=== PATIENT | male | born 1955 | race Caucasian/White ===

== ENCOUNTER 2023-11-17 15:39 | Outpatient (OUT) | payer MEDICARE, SELFPAY ==
[2023-11-17 16:21] LABS: Basophils Percent Auto 0.2 % (0.2-2.0); Eosinophils Absolute Auto 0.1 10^3/uL (0.0-0.7); Hematocrit 42.1 % (42.0-54.0); Hemoglobin 14.8 g/dL (14.0-18.0); Immature Granulocytes Abs Auto 0.01 10^3/uL (0.00-0.03); Immature Granulocytes Pct Auto 0.2 % (0.0-0.5); Lymphocytes Absolute Auto 0.9 10^3/uL (1.2-3.8); Lymphocytes Percent Auto 17.4 % (20.5-60.0); Mean Corpuscular HGB Conc 35.2 g/dL (29.9-35.2); Mean Corpuscular Hemoglobin 31.3 pg (25.9-34.0); Mean Platelet Volume 10.3 fL (9.5-13.5); Monocytes Absolute Auto 0.4 10^3/uL (0.3-0.8); Monocytes Percent Auto 8.7 % (1.7-12.0); Neutrophils Absolute Auto 3.7 10^3/uL (1.4-6.5); Neutrophils Percent Auto 72.5 % (43.0-75.0); Platelet Count 181 10^3/uL (150-450); Red Blood Count 4.73 10^6/uL (4.70-6.10); White Blood Count 5.1 10^3/uL (4.0-11.0)
[2023-11-17 17:06] LABS: Estimated Average Glucose 117 mg/dL; Glycohemoglobin A1C 5.7 % (4.5-6.2)
[2023-11-17 17:11] LABS: Bilirubin Urine NEGATIVE (NEGATIVE); Blood Urine NEGATIVE (NEGATIVE); Clarity Urine CLEAR (CLEAR); Color Urine YELLOW (YELLOW); Glucose Urine UA NEGATIVE (NEGATIVE); Ketones Urine 40 mg/dL (NEGATIVE); Leukocyte Esterase Urine NEGATIVE (NEGATIVE); Nitrite Urine NEGATIVE (NEGATIVE); Protein Urine NEGATIVE (NEG/TRACE); Specific Gravity Urine >=1.030 (1.005-1.025); Urobilinogen Urine 0.2 EU/dL (0.2-1.0); pH Urine 5.5 (5.0-9.0)
[2023-11-17 17:31] LABS: Alanine Aminotransferase 30 U/L (16-63); Albumin Globulin Ratio 1.3; Albumin Level 4.1 g/dL (3.4-5.0); Alkaline Phosphatase 87 U/L (46-116); Anion Gap 15.3; Aspartate Amino Transferase 30 U/L (15-37); BUN Creatinine Ratio 20.7; Bilirubin Total 1.9 mg/dL (0.2-1.0); Calcium 9.1 mg/dL (8.5-10.1); Carbon Dioxide 26.2 mmol/L (21.0-32.0); Chloride 101 mmol/L (98-107); Estimated GFR (African America >60 (>=60); Estimated GFR (Non-African Ame >60 (>=60); Globulin 3.1 g/dL; Glucose 98 mg/dL (74-106); Potassium 3.5 mmol/L (3.5-5.1); Sodium 139 mmol/L (136-145); Thyroid Stimulating Hormone 1.905 uIU/mL (0.358-3.740); Total Protein 7.2 g/dL (6.4-8.2)
[2023-11-17 17:33] LABS: Bacteria Urine NONE SEEN #/HPF (NONE SEEN); Mucus Urine MODERATE (NONE SEEN); RBC Urine 0-2 #/HPF (0-2); WBC Urine 0-2 #/HPF (NONE SEEN)
[2023-11-17 17:34] LABS: Calcium Oxalate Crystals Urine MODERATE; Cast Seen? NONE SEEN #/LPF (NONE SEEN); Crystals Seen? Seen #/HPF (None Seen); Squamous Epithelial Cell Urine RARE #/LPF (NONE/RARE)
== END 2023-11-17 15:40 | disposition home or self-care (01) ==
LOC: LAB 15:39
PROVIDERS: PCP Family Medicine; Visit Provider Family Medicine
DX: R35.1 Nocturia (principal); R73.9 Hyperglycemia, unspecified; Z79.899 Other long term (current) drug therapy; Z12.5 Encounter for screening for malignant neoplasm of prostate; R63.4 Abnormal weight loss
CPT/HCPCS: 36415; 80053; 81001; 83036; 84153; 84443; 85025; 87086

== ENCOUNTER 2025-03-10 02:10 | Emergency (ER) | payer MEDICARE, SELFPAY ==
[2025-03-10 02:15] VITALS: BP 169/92; PULSE 92; TEMP 37; O2SAT 99; BMI 25.1
--- OUTSIDE RECORDS SUMMARY | 2025-03-10 02:24 | XMS_ITS | Encounter Summary ---
Author Organization [facility] Address [address] [place] [address] Phone Care Team Providers Care Rate Setter Name Role Phone Sai Patel DO Primary Care Provider [phone] Encounter Details Date Type Department Care Team (Late st Contact Info) Description 11/14/2022 Orders Only [facility] [address] [place] [address] Conversion, Onbase Social History Tobacco Use Types Packs/Day Years Used Date Smoking Tobacco: Never Assessed Sex and Gender Information Value Date Recorded Sex Assigned at Not on file Legal Sex Male 12:54 PM EST Gender Identity Not on file Sexual Orientation Not on file documented as of this encounter Plan of Treatment Scheduled Orders Name Type Priority Associated Diagnoses Orde r Schedule OUTSIDE LAB SCAN Lab Ordered: 11/14/2022 documented as of this encounter Visit Diagnoses Not on filedocumented in this encounter Care Teams Rate Setter Relationship Specialty Start Date End Date Sai Patel DO PCP - General 06/26/18 documented as of this encounter
--- OUTSIDE RECORDS SUMMARY | 2025-03-10 02:24 | XMS_ITS | Clinical Summary ---
Author Organization [facility] Address [address] [place] [address] Phone Care Team Providers Care Replanting Machine Crewman Name Role Phone Sai Patel DO Primary Care Provider [phone] Social History Tobacco Use Types Packs/Day Years Used Date Smoking Tobacco: Never Assessed Sex and Gender Information Value Date Recorded Sex Assigned at Not on file Legal Sex Male 12:54 PM EST Gender Identity Not on file Sexual Orientation Not on file Last Filed Vital Signs Vital Sign Reading Time Taken Comments Blood Pressure 136/80 02/16/2022 10:30 AM EDT Pulse 72 02/16/2022 9:53 AM EDT Temperature - - Respiratory Rate - - Oxygen Saturation - - Inhaled Oxygen Concentration - - Weight 81.2 kg (179 lb) 02/16/2022 9:53 AM EDT Height 180.3 cm (5' 11 ) 02/16/2022 9:53 AM EDT Body Mass Index 24.97 02/16/2022 9:53 AM EDT Plan of Treatment Not on file Care Teams Replanting Machine Crewman Relationship Specialty Start Date End Date Sai Patel DO PCP - General 06/26/18
--- OUTSIDE RECORDS SUMMARY | 2025-03-10 02:25 | XMS_ITS | Encounter Summary ---
Author Organization [facility] Address [address] [place] [address] Phone Care Team Providers Care Online Marketing Specialist Name Role Phone Sai Patel DO Primary Care Provider [phone] Encounter Details Date Type Department Care Team (Late st Contact Info) Description 11/21/2024 Transcribe Orders [facility] [address] [place] [address] Sai Patel DO [address] [place] [id number] Hyperlipidemia, unspecified (Primary Dx) Social History Tobacco Use Types Packs/Day Years Used Date Smoking Tobacco: Never Assessed Sex and Gender Information Value Date Recorded Sex Assigned at Not on file Legal Sex Male 12:54 PM EST Gender Identity Not on file Sexual Orientation Not on file documented as of this encounter Plan of Treatment Not on file documented as of this encounter Visit Diagnoses Diagnosis Hyperlipidemia, unspecified- Primary documented in this encounter Care Teams Online Marketing Specialist Relationship Specialty Start Date End Date Sai Patel DO PCP - General 06/26/18 documented as of this encounter
--- OUTSIDE RECORDS SUMMARY | 2025-03-10 02:25 | XMS_ITS | Encounter Summary ---
Author Organization [facility] Address [address] [place] [address] Phone Care Team Providers Care Blow Mold Technician Name Role Phone Sai Patel DO Primary Care Provider [phone] Encounter Details Date Type Department Care Team (Late st Contact Info) Description 11/09/2021 Orders Only [facility] [address] [place] [address] Conversion, Onbase Social History Tobacco Use Types [...] r Schedule OUTSIDE LAB SCAN Lab Ordered: 11/09/2021 documented as of this encounter Visit Diagnoses Not on filedocumented in this encounter Care Teams Blow Mold Technician Relationship Specialty Start Date End Date Sai Patel DO PCP - General 06/26/18 documented as of this encounter
--- OUTSIDE RECORDS SUMMARY | 2025-03-10 02:25 | XMS_ITS | Encounter Summary ---
Author Organization [facility] Address [address] [place] [address] Phone Care Team Providers Care Business Teacher Name Role Phone Sai Patel DO Primary Care Provider [phone] Encounter Details Date Type Department Care Team (Late st Contact Info) Description 11/12/2021 Orders Only [facility] [address] [place] [address] Conversion, Onbase Social History Tobacco Use Types [...] r Schedule OUTSIDE LAB SCAN Lab Ordered: 11/12/2021 documented as of this encounter Visit Diagnoses Not on filedocumented in this encounter Care Teams Business Teacher Relationship Specialty Start Date End Date Sai Patel DO PCP - General 06/26/18 documented as of this encounter
--- OUTSIDE RECORDS SUMMARY | 2025-03-10 02:25 | XMS_ITS | CCD ---
Author Organization [facility] CliniSyme Care Team Providers Care Sailing Instructor Name Role Phone Saeed Patel Unavailable Saeed Patel Unavailable Unavailable Unavailable ISABEL, DR CORNELIA Cai Consulting Unavailable PATRICIA, DR TIPTON Primary Care Unavailable ISABEL, DR CORNELIA Cai Admitting Unavailable ISABEL, DR CORNELIA Cai Attending Unavailable Saeed Arce Consulting Unavailable REQUEST, DR MALDONADO LISTED Admitting Unavaila ble REQUEST, DR MALDONADO LISTED Attending Unavaila ble REQUEST, DR MALDONADO LISTED Consulting Unavaila ble PATRICIA, DR TIPTON Primary Care Unavailable REQUEST, NONE LISTED Attending Unavaila ble REQUEST, NONE LISTED Consulting Unavaila ble REQUEST, DR MALDONADO LISTED Admitting Unavaila ble PATRICIA, DR TIPTON Primary Care Unavailable Latrell Urbano Attending Unavailable Patricia, Dr. Saeed Painter Referring Unavaila ble Patricia, Dr. Saeed Painter Primary Care Unavaila ble Patricia, Dr. Saeed Painter Primary Care Unavaila Latrell Jennings Referring Unavailable Latrell Urbano Attending Unavailable Saeed Patel DO Primary Care Provider Saeed Patel DO Attending Provider [phone] Saeed Patel Attending Unavailable Saeed Patel Primary Care Unavailable Saeed Paetl Admitting Unavailable Jennifer Fletcher APRN Attending Provider Medications Current Medications Medication Drug Class(es) Dates Sig (Normalized) Sig (Original) calcium ascorbate 500 mg oral tablet (3 sources) Start: 11-21-2023 take 1 tablet by mouth once daily Ascorbate Calcium (Vitamin C) 500 mg tablet Active 500 MG PO Daily November 21, 2023 12:00am Complies with drug therapy citrulline 600 mg oral capsule (2 sources) Start: 11-14-2024 Citrulline 600 mg capsule Active 0 PO .COMPLEX November 14, 2024 12:00am 1500 MG orally QD; Complies with drug therapy Grape Seed Extract (15 sources) Start: 11-21-2023 Grapeseed extract Active PO November 21, 2023 12:00am Complies with drug therapy Start: 11-21-2023 Grapeseed extr act Active PO November 21, 2023 12:00am Grape Seed Extra ct CAPS TAKE 1 CAPSULE Daily Quantity: 0 Refills: 0 Ordered: 12-Jan-2022 DO Active Grapeseed Extrac t Active Magnesium (6 sources) take 1 tablet by mouth once daily Magnesium 250 MG 1 tablet with a meal Orally Once a day Active magnesium oxide 250 mg oral tablet (6 sources) Start: 11-21-2023 End: 11-21-2023 take 1 tablet by mouth once daily Magnesium Oxide 250 mg magnesium tablet Active 250 MG PO Daily November 21, 2023 8:09am Complies with drug therapy Itasca 3 (6 sources) Itasca 3 Active Itasca-3 Fatty Acids (3 sources) Start: 11-21-2023 take 1 capsule by mouth once daily Itasca-3 Fatty Acids 1,250 mg capsule Active 1250 MG PO Daily November 21, 2023 12:00am Complies with drug therapy Start: 11-21-2023 take 1 capsule by mouth once d aily Itasca-3 Fatty Acids 1,250 mg capsule Active 1250 MG PO Daily November 21, 2023 12:00am Start: 11-21-2023 take 1250 mg by mouth once rolando ly Itasca-3 Fatty Acids Active 1250 MG PO Daily November 21, 2023 12:00am rosuvastatin calcium 5 mg oral tablet (2 sources) HMG-CoA Reductase Inhibitor Start: 02-16-2022 take 1 tablet by mouth every twenty-four hours Rosuvastatin Calcium 5 MG 1 tablet Orally Once a day Jan, Active vitamin B12 (6 sources) Vitamin B12 Vitamin B12 Acti ve Vitamin C 500 MG (6 sources) Vitamin C 500 MG as directed Orally Active Vitamin D (6 sources) Vitamin D Active Zinc (6 sources) take 1 tablet by mouth once daily Zinc 30 MG 1 tablet Orally Once a day Active zinc gluconate 30 mg oral tablet (6 sources) Start: 11-21-2023 End: 11-21-2023 take 1 tablet by mouth once daily Zinc Gluconate 30 mg tablet Active 30 MG PO Daily November 21, 2023 8:10am Complies with drug therapy Completed/Discontinued Medications Medication Drug Class(es) Dates Sig (Normalized) Sig (Original) aspirin 81 mg chewable tablet (15 sources) Platelet Aggregation Inhibitor, Nonsteroidal Anti-inflammatory Drug Start: 11-21-2023 End: 11-21-2023 take 1 tablet by mouth once daily Aspirin 81 mg tablet,chewable Discontinued 1 TAB PO Daily November 21, 2023 8:09am November 21, 2023 8:10am Start: 11-15-2021 take 1 tablet by romy once daily at mealtime Aspirin 81 81 MG 1 tablet Orally qd with food October, Active Xiao-C TABS (6 sources) Xiao-C TABS SANDRA E 1 TABLET DAILY. Quantity: 0 Refills: 0 Ordered: 12-Jan-2022 DO Active folic acid 0.4 mg oral table t (6 sources) take 1 tablet by romy once daily Folate 400 MCG Oral Tablet Take 1 tablet daily Quantity: 0 Refills: 0 Ordered: 12-Jan-2022 DO Active magnesium citrate (6 sources) Magnesium Citrat e CAPS TAKE 1 CAPSULE Daily Quantity: 0 Refills: 0 Ordered: 12-Jan-2022 DO Active Itasca 3 1200 MG Oral Capsule (6 sources) take 1 capsule by [facility] once daily Itasca 3 1200 MG Oral Capsule TAKE 1 CAPSULE Daily Quantity: 0 Refills: 0 Ordered: 12-Jan-2022 DO Active ubidecarenone 100 mg oral capsule (6 sources) take 1 capsule by [facility] once daily Co Q10 100 MG Oral Capsule TAKE 1 CAPSULE Daily Quantity: 0 Refills: 0 Ordered: 12-Jan-2022 DO Active Vitamin B12 TABS (6 sources) Vitamin B12 TABS Take 1 tablet daily Quantity: 0 Refills: 0 Ordered: 12-Jan-2022 DO Active Vitamin B6 TABS (6 sources) Vitamin B6 TABS Take 1 tablet daily Quantity: 0 Refills: 0 Ordered: 12-Jan-2022 DO Active Vitamin K2-Vitamin D3 CAPS (6 sources) Vitamin K2-Vitam in D3 CAPS Quantity: 0 Refills: 0 Ordered: 12-Jan-2022 DO Active 50MCG/125MCG one tablet Daily Problems Active Problems Problem Classification Problem Date Documented Da te Episodic/Chronic Cardiac dysrhythmias (4 sources) Other specified cardiac arrhythmias; Translations: [OTHER SPECIFIED CARDIAC ARRHYTHMIAS] Onset: 11-09-2021 Chronic Cardiac dysrhythmias (13 sources) Palpitations; Translations: [Palpitations] Onset: 11-15-2021 Resolved: 11-15-2021 Episodic Diabetes mellitus without complication (8 sources) Hyperglycemia, unspecified; Translations: [Hyperglycemia] Onset: 11-15-2021 Resolved: 02-17-2022 Episodic Diseases of white blood cells (4 sources) Leukopenia; Translations: [Decreased white blood cell count, unspecified] 11-14-2024 Chronic Disorders of lipid metabolism (19 sources) Hyperlipidemia; Translations: [Hyperlipidemia, unspecified] Onset: 11-15-2021 Resolved: 11-15-2021 Chronic Genitourinary symptoms and ill-defined conditions (12 sources) Nocturia; Translations: [Nocturia] Onset: 11-15-2021 Resolved: 02-17-2022 Episodic Other aftercare (2 sources) 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; Translations: [Long-term (current) use of other medications] Onset: 02-17-2022 Resolved: 02-17-2022 Episodic Other aftercare (3 sources) Long-term current use of drug therapy; Translations: [Other residential (current) drug therapy] 11-21-2023 Episodic Other lower respiratory disease (6 sources) Dyspnea; Translations: [Other respiratory abnormalities] Episodic Other nutritional; endocrine; and metabolic disorders (3 sources) Abnormal weight gain; Translations: [Abnormal weight gain] Onset: 11-15-2021 Resolved: 02-17-2022 Episodic Other nutritional; endocrine; and metabolic disorders (5 sources) Overweight in adulthood with body mass index of 25 or more but less than 30; Translations: [Overweight] Episodic Other nutritional; endocrine; and metabolic disorders (2 sources) Intentional weight loss 11-21-2023 Episodic Other nutritional; endocrine; and metabolic disorders (3 sources) Weight increased; Translations: [Abnormal weight gain] 11-14-2024 Episodic Other nutritional; endocrine; and metabolic disorders (1 source) Abnormal weight loss; Translations: [Abnormal weight loss] Onset: 11-12-2024 Episodic Other screening for suspected conditions (not mental disorders or infectious disease) (14 sources) Encounter for screening for malignant neoplasm of prostate; Translations: [Patient encounter status] Onset: 11-15-2021 Resolved: 02-17-2022 Episodic Residual codes; unclassified (1 source) Body mass index 20-24 - normal; Translations: [Body Mass Index between 19-24, adult] Episodic Unclassified (2 sources) Intentional weight loss; Translations: [Intentional weight loss] 11-21-2023 Past or Other Problems Problem Classification Problem Date Documented Da te Episodic/Chronic Conditions associated with dizziness or vertigo (1 source) Dizziness and giddiness Onset: 11-15-2021 Resolved: 11-15-2021 Episodic Other circulatory disease (1 source) Elevated blood-pressure reading, without diagnosis of hypertension Onset: 11-15-2021 Resolved: 11-15-2021 Episodic Unclassified (6 sources) Never smoked tobacco; Translations: [Never a smoker] Results Test Name Value Interpretation Reference Range Facility A1C with Estimated Average G luon 11-12-2024 Glucose [Mass/Vol] 114 mg/dL Normal [facility] Comment on above: Result Comment: PERF ORMED BY: [place] [address] PATHOLOGIST MATERIAL STOCKKEEPER YARD KEN ETIENNE M.D. Performed By: #### C UU, CMP, PSATOTAL, CBC, ADDONUAPLUS, TSH3, A1C WTH eA #### [facility] [address] [place] [address] #### APOB #### [facility] , A1C with Estimated Average G luOrdered By: Saeed Patel on 11-12-2024 HbA1c (Bld) [Mass fraction] 5.6 % 4.3-5.6 [facility] Comment on above: Result Comment: Incr eased risk for diabetes: 5.7 - 6.4 diabetes: >6.4 glycemic control for adults with diabetes: <7.0 Performed By: #### C UU, CMP, PSATOTAL, CBC, ADDONUAPLUS, TSH3, A1C WTH eA #### [facility] [address] [place] [address] [place] #### APOB #### [facility] , Increased risk for d iabetes: 5.7 - 6.4diabetes: >6.4glycemic control for adults with diabetes: <7.0 Alanine aminotransferase [En zymatic activity/volume] in Serum or PlasmaOrdered By: Saeed Patel on 11-12-2024 ALT [Catalytic activity/Vol] Alanine aminotransferase [Enzymatic activity/volume] in Serum or Plasma 752 [facility] Albumin [Mass/volume] in Ser um or Plasma by Bromocresol green (BCG) dye binding methoOrdered By: Saeed Patel on 11-12-2024 Albumin BCG dye [Mass/Vol] Albumin [Mass/volume] in Serum or Plasma by Bromocresol green (BCG) dye binding metho 3.5-5.7 [facility] Albumin BCG dye [Mass/Vol] 4.4 g/dL 3.5-5.7 [facility] Alkaline phosphatase [Enzyma tic activity/volume] in Serum or PlasmaOrdered By: Saeed Patel on 11-12-2024 ALP [Catalytic activity/Vol] Alkaline phosphatase [Enzymatic activity/volume] in Serum or Plasma 34-104 [facility] Apolipoprotein BOrdered By: Saeed Patel on 11-12-2024 Apolipoprotein B [Mass/Vol] 131 mg/dL High <90 [facility] Comment on above: Result Comment: Jessie huerta < 90 Borderline High 90 - 99 High 100 - 130 Very High >130 ASCVD RISK THERAPEUTIC TARGET CATEGORY APO B (mg/dL) Very High Risk <80 (if extreme risk <70) High Risk <90 Moderate Risk <90 Performed at: - [address] [id number] Lab Manager: Simona Lord MD, Phone: [phone] PERFORMED BY: [place] [address] PATHOLOGIST MATERIAL STOCKKEEPER YARD KEN ETIENNE M.D. Performed By: #### C UU, CMP, PSATOTAL, CBC, ADDONUAPLUS, TSH3, A1C WTH eA #### [address] #### APOB #### [facility] , Desirable < 90 Nikolas helm High 90 - 99 High 100 - 130 Very High >130 ASCVD RISK THERAPEUTIC TARGET CATEGORY APO B (mg/dL) Very High Risk <80 (if extreme risk <70) High Risk <90 Moderate Risk <90Performed at: - [facility] [id number] [place], [place] [id number] Director: Simona Lord MD, Phone: [phone] Appearance of UrineOrdered B y: Saeed Patel on 11-12-2024 Appearance (U) Urine appearance Clear [facility] Aspartate aminotransferase [ Enzymatic activity/volume] in Serum or PlasmaOrdered By: Saeed Patel on 11-12-2024 AST [Catalytic activity/Vol] Aspartate aminotransferase [Enzymatic activity/volume] in Serum or Plasma 13-39 [facility] Bacteria [Presence] in Urine by AutomatedOrdered By: Saeed Patel on 11-12-2024 Bacteria Auto Ql (U) Bacteria [Presence] in Urine by Automated None Seen [facility] Bacteria Auto Ql (U) None seen [HPF] None Seen [facility] Basophils Auto (Bld) [#/Vol] Ordered By: Saeed Patel on 11-12-2024 Basophils (Bld) [#/Vol] Automated basoph il count 0.0-0.2 [facility] Basophils/100 WBC Auto (Bld) Ordered By: Saeed Patel on 11-12-2024 Basophils/100 WBC (Bld) Automated basophil % . [facility] Bilirubin Test strip Ql (U)O rdered By: Saeed Patel on 11-12-2024 Bilirubin Ql (U) Bilirubin.total [Presence] in Urine by Test strip Negative [facility] Bilirubin Ql (U) Negative Negative [facility] Bilirubin.total [Mass/volume ] in Serum or PlasmaOrdered By: Saeed Patel on 11-12-2024 Bilirubin [Mass/Vol] Bilirubin.total [Mass/volume] in Serum or Plasma High 0.3-1.0 [facility] Comment on above: Samples from patient s who have taken Naproxen have shown spurious elevation in Total Bilirubin levels. A metabolite of Naproxen, O-desmethylnaproxen, has been shown to interfere with the [place]-Angeles method for measuring Total Bilirubin. Blood estimated average gluc ose determination by estimation from glycated hemoglobinOrdered By: Saeed Patel on 11-12-2024 Average glucose Estimated from glycated hemoglobin (Bld) [Mass/Vol] Glucose mean value [Mass/volume] in Blood Estimated from glycated hemoglobin [facility] Average glucose Estimated from glycated hemoglobin (Bld) [Mass/Vol] 114 mg/dL [facility] Calcium [Mass/volume] in Ser um or PlasmaOrdered By: Saeed Patel on 11-12-2024 Calcium [Mass/Vol] Calcium [Mass/volume] in Serum or Plasma 8.6-10.3 [facility] Calcium oxalate crystals [Pr esence] in Urine by Computer assisted methodOrdered By: Saeed Patel on 11-12-2024 Calcium oxalate crystals Computer assisted Ql (U) Calcium oxalate crystals [Presence] in Urine by Computer assisted method [facility] Calcium oxalate crystals Computer assisted Ql (U) 1+ [HPF] [facility] Carbon dioxide, total [Moles /volume] in Serum or PlasmaOrdered By: Saeed Patel on 11-12-2024 CO2 [Moles/Vol] Carbon dioxide, total [Moles/volume] in Serum or Plasma 21.0-31.0 [facility] Chloride [Moles/volume] in S davis or PlasmaOrdered By: Saeed Patel on 11-12-2024 Chloride [Moles/Vol] Chloride [Moles/volume] in Serum or Plasma 98-107 [facility] Color Auto (U)Ordered By: En Patel on 11-12-2024 Color (U) Color of Urine by Auto Yellow [facility] Complete Blood Count Auto Di ffOrdered By: Saeed Patel on 11-12-2024 Basophils (Bld) [#/Vol] 0.0 10*3/uL 0.0-0.2 [facility] Comment on above: Result Comment: PERF ORMED BY: [facility] [address] [place] [address] PATHOLOGIST MATERIAL STOCKKEEPER YARD KEN ETIENNE M.D. Performed By: #### C UU, CMP, PSATOTAL, CBC, ADDONUAPLUS, TSH3, A1C WTH eA #### [address] #### APOB #### [facility] , Basophils/100 WBC (Bld) 0.6 % . [facility] Comment on above: Performed By: #### C UU, CMP, PSATOTAL, CBC, ADDONUAPLUS, TSH3, A1C WTH eA #### [facility] [address] [place] [address] [place] #### APOB #### [facility] , Eosinophils (Bld) [#/Vol] 0.1 10*3/uL 0.0-0.45 [facility] Comment on above: Performed By: #### C UU, CMP, PSATOTAL, CBC, ADDONUAPLUS, TSH3, A1C WTH eA #### [address] #### APOB #### [facility] , Eosinophils/100 WBC (Bld) 3.6 % . [facility] Comment on above: Performed By: #### C UU, CMP, PSATOTAL, CBC, ADDONUAPLUS, TSH3, A1C WTH eA #### [facility] [address] [place] [address] [place] #### APOB #### [facility] , Erythrocyte distribution width (RBC) [Ratio] 13.3 % 12.0-14.8 [facility] Comment on above: Performed By: #### C UU, CMP, PSATOTAL, CBC, ADDONUAPLUS, TSH3, A1C WTH eA #### [facility] [address] [place] [address] [place] #### APOB #### [facility] , Hematocrit (Bld) [Volume fraction] 46.4 % 38.8-50.0 [facility] Comment on above: Performed By: #### C UU, CMP, PSATOTAL, CBC, ADDONUAPLUS, TSH3, A1C WTH eA #### [facility] [address] [place] [address] #### APOB #### [facility] , Hemoglobin (Bld) [Mass/Vol] 16.2 g/dL 13.0-17.0 [facility] Comment on above: Performed By: #### C UU, CMP, PSATOTAL, CBC, ADDONUAPLUS, TSH3, A1C WTH eA #### [facility] [address] [place] [address] #### APOB #### [facility] , Lymphocytes (Bld) [#/Vol] 1.1 10*3/uL 1.00-4.8 [facility] Comment on above: Performed By: #### C UU, CMP, PSATOTAL, CBC, ADDONUAPLUS, TSH3, A1C WTH eA #### [address] #### APOB #### [facility] , Lymphocytes/100 WBC (Bld) 28.1 % . [facility] Comment on above: Performed By: #### C UU, CMP, PSATOTAL, CBC, ADDONUAPLUS, TSH3, A1C WTH eA #### [facility] [address] [place] [address] [place] #### APOB #### [facility] , MCH (RBC) [Entitic mass] 31.6 pg 27.5-35.2 [facility] Comment on above: Performed By: #### C UU, CMP, PSATOTAL, CBC, ADDONUAPLUS, TSH3, A1C WTH eA #### [facility] [address] [place] [address] [place] #### APOB #### [facility] , MCV (RBC) [Entitic vol] 90.4 fL 83.5-101 [facility] Comment on above: Performed By: #### C UU, CMP, PSATOTAL, CBC, ADDONUAPLUS, TSH3, A1C WTH eA #### [facility] [address] [place] [address] [place] #### APOB #### [facility] , Monocytes (Bld) [#/Vol] 0.5 10*3/uL 0.0-0.8 [facility] Comment on above: Performed By: #### C UU, CMP, PSATOTAL, CBC, ADDONUAPLUS, TSH3, A1C WTH eA #### [facility] [address] [place] [address] #### APOB #### [facility] , Monocytes/100 WBC (Bld) 13.5 % . [facility] Comment on above: Performed By: #### C UU, CMP, PSATOTAL, CBC, ADDONUAPLUS, TSH3, A1C WTH eA #### [facility] [address] [place] [address] #### APOB #### [facility] , Neutrophils (Bld) [#/Vol] 2.1 10*3/uL 1.8-7.7 [facility] Comment on above: Performed By: #### C UU, CMP, PSATOTAL, CBC, ADDONUAPLUS, TSH3, A1C WTH eA #### [facility] [address] [place] [address] [place] #### APOB #### [facility] , Neutrophils/100 WBC (Bld) 54.2 % . [facility] Comment on above: Performed By: #### C UU, CMP, PSATOTAL, CBC, ADDONUAPLUS, TSH3, A1C WTH eA #### [facility] [address] [place] [address] [place] #### APOB #### [facility] , Platelet mean volume (Bld) [Entitic vol] 8.5 fL 6.6-10.1 [facility] Comment on above: Performed By: #### C UU, CMP, PSATOTAL, CBC, ADDONUAPLUS, TSH3, A1C WTH eA #### [facility] [address] [place] [address] [place] #### APOB #### [facility] , Platelets (Bld) [#/Vol] 170 10*3/uL 150-450 [facility] Comment on above: Performed By: #### C UU, CMP, PSATOTAL, CBC, ADDONUAPLUS, TSH3, A1C WTH eA #### [facility] [address] [place] [address] [place] #### APOB #### [facility] , RBC (Bld) [#/Vol] 5.14 10*6/uL 3.90-5.60 [facility] Comment on above: Performed By: #### C UU, CMP, PSATOTAL, CBC, ADDONUAPLUS, TSH3, A1C WTH eA #### [facility] [address] [place] [address] #### APOB #### [facility] , WBC (Bld) [#/Vol] 3.9 10*3/uL Low 4.1-10.5 [facility] Comment on above: Performed By: #### C UU, CMP, PSATOTAL, CBC, ADDONUAPLUS, TSH3, A1C WTH eA #### [facility] [address] [place] [address] [place] #### APOB #### [facility] , Complete Blood Count Auto Di ffon 11-12-2024 Mean Corpuscular HGB Conc 34.9 g/dL Normal 32.5-35.6 [facility] Comment on above: Performed By: #### C UU, CMP, PSATOTAL, CBC, ADDONUAPLUS, TSH3, A1C WTH eA #### [facility] [address] [place] [address] [place] #### APOB #### [facility] , NRBC% 0.1 /100{WBC} Normal 0-0.5 [facility] Comment on above: Performed By: #### C UU, CMP, PSATOTAL, CBC, ADDONUAPLUS, TSH3, A1C WTH eA #### [place] [address] [place] #### APOB #### [facility] , Comprehensive Metabolic Pane tori 11-12-2024 Albumin [Mass/Vol] 4.4 g/dL Normal 3.5-5.7 [facility] Comment on above: Performed By: #### C UU, CMP, PSATOTAL, CBC, ADDONUAPLUS, TSH3, A1C WTH eA #### [place] [address] [place] #### APOB #### [facility] , GFR/1.73 sq M.predicted MDRD (S/P/Bld) [Vol rate/Area] mL/min/{1.73_m2} Normal [facility] Comment on above: Performed By: #### C UU, CMP, PSATOTAL, CBC, ADDONUAPLUS, TSH3, A1C WTH eA #### [address] #### APOB #### [facility] , Comprehensive Metabolic Pane lOrdered By: Saeed Patel on 11-12-2024 Albumin/Globulin [Mass ratio] 2.0 {ratio} [facility] Comment on above: Performed By: #### C UU, CMP, PSATOTAL, CBC, ADDONUAPLUS, TSH3, A1C WTH eA #### [place] [address] [place] #### APOB #### [facility] , ALP [Catalytic activity/Vol] 69 U/L 34-104 [facility] Comment on above: Performed By: #### C UU, CMP, PSATOTAL, CBC, ADDONUAPLUS, TSH3, A1C WTH eA #### [facility] [address] [place] [address] [place] #### APOB #### [facility] , ALT [Catalytic activity/Vol] 25 U/L 7-52 [facility] Comment on above: Performed By: #### C UU, CMP, PSATOTAL, CBC, ADDONUAPLUS, TSH3, A1C WTH eA #### [facility] [address] [place] [address] [place] #### APOB #### [facility] , Anion gap [Moles/Vol] 10.6 mmol/L 6.0-15.0 [facility] Comment on above: Performed By: #### C UU, CMP, PSATOTAL, CBC, ADDONUAPLUS, TSH3, A1C WTH eA #### [place] [address] [place] #### APOB #### [facility] , AST [Catalytic activity/Vol] 31 U/L 13-39 [facility] Comment on above: Performed By: #### C UU, CMP, PSATOTAL, CBC, ADDONUAPLUS, TSH3, A1C WTH eA #### [place] [address] [place] #### APOB #### [facility] , Bilirubin [Mass/Vol] 1.3 mg/dL High 0.3-1.0 [facility] Comment on above: Result Comment: Samp les from patients who have taken Naproxen have shown spurious elevation in Total Bilirubin levels. A metabolite of Naproxen, O-desmethylnaproxen, has been shown to interfere with the Balbina-Angeles method for measuring Total Bilirubin. Performed By: #### C UU, CMP, PSATOTAL, CBC, ADDONUAPLUS, TSH3, A1C WTH eA #### [place] [address] [place] #### APOB #### [facility] , Samples from patient s who have taken Naproxen have shown spurious elevation in Total Bilirubin levels. A metabolite of Naproxen, O-desmethylnaproxen, has been shown to interfere with the Jentimik-Candidaf method for measuring Total Bilirubin. Calcium [Mass/Vol] 9.0 mg/dL 8.6-10.3 [facility] Comment on above: Performed By: #### C UU, CMP, PSATOTAL, CBC, ADDONUAPLUS, TSH3, A1C WT eA #### [address] #### APOB #### [facility] , Chloride [Moles/Vol] 105 mmol/L 98-107 [facility] Comment on above: Performed By: #### C UU, CMP, PSATOTAL, CBC, ADDONUAPLUS, TSH3, A1C WT eA #### [place] [address] [place] #### APOB #### [facility] , CO2 [Moles/Vol] 28.6 mmol/L 21.0-31.0 [facility] Comment on above: Performed By: #### C UU, CMP, PSATOTAL, CBC, ADDONUAPLUS, TSH3, A1C WTH eA #### [place] [address] [place] #### APOB #### [facility] , Creatinine [Mass/Vol] 1.15 mg/dL 0.70-1.30 [facility] Comment on above: Performed By: #### C UU, CMP, PSATOTAL, CBC, ADDONUAPLUS, TSH3, A1C WT eA #### [facility] [address] [place] [address] [place] #### APOB #### [facility] , Globulin (S) [Mass/Vol] 2.2 g/dL [facility] Comment on above: Performed By: #### C UU, CMP, PSATOTAL, CBC, ADDONUAPLUS, TSH3, A1C WTH eA #### [facility] [address] [place] [address] [place] #### APOB #### [facility] , Glucose [Mass/Vol] 113 mg/dL High 70-100 [facility] Comment on above: Result Comment: [place] om Glucose Reference Range is dependent on time and content of last meal. Glucose of more than 200 mg/dL in a nonstressed, ambulatory subject supports the diagnosis of Diabetes Mellitus. ADA recommended reference range Performed By: #### C UU, CMP, PSATOTAL, CBC, ADDONUAPLUS, TSH3, A1C WTH eA #### [facility] [address] [place] [address] [place] #### APOB #### [facility] , ADA recommended refe rence rangeRandom Glucose Reference Range is dependent on time and content of last meal. Glucose of more than 200 mg/dL in a nonstressed, ambulatory subject supports the diagnosis of Diabetes Mellitus. Potassium [Moles/Vol] 4.2 mmol/L 3.5-5.1 [facility] Comment on above: Performed By: #### C UU, CMP, PSATOTAL, CBC, ADDONUAPLUS, TSH3, A1C WTH eA #### [place] [address] [place] #### APOB #### [facility] , Protein [Mass/Vol] 6.6 g/dL 6.4-8.9 [facility] Comment on above: Performed By: #### C UU, CMP, PSATOTAL, CBC, ADDONUAPLUS, TSH3, A1C WTH eA #### [place] [address] [place] #### APOB #### [facility] , Sodium [Moles/Vol] 140 mmol/L 136-145 [facility] Comment on above: Performed By: #### C UU, CMP, PSATOTAL, CBC, ADDONUAPLUS, TSH3, A1C WTH eA #### [facility] [address] [place] [address] [place] #### APOB #### [facility] , Urea nitrogen [Mass/Vol] 16 mg/dL 01-17 [facility] Comment on above: Performed By: #### C UU, CMP, PSATOTAL, CBC, ADDONUAPLUS, TSH3, A1C WTH eA #### [facility] [address] [place] [address] [place] #### APOB #### [facility] , Creatinine [Mass/volume] in Serum or PlasmaOrdered By: Saeed Patel on 11-12-2024 Creatinine [Mass/Vol] Creatinine [Mass/volume] in Serum or Plasma 0.70-1.30 [facility] Dipstick and MicroscopicOrde red By: Saeed Patel on 11-12-2024 Appearance (U) Clear Clear [facility] Comment on above: Order Comment: Name Collection Type:: Clean-Voided Midstream Performed By: #### C UU, CMP, PSATOTAL, CBC, ADDONUAPLUS, TSH3, A1C WTH eA #### [facility] [address] [place] [address] [place] #### APOB #### [facility] , Color (U) Yellow Yellow [facility] Comment on above: Order Comment: Name Collection Type:: Clean-Voided Midstream Performed By: #### C UU, CMP, PSATOTAL, CBC, ADDONUAPLUS, TSH3, A1C WTH eA #### [facility] [address] [place] [address] [place] #### APOB #### [facility] , Ketones Ql (U) Negative Negative [facility] Comment on above: Order Comment: Name Collection Type:: Clean-Voided Midstream Performed By: #### C UU, CMP, PSATOTAL, CBC, ADDONUAPLUS, TSH3, A1C WTH eA #### [facility] [address] [place] [address] [place] #### APOB #### [facility] , Leukocyte esterase Test strip Ql (U) Negative Negative [facility] Comment on above: Order Comment: Name Collection Type:: Clean-Voided Midstream Performed By: #### C UU, CMP, PSATOTAL, CBC, ADDONUAPLUS, TSH3, A1C WTH eA #### [address] #### APOB #### [facility] , pH (U) 6.0 [pH] 5.0-9.0 [facility] Comment on above: Order Comment: Name Collection Type:: Clean-Voided Midstream Performed By: #### C UU, CMP, PSATOTAL, CBC, ADDONUAPLUS, TSH3, A1C WTH eA #### [address] #### APOB #### [facility] , Dipstick and Microscopicon 0 11-12-2024 Bacteria,Urine None Seen Normal None Seen [facility] Comment on above: Order Comment: Name Collection Type:: Clean-Voided Midstream Performed By: #### C UU, CMP, PSATOTAL, CBC, ADDONUAPLUS, TSH3, A1C WTH eA #### [address] #### APOB #### [facility] , Bilirubin,Urine Negative Normal Negative The [facility] Comment on above: Order Comment: Name Collection Type:: Clean-Voided Midstream Performed By: #### C UU, CMP, PSATOTAL, CBC, ADDONUAPLUS, TSH3, A1C WTH eA #### [address] #### APOB #### [facility] , Calcium Oxalate Crystals,Urine 1+ Normal The [facility] Comment on above: Order Comment: Name Collection Type:: Clean-Voided Midstream Performed By: #### C UU, CMP, PSATOTAL, CBC, ADDONUAPLUS, TSH3, A1C WTH eA #### [address] #### APOB #### [facility] , Glucose Ql (U) Normal Normal Normal [facility] Comment on above: Order Comment: Name Collection Type:: Clean-Voided Midstream Performed By: #### C UU, CMP, PSATOTAL, CBC, ADDONUAPLUS, TSH3, A1C WTH eA #### [address] #### APOB #### [facility] , Hyaline Casts,Urine None Normal 0-8 [facility] Comment on above: Order Comment: Name Collection Type:: Clean-Voided Midstream Performed By: #### C UU, CMP, PSATOTAL, CBC, ADDONUAPLUS, TSH3, A1C WTH eA #### [address] #### APOB #### [facility] , Mucus,Urine Rare Normal The [facility] Comment on above: Order Comment: Name Collection Type:: Clean-Voided Midstream Result Comment: PERF ORMED BY: [place] [address] PATHOLOGIST MATERIAL STOCKKEEPER YARD KEN ETIENNE M.D. Performed By: #### C UU, CMP, PSATOTAL, CBC, ADDONUAPLUS, TSH3, A1C WTH eA #### [address] #### APOB #### [facility] , Nitrite,Urine Negative Normal Negative The [facility] Comment on above: Order Comment: Name Collection Type:: Clean-Voided Midstream Performed By: #### C UU, CMP, PSATOTAL, CBC, ADDONUAPLUS, TSH3, A1C WTH eA #### [address] #### APOB #### [facility] , Occult Blood,Urine Negative Normal Negative The [facility] Comment on above: Order Comment: Name Collection Type:: Clean-Voided Midstream Performed By: #### C UU, CMP, PSATOTAL, CBC, ADDONUAPLUS, TSH3, A1C WTH eA #### [address] #### APOB #### [facility] , Protein,Urine Negative Normal Negative The [facility] Comment on above: Order Comment: Name Collection Type:: Clean-Voided Midstream Performed By: #### C UU, CMP, PSATOTAL, CBC, ADDONUAPLUS, TSH3, A1C WTH eA #### [address] #### APOB #### [facility] , RBC,Urine 1-2 Normal 0-4 The [facility] Comment on above: Order Comment: Name Collection Type:: Clean-Voided Midstream Performed By: #### C UU, CMP, PSATOTAL, CBC, ADDONUAPLUS, TSH3, A1C WTH eA #### [address] #### APOB #### [facility] , Specificy [place],Urine 1.025 Normal 1.001-1.030 [facility] Comment on above: Order Comment: Name Collection Type:: Clean-Voided Midstream Performed By: #### C UU, CMP, PSATOTAL, CBC, ADDONUAPLUS, TSH3, A1C WTH eA #### [place] [address] [place] #### APOB #### [facility] , Squamous Epithelial Cell,Urine 1-2 Normal 0-2 The [facility] Comment on above: Order Comment: Name Collection Type:: Clean-Voided Midstream Performed By: #### C UU, CMP, PSATOTAL, CBC, ADDONUAPLUS, TSH3, A1C WTH eA #### [place] [address] [place] #### APOB #### [facility] , Urobilinogen,Urine Normal Normal Normal The [facility] Comment on above: Order Comment: Name Collection Type:: Clean-Voided Midstream Performed By: #### C UU, CMP, PSATOTAL, CBC, ADDONUAPLUS, TSH3, A1C WTH eA #### [facility] [address] [place] [address] [place] #### APOB #### [facility] , WBC,Urine 1-2 Normal 0-4 [facility] Comment on above: Order Comment: Name Collection Type:: Clean-Voided Midstream Performed By: #### C UU, CMP, PSATOTAL, CBC, ADDONUAPLUS, TSH3, A1C WTH eA #### [facility] [address] [place] [address] [place] #### APOB #### [facility] , Eosinophils Auto (Bld) [#/Vo l]Ordered By: Saeed Patel on 11-12-2024 Eosinophils (Bld) [#/Vol] Automated eosinophil count 0.0-0.45 [facility] Eosinophils/100 WBC Auto (Bl d)Ordered By: Saeed Patel on 11-12-2024 Eosinophils/100 WBC (Bld) Automated eosinophil % . [facility] Epithelial cells.squamous [# /area] in Urine sediment by Automated countOrdered By: Saeed Patel on 11-12-2024 Epithelial cells.squamous Auto (Urine sed) [#/Area] Epithelial cells.squamous [#/area] in Urine sediment by Automated count 0-2 [facility] Epithelial cells.squamous Auto (Urine sed) [#/Area] 1-2 [HPF] 0-2 [facility] Erythrocyte distribution wid th Auto (RBC) [Ratio]Ordered By: Saeed Patel on 11-12-2024 Erythrocyte distribution width (RBC) [Ratio] Erythrocyte distribution width [Ratio] by Automated count 12.0-14.8 [facility] Erythrocytes [#/area] in Uri ne sediment by Automated countOrdered By: Saeed Patel on 11-12-2024 RBC Auto (Urine sed) [#/Area] Erythrocytes [#/area] in Urine sediment by Automated count 0-4 [facility] RBC Auto (Urine sed) [#/Area] 1-2 [HPF] 0-4 [facility] Globulin Calc (S) [Mass/Vol] Ordered By: Saeed Patel on 11-12-2024 Globulin (S) [Mass/Vol] Serum globulin measurement by calculation (mass/volume) [facility] Glucose [Mass/volume] in Ser um or PlasmaOrdered By: Saeed Patel on 11-12-2024 Glucose [Mass/Vol] Glucose [Mass/volume] in Serum or Plasma High 70-100 [facility] Comment on above: ADA recommended refe rence rangeRandom Glucose Reference Range is dependent on time and content of last meal. Glucose of more than 200 mg/dL in a nonstressed, ambulatory subject supports the diagnosis of Diabetes Mellitus. Glucose [Mass/volume] in Uri ne by Test stripOrdered By: Saeed Patel on 11-12-2024 Glucose Test strip (U) [Mass/Vol] Glucose [Mass/volume] in Urine by Test strip Normal [facility] Glucose Test strip (U) [Mass/Vol] Normal mg/dL Normal [facility] Hematocrit Auto (Bld) [Volum e fraction]Ordered By: Saeed Patel on 11-12-2024 Hematocrit (Bld) [Volume fraction] Hematocrit [Volume Fraction] of Blood by Automated count 38.8-50.0 [facility] Hemoglobin A1c/Hemoglobin.to latesha in BloodOrdered By: Saeed Patel on 11-12-2024 HbA1c (Bld) [Mass fraction] Hemoglobin A1c percentage 4.3-5.6 [facility] Comment on above: Increased risk for d iabetes: 5.7 - 6.4diabetes: >6.4glycemic control for adults with diabetes: <7.0 Hemoglobin Test strip Ql (U) Ordered By: Saeed Patel on 11-12-2024 Hemoglobin Ql (U) Hemoglobin [Presence] in Urine by Test strip Negative [facility] Hemoglobin Ql (U) Negative Negative [facility] Hemoglobin [Mass/volume] in BloodOrdered By: Saeed Patel on 11-12-2024 Hemoglobin (Bld) [Mass/Vol] Hemoglobin [Mass/volume] in Blood 13.0-17.0 [facility] Hyaline casts [#/area] in Ur ine sediment by Automated countOrdered By: Saeed Patel on 11-12-2024 Hyaline casts Auto (Urine sed) [#/Area] Hyaline casts [#/area] in Urine sediment by Automated count 0-8 [facility] Hyaline casts Auto (Urine sed) [#/Area] None [LPF] 0-8 [facility] Ketones Test strip Ql (U)Ord ered By: Saeed Patel on 11-12-2024 Ketones Ql (U) Ketones [Presence] in Urine by Test strip Negative [facility] Leukocyte esterase [Presence ] in Urine by Test stripOrdered By: Saeed Patel on 11-12-2024 Leukocyte esterase Test strip Ql (U) Leukocyte esterase [Presence] in Urine by Test strip Negative [facility] Leukocytes [#/area] in Urine sediment by Automated countOrdered By: Saeed Patel on 11-12-2024 WBC Auto (Urine sed) [#/Area] Leukocytes [#/area] in Urine sediment by Automated count 0-4 [facility] WBC Auto (Urine sed) [#/Area] 1-2 [HPF] 0-4 [facility] Leukocytes [#/volume] correc carolyn for nucleated erythrocytes in Blood by Automated counOrdered By: Saeed Patel on 11-12-2024 WBC corrected for nucl RBC Auto (Bld) [#/Vol] Leukocytes [#/volume] corrected for nucleated erythrocytes in Blood by Automated coun Low 4.1-10.5 [facility] WBC corrected for nucl RBC Auto (Bld) [#/Vol] 3.9 10*3/uL Low 4.1-10.5 [facility] Lymphocytes Auto (Bld) [#/Vo l]Ordered By: Saeed Patel on 11-12-2024 Lymphocytes (Bld) [#/Vol] Lymphocytes [#/volume] in Blood by Automated count 1.00-4.8 [facility] Lymphocytes/100 WBC Auto (Bl d)Ordered By: Saeed Patel on 11-12-2024 Lymphocytes/100 WBC (Bld) Lymphocytes/100 leukocytes in Blood by Automated count . [facility] MCH Auto (RBC) [Entitic mass ]Ordered By: Saeed Patel on 11-12-2024 MCH (RBC) [Entitic mass] MCH [Entitic ma ss] by Automated count 27.5-35.2 [facility] MCHC Auto (RBC) [Mass/Vol]Or dered By: Saeed Patel on 11-12-2024 MCHC (RBC) [Mass/Vol] MCHC [Mass/volume] by Automated count 32.5-35.6 [facility] MCHC (RBC) [Mass/Vol] 34.9 g/dL 32.5-35.6 [facility] MCV Auto (RBC) [Entitic vol] Ordered By: Saeed Patel on 11-12-2024 MCV (RBC) [Entitic vol] MCV [Entitic vol ume] by Automated count 83.5-101 [facility] Monocytes Auto (Bld) [#/Vol] Ordered By: Saeed Patel on 11-12-2024 Monocytes (Bld) [#/Vol] Automated blood monocyte count 0.0-0.8 [facility] Monocytes/100 WBC Auto (Bld) Ordered By: Saeed Patel on 11-12-2024 Monocytes/100 WBC (Bld) Automated monocyte % . [facility] Mucus [Presence] in Urine by AutomatedOrdered By: Saeed Patel on 11-12-2024 Mucus Auto Ql (U) Mucus [Presence] in Urine by Automated [facility] Mucus Auto Ql (U) Rare [LPF] [facility] Neutrophils Auto (Bld) [#/Vo l]Ordered By: Saeed Patel on 11-12-2024 Neutrophils (Bld) [#/Vol] Neutrophils [#/volume] in Blood by Automated count 1.8-7.7 [facility] Neutrophils/100 WBC Auto (Bl d)Ordered By: Saeed Patel on 11-12-2024 Neutrophils/100 WBC (Bld) Automated neutrophil % . [facility] Nitrite Test strip Ql (U)Ord ered By: Saeed Patel on 11-12-2024 Nitrite Ql (U) Nitrite [Presence] in Urine by Test strip Negative [facility] Nitrite Ql (U) Negative Negative [facility] No Panel InformationOrdered By: Saeed Patel on 11-12-2024 Estimated GFR (CKD-EPI) > 60.0 mL/Min [facility] Creatinine Clearance (Chem N/A [facility] Nucleated erythrocytes [Pres ence] in Blood by Automated countOrdered By: Saeed Patel on 11-12-2024 Nucleated RBC Auto Ql (Bld) Nucleated erythrocytes [Presence] in Blood by Automated count 0-0.5 [facility] Nucleated RBC Auto Ql (Bld) 0.1 /100{WBC} 0-0.5 [facility] PSA Total (Not a Screen)on 0 11-12-2024 PSA Total (Not a Screen) 1.370 ng/mL Normal 0.000-4.00 0 [facility] Comment on above: Result Comment: Mellissa ku tumor marker results determined by assays using different manufacturers or methods may not be comparable. [facility] Laboratory school laboratory technician and method: [employer] DXI, CHEMILUMINESCENT IMMUNOASSAY. PERFORMED BY: [place] [address] PATHOLOGIST MATERIAL STOCKKEEPER YARD KEN ETIENNE M.D. Performed By: #### C UU, CMP, PSATOTAL, CBC, ADDONUAPLUS, TSH3, A[facility]C [facility]The [facility] #### [address] #### APOB #### [facility] , Platelet mean volume Auto (B ld) [Entitic vol]Ordered By: Saeed Patel on 11-12-2024 Platelet mean volume (Bld) [Entitic vol] Platelet mean volume [Entitic volume] in Blood by Automated count 6.6-10.1 [facility] Platelets Auto (Bld) [#/Vol] Ordered By: Saeed Patel on 11-12-2024 Platelets (Bld) [#/Vol] Platelets [#/vol ume] in Blood by Automated count 150-450 [facility] Potassium [Moles/volume] in Serum or PlasmaOrdered By: Saeed Patel on 11-12-2024 Potassium [Moles/Vol] Potassium [Moles/volume] in Serum or Plasma 3.5-5.1 [facility] Prostate specific Ag [Mass/v olume] in Serum or PlasmaOrdered By: Saeed Patel on 11-12-2024 Prostate specific Ag [Mass/Vol] Prostate specific Ag [Mass/volume] in Serum or Plasma 0.000-4.000 [facility] Comment on above: Serial tumor marker results determined by assays using different manufacturers or methods may not be comparable.[facility] Laboratory school laboratory technician and method:[employer] DXI, CHEMILUMINESCENT IMMUNOASSAY. Prostate specific Ag [Mass/Vol] 1.370 ng/mL 0.000-4.000 [facility] Comment on above: Serial tumor marker results determined by assays using different manufacturers or methods may not be comparable.[facility] Laboratory school laboratory technician and method:[employer] DXI, CHEMILUMINESCENT IMMUNOASSAY. Protein Test strip (U) [Mass /Vol]Ordered By: Saeed Patel on 11-12-2024 Protein (U) [Mass/Vol] Protein [Mass/volume] in Urine by Test strip Negative [facility] Protein (U) [Mass/Vol] Negative Negative [facility] Protein [Mass/volume] in Ser um or PlasmaOrdered By: Saeed Patel on 11-12-2024 Protein [Mass/Vol] Protein [Mass/volume] in Serum or Plasma 6.4-8.9 [facility] RBC Auto (Bld) [#/Vol]Ordere d By: Saeed Patel on 11-12-2024 RBC (Bld) [#/Vol] Erythrocytes [#/volume] in Blood by Automated count 3.90-5.60 [facility] Serum or plasma albumin/glob ulin mass ratioOrdered By: Saeed Patel on 11-12-2024 Albumin/Globulin [Mass ratio] Serum or plasma albumin/globulin mass ratio [facility] Serum or plasma anion gap de terminationOrdered By: Saeed Patel on 11-12-2024 Anion gap [Moles/Vol] Serum or plasma anion gap determination 6.0-15.0 [facility] Sodium [Moles/volume] in Ser um or PlasmaOrdered By: Saeed Patel on 11-12-2024 Sodium [Moles/Vol] Sodium [Moles/volume] in Serum or Plasma 136-145 [facility] Specific gravity Test strip (U) [Rel density]Ordered By: Saeed Patel on 11-12-2024 Specific gravity (U) [Rel density] Specific gravity of Urine by Test strip 1.001-1.030 [facility] Specific gravity (U) [Rel density] 1.025 1.001-1.030 [facility] Thyroid Stimulating HormoneO rdered By: Saeed Patel on 11-12-2024 TSH Qn 3.05 m[IU]/L 0.45-5.33 [facility] Comment on above: Result Comment: PERF ORMED BY: [place] [address] PATHOLOGIST MATERIAL STOCKKEEPER YARD KEN ETIENNE M.D. Performed By: #### C UU, CMP, PSATOTAL, CBC, ADDONUAPLUS, TSH3, A1C [facility] eA #### [address] #### APOB #### [facility] , Thyrotropin [Units/volume] i n Serum or PlasmaOrdered By: Saeed Patel on 11-12-2024 TSH Qn Thyrotropin [Units/volume] in Serum or Plasma 0.45-5.33 [facility] Urea nitrogen [Mass/volume] in Serum or PlasmaOrdered By: Saeed Patel on 11-12-2024 Urea nitrogen [Mass/Vol] Urea nitrogen [Mass/volume] in Serum or Plasma 7-25 [facility] Urine Cultureon 11-12-2024 Bacteria identified Cx Nom (U) No Growth 2 Days PERFORMED BY: [place] [address] PATHOLOGIST MATERIAL STOCKKEEPER YARD KEN ETIENNE M.D. Normal [facility] Comment on above: Performed By: #### C UU, CMP, PSATOTAL, CBC, ADDONUAPLUS, TSH3, A1C [facility] eA #### [facility] [address] [place] [address] [place] #### APOB #### [facility] , Urine cultureOrdered By: Devyn Patel on 11-12-2024 Bacteria identified Cx Nom (U) Urine culture [facility] Bacteria identified Cx Nom (U) No Growth 2 Days [facility] Urobilinogen Test strip (U) [Mass/Vol]Ordered By: Saeed Patel on 11-12-2024 Urobilinogen (U) [Mass/Vol] Urobilinogen [Mass/volume] in Urine by Test strip Normal [facility] Urobilinogen (U) [Mass/Vol] Normal mg/dL Normal [facility] WBC Auto (Bld) [#/Vol]Ordere d By: Saeed Patel on 11-12-2024 WBC (Bld) [#/Vol] Leukocytes [#/volume] in Blood by Automated count Low 4.1-10.5 [facility] pH Test strip (U)Ordered By: Saeed Patel on 11-12-2024 pH (U) pH of Urine by Test strip 5.0-9.0 [facility] Basophils Auto (Bld) [#/Vol] on 11-17-2023 Basophils (Bld) [#/Vol] 0.0 10 3/uL 0.0-0.1 [facility] Basophils/100 WBC Auto (Bld) on 11-17-2023 Basophils/100 WBC (Bld) 0.2 % 0.2-2.0 [facility] Eosinophils/100 WBC Auto (Bl d)on 11-17-2023 Eosinophils/100 WBC (Bld) 1.0 % 0.9-7.0 [facility] Erythrocyte distribution wid th Auto (RBC) [Ratio]on 11-17-2023 Erythrocyte distribution width (RBC) [Ratio] 12.0 % 11.0-15.0 [facility] Estimated glomerular filtrat ion rate (GFR) non- Americanon 11-17-2023 GFR/1.73 sq M.predicted among non-blacks MDRD (S/P/Bld) [Vol rate/Area] mL/min/{1.73_m2} >=60 [facility] Globulin Calc (S) [Mass/Vol] on 11-17-2023 Globulin (S) [Mass/Vol] 3.1 g/dL [facility] Glucose mean value [Mass/vol ume] in Blood Estimated from glycated hemoglobinon 11-17-2023 Average glucose Estimated from glycated hemoglobin (Bld) [Mass/Vol] 117 mg/dL [facility] Hematocrit Auto (Bld) [Volum e fraction]on 11-17-2023 Hematocrit (Bld) [Volume fraction] 42.1 % 42.0-54.0 [facility] Hemoglobin [Mass/volume] in Bloodon 11-17-2023 Hemoglobin (Bld) [Mass/Vol] 14.8 g/dL 14.0-18.0 [facility] Laboratory - Chemistry and C hemistry - challengeon 11-17-2023 Albumin [Mass/Vol] 4.1 g/dL 3.4-5.0 [facility] ALP [Catalytic activity/Vol] 87 U/L 46-116 [facility] ALT [Catalytic activity/Vol] 30 U/L 16-63 [facility] AST [Catalytic activity/Vol] 30 U/L 15-37 [facility] Bilirubin [Mass/Vol] 1.9 mg/dL 0.2-1.0 [facility] Calcium [Mass/Vol] 9.1 mg/dL 8.5-10.1 [facility] Chloride [Moles/Vol] 101 mmol/L 98-107 [facility] CO2 [Moles/Vol] 26.2 mmol/L 21.0-32.0 [facility] Creatinine [Mass/Vol] 0.82 mg/dL 0.70-1.30 [facility] GFR/1.73 sq M.predicted MDRD (S/P/Bld) [Vol rate/Area] mL/min/{1.73_m2} >=60 [facility] Glucose [Mass/Vol] 98 mg/dL 74-106 [facility] Potassium [Moles/Vol] 3.5 mmol/L 3.5-5.1 [facility] Protein [Mass/Vol] 7.2 g/dL 6.4-8.2 [facility] Sodium [Moles/Vol] 139 mmol/L 136-145 [facility] TSH Qn 1.905 m[IU]/L 0.358-3.740 [facility] Urea nitrogen [Mass/Vol] 17.0 mg/dL 7.0-18.0 [facility] Urea nitrogen/Creatinine [Mass ratio] 20.7 mg/mg [facility] Bilirubin Ql (U) Negative NEGATIVE [facility] Glucose (U) [Mass/Vol] Negative NEGATIVE [facility] Ketones Ql (U) 40 mg/dL NEGATIVE [facility] pH (U) 5.5 [pH] 5.0-9.0 [facility] Specific gravity (U) [Rel density] >=1.030 1.005-1.025 [facility] Urobilinogen Qn (U) 0.2 {Nirmala'U}/dL 0.2-1.0 [facility] Laboratory - Hematology and Cell countson 11-17-2023 HbA1c (Bld) [Mass fraction] 5.7 % 4.5-6.2 [facility] Comment on above: ADA RECOMMENDED LIMI T 4.0 - 6.0ADA THERAPEUTIC TARGET < 7.0ACTION SUGGESTED> 7.0 Immature granulocytes/100 WBC (Bld) 0.2 % 0.0-0.5 [facility] Laboratory - Specimen inform ationon 11-17-2023 Appearance (U) CLEAR CLEAR [facility] Color (U) YELLOW YELLOW [facility] Laboratory - Urinalysison Leukocyte esterase Test strip Ql (U) Negative NEGATIVE [facility] Mucus Ql (Urine sed) MODERATE NONE SEEN [facility] Nitrite Ql (U) Negative NEGATIVE [facility] Protein Ql (U) Negative NEG/TRACE [facility] Leukocytes [#/volume] correc carolyn for nucleated erythrocytes in Blood by Automated counon 11-17-2023 WBC corrected for nucl RBC Auto (Bld) [#/Vol] 5.1 10 3/uL 4.0-11.0 [facility] Lymphocytes Auto (Bld) [#/Vo l]on 11-17-2023 Lymphocytes (Bld) [#/Vol] 0.9 10 3/uL 1.2-3.8 [facility] Lymphocytes/100 WBC Auto (Bl d)on 11-17-2023 Lymphocytes/100 WBC (Bld) 17.4 % 20.5-60.0 [facility] MCH Auto (RBC) [Entitic mass ]on 11-17-2023 MCH (RBC) [Entitic mass] 31.3 pg 25.9-34.0 [facility] MCHC Auto (RBC) [Mass/Vol]on 11-17-2023 MCHC (RBC) [Mass/Vol] 35.2 g/dL 29.9-35.2 [facility] MCV Auto (RBC) [Entitic vol] on 11-17-2023 MCV (RBC) [Entitic vol] 89.0 fL 80.0-94.0 [facility] Monocytes Auto (Bld) [#/Vol] on 11-17-2023 Monocytes (Bld) [#/Vol] 0.4 10 3/uL 0.3-0.8 [facility] Monocytes/100 WBC Auto (Bld) on 11-17-2023 Monocytes/100 WBC (Bld) 8.7 % 1.7-12.0 [facility] Neutrophils Auto (Bld) [#/Vo l]on 11-17-2023 Neutrophils (Bld) [#/Vol] 3.7 10 3/uL 1.4-6.5 [facility] Neutrophils/100 WBC Auto (Bl d)on 11-17-2023 Neutrophils/100 WBC (Bld) 72.5 % 43.0-75.0 [facility] No Panel Informationon 11-16 Eosinophils # (Auto) 0.1 10 3/uL 0.0-0.7 [facility] Immature Granulocyte # (Auto) 0.01 10 3/uL 0.00-0.03 [facility] Prostate Specific Antigen Total 0.70 ng/mL <=4.00 [facility] Urine Bacteria NONE SEEN #/HPF NONE SEEN [facility] Urine Calcium Oxalate Crystals MODERATE [facility] Urine Occult Blood Negative NEGATIVE [facility] Urine Other Casts NONE SEEN #/LPF NONE SEEN [facility] Urine Other Crystals Seen #/HPF None Seen [facility] Urine RBC 0-2 #/HPF 0-2 [facility] Urine Squamous Epithelial Cells RARE #/LPF NONE/RARE [facility] Urine WBC 0-2 #/HPF NONE SEEN [facility] Platelet mean volume Auto (B ld) [Entitic vol]on 11-17-2023 Platelet mean volume (Bld) [Entitic vol] 10.3 fL 9.5-13.5 [facility] Platelets Auto (Bld) [#/Vol] on 11-17-2023 Platelets (Bld) [#/Vol] 181 10 3/uL 150-450 [facility] RBC Auto (Bld) [#/Vol]on RBC (Bld) [#/Vol] 4.73 10 6/uL 4.70-6.10 [facility] Serum or plasma albumin/glob ulin mass ratioon 11-17-2023 Albumin/Globulin [Mass ratio] 1.3 {ratio} [facility] Serum or plasma anion gap de terminationon 11-17-2023 Anion gap [Moles/Vol] 15.3 mmol/L [facility] PUJA - LIPID PROFILEon 2022 CHOL-HDL RATIO NORM SEE BELOW Normal [facility] Comment on above: Result Comment: 3.3 - 4.4 LOW RISK 4.4 - 7.1 AVERAGE RISK 7.1 - 11.0 MODERATE RISK >11.0 HIGH RISK Performed By: #### D ATLIPI #### [facility] [address] [address] [address] Shane Hinton Cholesterol [Mass/Vol] 262 mg/dL Critically high <=200 [facility] Comment on above: Performed By: #### D ATLIPI #### [facility] [address] [address] [address] Shane Hinton Cholesterol in HDL [Mass/Vol] 51 mg/dL Normal 40-60 [facility] Comment on above: Performed By: #### D ATLIPI #### [facility] [address] [address] [address] Shane Hinton Cholesterol in LDL [Mass/Vol] 187.0 mg/dL Normal [facility] Comment on above: Performed By: #### D ATLIPI #### [facility] [address] [address] [address] Shane Hinton Cholesterol.total/Choles terol in HDL [Mass ratio] 5.1 {ratio} Normal [facility] Comment on above: Performed By: #### D ATLIPI #### [facility] [address] [address] [address] Shane Hinton HDL NORMAL > or = 60 mg/dl - LOW CARDIOVASCULAR RISK <40 mg/dl - HIGH CARDIOVASCULAR RISK Normal [facility] Comment on above: Performed By: #### D ATLIPI #### [facility] [address] [address] [address] Shane Hinton LDL CALC NORMAL SEE BELOW Normal [facility] Comment on above: Result Comment: <100 mg/dl OPTIMAL 100 - 129 mg/dl NEAR OR ABOVE OPTIMAL 130 - 159 mg/dl BORDERLINE HIGH 160 - 189 mg/dl HIGH >190 mg/dl VERY HIGH Performed By: #### D ATLIPI #### [facility] [address] [place] [address] Dr. Shane Hinton Triglyceride [Mass/Vol] 120 mg/dL Normal <=150 [facility] Comment on above: Performed By: #### D ATLIPI #### [facility] [address] [place] [address] Dr. Shane Hinton VLDL CALC 24.0 mg/dL Normal [facility] Comment on above: Performed By: #### D ATLIPI #### [facility] [address] [place] [address] Dr. Shane Hinton PUJA - LIPID PROFILEon 2021 CHOL-HDL RATIO NORM SEE BELOW Normal [facility] Comment on above: Result Comment: 3.3 - 4.4 LOW RISK 4.4 - 7.1 AVERAGE RISK 7.1 - 11.0 MODERATE RISK >11.0 HIGH RISK Performed By: #### D ATLIPI #### [facility] [address] [place] [address] Dr. Shane Hinton Cholesterol [Mass/Vol] 196 mg/dL Normal <=200 [facility] Comment on above: Performed By: #### D ATLIPI #### [facility] [address] [place] [address] Dr. Shane Hinton Cholesterol in HDL [Mass/Vol] 39 mg/dL Critically low 40-60 [facility] Comment on above: Performed By: #### D ATLIPI #### [facility] [address] [address] [address] Shane Hinton Cholesterol in LDL [Mass/Vol] 129.6 mg/dL Normal [facility] Comment on above: Performed By: #### D ATLIPI #### [facility] [address] [address] [address] Shane Hinton Cholesterol.total/Choles terol in HDL [Mass ratio] 5.0 {ratio} Normal [facility] Comment on above: Performed By: #### D ATLIPI #### [facility] [address] [place] [address] Dr. Shane Hinton HDL NORMAL > or = 60 mg/dl - LOW CARDIOVASCULAR RISK <40 mg/dl - HIGH CARDIOVASCULAR RISK Normal [facility] Comment on above: Performed By: #### D ATLIPI #### [facility] [address] [address] [address] Shane Hinton LDL CALC NORMAL SEE BELOW Normal [facility] Comment on above: Result Comment: <100 mg/dl OPTIMAL 100 - 129 mg/dl NEAR OR ABOVE OPTIMAL 130 - 159 mg/dl BORDERLINE HIGH 160 - 189 mg/dl HIGH >190 mg/dl VERY HIGH Performed By: #### D ATLIPI #### [facility] [address] [place] [address] Dr. Shane Hinton Triglyceride [Mass/Vol] 137 mg/dL Normal <=150 [facility] Comment on above: Performed By: #### D ATLIPI #### [facility] [address] [address] [address] Shane Hinton VLDL CALC 27.4 mg/dL Normal [facility] Comment on above: Performed By: #### D ATLIPI #### [facility] [address] [place], [place] [id number] Dr. Shane Hinton Office Visit (Cardiology)on 02-16-2022 Follow-up visit Diagnoses/Problems Assessed Hyperlipemia (272.4) (E78.5) Body mass index (BMI) of 24.0 to 24.9 in adult (V85.1) (Z68.24) Orders Hyperlipemia Start: Rosuvastatin Calcium 5 MG Oral Tablet; take 1 tablet by mouth at bedtime AST; Status:Active - Retrospective Authorization; Requested for:19May2022; Creatine Kinase, Level; Status:Active - Retrospective Authorization; Requested for:19May2022; Lipid Panel; Status:Active - Retrospective Authorization; Requested for:19May2022; Sedimentation Rate, Erythrocyte; Status:Active - Retrospective Authorization; Requested for:19May2022; Patient Instructions Please bring all medicines, vitamins, and herbal supplements with you when you come to the office. Prescriptions will not be filled unless you are compliant with your follow up appointments or have a follow up appointment scheduled as per instruction of your physician. Refills should be requested at the time of your visit. Calcium score results discussed Echo results discussed Follow up in 9 months Chief Complaint DENIS CHACON is being seen for Testing f/u. History of Present Illness Returns in follow-up of problems as noted. In the interim he underwent echocardiography and it was normal. Because of this I advised him and his that although we do not know what his arrhythmia was it is not a life-threatening circumstance and because of this we propose no further testing or evaluation. They did purchase a Kardia device and they will attempt to capture episodes of arrhythmia and I encouraged him to do so and share the recordings with me if and when they capture something He also underwent calcium scoring. His score is 819. This is very high and I strongly emphasized the importance of statin therapy. As before he is very resistant but ultimately agrees to initiate rosuvastatin. We chose a low-dose in order to ease him into it . My hope is that he will find the medication tolerable. I pointed out to him and his that despite his best efforts at diet and exercise sometimes you cannot overcome a high cholesterol and/or prevent cholesterol plaque in deposit and because of this and the findings I feel strongly that he should be on statin therapy. He questions other pharmacologic interventions including niacin and I discussed and explained this in tremendous detail. Ultimately he agrees to initiate rosuvastatin. It sounds as if he sees his primary care physician as needed and because of this we will check lipids in about 3 months and have him follow-up with me in about 9 months. He was encouraged to call if problems arise in the interim. Surgical History Problems History of Complete colonoscopy 06/2006 Current Meds Medication NameInstruction Co Q10 100 MG Oral CapsuleTAKE 1 CAPSULE Daily Xiao-C TABSTAKE 1 TABLET DAILY. Folate 400 MCG Oral TabletTake 1 tablet daily Grape Seed Extract CAPSTAKE 1 CAPSULE Daily Magnesium Citrate CAPSTAKE 1 CAPSULE Daily Itasca 3 1200 MG Oral CapsuleTAKE 1 CAPSULE Daily Vitamin B12 TABSTake 1 tablet daily Vitamin B6 TABSTake 1 tablet daily Vitamin K2-Vitamin D3 CAPS Allergies Medication No Known Drug Allergies Recorded By: Aleisha Celis; 01/12/2022 10:19:55 AM Social History Problems Never a smoker No caffeine use No illicit drug use Social alcohol use (V49.89) (Z78.9) Review of Systems Constitutional: not feeling tired. Eyes: no eyesight problems. ENT: no hearing loss and no nosebleeds. Cardiovascular: no intermittent leg claudication and as noted in HPI. Respiratory: no chronic cough and no shortness of breath. Gastrointestinal: no change in bowel habits and no blood in stools. Genitourinary: no urinary frequency and no hematuria. Skin: no skin rashes. Neurological: no seizures and no frequent falls. Psychiatric: no depression and not suicidal. All other systems have been reviewed and are negative for complaint. Vitals Vital Signs Recorded: [id number] 10:30AMRecorded: 86Vgd1883 09:53AM Fypsqays047, LUE, Rhftwdu931, LUE, Sitting Aushgafdp43, LUE, Rpgexcu36, LUE, Sitting Heart Rate72, R Radial Height5 ft 11 in Egtrks900 lb BMI Dsvccoxrla99.97 kg/m2 BSA Calculated2.01 Tobacco Useb) No Falls Screening (Age 18+)c) Not medically indicated Physical Exam Constitutional: alert and in no acute distress. Eyes: no erythema, swelling or discharge from the eye . Neck: neck is supple, symmetric, trachea midline, no masses and no thyromegaly . Pulmonary: no increased work of breathing or signs of respiratory distress and lungs clear to auscultation. Cardiovascular: carotid pulses 2+ bilaterally with no bruit , JVP was normal, no thrills , regular rhythm, normal S1 and S2, no murmurs , pedal pulses 2+ bilaterally and no edema . Abdomen: abdomen non-tender, no masses and no hepatomegaly . Skin: skin warm and dry, normal skin turgor . Psychiatric judgment and insight is normal and oriented to person, place and time . Signatures Electron (more content not included)... Normal [employer] Tobacco Screening.on 022 Fall risk assessment c) Not medically indicated [facility] Work Phone: Tobacco use status [facility] b) No M [facility] [address] DO Work Phone: Echocardiogramon 02-10-2022 Echocardiography [facility] [address] [place] [address], [address] [address] TRANSTHORACIC ECHOCARDIOGRAM REPORT Patient Name: DENIS CHACON Reading Physician: [id number] Urbano MD Study Date: 02/10/2022 Referring Physician: Miguelito URBANO MRN/PID: [id number] PCP: Saeed Patel Accession/Order#: [id number] Department Location: [facility] Date of : 1955 Fellow: Gender: M Nurse: Admit Date: Toe Stripper: Amira Abdul RDCS, RVT Height: 180.34 cm CC Report to: Weight: 81.65 kg Study Type: Echocardiogram BSA: 2.02 m2 Blood Pressure: 164 /86 mmHg Diagnosis/ICD: R06.00-Dyspnea, unspecified; R00.2-Palpitations Indication: Hyperlipidemia, Family History of CAD Procedure/CPT: Echo Complete w Full [id number] Study Detail: The following Echo studies were performed: 2D, M-Mode, Doppler and color flow. PHYSICIAN INTERPRETATION: Left Ventricle: Left ventricular systolic function is normal, with an estimated ejection fraction of 60-65%. There are no regional wall motion abnormalities. The left ventricular cavity size is normal. Spectral Doppler shows a normal pattern of left ventricular diastolic filling. Left Atrium: The left atrium is normal in size. Right Ventricle: The right ventricle is normal in size. There is normal right ventricular global systolic function. Right Atrium: The right atrium is normal in size. Aortic Valve: The aortic valve appears structurally normal. There is no evidence of aortic valve regurgitation. The peak instantaneous gradient of the aortic valve is 5.7 mmHg. The mean gradient of the aortic valve is 3.0 mmHg. Mitral Valve: The mitral valve is normal in structure. There is trace mitral valve regurgitation. Tricuspid Valve: The tricuspid valve is structurally normal. No evidence of tricuspid regurgitation. Pulmonic Valve: The pulmonic valve is not well visualized. There is no indication of pulmonic valve regurgitation. Pericardium: There is no pericardial effusion noted. Aorta: The aortic root is normal. CONCLUSIONS: 1. Left ventricular systolic function is normal with a 60-65% estimated ejection fraction. QUANTITATIVE DATA SUMMARY: 2D MEASUREMENTS: Normal Ranges: Ao Root d: 3.00 cm (2.0-3.7cm) LAs: 3.50 cm (2.7-4.0cm) RVIDd: 2.90 cm (0.9-3.6cm) IVSd: 1.00 cm (0.6-1.1cm) LVPWd: 0.90 cm (0.6-1.1cm) LVIDd: 4.80 cm (3.9-5.9cm) LVIDs: 3.20 cm LV Mass Index: 78.8 g/m2 LV % FS 33.3 % LV SYSTOLIC FUNCTION BY 2D PLANIMETRY (MOD): Normal Ranges: EF-A4C View: 61.7 % (>55%) LV DIASTOLIC FUNCTION: Normal Ranges: MV Peak E: 0.87 m/s (0.7-1.2 m/s) MV Peak A: 0.67 m/s (0.42-0.7 m/s) E/A Ratio: 1.30 (1.0-2.2) MV lateral e' 0.15 m/s MV medial e' 0.07 m/s E/e' Ratio: 5.70 (<8.0) MITRAL VALVE: Normal Ranges: MV Vmax: 0.83 m/s (<1.3m/s) MV peak P.8 mmHg (<5mmHg) MV mean P.0 mmHg (<48mmHg) MITRAL INSUFFICIENCY: Normal Ranges: MR Vmax: 254.00 cm/s AORTIC VALVE: Normal Ranges: AoV Vmax: 1.19 m/s (<1.7m/s) AoV Peak P.7 mmHg (<20mmHg) AoV Mean P.0 mmHg (1.7-11.5mmHg) LVOT Max Regan: 0.84 m/s (<1.1m/s) AoV VTI: 27.50 cm (18-25cm) LVOT VTI: 19.50 cm LVOT Diameter: 2.10 cm (1.8-2.4cm) AoV Area, VTI: 2.46 cm2 (2.5-5.5cm2) AoV Area,Vmax: 2.43 cm2 (2.5-4.5cm2) AoV Dimensionless Index: 0.71 PULMONIC VALVE: Normal Ranges: PV Max Regan: 0.7 m/s (0.6-0.9m/s) PV Max P.9 mmHg [id number] Latrell Urbano MD Electronically signed on 02/14/2022 at 4:05:38 PM Final Normal [facility] Echocardiography Please click on the link to view the study images Normal [facility] [employer] [address] [place] Work Phone: Falls Screening (Age 18+)on 02-10-2022 Fall risk assessment a) No falls within the last year [facility] [employer] [address] [place] Work Phone: CT Cardiac Scoringon 022 CT Cardiac Scoring Normal [facility] [employer] 250 DO Work Phone: Office Visit (Cardiology)on 01-12-2022 Follow-up visit Diagnoses/Problems Assessed Palpitation (785.1) (R00.2) Dyspnea (786.09) (R06.00) Overweight with body mass index (BMI) of 25 to 25.9 in adult (278.02,V85.21) (E66.3,Z68.25) Never a smoker Hyperlipemia (272.4) (E78.5) Orders Dyspnea, Palpitation Echocardiogram; Status:Hold For - Scheduling; Requested for:[id number]; Overweight with body mass index (BMI) of 25 to 25.9 in adult Healthy Weight Tips; Status:Complete; Done: 79Ztj7649 Palpitation IO EKG Electrocardiogram- 12 Lead; Status:Complete; Done: 20Yzz1691 SocHx: Never a smoker Tobacco Use Screening; Status:Complete; Done: 33Tuj2099 Patient Instructions By signing my name below, I, Robyn Serna YOLANDA ,Beatrizibpromise, attest that this documentation has been prepared under the direction and in the presence of Dr. Latrell Urbano MD. All medical record entries made by the Beatrizibe were at my direction and personally dictated by me. I have reviewed the chart and agree that the record accurately reflects my personal performance of the history, physical exam, discussion and plan. Please bring all medicines, vitamins, and herbal supplements with you when you come to the office. Prescriptions will not be filled unless you are compliant with your follow up appointments or have a follow up appointment scheduled as per instruction of your physician. Refills should be requested at the time of your visit. Follow-up after testing completed Chief Complaint DENIS CHACON is being seen for a consultation for Palpitations/Lighthe aded/ High LDL. History of Present Illness Patient is referred by his primary care physician because of palpitations and shortness of breath. He notes palpitations under variety of circumstances but usually at rest and/or when lying down. He believes it might of been related to alcohol and he stopped drinking 3 weeks ago and he believes the palpitations are pretty much let up. He denies overt syncope or near syncope but he and his were concerned regarding the possibility of a malignant and/or life-threatening arrhythmia. I suggested to him that Holter monitor or event monitor could be considered but because of his symptoms of calm way down it appears unlikely that we will be able to capture an episode. Because of this I recommended that we exclude cardiomyopathy by performing an echocardiogram. The purpose of this would be to determine if in fact his complaints of shortness of breath are on the basis of cardiomyopathy. Also if he has a cardiomyopathy it might shed some light on the nature and/or gravity of the situation revolving around his arrhythmia symptomatology. We also note his lipids are high. PCP ordered lab and the LDL is 170. He has 2 family members with coronary disease and the paramount importance of treating his lipids was discussed. He is reluctant and prefers diet and exercise. Advised him this will fail. Ultimately I suggested and he agreed to a coronary artery calcium score in order to add some clarity in regards to his atherosclerotic plaque burden and his propensity for future cardiac events. We will reconvene after these tests are performed. He and his are encouraged to call in the interim if problems arise or occur. Surgical History Problems History of Complete colonoscopy 06/2006 Current Meds Medication NameInstruction Co Q10 100 MG Oral CapsuleTAKE 1 CAPSULE Daily Xiao-C TABSTAKE 1 TABLET DAILY. Folate 400 MCG Oral TabletTake 1 tablet daily Grape Seed Extract CAPSTAKE 1 CAPSULE Daily Magnesium Citrate CAPSTAKE 1 CAPSULE Daily Itasca 3 1200 MG Oral CapsuleTAKE 1 CAPSULE Daily Vitamin B12 TABSTake 1 tablet daily Vitamin B6 TABSTake 1 tablet daily Vitamin K2-Vitamin D3 CAPS Allergies Medication No Known Drug Allergies Recorded By: Aleisha Celis; 01/12/2022 10:19:55 AM Social History Problems Never a smoker No caffeine use No illicit drug use Social alcohol use (V49.89) (Z78.9) Review of Systems Constitutional: not feeling tired. Eyes: no eyesight problems. ENT: no hearing loss and no nosebleeds. Cardiovascular: no intermittent leg claudication and as noted in HPI. Respiratory: no chronic cough and no shortness of breath. Gastrointestinal: no change in bowel habits and no blood in stools. Genitourinary: no urinary frequency and no hematuria. Skin: no skin rashes. Neurological: no seizures and no frequent falls. Psychiatric: no depression and not suicidal. All other systems have been reviewed and are negative for complaint. Vitals Vital Signs Recorded: 29Jml0256 10:27AMRecorded: 38Ecj5202 10:25AM Yxgzqjik418, LUE, Mnyedlx204, RUE, Sitting Cugnzlwco65, LUE, Qcjkadk01, RUE, Sitting Heart Rate82, Apical Height5 ft 11 in Fixmrd860 lb BMI Ofxnzwpbuj83.11 kg/m2 BSA Calculated2.02 Tobacco Useb) No PHQ-2 #1. Over the last 2 weeks have you felt down, depressed or hopeless? (If yes, answer PHQ-9 below)No PHQ-2 #2. Over the last 2 weeks have you felt little interest or pleasur (more content not included)... Normal [facility] Tobacco Screening.on 022 Adult depression screening assessment No [facility] [place] [address] DO Work Phone: Fall risk assessment a) No falls within the last year [facility] 600 DO Work Phone: Tobacco use status CP b) No M [facility] 600 DO Work Phone: CBC AUTO DIFFon 11-09-2021 BASO # 0.0 103/ul Normal 0.0-0.1 [facility] Comment on above: Performed By: #### C BC #### [facility] [address] [place] [address] Dr. Shane Hinton Basophils/100 WBC (Bld) 0.4 % Normal 0.2-2.0 [facility] Comment on above: Performed By: #### C BC #### [facility] [address] [place] [address] Dr. Shane Hinton EO # 0.1 103/ul Normal 0.0-0.7 [facility] Comment on above: Performed By: #### C BC #### [facility] [address] [place] [address] Dr. Shane Hinton Eosinophils/100 WBC (Bld) 2.1 % Normal 0.9-7.0 [facility] Comment on above: Performed By: #### C BC #### [facility] [address] [place] [address] Dr. Shane Hinton Erythrocyte distribution width (RBC) [Ratio] 12.4 % Normal 11.0-15.0 [facility] Comment on above: Performed By: #### C BC #### [facility] [address] [place] [address] Dr. Shane Hinton Hematocrit (Bld) [Volume fraction] 44.8 % Normal 42.0-54.0 [facility] Comment on above: Performed By: #### C BC #### [facility] [address] [place] [address] Dr. Shane Hinton Hemoglobin (Bld) [Mass/Vol] 15.9 g/dL Normal 14.0-18.0 [facility] Comment on above: Performed By: #### C BC #### [facility] [address] [place] [address] Dr. Shane Hinton IG # 0.02 10e3/ul Normal 0.00-0.03 [facility] Comment on above: Performed By: #### C BC #### [facility] [address] [place] [address] Dr. Shane Hinton IG % 0.4 % Normal 0.0-0.5 [facility] Comment on above: Performed By: #### C BC #### [facility] [address] [place] [address] Dr. Shane Hinton LYMPH # 1.3 103/ul Normal 1.2-3.8 [facility] Comment on above: Performed By: #### C BC #### [facility] [address] [place] [address] Dr. Shane Hinton Lymphocytes/100 WBC (Bld) 26.5 % Normal 20.5-60.0 [facility] Comment on above: Performed By: #### C BC #### [facility] [address] [place] [address] Dr. Shane Hinton MANUAL DIFF REQ NO Normal [facility] Comment on above: Performed By: #### C BC #### [facility] [address] [place] [address] Dr. Shane Hinton MCH (RBC) [Entitic mass] 31.1 pg Normal 25.9-34.0 [facility] Comment on above: Performed By: #### C BC #### [facility] [address] [place] [address] Dr. Shane Hinton MCHC (RBC) [Mass/Vol] 35.5 g/dL Critically high 29.9-35.2 [facility] Comment on above: Performed By: #### C BC #### [facility] [address] [place] [address] Dr. Shane Hinton MCV (RBC) [Entitic vol] 87.7 fL Normal 80.0-94.0 [facility] Comment on above: Performed By: #### C BC #### [facility] [address] [place] [address] Dr. Shane Hinton MONO # 0.6 103/ul Normal 0.3-0.8 [facility] Comment on above: Performed By: #### C BC #### [facility] [address] [address] [address] Shane Hinton Monocytes/100 WBC (Bld) 13.0 % Critically high 1.7-12. 0 [facility] Comment on above: Performed By: #### C BC #### [facility] [address] [address] [address] Shane Hinton NEUT # 2.8 103/ul Normal 1.4-6.5 [facility] Comment on above: Performed By: #### C BC #### [facility] [address] [place] [address] Dr. Shane Hinton Neutrophils/100 WBC (Bld) 57.6 % Normal 43.0-75.0 [facility] Comment on above: Performed By: #### C BC #### [facility] [address] [place] [address] Dr. Shane Hinton Platelet mean volume (Bld) [Entitic vol] 9.4 fL Critically low 9.5-13.5 [facility] Comment on above: Performed By: #### C BC #### [facility] [facility] [address] [place] [address] Dr. Shane Hinton PLT 184 103/ul Normal 150-450 [facility] Comment on above: Performed By: #### C BC #### [facility] [address] [place] [address] Dr. Shane Hinton RBC 5.11 106/ul Normal 4.70-6.10 [facility] Comment on above: Performed By: #### C BC #### [facility] [address] [place] [address] Dr. Shane Hinton WBC 4.9 103/ul Normal 4.0-11.0 [facility] Comment on above: Performed By: #### C BC #### [facility] [address] [place] [address] Dr. Shane Hinton PROF 14(COMP METB)on 022 Albumin [Mass/Vol] 4.0 g/dL Normal 3.4-5.0 [facility] Comment on above: Performed By: #### C MP, HSTROPN #### [facility] [address] [address] [address] Shane Hinton Albumin/Globulin [Mass ratio] 1.2 {ratio} Normal [facility] Comment on above: Performed By: #### C MP, HSTROPN #### [facility] [address] [address] [address] Shane Hinton ALP [Catalytic activity/Vol] 74 U/L Normal 46-116 [facility] Comment on above: Performed By: #### C MP, HSTROPN #### [facility] [address] [place] [address] Dr. Shane Hinton ALT [Catalytic activity/Vol] 45 U/L Normal 16-63 [facility] Comment on above: Performed By: #### C MP, HSTROPN #### [facility] [address] [place] [address] Dr. Shane Hinton Anion gap [Moles/Vol] 13.5 mmol/L Normal [facility] Comment on above: Performed By: #### C MP, HSTROPN #### [facility] [address] [place] [address] Dr. Shane Hinton AST [Catalytic activity/Vol] 34 U/L Normal 15-37 [facility] Comment on above: Performed By: #### C MP, HSTROPN #### [facility] [address] [place] [address] Dr. Shane Hinton Bilirubin [Mass/Vol] 0.9 mg/dL Normal 0.2-1.0 [facility] Comment on above: Performed By: #### C MP, HSTROPN #### [facility] [address] [place] [address] Dr. Shane Hinton Calcium [Mass/Vol] 8.8 mg/dL Normal 8.5-10.1 [facility] Comment on above: Performed By: #### C MP, HSTROPN #### [facility] [address] [place] [address] Dr. Shane Hinton Chloride [Moles/Vol] 106 mmol/L Normal 98-107 [facility] Comment on above: Performed By: #### C MP, HSTROPN #### [facility] [address] [address] [address] Shane Hinton CO2 [Moles/Vol] 26.2 mmol/L Normal 21.0-32.0 [facility] Comment on above: Performed By: #### C MP, HSTROPN #### [facility] [address] [address] [address] Shane Hinton Creatinine [Mass/Vol] 1.00 mg/dL Normal 0.70-1.30 [facility] Comment on above: Performed By: #### C MP, HSTROPN #### [facility] [address] [address] [address] Shane Hinton EGFR-AF MALIAN >60 Normal >=60 [facility] Comment on above: Performed By: #### C MP, HSTROPN #### [facility] [address] [address] [address] Shane Hinton EGFR-NON AF MALIAN >60 Normal >=60 [facility] Comment on above: Performed By: #### C MP, HSTROPN #### [facility] [address] [address] [address] Shane Hinton Globulin (S) [Mass/Vol] 3.3 g/dL Normal [facility] Comment on above: Performed By: #### C MP, HSTROPN #### [facility] [address] [address] [address] Shane Hinton Glucose [Mass/Vol] 114 mg/dL Critically high 74-106 [facility] Comment on above: Performed By: #### C MP, HSTROPN #### [facility] [address] [address] [address] Shane Hinton Potassium [Moles/Vol] 3.7 mmol/L Normal 3.5-5.1 [facility] Comment on above: Performed By: #### C MP, HSTROPN #### [facility] [address] [address] [address] Shane Hintno Protein [Mass/Vol] 7.3 g/dL Normal 6.4-8.2 [facility] Comment on above: Performed By: #### C MP, HSTROPN #### [facility] [address] [place] [address] Dr. Shane Hinton Sodium [Moles/Vol] 142 mmol/L Normal 136-145 [facility] Comment on above: Performed By: #### C MP, HSTROPN #### [facility] [address] [place] [address] Dr. Shane Hinton Urea nitrogen [Mass/Vol] 20.0 mg/dL Critically high 7.0-18 .0 [facility] Comment on above: Performed By: #### C ROSMERY, HSTROPN #### [facility] [address] [place] [address] Dr. Shane Hinton Urea nitrogen/Creatinine [Mass ratio] 20.0 mg/mg Normal [facility] Comment on above: Performed By: #### C ROSMERY, HSTROPN #### [facility] [address] [place] [address] Dr. Shane Hinton TROPONIN, HIGH SENSITIVITYon 11-09-2021 HSTROP 10.8 pg/mL Normal 4.0-76.1 [facility] Comment on above: Result Comment: CUT- OFF POINTS HAVE BEEN ESTABLISHED BASED ON THE FOURTH UNIVERSAL DEFINITIONS OF MYOCARDIAL INFARCTION. THE UPPER REFERENCE LIMIT (URL) OF TROPONIN, DEFINED THE 99TH PERCENTILE OF cTnI DISTRIBUTION IN A REFERENCE POPULATION, HAS BEEN CONFIRMED THE DECISION THRESHOLD FOR NM DIAGNOSIS. Performed By: #### C MP, HSTROPN #### [facility] [address] [place] [address] Dr. Shane Hinton XR CHEST 1 Von 11-09-2021 XR CHEST 1 V EXAMINATION: XR CHEST 1 V HISTORY: Palpitations COMPARISON: None. TECHNIQUE: AP chest FINDINGS: The lung parenchyma is free of consolidation or infiltrate. No pneumothorax or pleural effusion. The cardiac, mediastinal and hilar contours are normal. Age-related changes of both acromioclavicular joints and the visualized left glenohumeral joint. The right acromioclavicular joint is poorly evaluated. Right infraspinatus tendon hydroxyapatite deposition. The visualized osseous structures exhibit no gross abnormality. IMPRESSION: Normal chest x-ray. Hydroxyapatite deposition of the right infraspinatus tendon. Electronically authenticated by: SAEED ARCE Date: 2021-11-08 23:12 Normal [facility] Vital Signs Date Time Vital Sign Value Performing Clinician Facility 02-06-2025 11:01-0400 Body height 180.34 cm Saeed Patel DO Work Phone: [facility] 02-06-2025 11:01-0400 Diastolic blood pressure 84 mm[Hg] Saeed Patel DO Work Phone: [facility] 02-06-2025 11:01-0400 Systolic blood pressure 164 mm[Hg] Saeed Patel DO Work Phone: [facility] 02-06-2025 10:53-0400 Body mass index (BMI) [Ratio] 25.4 kg/m2 Saeed Patel DO Work Phone: [facility] 02-06-2025 10:53-0400 Body temperature 98.5 [degF] Saeed Patel DO Work Phone: [facility] 02-06-2025 10:53-0400 Body weight 82.55 kg Saeed Patel DO Work Phone: [facility] 02-06-2025 10:53-0400 Heart rate 84 /min Saeed Patel DO Work Phone: [facility] 02-06-2025 10:53-0400 Respiratory rate 14 /min Saeed Patel DO Work Phone: [facility] 02-06-2025 10:53-0400 SaO2% (BldA) [Mass fraction] 98 % Saeed Patel DO Work Phone: [facility] 11-14-2024 09:24-0400 Body temperature 97.8 [degF] Saeed Patel DO Work Phone: [facility] 11-14-2024 09:24-0400 Body weight 82.55 kg Saeed Patel DO Work Phone: [facility] 11-14-2024 09:24-0400 Diastolic blood pressure 82 mm[Hg] Saeed Patel DO Work Phone: [facility] 11-14-2024 09:24-0400 Heart rate 91 /min Saeed Patel DO Work Phone: [facility] 11-14-2024 09:24-0400 SaO2% (BldA) [Mass fraction] 97 % Saeed Patel DO Work Phone: [facility] 11-14-2024 09:24-0400 Systolic blood pressure 130 mm[Hg] Saeed Patel DO Work Phone: [facility] 11-21-2023 08:07-0400 Body height 180.34 cm [facility] 11-21-2023 08:07-0400 Body mass index (BMI) [Ratio] 24.3 kg/m2 [facility] 11-21-2023 08:07-0400 Body temperature 97.6 [degF] [facility] 11-21-2023 08:07-0400 Body weight 78.92 kg [facility] 11-21-2023 08:07-0400 Diastolic blood pressure 78 mm[Hg] [facility] 11-21-2023 08:07-0400 SaO2% (BldA) [Mass fraction] 99 % [facility] 11-21-2023 08:07-0400 Systolic blood pressure 138 mm[Hg] [facility] 02-17-2022 08:35-0400 Body height 180.34 cm Saeed Patel Other [facility] [employer] Other 02-16-2022 10:30-0400 Diastolic blood pressure 80 mm[Hg] Saeed Patel Work Phone: [facility] 600 DO Work Phone: 02-16-2022 10:30-0400 Systolic blood pressure 136 mm[Hg] Saeed Patel Work Phone: [facility] 600 DO Work Phone: 02-16-2022 09:53-0400 Body height 180.34 cm Saeed Patel Work Phone: [facility] 600 DO Work Phone: 02-16-2022 09:53-0400 Body mass index (BMI) [Ratio] 24.97 kg/m2 Saeed Patel Work Phone: [facility] 600 DO Work Phone: 02-16-2022 09:53-0400 Body surface area Derived from formula 2.01 m2 Saeed Patel Work Phone: [facility] 600 DO Work Phone: 02-16-2022 09:53-0400 Body weight 81.19 kg Saeed Patel Work Phone: [facility] 600 DO Work Phone: 02-16-2022 09:53-0400 Diastolic blood pressure 72 mm[Hg] Saeed Patel Work Phone: [facility] 600 DO Work Phone: 02-16-2022 09:53-0400 Heart rate 72 /min Saeed Patel Work Phone: [facility] [address] DO Work Phone: 02-16-2022 09:53-0400 Systolic blood pressure 140 mm[Hg] Saeed Patel Work Phone: [facility] 600 DO Work Phone: 02-10-2022 10:45-0400 65 1 Saeed Patel Work Phone: [facility] [address] [place] Work Phone: Comment on above: [id number] 01-12-2022 10:27-0400 Diastolic blood pressure 80 mm[Hg] Saeed Patel Work Phone: [facility] 600 DO Work Phone: 01-12-2022 10:27-0400 Systolic blood pressure 130 mm[Hg] Saeed Patel Work Phone: [facility] 600 DO Work Phone: 01-12-2022 10:25-0400 Body height 180.34 cm Saeed Patel Work Phone: [facility] 600 DO Work Phone: 01-12-2022 10:25-0400 Body mass index (BMI) [Ratio] 25.11 kg/m2 Saeed Patel Work Phone: [facility] 600 DO Work Phone: 01-12-2022 10:25-0400 Body surface area Derived from formula 2.02 m2 Saeed Patel Work Phone: [facility] 600 DO Work Phone: 01-12-2022 10:25-0400 Body weight 81.65 kg Saeed Patel Work Phone: [facility] 600 DO Work Phone: 01-12-2022 10:25-0400 Diastolic blood pressure 70 mm[Hg] Saeed Patel Work Phone: [facility] 600 DO Work Phone: 01-12-2022 10:25-0400 Heart rate 82 /min Saeed Patel Work Phone: [facility] 600 DO Work Phone: 01-12-2022 10:25-0400 Systolic blood pressure 142 mm[Hg] Saeed Patel Work Phone: [facility] 600 DO Work Phone: 11-15-2021 18:00-0400 Body height 180.34 cm Saeed Patel Other [employer] Other 11-15-2021 18:00-0400 Body mass index (BMI) [Ratio] 26.01 kg/m2 Saeed Patel Other [employer] Other 11-15-2021 18:00-0400 Body weight 84.6 kg Saeed Piotrtee Other [employer] Other 11-15-2021 18:00-0400 Diastolic blood pressure 83 mm[Hg] Saeed Patel Other [employer] Other 11-15-2021 18:00-0400 Respiratory rate 18 /min Saeed Saldañatee Other [employer] Other 11-15-2021 18:00-0400 SaO2% (BldA) [Mass fraction] 99 % Saeed Patel Other [employer] Other 11-15-2021 18:00-0400 Systolic blood pressure 151 mm[Hg] Saeed Saldañatee Other [employer] Other Encounters Encounter Date Encounter Type Care Provider Facility Start: 02-06-2025 End: 02-06-2025 ambulatory Saeed Saldañatee DO Work Phone: [facility] Work Phone: Start: 02-06-2025 End: 02-06-2025 Patient encounter procedure Jennifer Fletcher [employer] [facility] Work Phone: Start: 11-14-2024 End: 11-14-2024 ambulatory Saeed Patel DO Work Phone: [facility] Work Phone: Start: 11-14-2024 End: 11-14-2024 Patient encounter procedure Saeed Patel DO Work Phone: [facility] [place] Work Phone: Start: 11-12-2024 End: 11-12-2024 Patient encounter procedure Saeed Patel DO Work Phone: [facility] [place] Work Phone: Start: 11-12-2024 End: 11-12-2024 ambulatory Saeed Patel Facility:[facility] Start: 11-21-2023 End: 11-21-2023 ambulatory [facility] Work Phone: Start: 11-21-2023 End: 11-21-2023 Patient encounter procedure [facility] [place] Work Phone: Start: 11-17-2023 Non-patient / Non-visit [facility]-[employer] Work Phone: Start: 11-29-2022 End: 11-29-2022 ambulatory Saeed Patel Other [employer] Other Start: 11-29-2022 Telephone encounter Saeed Patel [facility] [place] Start: 11-23-2022 End: 11-23-2022 ambulatory Saeed Patel Other [employer] Other Start: 11-23-2022 Telephone encounter Saeed Patel [facility] [place] Start: 11-22-2022 End: 11-22-2022 ambulatory Saeed Patel Other [employer] Other Start: 11-22-2022 Telephone encounter Saeed Patel [facility] [place] Start: 07-08-2022 End: 07-09-[address] NONE LISTED REQUEST Facility: Start: 02-17-2022 End: 02-18-[address] NONE LISTED REQUEST [employer] Other Start: 02-17-2022 Telephone encounter Saeed Patel [facility] [place] Start: 02-16-2022 FUV, Provider: Latrell Urbano, Status: Pen, Time: 9:50 AM Saeed Patel Work Phone: [facility] [address] [place] Work Phone: Start: 02-16-2022 Office outpatient vi sit 25 minutes Saeed Patel Work Phone: [facility] 600 DO Work Phone: Start: 02-16-[address] Saeed Patel Facility: Start: 02-10-2022 Patient encounter procedure Saeed Patel Work Phone: [facility] [address] [place] Work Phone: Start: 01-31-2022 Chart Update Saeed Patel Work Phone: [facility] [place] 250 DO Work Phone: Start: 01-12-2022 ambulatory Latrell Urbano Facilit y: Start: 01-12-2022 Office consultation new/estab patient 60 min Saeed Patel Work Phone: [facility] 600 DO Work Phone: Start: 11-18-2021 End: 11-18-2021 ambulatory Saeed Patel Other [employer] Other Start: 11-18-2021 Telephone encounter Saeed Patel [facility] Start: 11-15-2021 End: 11-15-2021 ambulatory Saeed Patel Other [employer] Other Start: 11-15-2021 Office outpatient ne w 30 minutes Saeed Patel [facility] Start: 11-09-2021 End: 11-09-[address] CORNELIA HALL Facility:H1 Procedures Date Procedure Procedure Detail Performing Clinician Start: 11-12-2024 Urine culture Saeed oliveira DO Work Phone: Start: 02-10-2022 Echocardiography Saeed Patel Work Phone: Total colonoscopy Saeed duron Work Phone: Comment on above: 06/2006; Plan of Treatment Date Care Activity Detail Author Start: 11-12-2024 [facility] Start: 11-30-2022 FUV, Provider: Latrell Urbano, Status: Pen, Time: 10:00 AM FUV, Provider: Latrell Urbano, Status: Pen, Time: 10:00 AM -[facility] 600 DO Work Phone: Start: 02-16-2022 FUV, Provider: Latrell Urbano, Status: Pen, Time: 9:50 AM FUV, Provider: Latrell Urbano, Status: Pen, Time: 9:50 AM -[facility] 600 DO Work Phone: Start: 02-10-2022 ECHO, Provider: KIARA MONTE [facility] ULTRASOUND 01,[id number], Status: Pen, Time: 10:45 AM ECHO, Provider: JULIO C [facility] ULTRASOUND 01,[id number], Status: Pen, Time: 10:45 AM -[facility] 600 DO Work Phone: Bacteria identified in Urine by Culture [facility] metabo lic 1999 panel - Serum or Plasma [facility] metabo lic 1999 panel - Serum or Plasma [facility] Lipoprotein a [Moles/volume] in Serum or Plasma [facility] Urine culture [facility] Payers Date Payer Category Payer Medicare [id number] 2.1 [id number] 1960 Self-pay 1960 Unknown [id number] 2.1 [id number] 1954 Unknown [id number] [id number] [id number] 1954 Unknown [id number] 2.16. [id number] 1954 Unknown [id number] 2.16. [id number] Unknown Unknown [id number] 2.16.84 [id number] Unknown [id number] 2.16.84 [id number] Unknown O [id number] Unknown [employer] [id number] Unknown [id number] [id number] [id number] Social History Date Type Detail Facility Sex Assigned At [employer] Other No illicit drug use No illicit drug use [address] [address] DO Work Phone: Start: 11-17-2023 End: 11-14-2024 Tobacco smoking status NHIS Never smoked tobacco (finding) [facility] Start: 1955 Sex Assigned At Male F [facility] Start: 11-14-2024 Sex Male (finding) [facility] Clinical Notes 11-15-2021 to 11-14-2024 Note Date & Type Note Facility 11-14-2024 Evaluation note Authored November 14, 2024 9:54a m The above note written by __ _Domitila Saunders____ acting as human recorder, note dictated by Dr. Nicholas .I performed the above HPI, ROS, and Examination. I formulated and dictated the treatment plan and was present for entire encounter. Saeed Patel D.O. [facility] Work Phone: 1([phone]) 593-764608-25-2022 Evaluation note* Encounter Date Diagnosis Assessment Notes Treatment Notes Treatment Clinical Notes Jan, Screening for prostate cancer (ICD-10 - Z12.5) Jan, Hyperglycemia (ICD-1 0 - R73.9) Jan, Weight gain (ICD-10 - R63.5) Jan, Other residential (current) drug therapy (ICD-10 - Z79.899) Jan, Nocturia (ICD-10 - R35.1) [employer] Other 07-04-2022 History of Present illness Narrative* Patient is referred by his primary care physician because of palpitations and shortness of breath. He notes palpitations under variety of circumstances but usually at rest and/or when lying down. He believes it might of been related to alcohol and he stopped drinking 3 weeks ago and he believes thepalpitations are pretty much let up. He denies overt syncope or near syncope but he and his were concerned regarding the possibility of a malignant and/or life- threatening arrhythmia. * I suggested to him that Holter monitor or event monitor could be considered but because of his symptoms of calm way down it appears unlikely that we will be able to capture an episode. Because of this I recommended that we exclude cardiomyopathy by performing an echocardiogram. The purpose of this would be to determine if in fact his complaints of shortness of breath are on the basis of cardiomyopathy. Also if he has a cardiomyopathy it might shed some light on the nature and/or gravity of the situation revolving around his arrhythmia symptomatology. * We also note his lipids are high. PCP ordered lab and the LDL is 170. He has 2 family members with coronary disease and the paramount importance of treating his lipids was discussed. He is reluctant and prefers diet and exercise. Advised him this will fail. Ultimately I suggested and he agreed to acoronary artery calcium score in order to add some clarity in regards to his atherosclerotic plaqueburden and his propensity for future cardiac events. * We will reconvene after these tests are performed. He and his are encouraged to call in the interim if problems arise or occur. [facility] Work Phone: 1(564) 455-280306-29-2022 History of Present illness Narrative* Patient is referred by his primary care physician because of palpitations and shortness of breath. He notes palpitations under variety of circumstances but usually at rest and/or when lying down. He believes it might of been related to alcohol and he stopped drinking 3 weeks ago and he believes thepalpitations are pretty much let up. He denies overt syncope or near syncope but he and his were concerned regarding the possibility of a malignant and/or life- threatening arrhythmia. * I suggested to him that Holter monitor or event monitor could be considered but because of his symptoms of calm way down it appears unlikely that we will be able to capture an episode. Because of this I recommended that we exclude cardiomyopathy by performing an echocardiogram. The purpose of this would be to determine if in fact his complaints of shortness of breath are on the basis of cardiomyopathy. Also if he has a cardiomyopathy it might shed some light on the nature and/or gravity of the situation revolving around his arrhythmia symptomatology. * We also note his lipids are high. PCP ordered lab and the LDL is 170. He has 2 family members with coronary disease and the paramount importance of treating his lipids was discussed. He is reluctant and prefers diet and exercise. Advised him this will fail. Ultimately I suggested and he agreed to acoronary artery calcium score in order to add some clarity in regards to his atherosclerotic plaqueburden and his propensity for future cardiac events. * We will reconvene after these tests are performed. He and his are encouraged to call in the interim if problems arise or occur. [facility] 600 DO Work Phone: 1([phone]) 313-553705-23-2022 Evaluation note* Encounter Date Diagnosis Assessment Notes Treatment Notes Treatment Clinical Notes October, Hyperlipidemia (ICD-10 - E78.5) Discussed cholesterol results with patient today. Total is 257. HDL is 42. LDL is 170. Triglycerides are 223. I would like to see his LDL between 70-100. He voices that he tries to eat very healthy and eats keto foods. He drinks mostly water. I suspect his LDL is genetic. I am going to refer him to a admissions nurse to discuss palpitations, light headedness and they can discuss his cholesterol as well. If needed we can control his cholesterol with medication, will await what the admissions nurse says. October, Hyperglycemia (ICD-10 - R73.9) Discussed blood sugar results with patient today. His HgA1C is 5.5 which is normal. October, Palpitations (ICD-10 - R00.2) He voices that he noticed at night he would get light headed mostly at night and he would feel palpitations. He did not notice anything when he was working in his shop or when he would ride his bike. He can ride his bike for up to 10 miles without any palpitations. The palpitations can wake him up at night. If he gets up to go to the bathroom he may feel light headed and can feel the palpitations. 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 He did go to the ER for evaluation on 11-08-21 and nothing abnormal was found. He will sit and watch TV at night. He will drink beer, no hard liquor but only on the weekends. It does seem as if it is the night after he drinks beer that he notices the palpitations more. He voices that he does drink plenty of water, that is all he drinks. An EKG was done at the ER on 11-08-21. He can ride his bike without any chest pain or pressure. His lab work did not show any sign of anemia or thyroid abnormalities. I did explain to him that his palpitations are likely caused by the alcohol he has had leaving his system. We discussed that his LDL cholesterol is elevated, I did recommend that he have a stress test done. I would like him to see a admissions nurse for evaluation to discuss the palpitations and his cholesterol. He agrees to a referral. Until seen he should take it easy. Avoid any excessive stress on the heart. Until seen by cardiology he should start taking a baby ASA 81 MG with food daily. October, Light headedness (ICD-10 - R42) If he gets up to go to the bathroom he may feel light headed and can feel the palpitations. 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 Will refer to cardiology but until seen I did recommend he sit on the edge of the bed for 2 min before getting up to prevent hypotension. October, Screening for prostate cancer (ICD-10 - Z12.5) His PSA is 0.630 no sign of prostate cancer at this time. October, Nocturia (ICD-10 - R35.1) October, Weight gain (ICD-10 - R63.5) His thyroid was normal at 3.26. October, Elevated blood pressure (ICD-10 - R03.0) Today his blood pressure is elevated at 180/92. He voices that he has been checking it on his own and normally it is between 120-130 over 70. He has a brother who had a heart attack and one brother has a stent. He has never been a smoker. He does drink beer. I did check his blood pressure myself and got a reading of 151/83 which shows that it is calming down. He is to continue to monitor this on his own. I asked him to call me in three days with his blood pressure readings he has taken at home. [employer] Other Chief complaint Narrative - ReportedDENIS CHACON is being seen for a consultation for Palpitations/Lightheaded/ High LDL.[facility] 600 DO Work Phone: Chief complaint Narrative - ReportedDENIS CHACON is being seen for a consultation for Palpitations/Lightheaded/ High LDL.[facility] Work Phone: Evaluation noteNo InformationNort [employer] Other Evaluation note* Diagnosis Onset Date Resolution Status Calcium oxalate crystals in urine acute Hyperglycemia acute Hyperlipidemia acute Intentional weight loss acut e Nocturia acute 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 Palpitations acute Screening for prostate cancer acute [facility] Work Phone: Evaluation note* Diagnosis Onset Date Resolution Status Admit Date Calcium oxalate crystals in urine ac miles November 14, 2024 9:03am Colon cancer screening acute Ma y 2024 9:03am Elevated PSA acute November 14 9:03am Hyperglycemia acute November 14, 2 025 9:03am Hyperlipidemia acute November 14, 2024 9:03am Leukopenia acute November 14, 2024 9:03am Palpitations acute November 14 9:03am Weight gain acute November 14 9:03am [facility] Work Phone: History general Narrative - Reported* Type Description Date Surgical History colonoscopy approximately 2004, normal per patient Hospitalization History Pneumonia 1970 [employer] Other History of Present illness Narrative* Returns in follow-up of problems as noted. In the interim he underwent echocardiography and it was normal. Because of this I advised him and his that although we do not know what his arrhythmia was it is not a life-threatening circumstance and because of this we propose no further testing or evaluation. They did purchase a Kardia device and they will attempt to capture episodes of arrhythmiaand I encouraged him to do so and share the recordings with me if and when they capture something * He also underwent calcium scoring. His score is 819. This is very high and I strongly emphasized the importance of statin therapy. As before he is very resistant but ultimately agrees to initiate rosuvastatin. We chose a low-dose in order to ease him into it . My hope is that he will find the medication tolerable. * I pointed out to him and his that despite his best efforts at diet and exercise sometimes you cannot overcome a high cholesterol and/or prevent cholesterol plaque in deposit and because of this and the findings I feel strongly that he should be on statin therapy. He questions other pharmacologic interventions including niacin and I discussed and explained this in tremendous detail. * Ultimately he agrees to initiate rosuvastatin. It sounds as if he sees his primary care physician as needed and because of this we will check lipids in about 3 months and have him follow-up with me in about 9 months. He was encouraged to call if problems arise in the interim. -[facility] 600 DO Work Phone: Reason for referral (narrative)No reason for referral information availableAshtabula [facility] Hospital Work Phone: Reason for Referral Reason appt pt does not have a preference for dr pt needs consult to discuss palpitations, light headedness and high LDL Diagnosis 1 Palpitations (R00.2) Referral Organization [facility] Family Richelle Julio Referring Provider First Name Saeed Referring Provider Last Name Patricia Referring Provider Specialty Family Prac marylin Referred Organization [facility] C enter Referred Address [address] [facility] [address] [place] [id number] Referred Provider Specialty Cardiology Referral Priority Routine General Notes Bria Gray 11/15/2021 06:12:34 PM > referral faxed with visit note, labs, hosp EKG report and insurance cards. pt understands that he will be contacted to schedule this appt. Family History Unknown Family Member Name Dates Details Family history of malignant neoplasm of colon: Mother(V16.0, Z80.0) Status:Active Family history of pancreatic cancer: Father(V16.0, Z80.0) Status:Active Family history of myocardial infarction: Brother(V17.3, Z82.49) Status:Active Family history of cardiac pa cemaker: Brother(V17.49, Z82.49) Status:Active Unknown Family Member Name Dates Details Family history of malignant neoplasm of colon: Mother(V16.0, Z80.0) Status:Active Family history of pancreatic cancer: Father(V16.0, Z80.0) Status:Active Family history of myocardial infarction: Brother(V17.3, Z82.49) Status:Active Family history of cardiac pa cemaker: Brother(V17.49, Z82.49) Status:Active Unknown Family Member Name Dates Details Family history of malignant neoplasm of colon: Mother(V16.0, Z80.0) Status:Active Family history of pancreatic cancer: Father(V16.0, Z80.0) Status:Active Family history of myocardial infarction: Brother(V17.3, Z82.49) Status:Active Family history of cardiac pa cemaker: Brother(V17.49, Z82.49) Status:Active Unknown Family Member Name Dates Details Family history of malignant neoplasm of colon: Mother(V16.0, Z80.0) Status:Active Family history of pancreatic cancer: Father(V16.0, Z80.0) Status:Active Family history of myocardial infarction: Brother(V17.3, Z82.49) Status:Active Family history of cardiac pa cemaker: Brother(V17.49, Z82.49) Status:Active Unknown Family Member Name Dates Details Family history of malignant neoplasm of colon: Mother(V16.0, Z80.0) Status:Active Family history of pancreatic cancer: Father(V16.0, Z80.0) Status:Active Family history of myocardial infarction: Brother(V17.3, Z82.49) Status:Active Family history of cardiac pa cemaker: Brother(V17.49, Z82.49) Status:Active Unknown Family Member Name Dates Details Family history of malignant neoplasm of colon: Mother(V16.0, Z80.0) Status:Active Family history of pancreatic cancer: Father(V16.0, Z80.0) Status:Active Family history of myocardial infarction: Brother(V17.3, Z82.49) Status:Active Family history of cardiac pa cemaker: Brother(V17.49, Z82.49) Status:Active Relationship Condition Age at Onset Recorded Date/T ridge brother Myocardial infarction Unknown father Malignant neoplasm Unknown Unknown Not Specified Hypertension Unknown Malignant neoplasm Unknown Relationship Condition Age at Onset Recorded Date/T ridge brother Myocardial infarction Unknown father Malignant neoplasm Unknown Unknown mother Hypertension Unknown Malignant neoplasm Unknown Chief Complaint DENIS CHACON is being seen for Testing f/u. 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 Palpitations Screening for prostate cancer Chief Complaint Admit Date yearly/review labs November 14, 2024 9:03a m Reason for Visit Admit Date Calcium oxalate crystals in urine November 142024 9:03am Colon cancer screening November 14, 2024 9: 03am Elevated PSA November 14, 2024 9:03a m Hyperglycemia November 14, 2024 9:03a m Hyperlipidemia November 14, 2024 9:03a m Leukopenia November 14, 2024 9:03a m Palpitations November 14, 2024 9:03a m Weight gain November 14, 2024 9:03a m Chief Complaint Admit Date See order November 12, 2024 7:20a m yearly/review labs November 14, 2024 9:03a m rash/blister on right arm February 06, 2 025 10:44am Additional Source Comments REASON FOR VISIT (unrecogniz ed section and content) review labsBP readingsClinic allab resultswaiting on lab resultsNMR Lipoprofile (unrecognized sect ion and content) No Status Records FoundNo Status Records FoundNo Status Records FoundNo Status Records FoundNo Status Records Found INFORMATION SOURCE (unrecogn ized section and content) DATE CREATED AUTHOR 02/16/2022 [facility] DATE CREATED AUTHOR AUTHOR'S ORGANIZ ATION 02/19/2022 [employer] DATE CREATED AUTHOR AUTHOR'S ORGANIZ ATION 07/08/2022 [facility] DATE CREATED AUTHOR AUTHOR'S ORGANIZ ATION 12/04/2022 [facility] DATE CREATED AUTHOR AUTHOR'S ORGANIZ ATION 11/24/2024 [facility] Care Teams (unrecognized sec tion and content) Team Status: Active Member Role Status Dates Saeed Patel DO Primary Care Provider Active Team Status: Inactive Member Role Status Dates Saeed Patel DO Primary Care Provide r, Attending Provider Active Start: November 12, 2024 End: November 12, 2024 Team Status: Inactive Member Role Status Dates Saeed Patel DO Primary Care Provide r, Attending Provider Active Start: November 14, 2024 End: November 14, 2024 Team Status: Active Member Role Status Dayanna Patel DO Primary Care Provide r, Attending Provider Active Start: November 17, 2023 Team Status: Inactive Member Role Status Dayanna Patel DO Primary Care Provide r, Attending Provider Active Start: November 21, 2023 End: November 21, 2023 Team Status: Inactive Member Role Status Dayanna Patel DO Primary Care Provider Active S tart: November 12, 2024 End: November 12, 2024 Saeed Patel DO Attending Provider Active Star t: November 12, 2024 End: November 12, 2024 Team Status: Inactive Member Role Status Dayanna Patel DO Primary Care Provider Active S tart: November 14, 2024 End: November 14, 2024 Saeed Patel DO Attending Provider Active Star t: November 14, 2024 End: November 14, 2024 Team Status: Inactive Member Role Status Dayanna Patel DO Primary Care Provider Active S tart: February 06, 2025 End: February 06, 2025 AMBROCIO Sanches RN [employer]IL[employer]ER-C Attending Provider Active Start: February 06, 2025 End: February 06, 2025 Goals (unrecognized section and content) Goals may be documented in a n alternate section FOR RECORDS PERTAINING TO PATIENTS WHO ARE OR HAVE BEEN ENROLLED IN A CHEMICAL DEPENDENCY/SUBSTANCEABUSE PROGRAM, SOME INFORMATION MAY BE OMITTED. This clinical summary was aggregated from multiple sources. Caution should be exercised in using it in the provision of clinical care. This summary normalizes information from multiple sources, and as a consequence, information in this document may materially change the coding, format and clinical context of patient data. In addition, data may be omitted in some cases. CLINICAL DECISIONS SHOULD BE BASED ON THE PRIMARY CLINICAL RECORDS. [facility] [employer] [facility]. provides no warranty or guarantee of the accuracy or completeness of information in this document.
--- NOTE | 2025-03-10 02:33 | ED.GENADUL1 ---
HPI HPI - General Adult General Chief complaint: Recheck/Abnormal Lab/Rx Stated complaint: HIGH BP Time Seen by Provider: 03/10/25 02:28 Source: patient Mode of arrival: walk-in Limitations: no limitations History of Present Illness HPI narrative: presents complaining of left midaxillary chest pain. Pain increases with deep breath or when he lays on his left side. Took his BP and it was elevated and he came in Related Data Home Medications ?Medication ?Instructions ?Recorded ?Confirmed No Known Home Medications 03/10/25 03/10/25 Allergies Allergy/AdvReac Type Severity Reaction Status Date / Time No Known Drug Allergies Allergy Verified 03/10/25 02:21 Review of Systems ROS Status of ROS 10 or more systems reviewed and unremarkable except as noted in history and below PFSH PFSH Social History Little interest or pleasure in doing things: not at all Feeling down, depressed, or hopeless: not at all Exam Constitutional Vital Signs, click to edit/add: Last Vital Signs Temp 98.6 F 03/10/25 02:15 Pulse 95 H 03/10/25 03:41 Resp 18 03/10/25 02:15 BP 158/84 H 03/10/25 03:41 Pulse Ox 99 03/10/25 02:34 O2 Del Method Room Air 03/10/25 02:34 Common normals: no apparent distress, average body habitus, oriented x3, no limitations, healthy appearing, alert and well nourished [facility] Common normals: normocephalic and head/scalp atraumatic Eye Common normals: EOMs intact bilaterally and conjunctivae normal Chest Other: left chest wall tender Respiratory Common normals: normal respiratory effort, no retractions, no use of accessory muscles and clear to auscultation bilaterally Cardio Common normals: regular rate, regular rhythm, S1 normal heart sound and S2 normal heart sound GI Common normals: Normal to inspection, nondistended, normoactive bowel sounds present, soft to palpation and non-tender Extremity Common normals: normal to inspection and full ROM Neuro Common normals: oriented x3, CN's II-XII intact bilaterally and no focal motor deficits Psych Appearance: grossly normal Course Vital Signs Vital signs: Vital Signs Temperature 98.6 F 03/10/25 02:15 Pulse Rate 92 H 03/10/25 02:15 Respiratory Rate 18 03/10/25 02:15 Blood Pressure 169/92 H 03/10/25 02:15 Pulse Oximetry 99 03/10/25 02:15 Oxygen Delivery Method Room Air 03/10/25 02:15 Temperature 98.6 F 03/10/25 02:15 Pulse Rate 95 H 03/10/25 03:41 Respiratory Rate 18 03/10/25 02:15 Blood Pressure 158/84 H 03/10/25 03:41 Pulse Oximetry 99 03/10/25 02:34 Oxygen Delivery Method Room Air 03/10/25 02:34 Medical Decision Making MDM Narrative Medical decision making narrative: patient presents with left pleuritic chest pain. chest wall tenderness and HTN. Pain chest increased also when lying on his left side. D-dimer positive. CTA chest neg for PE. first troponin neg. EKG normal with early repolarization. BP 169/92 decreased to 158/84 without intervention. Repeat troponin pending repeat troponin neg. Chest pain better after toradol. CT did demonstrate lesions in the pancreases and liver suspicoius for CA. Patient and informed of the above and will follow up with your family doctor Lab Data Labs: Lab Results 03/10/25 03/10/25 Range/Units 02:25 04:38 WBC 8.4 (4.0-11.0) 10^3/uL RBC 5.08 (4.70-6.10) 10^6/uL Hgb 15.9 (14.0-18.0) g/dL Hct 45.7 (42.0-54.0) % MCV 90.0 (80.0-94.0) fL MCH 31.3 (25.9-34.0) pg MCHC 34.8 (29.9-35.2) g/dL RDW 12.0 (11.0-15.0) % Plt Count 151 (150-450) 10^3/uL MPV 10.0 (9.5-13.5) fL Neut % (Auto) 74.2 (43.0-75.0) % Lymph % (Auto) 13.2 L (20.5-60.0) % [place] % (Auto) 9.5 (1.7-12.0) % Eos % (Auto) 1.7 (0.9-7.0) % Baso % (Auto) 0.4 (0.2-2.0) % Neut # (Auto) 6.2 (1.4-6.5) 10^3/uL Lymph # (Auto) 1.1 L (1.2-3.8) 10^3/uL [place] # (Auto) 0.8 (0.3-0.8) 10^3/uL Eos # (Auto) 0.1 (0.0-0.7) 10^3/uL Baso # (Auto) 0.0 (0.0-0.1) 10^3/uL Abs Immat Gran (auto) 0.08 H (0.00-0.03) 10^3/uL Imm/Tot Granulo (auto) 1.0 H (0.0-0.5) % D-Dimer 1.39 H* (<=0.59) mg/L FEU Sodium 141 (136-145) mmol/L Potassium 4.0 (3.5-5.1) mmol/L Chloride 104 (98-107) mmol/L Carbon Dioxide 29.4 (21.0-32.0) mmol/L Anion Gap 11.6 BUN 18.0 (7.0-18.0) mg/dL Creatinine 1.10 (0.70-1.30) mg/dL Est GFR ( Amer) >60 (>=60 mL/min/1.73m^2) Est GFR (Non-Af Amer) >60 (>=60 mL/min/1.73m^2) BUN/Creatinine Ratio 16.4 Glucose 128 H (74-106) mg/dL Calcium 9.3 (8.5-10.1) mg/dL Troponin I High Sens 9.9 11.5 (4.0-76.1) pg/mL Discharge Plan Discharge Chief Complaint: Recheck/Abnormal Lab/Rx Clinical Impression: Acute chest wall pain, Hypertension, Lesion of pancreas Patient Disposition: Home, Self-Care Prescriptions / Home Meds: No Action No Known Home Medications Print Language: Hebrew Instructions: Hypertension (ED), Chest Wall Pain (ED) Additional Instructions: follow up with your doctor in the next 2-3 days to recheck blood pressure. Use ibuprofen or similar for chest wall pain also discuss Cat scan findings of lesions found in your liver and pancreas Referrals: SAEED GOMEZ [Primary Care Provider, Family Practice] - 1 week
[2025-03-10 02:34] VITALS: O2SAT 99
--- NOTE | 2025-03-10 02:35 | XR_ITS ---
The [address] [address] Patient Name: JAVAD CHACON MRN: [id number] date: 1955 Sex: M Assigned Patient Location: ER Current Patient Location: Accession/Order Number: [id number] Exam Date: 03/10/2025 02:40 Report Date: 03/10/2025 09:00 At the request of: BROCK NEGRETE MD Procedure: XR chest 1V PORTABLE AP ERECT CHEST 0226 hours CLINICAL HISTORY: Left-sided chest pain and hypertension COMPARISON: 11/08/2021 The heart is within normal limits. There is no vascular congestion. There is slight elevation of the left hemidiaphragm with minimal adjacent scarring or atelectasis. No other consolidation is seen. There is no effusion or pneumothorax. The osseous structures are intact. Mild endplate spurring is noted. There is also some degenerative change at the shoulders. XR/XR chest 1V IMPRESSION: NO ACUTE FINDINGS Impression dictated by: Marbella Barrientos M.D. 03/10/2025 9:00 AM Dictation Location: [employer] Electronically authenticated by: [id number] Y Date: 03/10/2025 09:00
--- NOTE | 2025-03-10 02:37 | ECG_ITS ---
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
[2025-03-10 02:39] LABS: Hematocrit 45.7 % (42.0-54.0); Hemoglobin 15.9 g/dL (14.0-18.0); Immature Granulocytes Abs Auto 0.08 10^3/uL (0.00-0.03); Immature Granulocytes Pct Auto 1.0 % (0.0-0.5); Lymphocytes Absolute Auto 1.1 10^3/uL (1.2-3.8); Mean Corpuscular HGB Conc 34.8 g/dL (29.9-35.2); Mean Corpuscular Hemoglobin 31.3 pg (25.9-34.0); Mean Corpuscular Volume 90.0 fL (80.0-94.0); Platelet Count 151 10^3/uL (150-450); Red Blood Count 5.08 10^6/uL (4.70-6.10); White Blood Count 8.4 10^3/uL (4.0-11.0)
[2025-03-10 02:54] LABS: Anion Gap 11.6; Blood Urea Nitrogen 18.0 mg/dL (7.0-18.0); Calcium 9.3 mg/dL (8.5-10.1); Carbon Dioxide 29.4 mmol/L (21.0-32.0); Chloride 104 mmol/L (98-107); Estimated GFR (African America >60 (>=60 mL/min/1.73m^2); Estimated GFR (Non-African Ame >60 (>=60 mL/min/1.73m^2); Glucose 128 mg/dL (74-106); Potassium 4.0 mmol/L (3.5-5.1); Sodium 141 mmol/L (136-145)
[2025-03-10 03:41] VITALS: BP 158/84; PULSE 95
[2025-03-10] MEDS: KETOROLAC TROMETHAMINE 30 MG/ML VIAL IVP (04:51)
[2025-03-10 06:08] VITALS: BP 160/88; PULSE 100; O2SAT 99
== END 2025-03-10 06:28 | disposition home or self-care (01) ==
PROVIDERS: Emergency Provider Internal Medicine; PCP Family Medicine
DX: R07.89 Other chest pain (principal); I10 Essential (primary) hypertension; K86.9 Disease of pancreas, unspecified; R79.89 Other specified abnormal findings of blood chemistry
CPT/HCPCS: 36415; 71045; 71275; 80048; 84484; 85025; 85378; 93005; 96374; 99285; J1885; Q9967

== ENCOUNTER 2025-05-18 09:46 | Inpatient (IN) | payer MEDICARE, SELFPAY ==
--- OUTSIDE RECORDS SUMMARY | 2025-05-12 14:19 | XMS_ITS | Continuity of Care Document ---
Author Organization [facility] Address [address] [place] [address] Phone Care Team Providers Care Push Button Switch Assembler Name Role Phone Sai Patel DO Primary Care Provider Sai Patel DO Attending Provider [phone] Natalya Degroot Attending Provider UnavailCash Dorantes MD Attending Provider UnavailDewey Bynum DO Emergency Provider [phone] Care Teams Patient Care Team Team Status: Active Member Role/Relationship Status Dates Sai Patel DO Primary Care Provider Active Visit Care Team Team Status: Active Member Role/Relationship Status Dates Sai Patel DO Primary Care Provider Active S tart: March 10, 2025 Moris Westbrook ProviderActiveStart: March 10, 2025 Visit Care Team Team Status: Inactive Member Role/Relationship Status Dayanna Patel DO Primary Care Provider Active S tart: March 11, 2025 End: March 11, 2025DaMoris Le ProviderActiveStart: March 11, 2025 End: March 11, 2025 Visit Care Team Team Status: Active Member Role/Relationship Status Dayanna Patel DO Primary Care Provider Active S tart: March 11, 2025 Gregoria Kay ProviderActiveStart: March 11, 2025 Visit Care Team Team Status: Active Member Role/Relationship Status Dayanna Patel DO Primary Care Provider Active S tart: March 27, 2025 Moris Westbrook ProviderActiveStart: March 27, 2025 Visit Care Team Team Status: Active Member Role/Relationship Status Dates Sai Patel DO Primary Care Provider Active S tart: April 04, 2025 Cash FernandesDavid carreno ProviderActiveStart: April 04, 2025 Patient Care Team Team Status: Inactive Member Role/Relationship Status Dates Sai Patel DO Primary Care Provider Active S tart: May 12, 2025 End: May 12, 2025Joshua Alexandre ProviderActiveStart: May 12, 2025 End: May 12, 2025 Chief Complaint and Reason for Visit Chief Complaint Admit Date discuss CT chest March 11, 2025 1:13pm Amb Documentation March 11, 2025 2:46pm fever May 12, 2025 5:35pm Reason for Visit Admit Date Adrenal nodule March 11, 2025 1:13pm Elevated BP without diagnosis of hyperte nsion March 11, 2025 1:13pm Left-sided chest wall pain February 1:13pm Liver mass March 11, 2025 1:13pm Pancreatic mass March 11, 2025 1:13pm Splenomegaly March 11, 2025 1:13pm Allergies, Adverse Reactions, Alerts Allergen Type Severity Reaction Last Updated Verified Status No Known Allergies Allergy Unknown May 12, 2025 5:43pmYesActive Social History Smoking Status Status Start Date End Date Date of Observa tion Never smoked tobacco (finding) May 12, 2025 5:37pm Observation Status Observation Response Date of Response Legal Sex Male (finding) Sex Assigned At [facility] 1955 Family History Relationship Condition Age at Onset Recorded Date/T ridge brother Myocardial infarction Unknown fatherMalignant neoplasmUnknownDeceasedUnknownmotherHypertensionUnknownDeceased UnknownMalignant neoplasmUnknown Problems Active Problems Problem Diagnosis/Recorded Date Onset Date Status C omments Intentional weight loss November 21, 2023 8:26am Unknown A ctive Elevated PSAMay 2024 8:39amUnknownActivePancreatic massSeptember 2024 12:26pmUnknownActiveScreening for prostate cancerMa2023 8:19am UnknownActiveColon cancer screeningMay 2024 8:49amUnknownActiveOther skilled nursing (current) drug therapyMay 2023 8:18amUnknownActivePalpitationsMay 2023 8:18amUnknownActiveNocturiaMay 2023 8:18amUnknownActiveAdrenal noduleSeptember 2024 12:27pmUnknownActivepossible left adrenal nodule CellulitisAugust 2024 10:11amUnknownActiveSkin rashAugust 2024 10:11amUnknownActiveHyperglycemiaMay 2023 8:18amUnknownActive HyperlipidemiaMay 2023 7:03amUnknownActiveLeukopeniaMay 2024 8:35am UnknownActiveAnxiety about healthSeptember 2024 1:00pmUnknownActiveLiver massSeptember 2024 12:26pmUnknownActiveSplenomegalySeptember 2024 12:27pmUnknownActiveWeight gainMay 2024 8:34amUnknownActiveElevated BP without diagnosis of hypertensionAugust 2024 10:11amUnknownActiveLeft- sided chest wall painSeptember 2024 12:28pmUnknownActiveCalcium oxalate crystals in urineMay 2023 8:36amUnknownActive Medications Medication Status Dose Units Route Directions Qty Days Refills S tart Date Stop Date End Date Reason(s) Instructions Adherence Sulfamethoxazole-Trimethopri m (Bactrim Ds) 800-160 mg tablet Discontinued 1 TAB PO Every 12 hours 14 0August 2024 11:00pmSept2024 12:17pmTriamcinolone Acetonide 0.1 % fpwwtMnzeuuvzozem2NBTGDMEFXWLZMJxfft ftifp535Hocccz 2024 11:00pm March 11, 2025 12:17pmAspirin 81 mg tablet,chewableDiscontinuedPOMay 2023 11:00pmNovember 21, 2023 7:10amFreeTextSi tablet Orally qd with food; Note: Source Status: Continue; Provider: Amanda Gibbs CGrapeseed extractActivePO November 20, 2023 11:00pmUnknownAscorbate Calcium (Vitamin C) 500 mg tabletActive 500MGPODa2023 11:00pmUnknownZinc Gluconate 30 mg tabletDiscontinued 2023 11:00pmNovember 21, 2023 7:10amFreeTextSi tablet Orally Once a day; Note: Source Status: Taking; Provider: Amanda Gibbs ( )Magnesium Oxide 250 mg magnesium czmionUgdelaytkphu3MFFYMRehvzOnb 27th, 2024 11:00pmNovember 21, 2023 7:10amFreeTextSi tablet with a meal Orally Once a day; Note: Source Status: Continue; Provider: Amanda Gibbs ( )Aspirin 81 mg tablet,jvhitwsdYbyzpkgcxzko9UPUXPXnftuWdv 28th, 2024 7:09amMay 2023 7:10amMagnesium Oxide 250 mg magnesium oefovuPqlgng344QEIZ DailyNovember 21, 2023 7:09amUnknownZinc Gluconate 30 mg khrboyDgmcuz52ECJKQvuidAdg 28th, 2024 7:10amUnknownAspirin 81 mg tablet,bxfusoteXngbab58DLCDTuwpxSkr 28th, 2024 7:10amUnknownOmega-3 Fatty Acids 1,250 mg pcnrkkyMfjhef9621AIZCAlklgAnz 27th, 2024 11:00pmUnknownCitrulline 600 mg verdvrrWvynza9YR.COMPLEXMa2024 11:99va5846 MG orally QD;UnknownDiazepam (Valium) 10 mg lzpgpwSocfiw03QUBW .YYJNBKS256Qdbornlux 15th, 2025 11:00pmAnxiety about health Other symptoms and signs involving emotional state10 mg orally 1 hour prior to procedure;Unknown Relevant Diagnostic Tests and/or Laboratory Data Laboratory Results Test Collection Date/Time Result Date/Time Result Interpretation Reference Range Result Comment Performing Site D-Dimer Quantitat rudi (PE/DVT) March 10, 2025 1:25am March 10, 2025 1:25am 1.39 mg/L FEU Above upper panic limits <=0.59 RESULTS CALLED TO TONEY WYNN RN @BY [facility] [place] at 0302Increase s in D-Dimer concentratio n observed withthromboe mbolic events can be variable due to localization ,size, and age of the thrombus. Therefore, a thromboembol icevent cannot be diagnosed with certainty on the basis of thereference range. D-Dimers may also be elevated for a varietyof disorders including advanced age, , coronarydise ase, cancer, liver disease, infection, inflammation ,hematoma, DIC, trauma, post-surgery , diabetes, thrombolytic or anticoagulan t therapy, stress, and generalizedh ospitalizati on. Anion GapSeptember 2024 1:25amSeptember 2024 1:25am11.6Basophils # (Auto)March 10, 2025 1:25amSeptember 2024 1:25am0.0 10 3/uL0.0-0.1 Troponin I High SensitivitySept2024 3:38amSeptember 2024 3:38am11.5 pg/mL4.0-76.1CUT-OFF POINTS HAVE BEEN ESTABLISHED BASED ON THE FOURTHIVERS DEFINITION OF MYOCARDIAL INFARCTION. THE UPPERREFERENCE LIMIT (URL) OF TROPONIN, DEFINED THE 99THPERCENTILE OF cTnI DISTRIBUTION IN A REFERENCE POPULATION,HAS BEEN CONFIRMED THE DECISION THRESHOLD FOR MIDIAGNOSIS.99TH PERCENTILE = 76.2 PG/MLNOTE: HIGH-SENSITIVITY TROPONIN ASSAY IS NOT INTENDED TO BEUSED IN ISOLATION BUT SHOULD BE INTERPRETED IN CONJUNCTIONWITH OTHER DIAGNOSTIC AND CLINICAL INFORMATION.Basophils # (Auto)March 27, 2025 8:31amOctober 2024 8:31am<0.03 k/uL<0.11DPYD GenotypeOct2024 12:55pmOctober 2024 12:55pmSee commentPharmacogenomics (PGx) DPYD and UGT1A1 GenotypingLaboratory Accession Number: [id number] Genotype: *1/*1DPYD Activity Score: 2DPYD Predicted Phenotype: DPYD Normal UqazvlgcjrlLOL3V2 Genotype: *80+*28/*80+*90ACJ9M5 Predicted Phenotype: UGT1A1 Poor MetabolizerInterpretation:Two normal function alleles were observed in the DPYD gene (seevariant details below) resulting in an activity score of2. Thisactivity score is associated with a DPYD normal metabolizer phenotype.DPYD normal metabolizers are not expected to require (based onpharmacogenomic results alone) selective adjustment of the dose ofmedications metabolized by DPD. Please consult a clinical pharmacistfor more information regarding drug therapy. Questions regardingmolecular testing details should be directed .Two decreased function UGT1A1 alleles were observed in this sample(see variant details below). This is associated with a UGT1A1 poormetabolizer phenotype. This predicted phenotype of UGT1A1 poormetabolizer is generally indicative of Gilbert syndrome. Gilbertsyndrome is a common (3 to 7% of the general population) inheritedmild liver disorder that may involve transient episodes of jaundice.UGT1A1 poor metabolizers are at risk of an adverse or poor response tomedications metabolizedby UGT, thus may need dosing adjustments forthose medications, or a therapeutic alternative not meta bolized bythis enzyme. Please consult a clinical pharmacist for more informationregarding drug therapy. For questions about Gilbert syndrome, see thereferences listed below. Questions regarding molecular testing detailsshould be directed to .The DPYD gene encodes dihydropy rimidine dehydrogenase (DPD). Thisenzyme is involved in the metabolism of fluoropyrimidines. The WVH2G8dtwv encodes UDP-glucuronosyltransferase (UGT). UGT is involved in themetabolism of certain medications including ones used in oncology. Forclinical correlation, drug-specific guidelines are available toprovide phenotype assignment and therapeutic recommendations based onphenotype. Patients who carry genetic variants associated with alteredmetabolism may be at risk for an adverse or poor response to drugsthat are predominantly metabolized by the associated enzyme (DPD orUGT). For patients with altered DPD and/or UGT activity, alternativepharmacological agents or dosing adjustments may be needed formedications metabolized by this enzyme to avoid an unexpected oradverse response.Please note that this DPYD genotyping test includes variants that maynot have been assayed in a previous test p erformed elsewhere. If thereis discordance of phenotype results between laboratories, it is likelyafunction of the different variants assayed in each test. Themethodology section of the report (see below) lists the variantsinterrogated by this test.DPYD Variant Details:JGTDI7O4 Variant Details:UGT1A1 [id number], c.-346C>T, g.737445502C>T (legacy name 80); JJN2F2pm0910698, c.-41_-40dupTA g.[id number] (legacy name 28)DPYD Additional Information:In addition to increased risk of 5-fluorouracil toxicity, variants inthe DPYD gene may be associated with DPD deficiency, an autosomal recessive inborn error of metabolism (OMIM: 688523). DPD deficiencyexhibits a wide range of phenotypic variability, from no symptoms to kirt rare severe neurological disorder with onset in infancy orchildhood (prevalence unknown). For the vast majority of affectedindividuals, the first and only symptom is sensitivity to5-fluorouracil and capecitabine. It is possible that individuals withDPD deficiency may be identified by the presence of two no-function DPYD variants (activity score = 0). However, this test is designed asa pharmacogenomic test and is not intended as a diagnostic or carriertest for DPD deficiency. A formal genetics consultation is recommendedfor those with concerns regarding DPD deficiency.Limitations:DNA studies do not provide a definitive genetic or pharmacogenomicriskin all individuals. This test is designed to detect a specificset of variants (see list below) in the DPYD gene (OMIM 454184) lceNLZ2P0 gene (OMIM 691648). This test does not detect all sequencevariants in either gene. Uncommon variants or single nucleotidepolymorphisms may affect binding of primers and probes and may resultin false negative, false positive, or indeterminate results. Theabsence of abnormal variants as analyzed in this test is interpretedas the presence of *1/*1 (wild type/normal) genotype. The phenotypeprovided in the interpretation may be impacted by undetected geneticand/ornon-genetic factors such as drug-drug interactions.Methodology:Purified genomic DNA was subjected to polymerase chain reaction-basedamplification. The DPYD (NM_000110.3) and UGT1A1 (NM_000463.3) geneswere interrogated for known, clinically relevant variants. Primerextension products were analyzed using matrix-assisted laserdesorption/ionization massspectrometry, and specific genotypesassigned were then translated to the appropriate star (*) allele (DPYDand UGT1A1) and activity score (DPYD), seelists below. The referencegenome used is GRCh38/hg38.UGT1A1 star alleles: *1, *6, *27, *28, *36, *37, *80, *80+*28,*80+*36, and *80+*37. These alleles are detected using the presence orabsence of thefollowing variants, RefSNP ID: [id number], [id number] (TA repeats), and [id number].DPYD staralleles and targeted variants:RefSNP ID Legacy Total Allele Highest Allele Name Frequency Frequency General Population (Population)No variant detected *1 [id number] *2A 0.6% 2.4% (Eur F)[id number] *80.01% 0.03% (S )ny9514123 *10 n/a [id number] *12 0.0008% 0.003% (S )[id number] *13 0.03% 0.06% (Eur F)[id number] Y186C 0.2% 2.15% ()[id number] c.2846A>T 0.3% 0.5% (Eur NF)fg01151510 HapB3 1.4% 2.1 % (Eur NF)dr00875080 HapB3(c.1236G>A) 1.4% 2.1% (Eur NF)Population frequenciesare from gnomAD and may be different inspecific ethnic groups. The allele frequency shown is the total allelefrequency in all populations. The highest allele frequency for asingle population is also noted (Eur F = Lao, Eur NF = non-Lao, S = South ). Note: [id number] (HapB3)and py56403627 (c.1236G>A) are in linkage disequilibrium thus aretypically seen chris paulinoReferences:1) Clinical Pharmacogenetics Implementation Consortium (CPIC):www.CPICpgx.org2) Pharmacogene Variation Consortium (PharmVar): www.PharmVar.org3) Genome Aggregation Database V2.1.1 (gnomAD), accessed June2021, https://gnomad.broadStartSpanishtitute.org4) Yani M, Fredis EM, Troy JM, et al. PharmacogenomicsKnowledge for Personalized Medicine Clinical Pharmacology andTherapeutics (2012) 92(4): 414-417.5) Cooper U, Sheron CAREY, Cee SM, et al. Clinical PharmacogeneticsImplementation Consortium (CPIC) Guideline for DihydropyrimidineDehydrogenase Genotype and Fluoropyrimidine Dosin Update. ClinPharmacol Ther. 2018;103(2):210-216.6) Wuiper, On The FleaUniversity Hospitals Parma Medical CenterXceive 2020. Dihydropyrimidinedehydrogenase deficiency, accessed 12 January 2021,https://medlineplus. gov/genetics/condition/rshmhdqrdbfjlhapn-pdoksbmeqxpfc-jsodmvmpoa/#resources7) Laura N, Faheem DAVIS, Misty GRESHAMM, maud Olivia ABP. Purine andPyrimidine Metabolism: Pyrimidine Metabolism: DihydropyrimidineDehydrogenase. Romeo and Mary Jane's Principles and Practice of MedicalGenetics and Genomics:Metabolic Disorders, Seventh Edition. Edited byChristina Mera al, Elsevier. 2020. Sections 6.3.4 - 6 .3.4.4https://yyn-cgizrononcv-iai.ccmain.[facility].org/#!/content/book/3-s2.0-B978 4829384557907514?scrollTo=%84ub84156503) David RS, Taylor MH, Kerri CE, et al. Clinical PharmacogeneticsImplementationConsortium (CPIC) Guideline for UGT1A1 and AtazanavirPrescribing. Clinical Pharmacology and Therapeutics (2016) Apr;99(4):363-9.9) Louie Laurent. Overview of Glibert's syndrome. Drug TherBull.2019 Jul 57(2):27-30.10) [facility] 2020, Gilbert Syndrome, accessed 12 January 2021,https://.[facility].org/health/diseases/71333-xfsqpwav-jcvtehpcQmmoyboqyf:This test was developed and its performance characteristics determinedby [facility]'s Pathology and Laboratory Medicine Department. Ithas not been cleared or approved by the FDA. [facility] is regulated under CLIAas certified to perform high-complexity testing. This test is used forclinical purposes. It should not be regarded as investigational or forresearch.Test performed at [facility], [address] [place] [address]. CLIA Number: [id number] performed by Karen Banks, PhDBUN/Creatinine RatioSeptember 2024 1:25amSeptember 2024 1:25am16.4Basophils (%) (Auto)March 10, 2025 1:25amSeptember 2024 1:25am0.4 %0.2-2.0Basophils (%) (Auto)March 27, 2025 8:31amOctober 2024 8:31am0.3 %Blood Urea NitrogenSeptember 2024 1:25amSeptember 2024 1:25am18.0 mg/dL7.0-18.0Eosinophils # (Auto)March 10, 2025 1:25amSeptember 2024 1:25am0.1 10 3/uL0.0-0.7Eosinophils # (Auto)March 27, 2025 8:31amOctober 2024 8:31am0.08 k/uL<0.46Calcium LevelSeptember 2024 1:25amSeptember 2024 1:25am9.3 mg/dL8.5-10.1Eosinophils (%) (Auto)March 10, 2025 1:25amSeptember 2024 1:25am1.7 %0.9-7.0 Eosinophils (%) (Auto)March 27, 2025 8:31amOctober 2024 8:31am1.3 % Chloride LevelSeptember 2024 1:25amSeptember 2024 1:37vg033 mmol/L 98-107HematocritSeptember 2024 1:25amSeptember 2024 1:25am45.7 % 42.0-54.0HemoglobinOct2024 8:31amOctober 2024 8:31am14.9 g/dL 13.0-17.0Carbon Dioxide LevelSeptember 2024 1:25amSeptember 2024 1:25am29.4 mmol/L21.0-32.0HemoglobinSeptember 2024 1:25amSeptember 2024 1:25am15.9 g/dL14.0-18.0Lymphocytes # (Auto)March 27, 2025 8:31amOctober 2024 8:31am0.85 k/uLBelow low normal1.00-4.00CreatinineSeptember 2024 1:25amSeptember 2024 1:25am1.10 mg/dL0.70-1.30Immature Granulocyte # (Auto)March 10, 2025 1:25amSeptember 2024 1:25am0.08 10 3/uLAbove high normal0.00-0.03Lymphocytes (%) (Auto)March 27, 2025 8:31amOctober 2024 8:31am14.1 %Estimated GFR ()March 10, 2025 1:25am March 10, 2025 1:25am>60>=60 mL/min/1.73m 2Immature Granulocyte % (Auto) March 10, 2025 1:25amSept2024 1:25am1.0 %Above high normal 0.0-0.5Monocytes # (Auto)March 27, 2025 8:31amOctober 2024 8:31am0.90 k/uLAbove high normal<0.87Estimated GFR (Non- AmericanSept2024 1:25amSept2024 1:25am>60>=60 mL/min/1.73m 2Lymphocytes # (Auto) March 10, 2025 1:25amSept2024 1:25am1.1 10 3/uLBelow low normal1.2-3.8Neutrophils # (Auto)March 27, 2025 8:31amOctober 2024 8:31am4.16 k/uL1.45-7.50Glucose LevelSeptember 2024 1:25amSeptember 2024 1:68gu978 mg/dLAbove high -268Szqwsrcuvsm (%) (Auto)March 10, 2025 1:25amSeptember 2024 1:25am13.2 %Below low .5-60.0Neutrophils (%) (Auto)March 27, 2025 8:31amOctober 2024 8:31am68.9 %Potassium Level March 10, 2025 1:25amSeptember 2024 1:25am4.0 mmol/L3.5-5.1Mean Corpuscular HemoglobinSeptember 2024 1:25amSeptember 2024 1:25am31.3 pg25.9-34.0Nucleated Red Blood Cells #March 27, 2025 8:31amOctober 2024 8:31am<0.01 k/uL<0.01Sodium LevelSept2024 1:25amSeptember 2024 1:99vq100 mmol/I524-039Ytdn Corpuscular Hemoglobin ConcentSeptember 2024 1:25amSeptember 2024 1:25am34.8 g/dL29.9-35.2Platelet CountOctober 2024 8:31amOctober 2024 8:24kr228 k/wA692-457Rahj Corpuscular Volume March 10, 2025 1:25amSeptember 2024 1:25am90.0 fL80.0-94.0Mean Corpuscular HemoglobinOctober 2024 8:31amOctober 2024 8:31am31.0 pg 26.0-34.0Monocytes # (Auto)March 10, 2025 1:25amSeptember 2024 1:25am0.8 10 3/uL0.3-0.8Mean Corpuscular Hemoglobin ConcentOctober 2024 8:31amOct2024 8:31am34.9 g/dL30.5-36.0Monocytes (%) (Auto)March 10, 2025 1:25amSeptember 2024 1:25am9.5 %1.7-12.0Mean Corpuscular Volume March 27, 2025 8:31amOctober 2024 8:31am89.0 fL80.0-100.0Mean Platelet VolumeSeptember 2024 1:25amSept2024 1:25am10.0 fL9.5-13.5Red Blood CountOctober 2024 8:31amOct2024 8:31am4.80 m/uL4.20-6.00 Neutrophils # (Auto)March 10, 2025 1:25amSeptember 2024 1:25am6.2 10 3/uL1.4-6.5HematocritOctober 2024 8:31amOct2024 8:31am42.7 % 39.0-51.0Neutrophils (%) (Auto)March 10, 2025 1:25amSept2024 1:25am74.2 %43.0-75.0Monocytes (%) (Auto)March 27, 2025 8:31amOct2024 8:31am14.9 %Platelet CountSeptember 2024 1:25amSeptember 2024 1:64gg338 10 3/zE704-393Wrowpngvg White Blood CountOctober 2024 8:31am March 27, 2025 8:31am6.04 k/uL3.70-11.00Red Blood CountSeptember 2024 1:25amSeptember 2024 1:25am5.08 10 6/uL4.70-6.10Nucleated RBC Relative Count (auto)March 27, 2025 8:31amOct2024 8:31am0.0 /100{WBC}Red Cell Distribution WidthSeptember 2024 1:25amSept2024 1:25am 12.0 %11.0-15.0Red Cell Distribution WidthOctober 2024 8:31amOctober 2024 8:31am12.0 %11.5-15.0Corrected White Blood CountSeptember 2024 1:25am March 10, 2025 1:25am8.4 10 3/uL4.0-11.0Mean Platelet VolumeOct2024 8:31amOctober 2024 8:31am9.5 fL9.0-12.7Differential CommentOct2024 8:31amOctober 2024 8:31amAutoImmature Granulocyte # (Auto)March 27, 2025 8:31amOctober 2024 8:31am0.03 k/uL<0.10Immature Granulocyte % (Auto)March 27, 2025 8:31amOctober 2024 8:31am0.5 % Vital Signs Vital Reading Result Reference Range Collection Date/Time Height 71 [in_i] March 11, 2025 12:24wzAfhlkt55.55 kgSeptember 2024 12:14pmBody Svvgibtpdbq72.3 [degF]97.6-99.0September 2024 12:14pmHeart Rate89 /min 60-100September 2024 12:14pmOxygen saturation by Pulse qslefcjw39 %95-100 March 11, 2025 12:14pmBP Orwlzcqf450 mm[Hg]100-140September 2024 12:14pmBP Bqrddspgz02 mm[Hg]60-100September 2024 12:14pmBMI (Body Mass Index)25.4 kg/v7Auexbuysl 2024 12:85owRprldw42 [in_i]May 12, 2025 5:36xzCwcxtx51.60 kgNovember 2024 5:44pmBody Zheyrjdjkpd74.4 [degF] 97.6-99.0November 2024 5:44pmHeart Fvdc225 /eyh81-101Zcclbrfj 17th, 2025 5:44pmRespiratory rate18 /jph62-11RddjvyglMay 12, 2025 5:44pmOxygen saturation by Pulse lvgjluwr73 %95-100May 12, 2025 5:44pmBP Gggvuzrr742 mm[Hg]100-140 May 12, 2025 5:44pmBP Ghqnszgbs63 mm[Hg]60-100May 12, 2025 5:44pm Advance Directives Advance Directive Response Recorded Date/ Time Advance Directives No November 15 10:39am Insurance Providers Guarantor Denis [place] Address [address] [id number] Info.Home Phone: Payer Group Member ID Coverage Type Subscriber Relationship to Subscriber Effective Date Expiration Date MMO Id: [id number] C Yundt Id: [id number] [facility] [address] Home Phone: Email: [email or web address] Net Access [address] [address] [place] [address] Work Phone: Id: [id number] L Burks-Yundt Id: [id number] [address] [facility] [address] Home Phone: Medicare J H Enio [id number] C Yundt Id: [id number] [address] [facility] [address] Home Phone: Email: [email or web address] Health Claims J H Enio Packing Id: Plan [id number] C Yundt Id: [id number] [address] [facility] [address] Home Phone: Email: [email or web address] Encounter Location(s) Arrival/Admit Date Discharge/Departure Date Discharge/Departure Disposition Provider(s) Non-patient / Non-visit -[facility] March 10, 2025 2:25am Sai Patel , DODeparted Physician/Provider Office Visit-[facility] 2024 1:13pmSept2024 2:03pmDischarged to home care or self care (routine discharge)Kalpesh Odonnell-patient / Non-visit -[facility]2024 2:46pmAyan Kay- patient / Eqm-teuaq-[facility] [employer]October 2024 9:31amDaKalpesh Ortez-patient / Ivw-agmuu-Jtxmi [facility]October 2024 1:55pmLUCY Beltraneparted Emergency-[facility] 2024 6:51pmLeft against medical advice or discontinued care Recent Diagnosis Onset Date Admit Date Adrenal nodule Unknown March 11, 2025 1:13pm Elevated BP without diagnosis of hypertension Un known March 11, 2025 1:13pm Left-sided chest wall pain [facility] 2024 1:13pm Liver mass Unknown March 11, 2025 1:13pm Pancreatic mass Unknown March 11, 2025 1:13pm Splenomegaly Unknown March 11, 2025 1:13pm Assessments Author Sai Patel [facility] 2024 1:08pmThe above note written by ___Domitila Saunders____ acting as human recorder, note dictated by Dr. Nicholas .I performed the above HPI, ROS, and Examination. I formulated and dictated the treatment plan and was present for entire encounter. Sai Patel D.O. Plan of Treatment Author Domitila Saunders [facility] 2024 1:02pmYesterday (03/10/25) he had checked his blood pressure at home and his readings were elevated so he went to the ER for evaluation. Today in the office his blood pressure was normal. We discussed that a CT of the chest done at the ER on 03/10/25 showed low attenuation mass lesions noted in the pancreatic tail suspicious for mass lesions in the pancreas. I would like to order an MRI of the abdomen with and without contrast and refer him to an oncologist for further evaluation. A referral is provided for him to see a specialist through the [facility], the process was explained in detail. All questions he and his were answered. He voices that his dad of pancreatic cancer and bladder cancer. He at age 81. His mom of colon cancer at age 49. He has never had pancreatitis that he is aware of. He has his stamina and walked one mile prior to his visit. He does get claustrophobic when he is in tight spaces so I did provide him with Valium to take 1 hour prior to the MRI being done. He is not to drink alcohol or drive after he takes the Valium. His will take him to the procedure and drive him home. Side effects/risks/benefits of medication were reviewed. We discussed that the CT scan of the chest done at the ER on 03/10/25 showed low attenuation mass lesions noted in the liver suspicious for metastatic disease. Will order an MRI of the abdomen with and without contrast to rule out abnormalities. CT scan of the chest done in the ER on 03/10/25 showed an enlarged spleen. We discussed that the pain he was having in the left upper side that took him to the ER could have been caused by the spleen. Again, CT scan of the chest done in the ER on 03/10/25 showed possible left adrenal nodule. Prior to going to the ER he had left sided chest pain around his rib cage. I suspect this may be due to his enlarged spleen. He is able to eat normally. He voices that today he feels better. He was given Toradol when he was at the hospital. Future Tests Future scheduled test information is unavailable Pending Tests Test Name Ordered Date Scheduled Date Corrected White Blood Count May 12, 2025 6:10pm Uncorrected WBC CountNov2024 6:10pmRed Blood CountNov2024 6:10pmHemoglobinNov2024 6:10pmHematocritNov2024 6:10pmMean Corpuscular VolumeNov2024 6:10pmMean Corpuscular HemoglobinNov2024 6:10pmMean Corpuscular Hemoglobin ConcentNov 2024 6:10pmRed Cell Distribution WidthNovember 2024 6:10pmPlatelet CountNovember 2024 6:10pmMean Platelet VolumeNovember 2024 6:10pm Neutrophils (%) (Auto)May 12, 2025 6:10pmLymphocytes (%) (Auto)May 12, 2025 6:10pmMonocytes (%) (Auto)May 12, 2025 6:10pmEosinophils (%) (Auto)May 12, 2025 6:10pmBasophils (%) (Auto)May 12, 2025 6:10pm Nucleated RBC Relative Count (auto)May 12, 2025 6:10pmNeutrophils # (Auto)May 12, 2025 6:10pmLymphocytes # (Auto)May 12, 2025 6:10pm Monocytes # (Auto)May 12, 2025 6:10pmEosinophils # (Auto)May 12, 2025 6:10pmBasophils # (Auto)May 12, 2025 6:10pmGlucose LevelNovember 2024 6:10pmBlood Urea NitrogenNovember 2024 6:10pmCreatinineNovember 2024 6:10pmEstimated GFR (CKD-EPI)May 12, 2025 6:10pmSodium Level May 12, 2025 6:10pmPotassium LevelNovember 2024 6:10pmChloride LevelNovember 2024 6:10pmCarbon Dioxide LevelNovember 2024 6:10pm Anion GapNovember 2024 6:10pmCalcium LevelNovember 2024 6:10pmTotal ProteinNovember 2024 6:10pmAlbuminNovember 2024 6:10pmGlobulin May 12, 2025 6:10pmAlbumin/Globulin RatioNovember 2024 6:10pmTotal BilirubinNovember 2024 6:10pmDirect BilirubinNovember 2024 6:10pm Indirect BilirubinNovember 2024 6:10pmAspartate Amino Transf (AST/SGOT) May 12, 2025 6:10pmAlanine Aminotransferase (ALT/SGPT)May 12, 2025 6:10pmAlkaline PhosphataseNovember 2024 6:10pmLipaseNovember 2024 6:10pmPharmacy Creatinine Clearance (ChemNovember 2024 6:10pmMR abdomen wo/w conSeptember 2024 12:34pm Future Visits Future appointment information is unavailable Future Procedures Procedure Name Ordered Date Scheduled Date Basic Metabolic Panel May 12, 2025 6:09pm May 12, 2025 6:10pm Complete Blood Count Auto Diff May 12 6:09pm May 12, 2025 6:10pm Hepatic Panel May 12, 2025 6:09pm Novem 2024 6:10pm Lipase May 12, 2025 6:09pm Novem 2024 6:10pm Future Medications Future medication information is unavailable Patient Instructions Patient instructions are unavailable
--- OUTSIDE RECORDS SUMMARY | 2025-05-13 08:00 | XMS_ITS | Encounter Summary ---
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 Name Role Phone Cash Shannon MD Unavailable [phone] Sai Patel DO Primary Care Provider [phone] Source Comments In the event this information is protected by the Federal Confidentiality of Alcohol and Drug AbusePatient Records regulations: The Federal rules restrict any use of the information to criminally investigate or prosecute any alcohol or drug abuse patient.[facility] Reason for Visit * ReasonCommentsEstablished Patient Encounter Details DateTypeDepartmentCare Team (Latest Contact Info)Czmstrnddjp19/18/2025 8:00 AM ESTVisit (SP) Office Hematology [address] [place], [place] [id number] [place] [address] [place], [place] [id number] Drug-induced constipation (Primary Dx); long term (current) use of opiate analgesic; 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 Last address used for [address]/20/[birth year]25Sex and Gender Information ValueDate RecordedSex Assigned at BirthNot on fileLegal GeyRtrl2103/11/2025 1:53 PM EDTGender IdentityNot on fileSexual OrientationNot on filedocumented as of this encounter Last Filed Vital Signs Vital SignReadingTime TakenCommentsBlood Zhqhpnbb553/7105/13/2025 8:00 AM EST Ttzef53401/18/2025 8:00 AM LMIBrxdcgytepr20.7 ??C (98 ??F)05/13/2025 8:00 AM EST Respiratory Rate--Oxygen Xgmnjfxvts90%05/13/2025 8:00 AM ESTInhaled Oxygen Concentration--Gbtsnl96.7 kg (164 lb 12.7 oz)05/13/2025 8:00 AM ESTHeight--Body Mass Index22.9804/08/2025 3:58 PM EDTdocumented in this encounter Patient Instructions * Patient Instructions* Jhoana Greer MD - 05/13/2025 8:22 AM EST Try miralax once a day first, if still not having 1 bowel movement a day can add on the senna documented in this encounter Progress Notes * Jhoana Greer MD - 05/13/2025 8:00 AM EST Images from the original note were not included. Hematology and Medical Oncology Follow Up 05/13/2025 Recording using ambient [employer] software for draft documentation of the visit was discussed with the patient/authorized registration representative; all questions welcomed and answered. Patient/authorized registration representative agreed to proceed Patient of Dr. Shannon, I am seeing for an acute visit. SUBJECTIVE The patient reports diffuse abdominal pain that is most prominent around the rib cage and radiates to the back. The pain is intermittent, shifting between the back and abdomen, and is alleviated by lying down with a heating pad. Over the past few days, the pain has been more pronounced. He also reports a sensation of fluid in his abdomen when lying down. He experiences intermittent nausea, which has improved compared to a few weeks ago. He has not required antiemetic medication recently. He reports significant constipation, with bowel movements occurring only every few days, compared to his usual pattern of 1-2 times daily. His administered a Fleet enema yesterday, which produced only liquid stool. He has also tried a small suppository on a separate occasion, which was effective at that time. He is currently taking oxycodone for pain management. His oral intake is significantly reduced, limited to a protein shake and a small bowl of soup daily. He reports passing flatus this morning. He also reports dizziness when getting up and generalized weakness. He notes swelling in his right ankle, which he attributes to a prior injury. Last night, his recorded a temperature of 93 degreeF using multiple thermometers, and he experienced profuse sweating throughout the day. He is not currently undergoing chemotherapy and is working with a homeopathic doctor. I have reviewed medications and pertinent labs and updated the medical record where appropriate. REVIEW OF SYSTEMS All ROS of at least a 10 point ROS are negative except noted below: Constitutional: (+) weakness, (+) decreased appetite, (+) diaphoresis Gastrointestinal: (+) abdominal pain, (+) nausea, (+) constipation, (-) diarrhea Musculoskeletal: (+) back pain, (+) right ankle swelling Neurological: (+) dizziness PHYSICAL EXAMINATION Blood pressure 109/71, pulse (!) 124, temperature 36.7 ??C (98 ??F), temperature source Oral, weight 74.7 kg (164 lb 12.7 oz), SpO2 99%. ECOG PERFORMANCE STATUS: 2- Ambulatory and capable of all selfcare; unable to carry out work activities. Up and about > 50% of waking hrs. General: well appearing, no acute distress Skin: Normal, no rashes/lesions HEENT: NCAT, EOMI, MMM, Oral cavity and oropharynx clear Lymph: no apparent cervical, supraclavicular, axillary LAD Breast: Deferred Respiratory: equal chest rise, normal WOB Cardiovascular: extremities WWP, no LE edema Abdomen: non-distended, mild diffuse TTP, no fluid wave, tympanic, more firm over epigastric area Genitourinary: Deferred Extremities: No clubbing, cyanosis, or deformity Psych: awake, oriented, affect appropriate for clinical situation DIAGNOSTIC STUDIES No data to display Latest Ref Rng & Units 03/27/2025 CBC WBC 3.70 - 11.00 k/uL 6.04 RBC 4.20 - 6.00 m/uL 4.80 Hemoglobin 13.0 - 17.0 g/dL 14.9 Hematocrit 39.0 - 51.0 % 42.7 MCV 80.0 - 100.0 fL 89.0 MCH 26.0 - 34.0 pg 31.0 MCHC 30.5 - 36.0 g/dL 34.9 RDW-CV 11.5 - 15.0 % 12.0 Platelet Count 150 - 400 k/uL 184 MPV 9.0 - 12.7 fL 9.5 Baso% % 0.3 Abs Neut (ANC) 1.45 - 7.50 k/uL 4.16 Abs Lymph 1.00 - 4.00 k/uL 0.85 Abs Grimes <0.87 k/uL 0.90 Abs Eosin <0.46 k/uL 0.08 Abs Baso <0.11 k/uL <0.03 NRBC /100 WBC 0.0 ASSESSMENT & PLAN Denis Colorado is a 69 year old male with pancreatic cancer who presents for follow up. Drug-induced constipation long term (current) use of opiate analgesic Chronic opioid use contributing to constipation; no evidence of bowel obstruction. - Start Miralax daily; educated on its mechanism and safety profile. - If Miralax is ineffective, add senna. - Advised to maintain at least one bowel movement per day while on opioids. - Encouraged increased physical activity, such as walking, to promote bowel motility. - Instructed to contact clinic if constipation persists despite Miralax and senna. 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 Declined standard of care chemotherapy when saw Dr. Shannon 04/25, establishes with palliative care later today - Advised to consult with homeopathic doctor regarding ongoing cancer management and monitoring. Encounter Diagnosis ICD-10-CM 1. Drug-induced constipation K59.03 2. assisted (current) use of opiate analgesic Z79.891 3. 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
--- OUTSIDE RECORDS SUMMARY | 2025-05-13 15:00 | XMS_ITS | Encounter Summary ---
Author Organization [facility] Address [facility] [id number] Care Team Providers Care Hyperbaric Welder Diver Name Role Phone Cash Shannon MD Unavailable [phone] Sai Patel DO Primary Care Provider Source Comments In the event this information is protected by the Federal Confidentiality of Alcohol and Drug AbusePatient Records regulations: The Federal rules restrict any use of the information to criminally investigate or prosecute any alcohol or drug abuse patient.[facility] Reason for Referral * Medication Prior Authorization - Pending ReviewSpecialtyDiagnoses / Procedures Referred By ContactReferred To Contact Diagnoses Cancer-related pain 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) Jaqueline Alvarado APRN.CNP [address] [place] [address] Phone: tel: fax: Referral IDStatusReasonStart DateExpiration DateVisits RequestedVisits [id number] Reason for Visit * Consult, Test, Treat (Routine) - ClosedSpecialtyDiagnoses / ProceduresReferred By ContactReferred To ContactHospice & Palliative Medicine Diagnoses 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-related pain Procedures OFFICE/OUTPATIENT [facility] 60 MINUTES Cash Shannon MD [address] [place] [address] [place] [address] Phone: tel: fax: Referral IDStatusReasonStart DateExpiration DateVisits RequestedVisits [id number] PCP Requested Referral Encounter Details DateTypeDepartmentCare Team (Latest Contact Info)Omqswnjkqbe84/18/2025 3:00 PM ESTOffice Visit Palliative Medicine [address] [place] [address] [place] [address] Jaqueline Alvarado, MARCO.BACK END WEB DEVELOPER [address] [id number] Palliative care by specialist (Primary Dx); Malignant neoplasm of endocrine pancreas (HCC); Cancer-related pain; 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 Last address used for [address]/20/2025Sex and Gender InformationValueDate RecordedSex Assigned at BirthNot on fileLegal PscBmjo7503/11/2025 1:53 PM EDTGender Identity Not on fileSexual OrientationNot on filedocumented as of this encounter Last Filed Vital Signs Vital SignReadingTime TakenCommentsBlood Wqbzztee003/8105/13/2025 2:47 PM EST Aelgf95567/18/2025 2:47 PM EEJTrxhnwgxljl87.3 ??C (97.3 ??F)05/13/2025 2:47 PM ESTRespiratory Njvf978607/13/2024 2:47 PM ESTOxygen Regvdbdrao24%05/13/2025 2:47 PM ESTInhaled Oxygen Concentration--Svisoc47.2 kg (165 lb 12.6 oz)05/13/2025 2:47 PM NYYLhlwgj209.3 cm (5' 10.98 )05/13/2025 2:47 PM ESTBody Mass Index23.13 05/13/2025 2:47 PM ESTdocumented in this encounter Patient Instructions * Patient Instructions* Jaqueline Alvarado APRN.CNP - 05/13/2025 3:33 PM EST Jaqueline Alvarado CNP Department of Palliative and Supportive Care Palliative Care - Specialty services in symptom management and support For questions or prescription refills, call: [phone] Monday - Monday 9AM-5PM LAKESHIA Rollins, RN - Stemhole Borer Please call 3-5 days in advance for medication refills Evenings, Weekends, Holidays: [phone] (ask for palliative medicine on-call provider) For appointments, cancellations or reschedule, call: [phone] documented in this encounter Progress Notes * Jaqueline Alvarado APRN.CNP - 05/13/2025 3:00 PM EST PALLIATIVE MEDICINE CONSULT NOTE SERVICE DATE: May 13, 2025 IDENTIFICATION AND INTRODUCTION: Denis Colorado is a 69 year old male This visit took place In Ambulatory [facility] Facility Recording using [employer] software for draft documentation of the visit was discussed with the patient/authorized novelties sales representative; all questions welcomed and answered. Patient/authorized novelties sales representative agreed to proceed Consultation requested by Cash Galvan MD for an opinion regarding symptom management. My final recommendations will be communicated back to the requesting physician by way of shared Medical record or letter to requesting physician via US mail. 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 Pancreatic Cancer: - Currently under the care of a homeopathic doctor in [place]. - Treatment includes ivermectin and mistletoe. - Using frankincense topically on the back, reports it seems to help. Pain Management: - Pain is variable, often located in epigastric area, along the rib cage, and in the back. - Using heat for pain relief. - Taking oxycodone 5 mg, 2 tablets every 6 hours, reports it is effective but experiences end-of-dose pain if not taken on schedule. - Inquires about long-term pain management options. Nausea: - Taking Zofran PRN for nausea, reports it is effective. - Denies emesis. Appetite and Taste Changes: - Significant decrease in appetite; can only eat small amounts at a time. - Reports everything tastes terrible, with some foods tasting excessively salty or sweet. - Able to tolerate certain soups, like lentil soup. - Experiencing dry mouth, which sometimes disrupts sleep. Bowel Movements: - No bowel movement in several days. - Took Miralax this morning; inquires about its effectiveness. - Reports abdominal pain, thought to be related to gas. Sleep: - Reports good sleep quality, able to return to sleep after waking to use the bathroom. 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 REVIEW OF SYSTEMS: Modified ESAS ([place] Symptom Assessment Scale) Information Provided By: Patient and Family member Pain: Moderate Nausea: Mild Loss of Appetite: Moderate Constipation: Severe Shortness of Breath: None Drowsiness: None Tiredness: Mild Depression: None Anxiety: None Objective PHYSICAL EXAMINATION: There were no vitals taken for this visit. General Appearance: No apparent distress Skin: No jaundice, No rash, and No breakdown Eyes: Normal and No Icterus HENT: Atraumatic and Oropharnyx clear with moist mucous membranes Neck: Grossly normal and No masses Lungs: Normal effort, no cough CV: Not examined Abdomen: Not examined Musculoskeletal: No gross deformity and Edema present Lymphatics: Not examined Neuro: Alert and oriented to time place and person Psych: Well groomed, Affect congruent with mood, and Good eye contact DATA: Diagnostic tests reviewed for today's visit: Most recent labs and imaging results. No results found for: CREAT CrCl cannot be calculated (No successful lab value found.). Opioid Management: Indication for Opioid Prescribing: Cancer related pain ORT-OUD Score: 2 A score of 3 or higher may indicate a higher risk for future development of aberrant drug related behavior or opioid use disorder. Informed consent for chronic opiate therapy obtained and written pain agreement: On file Naloxone offered?: Yes, declined after discussing risks and benefits Course of treatment, patient's response and adherence to the prescribed treatment plan reviewed, including non-pharmacological and non-opioid treatment modalities? Yes Have any complications or exacerbations of the underlying condition causing the pain been reviewed?Yes How much does pain impede patient???s ability to engage in work or other purposeful activities, interfere with your activities of daily living, physical activity, or quality of your family life and social activities? Significantly Aberrancies in pain panel? No Any aberrant drug related behaviors since last visit? No Rationale for continuing opioid treatment: Improved comfort and function based on an ongoing functional assessment Benefits of Opioid Therapy outweigh risks: Yes Prescribed Morphine Equivalent Daily Dose (MEDD): Yes > 50 MEDD Yes, I am certified in Hospice and Palliative Care, Hematology, Medical Oncology or Pain Medicine OARRS Checked: PDMP website checked and validated. All prescriptions have been APPROPRIATELY filled. No suspiciousactivity was identified. 05/13/2025 by Jaqueline Alvarado NP, VOICE TEACHER.BACK END WEB DEVELOPER Assessment & Plan 1. 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 3. Cancer-related pain (G89.3) - Pain varies in location, often along the rib cage and back; currently managed with oxycodone 10 mg every 6 hours, but experiencing end-of-dose pain if not taken on schedule. - Discussed option of adding transdermal fentanyl patch for baseline pain control; explained it is a controlled dose, applied every 3 days, and can be used in combination with oxycodone for breakthrough pain. - Discussed risks and benefits of fentanyl patch, including potential for constipation and advantages for patients with nausea or swallowing difficulties. - Educated on importance of maintaining regular bowel regimen to prevent opioid- induced constipation. 4. Constipation due to opioid therapy (K59.03) - No bowel movement in several days; recently took Miralax. - Start Senna 2 tablets in the morning and 2 at night until bowel movements resume, then reduce as tolerated; continue Miralax once daily. - Educated on importance of daily bowel regimen with Miralax and Senna to prevent opioid-induced constipation. 5. Palliative care by specialist (Z51.5) - Focus on symptom management and comfort through current and future treatments. - Discussed role of palliative care in providing symptom relief and support alongside ongoing treatments. - discussed his hospice eligibility and hospice vs pall med 6. Dysgeusias (R43.2) 7. Weight loss, unintentional (R63.4) 8. Anorexia (R63.0) 9. Dry mouth (R68.2) - Significant taste changes, anorexia, and unintentional weight loss; dry mouth noted, no evidence of oral thrush on exam. - Advised trial of pbhn-wmb-wxcttou Biotene products for dry mouth; suggested warm water gargle with baking soda and salt before meals. - Discussed trial and error with different foods and flavors; recommended setting reminders to eat small snacks every 3 hours and considering nutrition supplements. - Discussed potential use of appetite stimulants if desired. Some elements copied from Oncology note on 05/13/25, the elements have been updated and all reflectcurrent decision making from today, 05/13/2025. I spent a total of 45 minutes on the date of the service which included preparing to see the patient, cbpf-hg-iqrk patient care, completing clinical documentation, obtaining and/or reviewing separately obtained history, performing a medically appropriate examination, counseling and educating the pat ient/family/caregiver, ordering medications, tests, or procedures, communicating with other HCPs (not separately reported), independently interpreting results (not separately reported), communicatingresults to the patient/family/caregiver, and care coordination (not separately reported). Next Visit: 4 Weeks in-person Palliative Medicine Nurse to do telephonic follow-up: Yes Information Management Manager Services: None at this time Referral to Rad Technologist: No, not at this time Jaqueline Alvarado NP, VOICE TEACHER.BACK END WEB DEVELOPER May 13, 2025 2:07 PM This note may have been partially generated using the VR1 voice recognition system. While every effort was made to correct voice recognition errors, kindly be aware that some errors may occasionally occur. 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
[2025-05-18 10:03] VITALS: BP 93/65; PULSE 118; O2SAT 98; BMI 22.7
--- OUTSIDE RECORDS SUMMARY | 2025-05-18 10:32 | XMS_ITS | Encounter Summary ---
Author Organization [facility] Address [address] [place] [address] Care Team Providers Care Kettle Chipper Name Role Phone Cash Shannon MD Unavailable [phone] Sai Patel DO Primary Care Provider [phone] Source Comments In the event this information is protected by the Federal Confidentiality of Alcohol and Drug AbusePatient Records regulations: The Federal rules restrict any use of the information to criminally investigate or prosecute any alcohol or drug abuse patient.[facility] Reason for Visit * ReasonCommentsPatient Question Encounter Details DateTypeDepartmentCare Team (Latest Contact Info)Hcokestcvev20/21/2025Telephone Palliative Medicine [address] [phone] Jaqueline Alvarado, MANAGER EPIC.SCREEN PRINTING CLOTH SPREADER [address] [phone] Patient Question Social History Tobacco UseTypesPacks/DayYears UsedDateSmoking Tobacco: NeverPassive Smoke Exposure: PastSmokeless Tobacco: NeverPHQ-2AnswerDate RecordedPHQ-2 score1 5Area Deprivation IndexAnswerDate RecordedNational Score (1-100), lower number is lower idod365503/20/2025State Score (1-10), lower number is lower risk8 03/20/2025Data from: https://www.neighborhoodatlas.medicine.[facility].edu/. Last address used for qpdgtguu[address]03/20/2025Sex and Gender Information ValueDate RecordedSex Assigned at BirthNot on fileLegal EujFald7003/11/2025 1:53 PM EDTGender IdentityNot on fileSexual OrientationNot on filedocumented as of this encounter Miscellaneous Notes * Telephone Encounter - Neeraj Nobles - 05/16/2025 2:45 PM EST Shaista called just wondering if someone is going to give her a call. * Telephone Encounter - Neeraj Nobles - 05/16/2025 10:11 AM EST Denis Colorado('s) spouse/significant other: Shaista is calling Jaqueline Alvarado NP, MANAGER EPIC.SCREEN PRINTING CLOTH SPREADER today regarding Patient Question. Patient has not had a bowel movement in over 5 days. Patient has been taking Senna and Miralax but still has not pass his bowels and he has been taking it for 3 days. Patient has been identified by name and birthdate. Requesting response back: call on cell [phone] (home) Neeraj Nobles May 16, 2025 documented in this encounter Plan of Treatment DateTypeDepartmentCare Team (Latest Contact Info)Fyrkcnguqja79/16/2025 3:30 PM ESTOffice Visit Palliative Medicine [address] [place] [address] [place] [address] Jaqueline Alvarado, MARCO.SCREEN PRINTING CLOTH SPREADER [address] [place] [address] 4 week follow updocumented as of this encounter Visit Diagnoses Not on filedocumented in this encounter Care Teams Team MemberRelationshipSpecialtyStart DateEnd Date Sai Patel DO [address] [place] [address] PCP - GeneralFamily Edoakbbp70/2/25 [place] [address] [place], [place] [phone] PhysicianHematology/Oncology03/21/25documented as of this encounter
--- OUTSIDE RECORDS SUMMARY | 2025-05-18 10:32 | XMS_ITS | Encounter Summary ---
Author Organization [facility] Address [facility] [place] [address] Care Team Providers Care Director Machine Name Role Phone Cash Shannon MD Unavailable [phone] Sai Patel DO Primary Care Provider [phone] Source Comments In the event this information is protected by the Federal Confidentiality of Alcohol and Drug AbusePatient Records regulations: The Federal rules restrict any use of the information to criminally investigate or prosecute any alcohol or drug abuse patient.[facility] Encounter Details DateTypeDepartmentCare Team (Latest Contact Info)Iavbkmskylz76/23/2025Telephone Hematology/Oncology [address] [place] [address] Sai Barber MD [address] [place] [address] Social History Tobacco UseTypesPacks/DayYears UsedDateSmoking Tobacco: NeverPassive Smoke Exposure: PastSmokeless Tobacco: NeverPHQ-2AnswerDate RecordedPHQ-2 score1 5Area Deprivation IndexAnswerDate RecordedNational Score (1-100), lower number is lower yjkf777703/20/2025State Score (1-10), lower number is lower risk8 03/20/2025Data from: https://www.neighborhoodatlas.medicine.[facility].edu/. Last address used for ppzdfkwt[address]/20/2025Sex and Gender Information ValueDate RecordedSex Assigned at BirthNot on fileLegal TcqFthc7303/11/2025 1:53 PM EDTGender IdentityNot on fileSexual OrientationNot on filedocumented as of this encounter Miscellaneous Notes * Telephone Encounter - Sai Barber MD - 05/18/2025 9:49 AM EST Called for severe pain - by the time I called back they had gone to the ED. I told them they could reach back out if they were discharged from the ED for recs documented in this encounter Plan of Treatment DateTypeDepartmentCare Team (Latest Contact Info)Qxsmfrzajro16/16/2025 3:30 PM ESTOffice Visit Palliative Medicine [address] [place] [address] [place] [address] Jaqueline Alvarado, COLLAR FUSER.MEASURING MACHINE OPERATOR [address] [place], [place] [phone] 4 week follow updocumented as of this encounter Visit Diagnoses Not on filedocumented in this encounter Care Teams Team MemberRelationshipSpecialtyStart DateEnd Date Sai Patel, [address] [place] [address] PCP - GeneralFamily Gvwhghva06/2/25 [place] [address] [place], [place] [phone] PhysicianHematology/Oncology03/21/25documented as of this encounter
--- OUTSIDE RECORDS SUMMARY | 2025-05-18 10:32 | XMS_ITS | Clinical Summary ---
Author Organization [facility] Address [address] [place], [place] [address] Care Team Providers Care Coffee Urn Attendant Name Role Phone Cash Shannon MD Unavailable [phone] Sai Patel DO Primary Care Provider [phone] Allergies No known active allergies Medications MedicationSigDispense QuantityRefillsLast FilledStart DateEnd DateStatus Aspirin 81 mg tab Take 81 mg by mouth.Active CITRULLINE 1000 PO Take by mouth.Active magnesium oxide 250 mg tablet Take 250 mg by mouth once daily.Active Muskego-3 Fatty Acids 1,250 mg cap Take by mouth.Active Zinc Gluconate 30 mg tab Take by mouth.Active Ascorbic Acid (VITAMIN C) 1,000 mg tablet Take 1 tablet by mouth once daily.5Active mofqwqwl-okck-ljl6-C-elisabeth-bosw (OSTEO BI-FLEX TRIPLE STRENGTH) 750 mg-644 mg- 30 mg-1 mg tab Take 1 tablet by mouth once daily.5Active cholecalciferol (VITAMIN D-3) 5,000 unit tab Take 1 tablet by mouth once daily.5Active ondansetron (ZOFRAN) 8 mg tablet Indications:Nausea,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 60 tablet 5Active IVERMECTIN PO Take 1 capsule by mouth every other day.Active MISTLETOE SUBCUTANEOUS Inject subcutaneously two times a week.Active Sennosides (SENNA) 8.6 mg cap Take 1 capsule by mouth two times a day as needed. 30 capsule 5Active polyethylene glycol 3350 (MIRALAX) 17 gram packet Take 1 packet by mouth once daily. Dissolve dose in 4 - 8 ounces of liquid and take as directed. 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 Do not cut patch. 10 patch 05/14/2025 11:35 AM EST5Active traMADol (ULTRAM) 50 mg tablet Indications:Malignant neoplasm of endocrine pancreas (HCC)Take 1 tablet by mouth every 6 hours as needed for pain for up to 14 days. 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 60 tablet Discontinued Active Problems No known active problems Encounters DateTypeDepartmentCare QoupCxltgutcuuq88/23/2025Telephone Hematology/Oncology [address] [place] [address] Sai Barber MD 05/16/2025 Get Medical Advice Palliative Medicine [address] [place] [address] [place] [address] Jaqueline Alvarado, EDGE DYER.BIOLOGY FACULTY MEMBER Hsmwctwsytam75/21/2025Telephone Palliative Medicine [address] [place] [address] Jaqueline Alvarado, EDGE DYER.BIOLOGY FACULTY MEMBER Patient Uljyhxua17/18/2025 3:00 PM ESTOffice Visit Palliative Medicine [address] [address] Jaqueline Alvarado, MARCO.BIOLOGY FACULTY MEMBER Palliative care by specialist (Primary Dx); Malignant neoplasm of endocrine pancreas (HCC); Cancer-related pain; 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); Constipation due to opioid therapy; Dysgeusias; Weight loss, unintentional; Anorexia; Dry mouth05/13/2025 8:00 AM ESTVisit (SP) Office Hematology [address] [place] [address] Jhoana Greer MD Drug-induced constipation (Primary Dx); [facility]CI (current) use of opiate analgesic; 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); Cancer-related pain05/12/2025 Get Medical Advice Hematology [address] [place] [address] Cash Shannon MD Keeping ulwbdpdtvsp02/17/3117Xdbcqs10/11/2025Telephone Hematology [address] [place] [address] Silvia Toledo RN Care Opszgkmvajke03/05/2025Telephone Hematology [address] [place] [address] Cash Shannon MD Qeitkl7204/25/2025 11:00 AM EDTVisit (SP) Office Hematology [address] [place] [address] Cash Shannon MD Malignant neoplasm of endocrine pancreas (HCC) (Primary Dx); Cancer-related pain04/25/20259589Zoajhr15/23/2025Results Follow-Up Hematology [address] [place] [address] Silvia Toledo RN 04/11/2025Telephone Hematology [address] [place] [address] Silvia Toledo RN Treatment Yhwbyezt12/17/2025 Patient Msg Hematology [address] [place] [address] Provider, [facility] Genetic aufpbpr6304/09/2025Telephone Gastroenterology [address] [place] [address] Fabian Ayoub MD 04/08/2025 4:15 PM EDTVisit (SP) Office Hematology [address] [place] [address] Cash Shannon MD Malignant neoplasm of endocrine pancreas (HCC) (Primary Dx)04/08/2025 Patient Msg Hematology/Oncology [address] [place] [address] Provider, [facility] Genomics testing ordered by Dr. 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) (Primary Dx)04/01/2025 9:30 AM EDT - 04/01/2025 11:00 AM EDTSurgery [facility] [address] [place] [address] Wai Barrera MD PERCUTANEOUS NEEDLE BIOPSY OF LIVER04/01/2025 8:08 AM EDT - 04/01/2025 12:31 PM EDTHospital Encounter [facility] Radiology [address] [place] [address] Wai Barrera MD Liver lesion [K76.9] Discharge Disposition: Home04/01/20256310Ecyacd29/06/7639Vmzqzz53/01/2025Telephone [facility] Radiology [address] [place] [address] Christiana Gillis, industrial truck mechanic Pre Procedure Instructions (Liver bx)03/26/2025Orders Only [facility] Radiology [address] [place] [address] Christiana Gillis, REMINGTON Liver lesion (Primary Dx)03/24/2025Results Follow-Up Hematology [address] [place] [address] Cash Shannon MD 03/24/2025Telephone [facility] [address] [place] [address] Cash Shannon MD Liver rpeszq3603/24/2025Telephone Hematology [address] [place], [place] [address] Silvia Toledo RN Biopsy Uzevhkv6003/20/2025 5:12 PM EDT - 03/20/2025 11:59 PM EDTHospital Encounter MRI [address] [place] [address] Liver lesion [K76.9] Discharge Disposition: Home03/20/2025 1:00 PM EDTVisit (SP) Office Hematology [address] [place] [address] Cash Shannon MD Liver lesion (Primary Dx); Pre-procedural laboratory examination; Pancreatic mass (HCC); Malignant neoplasm of endocrine pancreas (HCC)03/20/20252840Oxachi84/17/2025bstract Hematology/Oncology [address] [place] [address] [place] [address] Hany Coto MD 03/12/2025H&P External-NonCCF Provider, External, HAILEY from Last 3 Months Family History Medical HistoryRelationCommentsmyocardial infarctionBrotherBladder CancerFather Pancreatic CancerFatherColon CancerMotherHypertensionMotherRelationStatus CommentsBrotherFatherDeceasedMotherDeceased Social History Tobacco UseTypesPacks/DayYears UsedDateSmoking Tobacco: NeverPassive Smoke Exposure: PastSmokeless Tobacco: Never Tobacco Cessation:Counseling Given: Not Answered PHQ-2AnswerDate RecordedPHQ-2 sldti925rea Deprivation IndexAnswerDate RecordedNational Score (1-100), lower number is lower wmiq389603/20/2025State Score (1-10), lower number is lower huch70303/20/2025Data from: https://www.neighborhoodatlas.medicine.[facility].edu/. Last address used for he[address]03/20/2025Sex and Gender InformationValueDate RecordedSex Assigned at BirthNot on fileLegal DxwFydu2803/11/2025 1:53 PM EDTGender Identity Not on fileSexual OrientationNot on file Last Filed Vital Signs Vital SignReadingTime TakenCommentsBlood Xbfhblct507/8105/13/2025 2:47 PM EST Fbzgt12183/18/2025 2:47 PM JDRNncmucbzbrh20.3 ??C (97.3 ??F)05/13/2025 2:47 PM ESTRespiratory Fzdh414007/13/2024 2:47 PM ESTOxygen Zcuzjcfjxr20%05/13/2025 2:47 PM ESTInhaled Oxygen Concentration--Rjncsf98.2 kg (165 lb 12.6 oz)05/13/2025 2:47 PM QMAFzyrbb180.3 cm (5' 10.98 )05/13/2025 2:47 PM ESTBody Mass Index23.13 05/13/2025 2:47 PM EST Plan of Treatment DateTypeDepartmentCare Team (Latest Contact Info)Jwnxnbmhvcq10/16/2025 3:30 PM ESTOffice Visit Palliative Medicine [address] [place] [address] [place] [address] Jaqueline Alvarado, EDGE DYER.BIOLOGY FACULTY MEMBER [address] [place] [address] 4 week follow upHealth MaintenanceDue DateLast DoneCommentsAnxiety Screening 1972Depression Delhxmgev77/18/1973DTaP,Tdap,Td Vaccine (1 - Tdap) 1973Lipid Eehvjorzo50/18/1990CT Zupuxlqjxdxy52/18/2000Cologuard (FIT-DNA) 12/12/19999013Dxyfsghztla61/18/2000Colorectal Cancer Scpcrftgs82/18/2000Diabetes Rtqdykcam00/18/2000Fecal Occult Blood12/12/19994534Haqvpfaybzxxl01/18/2000 Pneumococcal Vaccine: 50+ (1 of 1 - PCV)2004Shingrix Vaccine (1 of 2) 2004Medicare Annual Wellness Visit11/25/2019Advance Directive Discussion 5Covid-19 Vaccine (1 - season)2025Influenza Vaccine (#1) 2025RSV Vaccine (1 - 1-dose 75+ series)2029Hepatitis C Screening Vfckaycts45/25/2025 Procedures Procedure NamePriorityDate/TimeAssociated DiagnosisCommentsMOLECULAR GENETIC STIRNfxetul51/10/2025 1:55 PM EDT Malignant neoplasm of endocrine pancreas (HCC) DPYD/UGT1A1 GENOTYPING PPOIBYardgtr76/10/2025 1:55 PM EDT Malignant neoplasm of endocrine pancreas (HCC) CARIS GA CANCER WNRAIhvtyvp77/09/2025 12:29 PM EDT 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) IMAGING GUIDED BIOPSY LIVER04/01/2025 10:20 AM EDT MISMATCH REPAIR PROTEINS BY MBRNqewapq14/07/2025 10:03 AM EDT Liver lesion HER2 BY IHC NON CWDZBYUqvjadb19/07/2025 10:03 AM EDT Liver lesion SURGICAL KOZYABRQXNowjius43/07/2025 10:03 AM EDT Liver lesion BIOPSY LIVER NEEDLE BFXNGJFJFGLZ33/07/2025 9:29 AM EDT Liver lesion CBC + PBSUHostife10/02/2025 9:31 AM EDT Liver lesion MRI 3D POST DGAHZAWFZLAjvblya82/25/2025 7:15 PM EDT Liver lesion Pancreatic mass (HCC) MRI PANC/JUNIOR WO/W JBYIHYinlpzi30/25/2025 7:15 PM EDT Liver lesion Pancreatic mass (HCC) ACTIVATED MRQRqbgdcp01/25/2025 1:46 PM EDT Liver lesion Pre-procedural laboratory examination PROTHROMBIN IBQBFrhsazh69/25/2025 1:46 PM EDT Liver lesion Pre-procedural laboratory examination FERRITIN EZKIdocubg11/25/2025 1:46 PM EDT Liver lesion IRON + IFTYGpwodoa08/25/2025 1:46 PM EDT Liver lesion CA 19-9 UZMHkpaefg20/25/2025 1:46 PM EDT Liver lesion Malignant neoplasm of endocrine pancreas (HCC) HEPATITIS C ANTIBODY IA WITH SQQMNWUDQNIBBgoarkt83/25/2025 1:46 PM EDT Liver lesion EXTERNAL SYLYHGP2503/12/2025 9:10 AM EDT EXTERNAL YCCEJUK7603/12/2025 9:10 AM EDT EXTERNAL LAB03/12/2025 9:10 AM EDT EXTERNAL LAB03/12/2025 9:10 AM EDT EXTERNAL LAB03/12/2025 9:10 AM EDT EXTERNAL IOJVUWACBN73/17/2025 9:[address] OUTSIDE CD DICOM TYLARN3003/10/2025 from Last 3 Months Results * MOLECULAR GENETIC DATA (04/04/2025 1:55 PM EDT)ComponentValueRef RangeTest MethodAnalysis TimePerformed AtPathologist SignatureDPYD PHENOTYPE RESULT LIMS DPYD Normal Oxyjxkhpvic99/17/2025 1:35 PM EDTCTHE [facility] MAIN GTBRAB8M4 PHENOTYPE RESULT PQJRDTN4W9 Poor Bqanicidtce24/17/2025 1:35 PM EDTCLEVELAITKIN [facility] MAIN LABSpecimen (Source)Anatomical Location / LateralityCollection Method / VolumeCollection TimeReceived TimeBloodBLOOD SPECIMEN / Unknown Venipuncture / Rdnyjfz1104/04/2025 1:55 PM EDT1 1:55 PM EDT Narrative Authorizing ProviderResult TypeResult StatusCash Shannon MDLABORATORYFinal ResultPerforming OrganizationAddressCity/State/ZIP CodePhone Number [facility] [address] * DPYD/UGT1A1 GENOTYPING PANEL (04/04/2025 1:55 PM EDT)ComponentValueRef Range Test MethodAnalysis TimePerformed AtPathologist SignatureDPYD/UGT1A1 GENOTYPING PANEL RESULPharmacogenomics (PGx) DPYD and UGT1A1 Genotyping Laboratory Accession Number: [id number] DPYD Genotype: *1/*1 DPYD Activity Score: 2 DPYD Predicted Phenotype: DPYD Normal Metabolizer UGT1A1 Genotype: *80+*28/*80+*28 UGT1A1 Predicted Phenotype: UGT1A1 Poor Metabolizer Interpretation: Two normal function alleles were observed in the DPYD gene (see variant details below) resulting in an activity score of 2. This activity score is associated with a DPYD normal metabolizer phenotype. DPYD normal metabolizers are not expected to require (based on pharmacogenomic results alone) selective adjustment of the dose of medications metabolized by DPD. Please consult a clinical pharmacist for more information regarding drug therapy. Questions regarding molecular testing details should be directed to [facility] . Two decreased function UGT1A1 alleles were observed in this sample (see variant details below). This is associated with a UGT1A1 poor metabolizer phenotype. This predicted phenotype of UGT1A1 poor metabolizer is generally indicative of Gilbert syndrome. Gilbert syndrome is a common (3 to 7% of the general population) inherited mild liver disorder that may involve transient episodes of jaundice. UGT1A1 poor metabolizers are at risk of an adverse or poor response to medications metabolized by UGT, thus may need dosing adjustments for those medications, or a therapeutic alternative not metabolized by this enzyme. Please consult a clinical pharmacist for more information regarding drug therapy. For questions about Gilbert syndrome, see the references listed below. Questions regarding molecular testing details should be directed to [facility] . The DPYD gene encodes dihydropyrimidine dehydrogenase (DPD). This enzyme is involved in the metabolism of fluoropyrimidines. The UGT1A1 gene encodes UDP-glucuronosyltransferase (UGT). UGT is involved in the metabolism of certain medications including ones used in oncology. For clinical correlation, drug-specific guidelines are available to provide phenotype assignment and therapeutic recommendations based on phenotype. Patients who carry genetic variants associated with altered metabolism may be at risk for an adverse or poor response to drugs that are predominantly metabolized by the associated enzyme (DPD or UGT). For patients with altered DPD and/or UGT activity, alternative pharmacological agents or dosing adjustments may be needed for medications metabolized by this enzyme to avoid an unexpected or adverse response. Please note that this DPYD genotyping test includes variants that may not have been assayed in a previous test performed elsewhere. If there is discordance of phenotype results between laboratories, it is likely a function of the different variants assayed in each test. The methodology section of the report (see below) lists the variants interrogated by this test. DPYD Variant Details: NA UGT1A1 Variant Details: UGT1A1 [id number], c.-346C>T, g.[id number]>T (legacy name 80); UGT1A1 [id number], c.-41_-40dupTA g.[id number] (legacy name 28) DPYD Additional Information: In addition to increased risk of 5-fluorouracil toxicity, variants in the DPYD gene may be associated with DPD deficiency, an autosomal recessive inborn error of metabolism (OMIM: 891286). DPD deficiency exhibits a wide range of phenotypic variability, from no symptoms to a very rare severe neurological disorder with onset in infancy or childhood (prevalence unknown). For the vast majority of affected individuals, the first and only symptom is sensitivity to 5-fluorouracil and capecitabine. It is possible that individuals with DPD deficiency may be identified by the presence of two no-function DPYD variants (activity score = 0). However, this test is designed as a pharmacogenomic test and is not intended as a diagnostic or carrier test for DPD deficiency. A formal genetics consultation is recommended for those with concerns regarding DPD deficiency. Limitations: DNA studies do not provide a definitive genetic or pharmacogenomic risk in all individuals. This test is designed to detect a specific set of variants (see list below) in the DPYD gene (OMIM 857101) and UGT1A1 gene (OMIM 309354). This test does not detect all sequence variants in either gene. Uncommon variants or single nucleotide polymorphisms may affect binding of primers and probes and may result in false negative, false positive, or indeterminate results. The absence of abnormal variants as analyzed in this test is interpreted as the presence of *1/*1 (wild type/normal) genotype. The phenotype provided in the interpretation may be impacted by undetected genetic and/or non-genetic factors such as drug-drug interactions. Methodology: Purified genomic DNA was subjected to polymerase chain reaction-based amplification. The DPYD (NM_000110.3) and UGT1A1 (NM_000463.3) genes were interrogated for known, clinically relevant variants. Primer extension products were analyzed using matrix-assisted laser desorption/ionization massspectrometry, and specific genotypes assigned were then translated to the appropriate star (*) allele (DPYD and UGT1A1) and activity score (DPYD), see lists below. The reference genome used is GRCh38/hg38. UGT1A1 star alleles: *1, *6, *27, *28, *36, *37, *80, *80+*28, *80+*36, and *80+*37. These alleles are detected using the presence or absence of the following variants, RefSNP ID: [id number], [id number], [id number] (TA repeats), and [id number]. DPYD star alleles and targeted variants: RefSNP ID ?Legacy ?Total Allele ?Highest Allele ? Name ?Frequency ? Frequency ? General Population ??(Population) No variant ? detected ? *1 ? [id number] ?*2A ? 0.6% ?2.4% (Eur F) [id number] ?*8 ?0.01% ? 0.03% (S ) ax7480572 ?*10 ? n/a ? [id number] ?? *12 ? 0.0008% ? 0.003% (S ) ih41973837 ?? *13 ? 0.03% ? 0.06% (Eur F) [id number] ??Y186C ? 0.2% ?2.15% () [id number] c.2846A>T 0.3% 0.5% (Eur NF) [id number] ?? HapB3 ? 1.4% ?2.1 % (Eur NF) [id number] HapB3(c.1236G>A) 1.4% 2.1% (Eur NF) Population frequencies are from gnomAD and may be different in specific ethnic groups. The allele frequency shown is the total allele frequency in all populations. The highest allele frequency for a single population is also noted (Eur F = Emirati, Eur NF = non-Emirati, S = South ). Note: [id number] (HapB3) and [id number] (c.1236G>A) are in linkage disequilibrium thus are typically seen together. References: 1) Clinical Pharmacogenetics Implementation Consortium (CPIC): www.CPICpgx.org 2) Pharmacogene Variation Consortium (PharmVar): www.PharmVar.org 3) Genome Aggregation Database V2.1.1 (gnomAD), accessed 01 July 2021, https://gnomad.broadinstitute.org 4) Yani Alexander, Fredis PABLO, Troy YOU, et al. Pharmacogenomics Knowledge for Personalized Medicine Clinical Pharmacology and Therapeutics (2012) 92(4): 414-417. 5) Cooper U, Sheron LM, Cee SM, et al. Clinical Pharmacogenetics Implementation Consortium (CPIC) Guideline for Dihydropyrimidine Dehydrogenase Genotype and Fluoropyrimidine Dosin Update. Clin Pharmacol Ther. 2018;103(2):210-216. 6) Acunote, eMarketer Library of Medicine 2020. Dihydropyrimidine dehydrogenase deficiency, accessed 12 January 2021, https://medlineplus.gov/genetics/condition/dihydropyrimidine- dehydrogenase-deficiency/#resources 7) Laura N, Faheem DAVIS, Misty RCM, [facility] Hospital[facility] ABP. Purine and Pyrimidine Metabolism: Pyrimidine Metabolism: Dihydropyrimidine Dehydrogenase. Pan's Principles and Practice of Medical Genetics and Genomics: Metabolic Disorders, Seventh Edition. Edited by Staci Mera, Elsevier. 2020. Sections 6.3.4 - 6.3.4.4 https://tei-lwyjtxwvktf-ler.ccmain.[facility].org/#!/content/book/3-s2.0- [email or web address]?scrollTo=%58bh9099445 8) Daivd RS, Taylor MH, Kerri CE, et al. Clinical Pharmacogenetics Implementation Consortium (CPIC) Guideline for UGT1A1 and Atazanavir Prescribing. Clinical Pharmacology and Therapeutics (2016) Apr;99(4): 363-9. 9) D, Louie MJ. Overview of Glibert's syndrome. Drug Ther Bull. 2019 Feb 57(2):27-30. 10) [facility] 2020, Gilbert Syndrome, accessed 12 January 2021, https://[facility].org/health/diseases/39719-iozdlhzg-vdtxiald Disclaimer: This test was developed and its performance characteristics determined by [facility]'s Pathology and Laboratory Medicine Department. It has not been cleared or approved by the FDA. [facility] Pathology and Laboratory Medicine Department is regulated under CLIA as certified to perform high-complexity testing. This test is used for clinical purposes. It should not be regarded as investigational or for research. Test performed at [facility], [address] [place], [place] [address] [address]. [place] Number: [id number] Interpretation performed by Karen Banks, PhD04/11/2025 1:33 PM EDTCTHE SUR[facility] LABSpecimen (Source)Anatomical Location / LateralityCollection Method / VolumeCollection TimeReceived TimeBloodBLOOD SPECIMEN / Unknown Venipuncture / Xnkicqr7604/04/2025 1:55 PM EDT1 1:55 PM EDT Narrative Authorizing ProviderResult TypeResult StatusCash Shannon MDLABORATORYFinal ResultPerforming OrganizationAddressCity/State/ZIP CodePhone Number [facility] [address] [place] [address], * LEILA GA CANCER SEEK (04/03/2025 12:29 PM EDT)ComponentValueRef RangeTest MethodAnalysis TimePerformed AtPathologist SignatureCARIS Genomic Loss of Heterozygosity - ExomeEquivocal 15%04/16/2025 2:44 PM EDTCOOgave Microsatellite GngzzpDkmirh81/22/2025 2:44 PM EDTCARIS LIFE SCIENCESTumor Mutational BurdenLow 3 per Mb04/16/2025 2:44 PM EDTCCommonBond SCIENCESCARIS HLA-A - ExomeA*01:01,A*24:021 2:44 PM EDTCOOgaveCARIS HLA-B - ExomeB*40:01,B*51:011 2:44 PM EDTCOOgaveCARIS HLA-C - ExomeC*03:04,C*14:021 2:44 PM EDTCCommonBond SCIENCESSpecimen (Source)Anatomical Location / LateralityCollection Method / VolumeCollection TimeReceived UablKnntby36/09/2025 12:29 PM EDT1 12:29 PM EDT Narrative This result has genomic variants that were not included in this document. Authorizing ProviderResult TypeResult Karen Shannon MDLABORATORYFinal ResultPerforming OrganizationAddressCity/State/ZIP CodePhone Number [employer] [address] [place] [address], * IMAGING GUIDED BIOPSY LIVER (04/01/2025 10:20 AM EDT)Anatomical Region LateralityModalityComputed TomographySpecimen (Source)Anatomical Location / LateralityCollection Method / VolumeCollection TimeReceived Time04/01/2025 10:20 AM EDT Impressions 04/01/2025 12:17 PM EDT IMPRESSION: CT-guided liver mass biopsy as described Army Officer: PSCB ?? Transcribe Date/Time: Mar 12:14P Dictated by : WAI BARRERA MD This examination was interpreted and the report reviewed and electronically signed by: WIA BARRERA MD on Mar 12:15PM ??EST Narrative 04/01/2025 12:17 PM EDT * * *Final Report* * * DATE OF EXAM: Mar 10:20AM ?? [facility] ?? 2017 ??- ??CT BIOPSY ??LIVER ?? / PROCEDURE REASON: liver bx ? * * * * Physician Interpretation * * * * HISTORY: liver bx dr barrera TECHNIQUE: Pre-procedure Sign-in: Safety Checklist Performed: Yes. ??The team confirmed the correct patient, correct site, site marking, correct procedure, and correct position. Timeout Time: 940 Sign-out: Communication performed: Yes. 12 mL 1% lidocaine was infused for local anesthesia. COMPARISON: 03/21/2025 MRI abdomen RESULT: Left lobe liver mass was biopsied through a 17-gauge guiding needle that was placed under guidance of CT fluoroscopy. Tissue cores were taken through the guiding needle with an 18-gauge spring-loaded device. CT afterwards showed no associated hemorrhage. Procedure Note Provider, [facility] [place] - 04/01/2025 * * *Final Report* * * DATE OF EXAM: Apr 01 2025 10:20AM [facility] [place] - CT BIOPSY LIVER / PROCEDURE REASON: liver bx * * * * Physician Interpretation * * * * HISTORY: liver bx dr barrera TECHNIQUE: Pre-procedure Sign-in: Safety Checklist Performed: Yes. The team confirmed the correct patient, correct site, site marking, correct procedure, and correct position. Timeout Time: 940 Sign-out: Communication performed: Yes. 12 mL 1% lidocaine was infused for local anesthesia. COMPARISON: 03/21/2025 MRI abdomen RESULT: Left lobe liver mass was biopsied through a 17-gauge guiding needle that was placed under guidance of CT fluoroscopy. Tissue cores were taken through the guiding needle with an 18-gauge spring-loaded device. CT afterwards showed no associated hemorrhage. IMPRESSION IMPRESSION: CT-guided liver mass biopsy as described Army Officer: KERI Transcribe Date/Time: Apr 01 2025 12:14P Dictated by : WAI BARRERA MD This examination was interpreted and the report reviewed and electronically signed by: WAI BARRERA MD on Apr 01 2025 12:15PM EST Authorizing ProviderResult TypeResult StatusKasra Fernandeslojerrell MDCT-PAMAFinal Result * HER2 BY IHC NON BREAST (04/01/2025 10:03 AM EDT)ComponentValueRef RangeTest MethodAnalysis TimePerformed AtPathologist SignatureHER2 StatusNegative for HER2 Valwocusyxkray93/13/2025 2:58 PM EDTCPARKVIEW [facility]ALTH LABHer2 Score for Enhertu Treatment or Biliary Ocanm683 2:58 PM EDTCPARKVIEW HEALTH LABTumor TypeUnresectable or Metastatic Solid Tumor for Possible Enhertu Rpdbcgiuv17/13/2025 2:58 PM EDTCPARKVIEW [facility] LABOhio[facility] Case [id number]/13/2025 2:58 PM [facility] LABCCF Block PTN986 2:58 PM [facility] LABFixativeFormalin, 10% Neutral Znjuiiwo54/13/2025 2:58 PM EDT [facility] LABInterpretation Comment and Reference Range Reference Ranges for HER2 immunohistochemistry on biopsies specimens in solid tumor specimens for ENHERTU therapy: Positive (3+): A tumor cell cluster with a strong complete, basolateral, or lateral membranous reactivity irrespective of the percentage of tumor cells stained. Negative (2+): A tumor cell cluster with weak to moderate complete, basolateral, or lateral membranous reactivity, irrespective of the percentage of tumor cells stained. Negative (1+): A tumor cell cluster with faint or barely perceptible membranous reactivity irrespective of the percentage of tumor cells stained. Negative (0): No reactivity in any tumor cell. Reference Ranges for HER2 immunohistochemistry on resection specimens in solid tumor specimens for ENHERTU therapy: Positive (3+): Strong and complete basolateral or lateral membranous reactivity in greater than or equal to 10% of tumor cells. Negative (2+): Weak to moderate complete, basolateral or lateral membranous reactivity in greater than or equal to 10% of tumor cells. Negative (1+): Incomplete, faint membrane staining in greater than or equal to 10% of tumor cells Negative (0): No reactivity or membranous activity in less than 10% of tumor cells. Interpretation comments: ENHERTU (fam-trastuzumab deruxtecan-nxki) is FDA-approved for treating adult patients with unresectable or metastatic HER2-positive (IHC 3+) solid tumors who have received prior systemic treatment and who have no satisfactory alternative treatment options. The approval is based on the ADITI-ItyGcook39 clinical trial in which HER2 IHC is interpreted similarly to the College [employer] [place] [employer], [place] Society for Clinical Pathology, and [place] Society of Clinical Oncology biopsy criteria for gastric/EGJ adenocarcinoma. However, 2+ cases are interpreted as negative for ENHERTU therapy. Additionally, HER2 (ERBB2) amplification status by fluorescence in situ hybridization (FISH) plays no role in determining a patient???s eligibility in (non-breast, non- gastric/EGJ, non-colon) solidtumors. Reference: Darek GARCIA, et al. HER2 Testing and Clinical Decision Making in Gastroesophageal Adenocarcinoma: Guideline From the College of [place] [employer], [place] Society for Clinical Pathology, and [place] Society of Clinical Oncology. Arch Pathol Lab Med. 2016 May;140(12):0356-9279. Lefty F, Rhonda V, Isael A, Cole DY, Dominguez S, Damion??[place]??n A, Seth KH, ?luis I, Nevaeh L, Sean A, Norbert B, Rolanda S, Nando D, Eyad A, Juan A Y, Puladonna S, Johana N, Vinnie XIONG. Efficacy and Safety of Trastuzumab Deruxtecan in Patients With HER2-Expressing Solid Tumors: Primary Results From the ADITI-OveLzbxy10 Phase II Trial. J Clin Oncol. 2023Jun 26;42(1):47-58. doi: 10.1200/JCO.23.17298. Epub 2022Apr 17. PMID: 13528248; PMCID: [id number]. FDA product label: https://www.accessdata.fda.gov/drugsatfda_docs/label/2023/372118x030fal.pdf 04/07/2025 2:58 PM [facility] LABMethodHER2 (ERBB2) by IHC: FDA cleared: [employer], [place], [place] Primary Antibody:4B5 Antibody and Detection System: [employer] Pathway anti-HER2 rabbit monoclonal antibody (clone 4B5), were detected with the [employer] iView Detection System (indirect biotin streptavidin detection); [place], [place].04/07/2025 2:58 PM EDT [facility] LABDisclaimerLaboratory Developed Test (LDT) Disclaimer: Performance characteristics of immunohistochemical, immunofluorescent, and chromogenic in-situ hybridization tests have been determined by the performing laboratory within the [facility] Department of Pathology and Laboratory Medicine ([facility], [facility], [facility], [facility], [facility], [facility], [facility], or [facility]) in a manner consistent with CLIA requirements. One or more of these tests may not have been cleared or approved by the FDA. The [facility] Department of Pathology and Laboratory Medicineis regulated under CLIA as qualified to perform high-complexity testing. These tests are used for clinical purposes. These should not be regarded as investigational or for research. Positive and negative controls stain appropriately.04/07/2025 2:58 PM EDT [facility] LABPerforming LabDiagnostic interpretation performed at: [facility], [address] [place] [address], [place] [address] CLIA# [id number] Jr. Java Developer: Colten Holbrook MD Electronically signed out by: Debra Chapa MD04/07/2025 2:58 PM [facility] LABSpecimen (Source)Anatomical Location / Laterality Collection Method / VolumeCollection TimeReceived TimeTissueLIVER BIOPSY SPECIMEN / Fwnnpfe3504/01/2025 10:03 AM EDT1 9:39 PM EDT Narrative Authorizing ProviderResult TypeResult StatusJohn B Villa De [place] MDSURGICAL PATHOLOGY Final ResultPerforming OrganizationAddressCity/State/ZIP CodePhone Number [facility] [address] [address], * SURGICAL PATHOLOGY (04/01/2025 10:03 AM EDT)ComponentValueRef RangeTest Method Analysis TimePerformed AtPathologist SignatureCase ReportSurgical Pathology Report ? Case: [id number] ? Authorizing Provider: ??Wai Barrera MD ? Collected: ? 04/01/2025 10:03 AM ? Ordering Location: ? [facility] ??Received: ?04/01/2025 10:42 AM? Pathologist: ? Latoya Retana MD ? Specimen: ?Liver, Mass, Biopsy ? 04/03/2025 10:36 AM [facility] LABFINAL DIAGNOSISA. Liver, mass, biopsy - Involved by poorly differentiated adenocarcinoma - See ugihbcq9304/03/2025 10:36 AM [facility] at 1036 EDTDiagnosis CommentThe neoplastic cells labeled with CK7, CK19, CDX2 (patchy); they do not express CK20, NKX3.1, glypican-3, and TTF-1. SMAD4 shows patchy loss in the neoplastic glands. Overall the features favor involvement by a pancreatic primary adenocarcinoma. 04/03/2025 10:36 AM [facility] LABGross DescriptionA. Liver, Mass, Biopsy Received in formalin are two segments of cylindrical tissue aggregating to 2.0 x 0.2 x 0.1 cm, henley-yellow and of a soft consistency. Totally submitted in one cassette. ADB April 01, 2025 3:30 PM Gross examination performed at [facility], [address] [place] [address] 064336804/03/2025 10:36 AM [facility] LABClinical Historyincidental note of suspected liver lcxwyjdclf15/09/2025 10:36 AM [facility] LABPerforming LabDiagnostic interpretation performed at: [facility], [address] [place] [address], [place] [id number] CLIA# [id number] Jr. Java Developer: Colten Holbrook MD04/03/2025 10:36 AM [facility] LABDisclaimerLaboratory Developed Test (LDT) Disclaimer: Performance characteristics of immunohistochemical, immunofluorescent, and chromogenic in-situ hybridization tests have been determined by the performing laboratory within the [facility] Department of Pathology and Laboratory Medicine ([facility], [facility], [facility], [facility], [facility], [facility], [facility], or [facility]) in a manner consistent with CLIA requirements. One or more of these tests may not have been cleared or approved by the FDA. The [facility] Department of Pathology and Laboratory Medicineis regulated under CLIA as qualified to perform high-complexity testing. These tests are used for clinical purposes. These should not be regarded as investigational or for research. Positive and negative controls stain appropriately.04/03/2025 10:36 AM EDT [facility] LABSpecimen (Source)Anatomical Location / LateralityCollection Method / VolumeCollection TimeReceived TimeTissueLIVER BIOPSY SPECIMEN / Uiungiq2804/01/2025 10:03 AM EDT1 10:42 AM EDTComment: Pre-op diagnosis: Liver lesion [K76.9] Narrative Authorizing ProviderResult TypeResult StatusJohn Hermilo Barrera MDSURGICAL PATHOLOGY Final ResultPerforming OrganizationAddressCity/State/ZIP CodePhone Number [facility] [address] [place] [id number], * MISMATCH REPAIR PROTEINS BY IHC (04/01/2025 10:03 AM EDT)ComponentValueRef RangeTest MethodAnalysis TimePerformed AtPathologist SignatureMMR InterpretationProficient (Microsatellite Stable)04/07/2025 2:56 PM EDT [facility] LABMLH1 Immunohistochemical ResultsNormal/Intact Nuclear Jvkpbjxxxu15/13/2025 2:56 PM [facility] LABPMS2 Immunohistochemical ResultsNormal/Intact Nuclear Vlzuioiyac39/13/2025 2:56 PM [facility] LABMSH2 Immunohistochemical Results Normal/Intact Nuclear Hepnqpjldb13/13/2025 2:56 PM [facility] LABMSH6 Immunohistochemical ResultsNormal/Intact Nuclear Expression 04/07/2025 2:56 PM [facility] LABMLH1 Promoter Methylation SatirEy0904/07/2025 2:56 PM [facility] LABTumor TypeOther (See Comment)04/07/2025 2:56 PM [facility] Comment: Liver, mass, biopsy: - Involved by poorly differentiated adenocarcinoma. [facility] Case [id number]/ 2:56 PM [facility] LABFixativeFormalin, 10% Neutral Zjwkcvjf38/13/2025 2:56 PM EDT [facility] LABInterpretation Comment and Reference RangeIntact expression of MMR (mismatch repair) proteins by immunohistochemistry is highly correlated with a microsatellite stable result by MSI (microsatellite instability) PCR analysis, and the results from these tests are viewed as clinically equivalent by the FDA. This result excludes at least 90-95% of Garcia syndrome. These tests are an imperfect screen because some mutations may not produce lossof immunohistochemical expression. MSI molecular testing can be performed upon request in cases with a high clinical suspicion and appropriate family history. In a phase 2 study of patients with metastatic carcinoma, Renee et al. (NEJ 2015;372:2509-20) reported that the clinical benefit of pembrolizumab, an anti- programmed 1 (PD-1) immune checkpoint inhibitor, was predicted by the tumor's mismatch repair status; mismatch repair deficient (dMMR) tumors are more responsive to PD-1 blockade than mismatch repair proficient tumors. Pembrolizumab is FDA-approved for treating adult and pediatric patients with unresectable or metastatic solid tumors that display microsatellite instability- high (MSI-H) by PCR assay or dMMR by immunohistochemistry (IHC). The FDA does not distinguish between PCR and IHC-based assays, as these are considered equivalent and complimentary tests. As clinically indicated, and in the appropriate setting of genetic counseling with informed patientconsent, further genetic testing may be helpful. For more information or questions about this result, please call the [facility] for [facility] at [phone]/07/2025 2:56 PM [facility] LABMethodImmunohistochemistry was performed on formalin-fixed paraffin-embedded tissue using the FDA-approved MMR IHC Panel with the following clones: MLH1 (clone M1 mouse monoclonal); PMS2 (A16-4 mouse monoclonal); MSH2 ([id number] mouse monoclonal); MSH6 (SP93 rabbit monoclonal). The OptiView DAB IHC Detection Kit is used with MLH1, MSH2, and MSH6, and the OptiView DAB IHC Detection Kit with OptiView Amplification Kit is used for PMS2 detection. [[employer], [place]]04/07/2025 2:56 PM [facility] LABDisclaimerLaboratory Developed Test (LDT) Disclaimer: Performance characteristics of immunohistochemical, immunofluorescent, and chromogenic in-situ hybridization tests have been determined by the performing laboratory within the [facility] Department of Pathology and Laboratory Medicine ([facility], [facility], [facility], [facility], [facility], [facility], [facility], or [facility]) in a manner consistent with CLIA requirements. One or more of these tests may not have been cleared or approved by the FDA. The [facility] Department of Pathology and Laboratory Medicineis regulated under CLIA as qualified to perform high-complexity testing. These tests are used for clinical purposes. These should not be regarded as investigational or for research. Positive and negative controls stain appropriately.04/07/2025 2:56 PM EDT [facility] LABPerforming LabDiagnostic interpretation performed at: [facility], [address] [facility], [facility] [place] [address] CLIA# [id number] Jr. Java Developer: Colten Holbrook MD Electronically signed out by: Debra Chapa MD04/07/2025 2:56 PM EDTCPARKVIEW HEALTH LABCCF Block [id number] 2:56 PM EDTCPARKVIEW HEALTH LABSpecimen (Source)Anatomical Location / LateralityCollection Method / VolumeCollection TimeReceived TimeTissueLIVER BIOPSY SPECIMEN / Unknown 04/01/2025 10:03 AM EDT1 9:39 PM EDT Narrative Authorizing ProviderResult TypeResult StatusJolyssa Barrera MDSURGICAL PATHOLOGY Final ResultPerforming OrganizationAddressCity/State/ZIP CodePhone Number [facility] [address] [place] [address], * (ABNORMAL) COMPLETE BLOOD COUNT AND DIFFERENTIAL (03/27/2025 9:31 AM EDT) ComponentValueRef RangeTest MethodAnalysis TimePerformed AtPathologist SignatureWBC6.043.70 - 11.00 k/uL03/27/2025 9:38 AM EDTNORTHCBEAUMONT [facility]PITAL LABRBC4.804.20 - 6.00 m/uL03/27/2025 9:38 AM EDTNORTHCBEAUMONT [facility]ITAL YUNEwmrakjyvy20.913.0 - 17.0 g/dL03/27/2025 9:38 AM EDT [facility] EOKVvhzkwkhgs54.739.0 - 51.0 %03/27/2025 9:38 AM EDTNORTHCBEAUMONT [facility] AFXMMN91.080.0 - 100.0 fL 03/27/2025 9:38 AM EDTNORTHCOAVETERANS [facility] BNKOID70.026.0 - 34.0 pg03/27/2025 9:38 AM [facility]TNORTHCBEAUM[facility] EOSNDNI49.930.5 - 36.0 g/dL03/27/2025 9:38 AM [facility] LABRDW-CV12.0 11.5 - 15.0 %03/27/2025 9:38 AM [facility] LAB Platelet Fnusb729688 - 400 k/uL03/27/2025 9:38 AM [facility] LABMPV9.59.0 - 12.7 fL03/27/2025 9:38 AM [facility] LABNeutrophils %68.9%03/27/2025 9:38 AM [facility] LABAbs Neut4.161.45 - 7.50 k/uL03/27/2025 9:38 AM [facility] LABLymphocytes %14.1%03/27/2025 9:38 AM [facility] LABAbs Lymph0.85(L)1.00 - 4.00 k/uL03/27/2025 9:38 AM [facility] LABMonocytes %14.9%03/27/2025 9:38 AM [facility] LABAbs Mono0.90(H)<0.87 k/uL03/27/2025 9:38 AM [facility] LABEosinophils %1.3%03/27/2025 9:38 AM [facility] LABAbs Eosin0.08<0.46 k/uL03/27/2025 9:38 AM [facility] LABBasophils %0.3%03/27/2025 9:38 AM [facility] LABAbs Baso<0.03<0.11 k/uL03/27/2025 9:38 AM [facility] LABImmature Granulocytes %0.5% 03/27/2025 9:38 AM [facility] LABAbs Immature Gran 0.03<0.10 k/uL03/27/2025 9:38 AM EDTNORTFORMERLY [facility] LABNRBC 0.0/100 WBC03/27/2025 9:38 AM [facility]REENB[facility] LABAbsolute nRBC<0.01<0.01 k/uL03/27/2025 9:38 AM EDTNORTFORMERLY [facility] LAB Diff CrjqFzje23/02/2025 9:38 AM [facility]TNOVETERANS [facility] LAB Specimen (Source)Anatomical Location / LateralityCollection Method / Volume Collection TimeReceived TimeBloodBLOOD SPECIMEN / UnknownVenipuncture / Flqiehe8403/27/2025 9:31 AM EDT1 9:31 AM EDT Narrative Authorizing ProviderResult TypeResult StatusGrrahul CHOU-CLABORATORYFinal ResultPerforming OrganizationAddressCity/State/ZIP CodePhone Number [facility] [address] [place] [address] * MRI 3D POST PROCESSING (03/20/2025 7:15 PM EDT)Anatomical RegionLaterality ModalityMagnetic ResonanceSpecimen (Source)Anatomical Location / Laterality Collection Method / VolumeCollection TimeReceived Time03/20/2025 7:15 PM EDT Impressions 03/21/2025 11:39 AM EDT IMPRESSION: 5.6 CM INFILTRATIVE HYPOENHANCING PANCREATIC TAIL MASS WITH OCCLUSION/INVASION OF THE SPLENIC VEIN, DESCRIBED, CONSISTENT WITH PANCREATIC ADENOCARCINOMA. NUMEROUS BILOBAR HEPATIC METASTATIC LESIONS. 1.2 CM LEFT PULMONARY NODULE, SIMILAR TO CT CHEST 03/10/2025 ALSO CONSISTENT WITH METASTATIC DISEASE. 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 Transcribe Date/Time: Mar 21 2025 ??8:08A Dictated by : ROSSI HARE, DO This examination was interpreted and the report reviewed and electronically signed by: CHASE HUERTA MD on Mar 21 2025 11:37AM ??EST Narrative 03/21/2025 11:39 AM EDT * * *Final Report* * * DATE OF EXAM: Mar 20 2025 ??7:15PM ?? QBM ?? 0280 ??- ??MRI 3D POST PROCESSING ??/ PROCEDURE REASON: multiple diagnoses ? * * * * Physician Interpretation * * * * MRI OF THE ABDOMEN (PANCREAS-BILIARY) WITHOUT AND WITH IV CONTRAST, 3D REFORMATTED IMAGES HISTORY: Further evaluation of pancreatic mass seen on prior imaging. TECHNIQUE: Magnet: ??3.0T scanner. Multiplanar MRI of the abdomen with multiple sequences, performed before and after intravenous contrast. ??Additional MR cholangiopancreatography sequences were performed. Image post-processing {Maximum intensity Projection (MIP), Volume-rendered (VR), Surface shaded display images (SSD) or complex volumetric analysis} was performed at an off-line workstation with concurrent physician supervision, with images created, reviewed and archived. Contrast: IV: ??8 ml of Elucirem COMPARISON: CT chest 03/10/2025 RESULT: Liver: Normal morphology. ??No steatosis. ??Wedge-shaped arterial hyperenhancement within segments /VII which equilibrates on later phases, likely perfusional. ??Numerous bilobar peripherally enhancing T2 hyperintense lesions with restricted diffusion, for example: -6.1 x 4.5 cm segment VII/VIII lesion (22:21). ??This encases a branch of the right hepatic vein. -4.9 x 3.4 cm segment II lesion (22:24) -2.7 x 2.0 cm segment I lesion (22:21) Biliary: No bile duct dilation. ??Gallbladder is unremarkable. Spleen: No mass. No splenomegaly. Pancreas: * ??5.6 x 3.8 cm infiltrative hypoenhancing pancreatic tail mass (12:37). * ??The mass appears to occlude the distal splenic vein (23:36). * ??No soft tissue or stranding surrounding the celiac axis, SMA, SMV, or portal vein. * ??No main duct dilation. * ??Scattered cystic pancreatic lesions measuring 0.7 cm in the head (8:35) and 0.6 cm in the proximal body (8:23) without worrisome features consistent with IPMN. Adrenals: No mass. Kidneys: ??Benign cysts. No solid mass. ??No hydronephrosis. GI tract: No dilation or wall thickening. Lymph nodes: Few nonenlarged upper abdominal and retroperitoneal nodes, for example: -0.8 cm periportal node (9:49) -0.9 cm periportal node (9:51) -0.6 cm aortocaval node (9:63) Mesentery/Peritoneum: No ascites. No mass. Vasculature: - Abdominal aorta: No aneurysm. 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 ??Otherwise, patent. - Portal venous system (SMV, splenic vein, portal vein and branches): Occlusion of the splenic vein as described above with formation of portosystemic collaterals. ??Otherwise, patent. - Hepatic veins: Patent. Bones/Soft Tissues: Degenerative changes. Lower thorax: Redemonstrated 1.2 cm lingular/left perihilar nodule (2:29). Procedure Note Provider, [facility] [place] - 03/21/2025 * * *Final Report* * * DATE OF EXAM: Mar 20 2025 7:15PM Q 0280 - MRI 3D POST PROCESSING / PROCEDURE REASON: multiple diagnoses * * * * Physician Interpretation * * * * MRI OF THE ABDOMEN (PANCREAS-BILIARY) WITHOUT AND WITH IV CONTRAST, 3D REFORMATTED IMAGES HISTORY: Further evaluation of pancreatic mass seen on prior imaging. TECHNIQUE: Magnet: 3.0T scanner. Multiplanar MRI of the abdomen with multiple sequences, performed before and after intravenous contrast. Additional MR cholangiopancreatography sequences were performed. Image post-processing {Maximum intensity Projection (MIP), Volume-rendered (VR), Surface shaded display images (SSD) or complex volumetric analysis} was performed at an off-line workstation with concurrent physician supervision, with images created, reviewed and archived. Contrast: IV: 8 ml of Elucirem COMPARISON: CT chest 03/10/2025 RESULT: Liver: Normal morphology. No steatosis. Wedge-shaped arterial hyperenhancement within segments /VII which equilibrates on later phases, likely perfusional. Numerous bilobar peripherally enhancing T2 hyperintense lesions with restricted diffusion, for example: -6.1 x 4.5 cm segment VII/VIII lesion (22:21). This encases a branch of the right hepatic vein. -4.9 x 3.4 cm segment II lesion (22:24) -2.7 x 2.0 cm segment I lesion (22:21) Biliary: No bile duct dilation. Gallbladder is unremarkable. Spleen: No mass. No splenomegaly. Pancreas: * 5.6 x 3.8 cm infiltrative hypoenhancing pancreatic tail mass (12:37). * The mass appears to occlude the distal splenic vein (23:36). * No soft tissue or stranding surrounding the celiac axis, SMA, SMV, or portal vein. * No main duct dilation. * Scattered cystic pancreatic lesions measuring 0.7 cm in the head (8:35) and 0.6 cm in the proximal body (8:23) without worrisome features consistent with IPMN. Adrenals: No mass. Kidneys: Benign cysts. No solid mass. No hydronephrosis. GI tract: No dilation or wall thickening. Lymph nodes: Few nonenlarged upper abdominal and retroperitoneal nodes, for example: -0.8 cm periportal node (9:49) -0.9 cm periportal node (9:51) -0.6 cm aortocaval node (9:63) Mesentery/Peritoneum: No ascites. No mass. Vasculature: - Abdominal aorta: No aneurysm. 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 Otherwise, patent. - Portal venous system (SMV, splenic vein, portal vein and branches): Occlusion of the splenic vein as described above with formation of portosystemic collaterals. Otherwise, patent. - Hepatic veins: Patent. Bones/Soft Tissues: Degenerative changes. Lower thorax: Redemonstrated 1.2 cm lingular/left perihilar nodule(2:29). IMPRESSION IMPRESSION: 5.6 CM INFILTRATIVE HYPOENHANCING PANCREATIC TAIL MASS WITH OCCLUSION/INVASION OF THE SPLENIC VEIN, DESCRIBED, CONSISTENT WITH PANCREATIC ADENOCARCINOMA. NUMEROUS BILOBAR HEPATIC METASTATIC LESIONS. 1.2 CM LEFT PULMONARY NODULE, SIMILAR TO CT CHEST 03/10/2025 ALSO CONSISTENT WITH METASTATIC DISEASE. [employer] Officer: PSCB Transcribe Date/Time: Mar 21 2025 8:08A Dictated by : ROSSI HARE, DO This examination was interpreted and the report reviewed and electronically signed by: CHASE HUERTA MD on Mar 21 2025 11:37AM EST Authorizing ProviderResult TypeResult StatusSan Clemente Hospital And Medical Centerbrandan Fernandesev MDMRI-PAMAFinal Result * MRI PANC/JUNIOR WO/W IVCON (03/20/2025 7:15 PM EDT)Anatomical RegionLaterality ModalityAbdomenMagnetic ResonanceSpecimen (Source)Anatomical Location / LateralityCollection Method / VolumeCollection TimeReceived Time03/20/2025 7:15 PM EDT Impressions 03/21/2025 11:39 AM EDT IMPRESSION: 5.6 CM INFILTRATIVE HYPOENHANCING PANCREATIC TAIL MASS WITH OCCLUSION/INVASION OF THE SPLENIC VEIN, DESCRIBED, CONSISTENT WITH PANCREATIC ADENOCARCINOMA. NUMEROUS BILOBAR HEPATIC METASTATIC LESIONS. 1.2 CM LEFT PULMONARY NODULE, SIMILAR TO CT CHEST 03/10/2025 ALSO CONSISTENT WITH METASTATIC DISEASE. 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 Transcribe Date/Time: Mar 21 2025 ??8:08A Dictated by : ROSSI HARE, DO This examination was interpreted and the report reviewed and electronically signed by: CHASE HUERTA MD on Mar 21 2025 11:37AM ??EST Narrative 03/21/2025 11:39 AM EDT * * *Final Report* * * DATE OF EXAM: Mar 20 2025 ??7:15PM ?? QBM ?? 0730 ??- ??MRI PANC/JUNIOR WO/W IVCON ??/ PROCEDURE REASON: multiple diagnoses ? * * * * Physician Interpretation * * * * MRI OF THE ABDOMEN (PANCREAS-BILIARY) WITHOUT AND WITH IV CONTRAST, 3D REFORMATTED IMAGES HISTORY: Further evaluation of pancreatic mass seen on prior imaging. TECHNIQUE: Magnet: ??3.0T scanner. Multiplanar MRI of the abdomen with multiple sequences, performed before and after intravenous contrast. ??Additional MR cholangiopancreatography sequences were performed. Image post-processing {Maximum intensity Projection (MIP), Volume-rendered (VR), Surface shaded display images (SSD) or complex volumetric analysis} was performed at an off-line workstation with concurrent physician supervision, with images created, reviewed and archived. Contrast: IV: ??8 ml of Elucirem COMPARISON: CT chest 03/10/2025 RESULT: Liver: Normal morphology. ??No steatosis. ??Wedge-shaped arterial hyperenhancement within segments /VII which equilibrates on later phases, likely perfusional. ??Numerous bilobar peripherally enhancing T2 hyperintense lesions with restricted diffusion, for example: -6.1 x 4.5 cm segment VII/VIII lesion (22:21). ??This encases a branch of the right hepatic vein. -4.9 x 3.4 cm segment II lesion (22:24) -2.7 x 2.0 cm segment I lesion (22:21) Biliary: No bile duct dilation. ??Gallbladder is unremarkable. Spleen: No mass. No splenomegaly. Pancreas: * ??5.6 x 3.8 cm infiltrative hypoenhancing pancreatic tail mass (12:37). * ??The mass appears to occlude the distal splenic vein (23:36). * ??No soft tissue or stranding surrounding the celiac axis, SMA, SMV, or portal vein. * ??No main duct dilation. * ??Scattered cystic pancreatic lesions measuring 0.7 cm in the head (8:35) and 0.6 cm in the proximal body (8:23) without worrisome features consistent with IPMN. Adrenals: No mass. Kidneys: ??Benign cysts. No solid mass. ??No hydronephrosis. GI tract: No dilation or wall thickening. Lymph nodes: Few nonenlarged upper abdominal and retroperitoneal nodes, for example: -0.8 cm periportal node (9:49) -0.9 cm periportal node (9:51) -0.6 cm aortocaval node (9:63) Mesentery/Peritoneum: No ascites. No mass. Vasculature: - Abdominal aorta: No aneurysm. 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 ??Otherwise, patent. - Portal venous system (SMV, splenic vein, portal vein and branches): Occlusion of the splenic vein as described above with formation of portosystemic collaterals. ??Otherwise, patent. - Hepatic veins: Patent. Bones/Soft Tissues: Degenerative changes. Lower thorax: Redemonstrated 1.2 cm lingular/left perihilar nodule (2:29). Procedure Note Provider, [facility] [place] - 03/21/2025 * * *Final Report* * * DATE OF EXAM: Mar 20 2025 7:15PM QBM 0730 - MRI PANC/JUNIOR WO/W IVCON / PROCEDURE REASON: multiple diagnoses * * * * Physician Interpretation * * * * MRI OF THE ABDOMEN (PANCREAS-BILIARY) WITHOUT AND WITH IV CONTRAST, 3D REFORMATTED IMAGES HISTORY: Further evaluation of pancreatic mass seen on prior imaging. TECHNIQUE: Magnet: 3.0T scanner. Multiplanar MRI of the abdomen with multiple sequences, performed before and after intravenous contrast. Additional MR cholangiopancreatography sequences were performed. Image post-processing {Maximum intensity Projection (MIP), Volume-rendered (VR), Surface shaded display images (SSD) or complex volumetric analysis} was performed at an off-line workstation with concurrent physician supervision, with images created, reviewed and archived. Contrast: IV: 8 ml of Elucirem COMPARISON: CT chest 03/10/2025 RESULT: Liver: Normal morphology. No steatosis. Wedge-shaped arterial hyperenhancement within segments /VII which equilibrates on later phases, likely perfusional. Numerous bilobar peripherally enhancing T2 hyperintense lesions with restricted diffusion, for example: -6.1 x 4.5 cm segment VII/VIII lesion (22:21). This encases a branch of the right hepatic vein. -4.9 x 3.4 cm segment II lesion (22:24) -2.7 x 2.0 cm segment I lesion (22:21) Biliary: No bile duct dilation. Gallbladder is unremarkable. Spleen: No mass. No splenomegaly. Pancreas: * 5.6 x 3.8 cm infiltrative hypoenhancing pancreatic tail mass (12:37). * The mass appears to occlude the distal splenic vein (23:36). * No soft tissue or stranding surrounding the celiac axis, SMA, SMV, or portal vein. * No main duct dilation. * Scattered cystic pancreatic lesions measuring 0.7 cm in the head (8:35) and 0.6 cm in the proximal body (8:23) without worrisome features consistent with IPMN. Adrenals: No mass. Kidneys: Benign cysts. No solid mass. No hydronephrosis. GI tract: No dilation or wall thickening. Lymph nodes: Few nonenlarged upper abdominal and retroperitoneal nodes, for example: -0.8 cm periportal node (9:49) -0.9 cm periportal node (9:51) -0.6 cm aortocaval node (9:63) Mesentery/Peritoneum: No ascites. No mass. Vasculature: - Abdominal aorta: No aneurysm. 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 Otherwise, patent. - Portal venous system (SMV, splenic vein, portal vein and branches): Occlusion of the splenic vein as described above with formation of portosystemic collaterals. Otherwise, patent. - Hepatic veins: Patent. Bones/Soft Tissues: Degenerative changes. Lower thorax: Redemonstrated 1.2 cm lingular/left perihilar nodule(2:29). IMPRESSION IMPRESSION: 5.6 CM INFILTRATIVE HYPOENHANCING PANCREATIC TAIL MASS WITH OCCLUSION/INVASION OF THE SPLENIC VEIN, DESCRIBED, CONSISTENT WITH PANCREATIC ADENOCARCINOMA. NUMEROUS BILOBAR HEPATIC METASTATIC LESIONS. 1.2 CM LEFT PULMONARY NODULE, SIMILAR TO CT CHEST 03/10/2025 ALSO CONSISTENT WITH METASTATIC DISEASE. Army Officer: KERI Transcribe Date/Time: Mar 21 2025 8:08A Dictated by : ROSSI HARE, DO This examination was interpreted and the report reviewed and electronically signed by: CHASE HUERTA MD on Mar 21 2025 11:37AM EST Authorizing ProviderResult TypeResult Statussra Shannon MDMRI-PAMAFinal Result * PROTHROMBIN TIME (03/20/2025 1:46 PM EDT)ComponentValueRef RangeTest Method Analysis TimePerformed AtPathologist SignaturePT Sec11.59.7 - 13.0 sec 03/20/2025 2:41 PM [facility]ORYINR1.00.9 - 1. 2:41 PM [facility]ORYComment: Vitamin K Antagonist (VKA) Therapeutic Range: INR 2 to 3 (Target INR of 2.5) Note: For patients treated with VKA drugs, such as warfarin, the [place] [employer] 2012 Guideline recommends a therapeutic INR range of 2 to 3 (target INR of 2.5). This recommendation includes high-risk patients with antiphospholipid syndrome with previous arterial or venous thromboembolism, current-generation mechanical or bioprosthetic aortic heart valve replacement. Note: Patients with mechanical aortic valve replacement and additional risk factors for thromboembolic events (atrial fibrillation, previous thromboembolism, LV dysfunction, hypercoagulable conditions) or an older generation mechanical AVR (i.e., ball in-Cage) or any mechanical MVR should have a INR therapeutic range of 2.5 to 3.5 (target INR of 3). Guyatt GH, et al. Chest 2012, 141:7S-47S Juan Diego RA, et al. JAC 2017, 70: 252-289 Specimen (Source)Anatomical Location / LateralityCollection Method / Volume Collection TimeReceived TimeBloodBLOOD SPECIMEN / UnknownVenipuncture / Unknown 03/20/2025 1:46 PM EDT03/20/2025 1:46 PM EDT Narrative Authorizing ProviderResult TypeResult StatusCash Fernandesev DURANLABORATORYFinal ResultPerforming OrganizationAddressCity/State/ZIP CodePhone Number [facility] [address] [facility] [place] [address], [place] * (ABNORMAL) IRON AND TIBC (03/20/2025 1:46 PM EDT)ComponentValueRef RangeTest MethodAnalysis TimePerformed AtPathologist DtypuecfuInpu58(L)41 - 186 ug/dL 03/20/2025 3:17 PM [facility] CHWCDWDVOEZFXR499180 - 386 ug/dL03/20/2025 3:17 PM [facility] LABORATORYTransferrin Lttwqvfbox15.5(L)15.0 - 57.0 % 03/20/2025 3:17 PM [facility] LABORATORYSpecimen (Source)Anatomical Location / LateralityCollection Method / VolumeCollection TimeReceived Time BloodBLOOD SPECIMEN / UnknownVenipuncture / Itihjzu4703/20/2025 1:46 PM EDT 03/20/2025 1:46 PM EDT Narrative Authorizing ProviderResult TypeResult StatusCash Shannon MDLABORATORYFinal ResultPerforming OrganizationAddressty/State/ZIP CodePhone Number [facility] [address] [facility] [place] [address], [place] * FERRITIN (03/20/2025 1:46 PM EDT)ComponentValueRef RangeTest MethodAnalysis TimePerformed AtPathologist KlaqiuovkTdqjzizj490.330.3 - 565.7 ng/mL03/20/2025 3:17 PM [facility]ATORYSpecimen (Source)Anatomical Location / LateralityCollection Method / VolumeCollection TimeReceived TimeBloodBLOOD SPECIMEN / UnknownVenipuncture / Zlrtokb7103/20/2025 1:46 PM EDT03/20/2025 1:46 PM EDT Narrative Authorizing ProviderResult TypeResult StatusCash Shannon MDLABORATORYFinal ResultPerforming OrganizationAddressCity/State/ZIP CodePhone Number [facility] [address] [place] [address], [place] * (ABNORMAL) CA 19-9 (03/20/2025 1:46 PM EDT)ComponentValueRef RangeTest Method Analysis TimePerformed AtPathologist YrqqdpwldNX86-67,582.0(H)<36.0 U/mL 03/21/2025 10:09 AM EDTCPARKVIEW HEALTH LABComment: Cancer antigen 19-9 test is used as an aid in monitoring response to treatment or recurrence in patients with established pancreatic, hepatobiliary, or gastrointestinal malignancies. Clinical correlation is required. The CA 19-9 Antigen test was performed using the Nubankel DXI paramagnetic particle chemiluminescent immunoassay method. Results obtained with different assay methods or kits cannot be used interchangeably. Specimen (Source)Anatomical Location / LateralityCollection Method / Volume Collection TimeReceived TimeBloodBLOOD SPECIMEN / UnknownVenipuncture / Unknown 03/20/2025 1:46 PM EDT03/20/2025 1:46 PM EDT Narrative Authorizing ProviderResult TypeResult StatusCash Shannon MDLABORATORYFinal ResultPerforming OrganizationAddressCity/State/ZIP CodePhone Number [facility] [address] [address], [place] * ACTIVATED PARTIAL THROMBOPLASTIN TIME (03/20/2025 1:46 PM EDT)ComponentValue Ref RangeTest MethodAnalysis TimePerformed AtPathologist NegxcwujqVCMK55.023.0 - 32.4 sec03/20/2025 2:41 PM [facility]ATORYSpecimen (Source) Anatomical Location / LateralityCollection Method / VolumeCollection Time Received TimeBloodBLOOD SPECIMEN / UnknownVenipuncture / Boqtvvp2703/20/2025 1:46 PM EDT03/20/2025 1:46 PM EDT Narrative [facility] - 03/20/2025 2:41 PM EDT Unfractionated Heparin Therapeutic Ranges: Standard Heparin Nomogram: 53 to 78 seconds (anti-Xa level of 0.3 to 0.7 U/ml) Low Dose/ACS Nomogram: 49 to 67 seconds (anti-Xa level of 0.2 to 0.5 U/ml) Stroke Treatment Nomogram: 49 to 67 seconds (anti-Xa level of 0.2 to 0.5 U/ml) Note: The APTT therapeutic range has been determined for the current lot of laboratory APTT reagentin use throughout the [facility]. Authorizing ProviderResult TypeResult StatusCash Shannon MDLABORATORYFinal ResultPerforming OrganizationAddressCity/State/ZIP CodePhone Number [facility] [address] [facility] [place] [address], [place] * HEPATITIS C ANTIBODY IA WITH CONFIRMATION (03/20/2025 1:46 PM EDT)Component ValueRef RangeTest MethodAnalysis TimePerformed AtPathologist SignatureHep C Antibody JMZpfcxyexTgtmtwzr50/25/2025 8:16 PM EDTCPARKVIEW HEALTH LABComment:The result suggests no evidence of infection with Hepatitis C virus. Should recent infection be suspected, repeat testing may be considered 4-6 weeks after this draw.Specimen (Source)Anatomical Location / Laterality Collection Method / VolumeCollection TimeReceived TimeBloodBLOOD SPECIMEN / UnknownVenipuncture / Dfkexod2003/20/2025 1:46 PM EDT03/20/2025 1:46 PM EDT Narrative Authorizing ProviderResult TypeResult Karen Shannon MDLABORATORYFinal ResultPerforming OrganizationAddressCity/State/ZIP CodePhone Number [facility] [address] [place] [address], [place] * EXTERNAL IMAGING (03/12/2025 9:10 AM EDT)Anatomical RegionLateralityModality Other Narrative Authorizing ProviderResult TypeResult StatusExternal Provider PA-CRADIOLOGYFinal Result * EXTERNAL IMAGING (03/12/2025 9:10 AM EDT)Anatomical RegionLateralityModality Other Narrative Authorizing ProviderResult TypeResult StatusExternal Provider PA-CRADIOLOGYFinal Result * EXTERNAL LAB (03/12/2025 9:10 AM EDT) Only the most recent of3 resultswithin the time period is included. Narrative Authorizing ProviderResult TypeResult StatusExternal Provider PA-CLABORATORY Final Result * EXTERNAL CARDIOLOGY (03/12/2025 9:10 AM EDT) Narrative Authorizing ProviderResult TypeResult StatusExternal Provider PA-CCARDIOLOGY Final Result * CT-CT ANGIO CHEST IMPORT (03/10/2025)Anatomical RegionLateralityModalityOther Specimen (Source)Anatomical Location / LateralityCollection Method / Volume Collection TimeReceived Time03/10/2025 Narrative 03/12/2025 9:51 AM EDT Images were obtained outside of [facility] Procedure Note Provider, [facility] [place] - 03/12/2025 Images were obtained outside of [facility] Authorizing ProviderResult TypeResult StatusCcf ProviderRADIOLOGYFinal Result from Last 3 Months Insurance Care Teams Team MemberRelationshipSpecialtyStart DateEnd Date Sai Patel DO [address] [address] PCP - GeneralFamily Rbcxbrsv15/2/25 [place] [address] [place], [place] [id number] PhysicianHematology/Oncology03/21/25
--- OUTSIDE RECORDS SUMMARY | 2025-05-18 10:32 | XMS_ITS | Encounter Summary ---
Author Organization [facility] Address [address] [place], [place] [address] Care Team Providers Care Food Or Baggage Handling Rampman Name Role Phone Cash Shannon MD Unavailable [phone] Sai Patel DO Primary Care Provider Source Comments In the event this information is protected by the Federal Confidentiality of Alcohol and Drug AbusePatient Records regulations: The Federal rules restrict any use of the information to criminally investigate or prosecute any alcohol or drug abuse patient.[facility] Encounter Details DateTypeDepartmentCare Team (Latest Contact Info)Kgmedcrmeqo89/17/2025Travel Social History Tobacco UseTypesPacks/DayYears UsedDateSmoking Tobacco: NeverPassive Smoke Exposure: PastSmokeless Tobacco: NeverPHQ-2AnswerDate RecordedPHQ-2 score1 04/07/2025rea Deprivation IndexAnswerDate RecordedNational Score (1-100), lower number is lower jicx323003/20/2025State Score (1-10), lower number is lower risk8 03/20/2025Data from: https://www.neighborhoodatlas.medicine.[facility].edu/. Last address used for tbjarbhkrjv[address] [facility]03/20/2025Sex and Gender Information ValueDate RecordedSex Assigned at BirthNot on fileLegal TyxHqiq5403/11/2025 1:53 PM EDTGender IdentityNot on fileSexual OrientationNot on filedocumented as of this encounter Plan of Treatment DateTypeDepartmentCare Team (Latest Contact Info)Jhlsaltufjv12/16/2025 3:30 PM ESTOffice Visit Palliative Medicine [address] [place] [address] [place] [address] Jaqueline Alvarado, SHEET IRONWORKER.ENTRY LEVEL ACCOUNT MANAGER [address] [place] [address] 4 week follow updocumented as of this encounter Visit Diagnoses Not on filedocumented in this encounter Care Teams Team MemberRelationshipSpecialtyStart DateEnd Date Sai Patel DO [address] [place] [address] PCP - GeneralFamily Wystdjgd20/2/25 [place] [address] [place], [place] [id number] PhysicianHematology/Oncology03/21/25documented as of this encounter
--- OUTSIDE RECORDS SUMMARY | 2025-05-18 10:32 | XMS_ITS | Clinical Summary ---
Author Organization [facility] Address [address] [place] [address] Phone Care Team Providers Care Projection Engineer Name Role Phone Sai Patel DO Primary Care Provider Social History Tobacco UseTypesPacks/DayYears UsedDateSmoking Tobacco: Never AssessedSex and Gender InformationValueDate RecordedSex Assigned at BirthNot on fileLegal Sex Male05/21/2022 12:54 PM ESTGender IdentityNot on fileSexual OrientationNot on file Last Filed Vital Signs Vital SignReadingTime TakenCommentsBlood Zbwucmhv213/8008 10:30 AM EDT Afpws2970/24/2022 9:53 AM EDTTemperature--Respiratory Rate--Oxygen Saturation-- Inhaled Oxygen Concentration--Fbttpu77.2 kg (179 lb)02/16/2022 9:53 AM EDTHeight 180.3 cm (5' 11 )02/16/2022 9:53 AM EDTBody Mass Index24.9702/16/2022 9:53 AM EDT Plan of Treatment Not on file Care Teams Team MemberRelationshipSpecialtyStart DateEnd Date Sai Patel, PCP - General06/26/18
--- OUTSIDE RECORDS SUMMARY | 2025-05-18 10:32 | XMS_ITS | CCD ---
Author Organization [facility] CliniSywy Care Team Providers Care Lithographic Stripper Name Role Phone Saeed Gomez Unavailable Saeed Gomez Unavailable Unavailable Unavailable ISABEL, DR CORNELIA Cai Consulting Unavailable PATRICIA, DR TIPTON Primary Care Unavailable ISABEL, DR CORNELIA Cai Admitting Unavailable ISABEL, DR CORNELIA Cai Attending Unavailable Saeed Arce Consulting Unavailable REQUEST, NONE LISTED Admitting Unavaila ble REQUEST, NONE LISTED Attending Unavaila ble REQUEST, NONE LISTED Consulting Unavaila ble PATRICIA, DR TIPTON Primary Care Unavailable REQUEST, NONE LISTED Attending Unavaila ble REQUEST, NONE LISTED Consulting Unavaila ble REQUEST, NONE LISTED Admitting Unavaila ble PATRICIA, DR TIPTON Primary Care Unavailable Latrell Roberto Attending Unavailable Patricia, Dr. Saeed Painter Referring Unavaila ble Patricia, Dr. Saeed Painter Primary Care Unavaila ble Patricia, Dr. Saeed Painter Primary Care Unavaila ble Latrell Roberto Referring Unavailable Latrell Roberto Attending Unavailable Saeed Gomez DO Primary Care Provider Saeed Gomez DO Attending Provider Saeed Gomez Attending Unavailable Saeed Gomez Primary Care Unavailable Saeed Gomez Admitting Unavailable Jennifer Fletcher APRN Attending Provider Saeed Gomez DO Primary Care Provider Saeed Gomez DO Attending Provider RIYA, JUDIT Referring Unavailable SAEED GOMEZ Primary Care Unavailable WAI TUCKER Attending Unavailable WAI TUCKER Admitting Unavailable AJAYU, JUDIT Attending Unavailable RIYA, UJDIT Referring Unavailable JUDIT SHANNON Referring Unavailable SAEED GOMEZ Primary Care Unavailable SAEED GOMEZ Primary Care Unavailable KARAMLOU, JUDIT Referring Unavailable SAEED GOMEZ Primary Care Unavailable JUDIT SHANNON Attending Unavailable SAEED GOMEZ Primary Care Unavailable JUDIT SHANNON Attending Unavailable SAEED GOMEZ Primary Care Unavailable Medications Current Medications MedicationDrug Class(es)DatesSig (Normalized)Sig (Original)calcium ascorbate 500 mg oral tablet (4 sources)Start: 48-85-4867amru 1 tablet by mouth once dailyAscorbate Calcium (Vitamin C) 500 mg tablet Active 500 MG PO Daily November 21, 2023 12:00am Complies with drug therapycitrulline 600 mg oral capsule (3 sources)Start: 20-44-2412Ddmjxwlulp 600 mg capsule Active 0 PO .COMPLEX November 14, 2024 12:00am 1500 MG orally QD; Complies with drug therapydiazePAM 10 mg oral tablet (1 source)BenzodiazepineStart: 86-32-6631oepq 1 tablet by mouth every hour Diazepam (Valium) 10 mg tablet Active 10 MG PO .COMPLEX 1 March 11, 2025 12:00am 10 mg orally 1 hour prior to procedure; Complies with drug therapyGrape Seed Extract (16 sources)Start: 62-00-7792Cysqqvplm extract Active PO November 21, 2023 12:00am Complies with drug therapyStart: 28-36-6621Aeeppfszq extract Active PO November 21, 2023 12:00amGrape Seed Extract CAPS TAKE 1 CAPSULE Daily Quantity: 0 Refills: 0 Ordered: 12-Jan-2022 DO ActiveGrapeseed Extract ActiveMagnesium (6 sources)take 1 tablet by mouth once dailyMagnesium 250 MG 1 tablet with a meal Orally Once a day Activemagnesium oxide 250 mg oral tablet (8 sources)Start: 11-21-2023 End: 53-91-8792mkjm 1 tablet by mouth once dailyMagnesium Oxide 250 mg magnesium tablet Active 250 MG PO Daily November 21, 2023 8:09am Complies with drug therapy Houston 3 (6 sources)Houston 3 ActiveOmega-3 Fatty Acids (4 sources)Start: 93-63-6695tkob 1 capsule by mouth once dailyOmega-3 Fatty Acids 1,250 mg capsule Active 1250 MG PO Daily November 21, 2023 12:00am Complies with drug therapyStart: 55-00-9143yiin 1 capsule by mouth once dailyOmega-3 Fatty Acids 1,250 mg capsule Active 1250 MG PO Daily November 21, 2023 12:00am Start: 24-60-3754ngah 1250 mg by mouth once dailyOmega-3 Fatty Acids Active 1250 MG PO Daily November 21, 2023 12:00amrosuvastatin calcium 5 mg oral tablet (2 sources)HMG-CoA Reductase InhibitorStart: 04-61-3085iewx 1 tablet by mouth every twenty-four hoursRosuvastatin Calcium 5 MG 1 tablet Orally Once a day Jan, Activevitamin B12 (6 sources)Vitamin B00Ltwtfmx B12 ActiveVitamin C 500 MG (6 sources)Vitamin C 500 MG as directed Orally ActiveVitamin D (6 sources)Vitamin D ActiveZinc (6 sources)take 1 tablet by mouth once dailyZinc 30 MG 1 tablet Orally Once a day Activezinc gluconate 30 mg oral tablet (8 sources)Start: 11-21-2023 End: 96-31-4066dhzp 1 tablet by mouth once dailyZinc Gluconate 30 mg tablet Active 30 MG PO Daily November 21, 2023 8:10am Complies with drug therapy Completed/Discontinued Medications MedicationDrug Class(es)DatesSig (Normalized)Sig (Original)aspirin 81 mg chewable tablet (18 sources)Platelet Aggregation Inhibitor, Nonsteroidal Anti-inflammatory Drug Start: 11-21-2023 End: 58-63-8803fmmj 1 tablet by mouth once dailyAspirin 81 mg tablet,chewable Discontinued 1 TAB PO Daily November 21, 2023 8:09am November 21, 2023 8:10amStart: 05-45-7853cumx 1 tablet by mouth once daily at mealtimeAspirin 81 81 MG 1 tablet Orally qd with food October, ActiveEster-C TABS (6 sources)Xiao-C TABS TAKE 1 TABLET DAILY. Quantity: 0 Refills: 0 Ordered: 12-Jan-2022 DO Activefolic acid 0.4 mg oral tablet (6 sources)take 1 tablet by mouth once dailyFolate 400 MCG Oral Tablet Take 1 tablet daily Quantity: 0 Refills: 0 Ordered: 12-Jan-2022 DO Activemagnesium citrate (6 sources)Magnesium Citrate CAPS TAKE 1 CAPSULE Daily Quantity: 0 Refills: 0 Ordered: 12-Jan-2022 DO ActiveOmega 3 1200 MG Oral Capsule (6 sources)take 1 capsule by mouth once dailyOmega 3 1200 MG Oral Capsule TAKE 1 CAPSULE Daily Quantity: 0 Refills: 0 Ordered: 12-Jan-2022 DO Active sulfamethoxazole 800 mg / trimethoprim 160 mg oral tablet (1 source)Dihydrofolate Reductase Inhibitor Antibacterial, Sulfonamide AntimicrobialStart: 02-06-2025 End: 49-29-3640cckr 1 tablet by mouth every twelve hoursSulfamethoxazole- Trimethoprim (Bactrim Ds) 800-160 mg tablet Discontinued 1 TAB PO Every 12 hours February 06, 2025 12:00am March 11, 2025 1:17pmtriamcinolone acetonide 1 mg/ml topical cream (1 source)CorticosteroidStart: 02-06-2025 End: 43-27-5871Zyrwnhduowrwl Acetonide 0.1 % cream Discontinued 1 APPLIC TOPICAL Twice daily February 06, 2025 12:00am March 11, 2025 1:17pm ubidecarenone 100 mg oral capsule (6 sources)take 1 capsule by mouth once dailyCo Q10 100 MG Oral Capsule TAKE 1 CAPSULE Daily Quantity: 0 Refills: 0 Ordered: 12-Jan-2022 DO ActiveVitamin B12 TABS (6 sources)Vitamin B12 TABS Take 1 tablet daily Quantity: 0 Refills: 0 Ordered: 12-Jan-2022 DO ActiveVitamin B6 TABS (6 sources)Vitamin B6 TABS Take 1 tablet daily Quantity: 0 Refills: 0 Ordered: 12-Jan-2022 DO ActiveVitamin K2-Vitamin D3 CAPS (6 sources)Vitamin K2-Vitamin D3 CAPS Quantity: 0 Refills: 0 Ordered: 12-Jan-2022 DO Active 50MCG/125MCG one tablet Daily Problems Active Problems Problem ClassificationProblemDateDocumented DateEpisodic/ChronicCancer of pancreas (2 sources)Malignant neoplasm of endocrine pancreas; 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)]Onset: 79-77-6182MnkagnlKjmnxgl dysrhythmias (4 sources)Other specified cardiac arrhythmias; Translations: [OTHER SPECIFIED CARDIAC ARRHYTHMIAS]Onset: 94-25-4610TsvzgnjFlvbdio dysrhythmias (14 sources)Palpitations; Translations: [Palpitations]Onset: 11-15-2021 Resolved: 57-62-8678BdqetdknAvlvdxbj mellitus without complication (9 sources)Hyperglycemia, unspecified; Translations: [Hyperglycemia]Onset: 11-15-2021 Resolved: 60-16-5262ChjvjfvmIfhfuhrn of white blood cells (5 sources)Leukopenia; Translations: [Decreased white blood cell count, unspecified]40-01-8289CkdbttuRfmlfkxvs of lipid metabolism (20 sources)Hyperlipidemia; Translations: [Hyperlipidemia, unspecified]Onset: 11-15-2021 Resolved: 82-67-1243XzbofkvZynvlwfloirlg symptoms and ill-defined conditions (14 sources)Nocturia; Translations: [Nocturia]Onset: 11-15-2021 Resolved: 86-50-4664DqaptobzLsgmhkuckprti mental health disorders (1 source)Anxiety about body function or health; Translations: [Other symptoms and signs involving emotional state]99-68-4025KkicdpyxBtujbfadmcw chest pain (2 sources)Chest wall pain; Translations: [Other chest pain]35-06-5532Rvrbhurt Other aftercare (2 sources)Other long-term (current) drug therapy; Translations: [Long-term (current) use of other medications]Onset: 02-17-2022 Resolved: 48-11-4772CmkqiszkOtwiv aftercare (4 sources)Long-term current use of drug therapy; 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]71-28-2574EzixzzbeXnprx circulatory disease (3 sources)Elevated blood-pressure reading without diagnosis of hypertension; Translations: [Elevated blood-pressure reading, without diagnosis of hypertension]65-27-2886DuritorvWpukq endocrine disorders (2 sources)Adrenal mass; Translations: [Disorder of adrenal gland, unspecified] 41-77-6896WwcxwakSfljxad on above:possible left adrenal noduleOther gastrointestinal disorders (2 sources)Splenomegaly; Translations: [Splenomegaly, not elsewhere classified] 91-17-5896ZawzfltjXnoji liver diseases (3 sources)Liver disease, unspecified; Translations: [Liver lesion]Onset: 85-53-4465VfgflqgNkldn liver diseases (2 sources)Liver mass; Translations: [Hepatomegaly, not elsewhere classified] 25-85-8217RnjhkyksVlfks lower respiratory disease (6 sources)Dyspnea; Translations: [Other respiratory abnormalities]EpisodicOther nervous system disorders (1 source)Neoplasm related pain (acute) (chronic); Translations: [Cancer-related pain]Onset: 41-18-6177FkkqvstJrkrk nutritional; endocrine; and metabolic disorders (3 sources)Abnormal weight gain; Translations: [Abnormal weight gain]Onset: 11-15-2021 Resolved: 28-17-7867VlirkyxoNxppw nutritional; endocrine; and metabolic disorders (5 sources)Overweight in adulthood with body mass index of 25 or more but less than 30; Translations: [Overweight]EpisodicOther nutritional; endocrine; and metabolic disorders (3 sources)Intentional weight ands21-38-1456GgmaxxzkBntes nutritional; endocrine; and metabolic disorders (4 sources)Weight increased; Translations: [Abnormal weight gain]11-14-2024 EpisodicOther nutritional; endocrine; and metabolic disorders (1 source)Abnormal weight loss; Translations: [Abnormal weight loss]Onset: 84-46-2747EneufkkyUcusu screening for suspected conditions (not mental disorders or infectious disease) (17 sources)Encounter for screening for malignant neoplasm of prostate; Translations: [Patient encounter status]Onset: 11-15-2021 Resolved: 81-94-9537KspgbkeeApfnn skin disorders (2 sources)Eruption; Translations: [Rash and other nonspecific skin eruption] 05-47-3316SpqknjpyIqbklxrjhi disorders (not diabetes) (3 sources)Mass of pancreas; Translations: [Other specified diseases of pancreas]Onset: 286402-09-2810EkiclrqkUoxqxrii codes; unclassified (1 source)Body mass index 20-24 - normal; Translations: [Body Mass Index between 19-24, adult]EpisodicSkin and subcutaneous tissue infections (2 sources)Cellulitis; Translations: [Cellulitis, unspecified]54-75-6054Ztbsrgbe Unclassified (2 sources)Intentional weight loss; Translations: [Intentional weight loss] 11-21-2023 Past or Other Problems Problem ClassificationProblemDateDocumented DateEpisodic/ChronicConditions associated with dizziness or vertigo (1 source)Dizziness and giddinessOnset: 11-15-2021 Resolved: 16-70-6593PvgofuxmVrrju circulatory disease (1 source)Elevated blood-pressure reading, without diagnosis of hypertension Onset: 11-15-2021 Resolved: 65-55-1933PcmyxgjvChmervyzlrdz (6 sources)Never smoked tobacco; Translations: [Never a smoker] Results Test NameValueInterpretationReference RangeFacilityCNPNon 08-29-1126VFAD Telephone (HEMAVN) JAVAD [place] ([id number]) 1955 M Date Time Provider Department 04/30/25 JUDIT SHANNON During your visit today, we recorded the following information about you: Silvia Branham RN 04/30/2025 9:48 AM Signed Care Coordination Triage Note [facility] Situation: Patient reports Nausea/Vomiting Background: Dx: Pancreatic cancer Tx: n/a- awaiting palliative medicine consult 05/13/25 Assessment: reporting that patient has had nausea that is preventing him from eating No vomiting No fever Recommendations: Per protocol, patient directed to: Manage at home. Instructions provided. Requested Prescriptions Pending Prescriptions Disp Refills ondansetron (ZOFRAN) 8 mg tablet 60 tablet 0 Sig: Take 1 tablet by mouth every 8 hours as needed for nausea/vomiting. Silvia Branham RN April 30, 2025 9:41 AM Allergies As of Date: 04/30/2025 (No Known Allergies) Date Reviewed: 04/25/2025 Reviewed by: Tiffany Helton OCCA - Fully Assessed Reason for Visit: Nausea [70] Primary Visit Diagnosis:Nausea [R11.0] Other Visit Diagnosis: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) [C25.2] Order(s):ondansetron (ZOFRAN) 8 mg tabletTake 1 tablet by mouth every 8 hours as needed for nausea/vomiting.Disp: 60 tabletRfl: 0 Prescriptions as of 04/30/2025 - ondansetron (ZOFRAN) 8 mg tablet Take 1 tablet by mouth every 8 hours as needed for nausea/vomiting. - traMADol (ULTRAM) 50 mg tablet Take 1 tablet by mouth every 6 hours as needed for pain for up to 14 days. - Ascorbic Acid (VITAMIN C) 1,000 mg tablet Take 1 tablet by mouth once daily. - piusfcbf-exkb-hcd4-C-elisabeth-bosw (OSTEO BI-FLEX TRIPLE STRENGTH) 750 mg-644 mg- 30 mg-1 mg tab Take 1 tablet by mouth once daily. - cholecalciferol (VITAMIN D-3) 5,000 unit tab Take 1 tablet by mouth once daily. - Aspirin 81 mg tab Take 81 mg by mouth. - CITRULLINE 1000 PO Take by mouth. - magnesium oxide 250 mg tablet Take 250 mg by mouth once daily. - Houston-3 Fatty Acids 1,250 mg cap Take by mouth. - Zinc Gluconate 30 mg tab Take by mouth. Problem List As Of Date: 04/30/2025 (None) Prescriptions ordered this encounter Disp Refills Start End ONDANSETRON HCL 8 MG TABLET 60 t* 0 04/30/2025 Route: PO Sig: Take 1 tablet by mouth every 8 hours as needed for nausea/vomiting. Encounter Status:Closed by JUDIT SHANNON on 04/30/25[facility] [id number] (YOLIE) Office (HEMEVA) JAVAD [place]AD[place] ([id number]) 1955 M Date Time Provider Department 04/25/25 11:00 AM JUDIT SHANNON During your visit today, we recorded the following information about you: Temperature Pulse Blood pressure Weight 98.2 degrees 94/minute 122/73 76.4 kg Judit Shannon MD 04/25/2025 11:26 AM Signed PATIENT NAME: Javad Colorado CLINIC NO.: [id number] ATTENDING PHYSICIAN: Judit Shannon MD DATE OF SERVICE: April 08, [address] Rooney referring provider defined for this encounter. 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 Some ongoing pain and night sweats. He has decided against chemo . PAST MEDICAL HISTORY Diagnosis Date Abnormal CT scan 02/2025 mass lesions in the pancreas Hyperlipidemia Hypertension Lesion of pancreas (HCC) 02/2025 Liver mass 2024 Splenomegaly 02/2025 SOCIAL HISTORY[1] FAMILY HISTORY Problem Relation Age of Onset Hypertension Mother Colon Cancer Mother Bladder Cancer Father Pancreatic Cancer Father other (myocardial infarction) Brother Past medical, social and family history reviewed without any changes. REVIEW OF SYSTEMS GENERAL: No weight loss, malaise or fevers. No night sweats. HEENT: Negative for headaches, No changes in hearing or vision, no nose bleeds or other nasal problems. RESPIRATORY: Negative for cough, wheezing and shortness of breath CARDIOVASCULAR: Negative for chest pain, leg swelling and palpitations GI: Negative for abdominal discomfort, blood in stools or black stools and change in bowel habits : Negative for dysuria, frequency and incontinence MUSCULOSKELETAL: Negative for joint pain or swelling, back pain, and muscle pain. SKIN: Negative for lesions, rash, and itching. HEMATOLOGY/LYMPHOLOGY Negative for prolonged bleeding, bruising easily, and swollen nodes. NEURO: Negative for numbness or tingling of hands/feet. No weakness. PHYSICAL EXAMINATION: BP 122/73 Pulse 94 Temp (Src) 98.2 (Oral) Wt 168 lb 6.9 oz (76.4kg) SpO2 97% There were no vitals taken for this visit. Last 3 Encounter Wt Readings: Date: Wt: 03/25/2025 81.2 kg (179 lb) 03/20/2025 81.2 kg (179 lb 0.2 oz) General appearance:ECOG PERFORMANCE STATUS: 0- Fully active, able to carry on all pre-disease performance w/o restriction. Patient in NAD. Skin: Skin color, texture, turgor normal. No rashes or lesions. Eyes: Anicteric sclera. Pupils are equally round and reactive to light. Extraocular movements are intact. Lymph Nodes: No cervical, supraclavicular, axillary or inguinal adenopathy. Oropharynx: Lips, mucosa, and tongue normal. Back: No pain to percussion. Negative SLR test Lungs clear to auscultation, No wheezing or rhonchi Heart: RRR without murmur, gallop, or rubs. Abdomen soft, non-tender. No masses, organomegaly Extremities: No deformities. No edema Neuro: Gait and speech normal. Reflexes normal and symmetric. Muscular strength intact. Sensation grossly intact. Rectal: Deferred : Deferred LABS: No results found for: GLUC , K , NA , CHLOR , CO2 , CREAT , BUN , ANION , CA , TPROT , ALB , TBILI , ALKPHOS , AST , ALT WBC Date Value Ref Range Status 03/27/2025 6.04 3.70 - 11.00 k/uL Final RBC Date Value Ref Range Status 03/27/2025 4.80 4.20 - 6.00 m/uL Final Hemoglobin Date Value Ref Range Status 03/27/2025 14.9 13.0 - 17.0 g/dL Final Hematocrit Date Value Ref Range Status 03/27/2025 42.7 39.0 - 51.0 % Final MCV Date Value Ref Range Status 03/27/2025 89.0 80.0 - 100.0 fL Final MCH Date Value Ref Range Status 03/27/2025 31.0 26.0 - 34.0 pg Final MCHC Date Value Ref Range Status 03/27/2025 34.9 30.5 - 36.0 g/dL Final RDW-CV Date Value Ref Range Status 03/27/2025 12.0 11.5 - 15.0 % Final Platelet Count Date Value Ref Range Status 03/27/2025 184 150 - 400 k/uL Final MPV Date Value Ref Range Status 03/27/2025 9.5 9.0 - 12.7 fL Final Abs Neut Date Value Ref Range Status 03/27/2025 4.16 1.45 - 7.50 k/uL Final Lymphocytes % Date Value Ref Range Status 03/27/2025 14.1 % Final Abs Lymph Date Value Ref Range Status 03/27/2025 0.85 (L) 1.00 - 4.00 k/uL Final Monocytes % Date Value Ref Range Status 03/27/2025 14.9 % Final Abs [place] Date Value Ref Range Status 03/27/2025 0.90 (H) <0.87 k/uL Final Abs Eosin Date Value Ref Range Status 03/27/2025 0.08 <0.46 k/uL Final Basophils % Date Value Ref Range Status 03/27/2025 0.3 % Final Abs Baso Date Value Ref Range Status 03/27/2025 <0.03 <0.11 k/uL Final PATH: Liver Biopsy 10 (more content not included)...[facility] [id number] (HEMAVN) JAVAD [place] ([id number]) 1955 M Date Time Provider Department 04/11/25 SILVIA BRANHAM During your visit today, we recorded the following information about you: Silvia Branham RN 04/11/2025 11:30 AM Signed Pt Shaista calling to let Dr Shannon know pt declines chemotherapy at this time. They would like a follow up appt to review Caris testing-appt made in 2 weeks. Allergies As of Date: 04/11/2025 (No Known Allergies) Date Reviewed: 04/08/2025 Reviewed by: Thelma Borden MA - Fully Assessed Reason for Visit: Treatment Planning [881] Prescriptions as of 04/11/2025 - Ascorbic Acid (VITAMIN C) 1,000 mg tablet Take 1 tablet by mouth once daily. - jmjenfla-hjkp-dir3-C-elisabeth-bosw (OSTEO BI-FLEX TRIPLE STRENGTH) 750 mg-644 mg- 30 mg-1 mg tab Take 1 tablet by mouth once daily. - cholecalciferol (VITAMIN D-3) 5,000 unit tab Take 1 tablet by mouth once daily. - Aspirin 81 mg tab Take 81 mg by mouth. - CITRULLINE 1000 PO Take by mouth. - magnesium oxide 250 mg tablet Take 250 mg by mouth once daily. - Houston-3 Fatty Acids 1,250 mg cap Take by mouth. - Zinc Gluconate 30 mg tab Take by mouth. Problem List As Of Date: 04/11/2025 (None) Encounter Status:Closed by SILVIA BRANHAM on 04/11/25No[facility] [id number] (GASTNO) JAVAD [place] ([id number]) 1955 Date Time Provider Department 04/09/25 FABAIN AYOUB During your visit today, we recorded the following information about you: Fabian Ayoub MD 04/09/2025 6:02 PM Signed Referral from Dr. Moreira for EUS from [facility]. 69 years old male. He was evaluated at [place] [facility] for chest pain and hypertension. CT scan of the chest done at the ER 03/10/2025 showed low-attenuation mass lesion in the pancreatic tail suspicious for mass in the pancreas. Low-attenuation mass lesion noted in the liver suspicious for metastatic disease. MRCP 03/21/2025: 5.6 cm infiltrative pancreatic tail mass with occlusion/invasion of the splenic vein consistent with pancreatic adenocarcinoma. Numerous by lobar hepatic metastatic lesions. 1.2 cm left pulmonary nodule consistent with metastatic disease. Underwent CT scan guided liver mass biopsy on 04/01/2025. CA 19-9 is elevated 1582. Patient was seen by Dr. Shannon today 04/08/2025: Stage IV pancreatic tail adenocarcinoma. Liver mass biopsy showed poorly differentiated adenocarcinoma. Confirming pancreatic adenocarcinoma with liver metastasis. Not surgically resectable. Patient will decide if he wants to go ahead with chemotherapy treatment. There is no need for EUS with FNA based on the above findings. Fabian Ayoub MD Allergies As of Date: 04/09/2025 (No Known Allergies) Date Reviewed: 04/08/2025 Reviewed by: Thelma Borden MA - Fully Assessed Primary Visit Diagnosis: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) [C25.2] Other Visit Diagnosis:Metastasis to liver (HCC) [C78.7] Prescriptions as of 04/09/2025 - Ascorbic Acid (VITAMIN C) 1,000 mg tablet Take 1 tablet by mouth once daily. - eqphagdq-tqvv-pmb3-C-elisabeth-bosw (OSTEO BI-FLEX TRIPLE STRENGTH) 750 mg-644 mg- 30 mg-1 mg tab Take 1 tablet by mouth once daily. - cholecalciferol (VITAMIN D-3) 5,000 unit tab Take 1 tablet by mouth once daily. - Aspirin 81 mg tab Take 81 mg by mouth. - CITRULLINE 1000 PO Take by mouth. - magnesium oxide 250 mg tablet Take 250 mg by mouth once daily. - Houston-3 Fatty Acids 1,250 mg cap Take by mouth. - Zinc Gluconate 30 mg tab Take by mouth. Problem List As Of Date: 04/09/2025 (None) Encounter Status:Closed by FABIAN AYOUB on 04/09/25[facility] [id number] (SP) Office (HEMAVN) JAVAD [place] ([id number]) 1955 M Date Time Provider Department 04/08/25 4:15 PM JUDIT SHANNON During your visit today, we recorded the following information about you: Temperature Pulse Respiration Blood pressure 97.4 degrees 88/minute 16/minute 145/80 Weight Height 80.1 kg 1.803 m Judit Shannon MD 04/08/2025 4:58 PM Signed PATIENT NAME: Javad Colorado CLINIC NO.: [id number] ATTENDING PHYSICIAN: Judit Shannon MD DATE OF SERVICE: April 08, [address] Rooney referring provider defined for this encounter. 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 He reports intermittent pain in the left rib area, corresponding to the location of the primary tumor. The pain is not constant and is exacerbated by certain movements or pressure on the area. He denies nausea, but occasionally experiences a sense of uneasiness after eating. He reports a good appetite, particularly in the morning, and describes his breathing as pretty decent. He reports regular daily bowel movements and denies diarrhea. He has a family history of pancreatic cancer in his father, diagnosed at age 81, and colon cancer in his mother, diagnosed at age 49. PAST MEDICAL HISTORY Diagnosis Date Abnormal CT scan 02/2025 mass lesions in the pancreas Hyperlipidemia Hypertension Lesion of pancreas (HCC) 02/2025 Liver mass 2024 Splenomegaly 02/2025 SOCIAL HISTORY[1] FAMILY HISTORY Problem Relation Age of Onset Hypertension Mother Colon Cancer Mother Bladder Cancer Father Pancreatic Cancer Father other (myocardial infarction) Brother Past medical, social and family history reviewed without any changes. REVIEW OF SYSTEMS GENERAL: No weight loss, malaise or fevers. No night sweats. HEENT: Negative for headaches, No changes in hearing or vision, no nose bleeds or other nasal problems. RESPIRATORY: Negative for cough, wheezing and shortness of breath CARDIOVASCULAR: Negative for chest pain, leg swelling and palpitations GI: Negative for abdominal discomfort, blood in stools or black stools and change in bowel habits : Negative for dysuria, frequency and incontinence MUSCULOSKELETAL: Negative for joint pain or swelling, back pain, and muscle pain. SKIN: Negative for lesions, rash, and itching. HEMATOLOGY/LYMPHOLOGY Negative for prolonged bleeding, bruising easily, and swollen nodes. NEURO: Negative for numbness or tingling of hands/feet. No weakness. PHYSICAL EXAMINATION: There were no vitals taken for this visit. There were no vitals taken for this visit. Last 3 Encounter Wt Readings: Date: Wt: 03/25/2025 81.2 kg (179 lb) 03/20/2025 81.2 kg (179 lb 0.2 oz) General appearance:ECOG PERFORMANCE STATUS: 0- Fully active, able to carry on all pre-disease performance w/o restriction. Patient in NAD. Skin: Skin color, texture, turgor normal. No rashes or lesions. Eyes: Anicteric sclera. Pupils are equally round and reactive to light. Extraocular movements are intact. Lymph Nodes: No cervical, supraclavicular, axillary or inguinal adenopathy. Oropharynx: Lips, mucosa, and tongue normal. Back: No pain to percussion. Negative SLR test Lungs clear to auscultation, No wheezing or rhonchi Heart: RRR without murmur, gallop, or rubs. Abdomen soft, non-tender. No masses, organomegaly Extremities: No deformities. No edema Neuro: Gait and speech normal. Reflexes normal and symmetric. Muscular strength intact. Sensation grossly intact. Rectal: Deferred : Deferred LABS: No results found for: GLUC , K , NA , CHLOR , CO2 , CREAT , BUN , ANION , CA , TPROT , ALB , TBILI , ALKPHOS , AST , ALT WBC Date Value Ref Range Status 03/27/2025 6.04 3.70 - 11.00 k/uL Final RBC Date Value Ref Range Status 03/27/2025 4.80 4.20 - 6.00 m/uL Final Hemoglobin Date Value Ref Range Status 03/27/2025 14.9 13.0 - 17.0 g/dL Final Hematocrit Date Value Ref Range Status 03/27/2025 42.7 39.0 - 51.0 % Final MCV Date Value Ref Range Status 03/27/2025 89.0 80.0 - 100.0 fL Final MCH Date Value Ref Range Status 03/27/2025 31.0 26.0 - 34.0 pg Final MCHC Date Value Ref Range Status 03/27/2025 34.9 30.5 - 36.0 g/dL Final RDW-CV Date Value Ref Range Status 03/27/2025 12.0 11.5 - 15.0 % Final Platelet Count Date Value Ref Range Status 03/27/2025 184 150 - 400 k/uL Final MPV Date Value Ref Range Status 03/27/2025 9.5 9.0 - 12.7 fL Final Abs Neut Date Value Ref Range Status 03/27/2025 4.16 1.45 - 7.50 k/uL Final Lymphocytes % Date Value Ref Range Status 03/27/2025 14.1 % Final Abs Lymph Date Value Ref Range Status (more content not included)...[facility] DPYD/UGT1A1 GENOTYPING PANELon [id number]/UGT1A1 GENOTYPING PANEL RESULT [facility] HospitalComment on above:Order Comment: Specimen Type: BLOOD SPECIMENOrdering Facility: [facility] Address:[address] [place], [place] [address]Result Comment: Pharmacogenomics (PGx) DPYD and UGT1A1 Genotyping Laboratory Accession Number: [id number] DPYD Genotype: *1/*1 DPYD Activity Score: 2 [...] molecular testing details should be directed to . Two decreased function UGT1A1 alleles were [...] molecular testing details should be directed to [facility] . The DPYD gene encodes dihydropyrimidine dehydrogenase [...] Variant Details: NA UGT1A1 Variant Details: UGT1A1 [id number], c.-346C>T, g.[id number]>T (legacy name 80); UGT1A1 [id number], c.-41_-40dupTA g.[id number] (legacy name 28) DPYD Additional Information: In addition to increased risk of 5-fluorouracil toxicity, variants in the DPYD gene may be associated with DPD deficiency, an autosomal recessive inborn error of metabolism (OMIM: 026779). DPD deficiency exhibits a wide range of [...] list below) in the DPYD gene (OMIM 256742) and UGT1A1 gene (OMIM 883516). This test does not detect all sequence [...] DNA was subjected to polymerase chain reaction-based amplificatio (more content not included)...Performed By: #### [id number] ####[facility] LABCLIA [id number] [place] [id number] [facility]ITALCT BIOPSY LIVERon [id number] BIOPSY LIVER* * *Final Report* * * DATE OF EXAM: Apr 01 2025 10:20AM [facility] 2017 - CT BIOPSY LIVER / PROCEDURE REASON: liver bx * * * * Physician Interpretation * * * * HISTORY: liver bx dr tucker TECHNIQUE: Pre-procedure Sign-in: Safety Checklist Performed: Yes. [...] device. CT afterwards showed no associated hemorrhage. IMPRESSION: CT-guided liver mass biopsy as described Safety Assistant: PSCB Transcribe Date/Time: Apr 01 2025 12:14P Dictated by : WAI TUCKER MD This examination was interpreted and the report reviewed and electronically signed by: WAI TUCKER MD on Apr 01 2025 12:15PM EST [id number]_IDCSIACVeterans Health AdministrationHER2 BY IHC NON BREASTon 04-01-[address] Elizabeth Boardman HospitalComment on above:Order Comment: Specimen Type: TISSUE SPECIMEN [facility] Address: [address] [place], [place] [address]Result Comment: HER2 (ERBB2) by IHC: FDA cleared: [employer], [place], [place] Primary Antibody:4B5 Antibody and Detection System: [employer] anti-HER2 rabbit monoclonal antibody (clone 4B5), were detected with the [employer] iView Detection System (indirect biotin streptavidin detection); [place], [place].Performed By: #### [id number] #### [facility] CLIA [id number] [address] [place] [address] HospitalComment on above:Order Comment: Specimen Type: TISSUE SPECIMEN [facility] Address: [address] [place], [place] [address]Performed By: #### [id number] #### [facility] CLIA [id number] [address] [place] [address] OF [facility] MEDICAL CENTERHER2 SCORE FOR ENHERTU TREATMENT OR BILIARY [id number] HospitalComment on above:Order Comment: Specimen Type: TISSUE SPECIMEN [facility] Address: [address] [place], [place] [address]Performed By: #### [id number] #### [facility] CLIA [id number] [address] [place], [place] [address]HER2 STATUS FOR ENHERTU TREATMENT OR BILIARY TRACTNegativeNormalUniversity Hospitals Conneaut Medical Centerna HospitalComment on above:Order Comment: Specimen Type: TISSUE SPECIMEN [facility] Address: [address] [place], [place] [address]Performed By: #### [id number] #### [facility] CLIA [id number] [address] [place] [address] [place] OF AMERICATUMOR TYPE (NON BREAST) Unresectable or Metastatic Solid Tumor for Possible Enhertu TreatmentHospital Sisters Health System St. [facility] HospitalComment on above:Order Comment: Specimen Type: TISSUE SPECIMEN [facility] Address: [address] [place], [place] [address]Performed By: #### [id number] #### [facility] CLIA [id number] [address] [place], [place] [address]MISMATCH REPAIR PROTEINS BY IHCon [id number] BIOMARKER DISCLAIMERMercy Health St. Elizabeth Boardman HospitalComment on above: Order Comment: Specimen Type: TISSUE SPECIMEN [facility] Address: [address] [place], [place] [address]Result Comment: Laboratory Developed Test (LDT) Disclaimer: Performance characteristics of immunohistochemical, immunofluorescent, and chromogenic in-situ hybridization tests have been determined by the performing laboratory within the [facility] Department of Pathology and Laboratory Medicine ([facility], [facility], [facility], [facility], [facility], [facility], or [facility]) in a manner consistent with CLIA requirements. One or more of these tests may not have been cleared or approved by the FDA. The [facility] Department of Pathology and Laboratory Medicineis regulated under CLIA as qualified to perform high-complexity testing. These tests are used for clinical purposes. These should not be regarded as investigational or for research. Positive and negative controls stain appropriately.Performed By: #### [id number] #### [facility] CLIA [id number] [address] [place], [place] [address]Performed By: #### [id number] #### [facility] CLIA [id number] [address] [place], [place] [id number] [facility] AMERICAAP BLOCK [id number] Health St. Elizabeth Boardman HospitalComment on above:Order Comment: Specimen Type: TISSUE SPECIMEN [facility] Address: [address] [place], [place] [address]Performed By: #### [id number] #### [facility] CLIA [id number] [address] [place], [place] [address]Performed By: #### [id number] #### [facility] CLIA [id number] [address] [place], [place] [id number] [facility] HOSPITALBIOMARKER INTERPRETATION COMMENT AND REFERENCE RANGERegency Hospital [facility] West on above:Order Comment: Specimen Type: TISSUE SPECIMEN [facility] Address: [address] [place], [place] [address], [place] [address]Iibffm Comment: Intact expression of MMR (mismatch repair) proteins by immunohistochemistry is highly correlated with a microsatellite stable result by MSI (microsatellite instability) PCR analysis, and the results from these tests are viewed as clinically equivalent by the FDA. This result excludes at least 90-95% of Garcia syndrome. These tests are an imperfect screen because some mutations may not produce loss of immunohistochemical expression. MSI molecular testing can be performed upon request in cases with a high clinical suspicion and appropriate family history. In a phase 2 study of patients with metastatic carcinoma, Renee et al. ([facility] 2015;372:2509-94) reported that the clinical benefit of pembrolizumab, [...] questions about this result, please call the [facility] at [phone].Performed By: #### [id number] #### [facility] CLIA [id number] [address] [place] [address] [facility]OSPITALResult Comment: Reference Ranges for HER2 immunohistochemistry on biopsies [...] options. The approval is based on the ADITI-LgfFtvrr43 clinical trial in which HER2 IHC is interpreted similarly to the College of [place] [employer]ologists, [place] Society for Clinical Pathology, and [place] Society of Clinical Oncology biopsy criteria for gastric/EGJ adenocarcinoma. However, 2+ cases are interpreted as negative for ENHERTU therapy. Additionally, HER2 (ERBB2) amplification status by fluorescence in situ hybridization (FISH) plays no role in determining a patient???s eligibility in (non-breast, non- gastric/EGJ, non-colon) solidtumors. Reference: Darek GARCIA, et al. HER2 Testing and Clinical Decision Making in Gastroesophageal Adenocarcinoma: Guideline From the College of [place] Pathologists, [place] Society for Clinical Pathology, and [place] Society of Clinical Oncology. Arch Pathol Lab Med. 2016 May;140(12):9464-0989. Lefty F, Rhonda V, Isael A, Cole DY, Dominguez S, Damion???lez-Roosevelt???n A, Seth KH, ?luis I, Nevaeh L, Sean A, Norbert B, Rolanda S, Nando D, Eyad A, Juan A Y, Puvvada S, Johana N, Vinnie RandY. Efficacy and Safety of Trastuzumab Deruxtecan in Patients With HER2-Expressing Solid Tumors: Primary Results From the ADITI-NvnFmbts59 Phase II Trial. J Clin Oncol. 2023Jun 26;42(1):47-58. doi: 10.1200/JCO.23.08567. Epub 2022Apr 17. PMID: 64903595; PMCID: [id number]. FDA product label: https://www.accessdata.fda.gov/drugsatfda_docs/label/2023/624823g035xuv.pdf Performed By: #### [id number] #### [facility] [place] [id number] [address] [place], [place] [address]BIOMARKER METHOD Immunohistochemistry was performed on formalin-fixed paraffin-embedded tissue using the FDA-approved MMR IHC Panel with the following clones: MLH1 (clone M1 mouse monoclonal); PMS2 (A16-4 mouse monoclonal); MSH2 ([id number] mouse monoclonal); MSH6 (SP93 rabbit monoclonal). The OptiView DAB IHC Detection Kit is used with MLH1, MSH2, and MSH6, and the OptiView DAB IHC Detection Kit with OptiView Amplification Kit is used for PMS2 detection. [[employer], [place]][facility] HospitalComment on above:Order Comment: Specimen Type: TISSUE SPECIMEN [facility] Address: [address] [place], [place] [address]Performed By: #### [id number] #### [facility] [place] [id number] [address] [place] [address] HospitalComment on above:Order Comment: Specimen Type: TISSUE SPECIMEN [facility] Address: [address] [place], [place] [address]Performed By: #### [id number] #### [facility] [place] [id number] [address] [place] [address] STATES [facility]SK[facility] REGIONAL MEDICAL CENTERFIXATIVEFormalin, 10% Neutral BufferedAurora Health Center HospitalComment on above:Order Comment: Specimen Type: TISSUE SPECIMEN [facility] Address: [address] [place] [id number] By: #### [id number] #### [facility] CLIA [id number] [address] [place] [address] [place] OF AMERICAPerformed By: #### [id number] #### [facility] CLIA [id number] [address] [place] [address] [place] AMERICAMLH1 IMMUNOHISTOCHEMICAL RESULTSNormal/Intact Nuclear ExpressionNormalMedina HospitalComment on above: Order Comment: Specimen Type: TISSUE SPECIMEN [facility] Address: [address] [place], [place] [address]Performed By: #### [id number] #### [facility] CLIA [id number] [address] [place] [address] [place] OF AMERICAMLH1 PROMOTER METHYLATION ASSAYNoNormalUniversity Hospitals Conneaut Medical Centerna HospitalComment on above:Order Comment: Specimen Type: TISSUE SPECIMEN [facility] Address: [address] [place], [place] [address]Performed By: #### [id number] #### [facility] CLIA [id number] [address] [place] [address], [place] [address] [place] OF AMERICAMMR INTERPRETATIONProficient (Microsatellite Stable)NormalMedina HospitalComment on above:Order Comment: Specimen Type: TISSUE SPECIMEN [facility] Address: [address] [place] [id number] By: #### [id number] #### [facility] CLIA [id number] [address] [place] [address] [place] AMERICAMSH2 IMMUNOHISTOCHEMICAL RESULTSNormal/Intact Nuclear ExpressionNormalUniversity Hospitals Conneaut Medical Centerna HospitalComment on above: Order Comment: Specimen Type: TISSUE SPECIMEN [facility] Address: [address] [place] [id number] By: #### [id number] #### [facility] CLIA [id number] [address] [place] [address] [place] OF [facility] MED[facility] CENTERMSH6 IMMUNOHISTOCHEMICAL RESULTSNormal/Intact Nuclear ExpressionNormalMedina HospitalComment on above: Order Comment: Specimen Type: TISSUE SPECIMEN [facility] Address: [address] [place], [place] [address]Performed By: #### [id number] #### [facility] CLIA [id number] [address] [place] [address] [place] AMERICAPMS2 IMMUNOHISTOCHEMICAL RESULTSNormal/Intact Nuclear ExpressionNormalMedina HospitalComment on above: Order Comment: Specimen Type: TISSUE SPECIMEN [facility] Address: [address] [place], [place] [address]Performed By: #### [id number] #### [facility] CLIA [id number] [address] [place] [address] [place] AMERICATUMOR TYPE MMROther (See Comment)NormalMedina HospitalComment on above:Order Comment: Specimen Type: TISSUE SPECIMEN [facility] Address: [address] [place], [place] [address]Result Comment: Liver, mass, biopsy: - Involved by poorly differentiated adenocarcinoma.Performed By: #### [id number] #### [facility] CLIA [id number] [address] [place] [address] [place] AMERICAPathology biopsy report David (Tiss)on [id number] DISCLAIMERNormalMedina HospitalComment on above:Order Comment: Specimen Type: TISSUE SPECIMEN [facility] Address: [address] [place], [place] [address]Result Comment: Laboratory Developed Test (LDT) Disclaimer: Performance characteristics of immunohistochemical, immunofluorescent, and chromogenic in-situ hybridization tests have been determined by the performing laboratory within the [facility] Department of Pathology and Laboratory Medicine ([facility], [facility], [facility], [facility], [facility], [facility], or [facility]) in a manner consistent with CLIA requirements. One or more of these tests may not have been cleared or approved by the FDA. The [facility] Department of Pathology and Laboratory Medicineis regulated under CLIA as qualified to perform high-complexity testing. These tests are used for clinical purposes. These should not be regarded as investigational or for research. Positive and negative controls stain appropriately.Performed By: #### [id number] #### [facility] CLIA [id number] [address] [place] [address] STATES OF AMERICACASE REPORTNoLouis Stokes Cleveland VA Medical CenterComment on above:Order Comment: Specimen Type: TISSUE SPECIMEN [facility] Address: [address] [place], [place] [address]Result Comment: Surgical Pathology Report Case: [id number] Authorizing Provider: Wai Tucker MD Collected: 04/01/2025 10:03 AM Ordering Location: [facility] Received: 04/01/2025 10:42 AM Pathologist: Latoya Retana MD Specimen: Liver, Mass, BiopsyPerformed By: #### 93961-1 #### [facility] CLIA [id number] [address] [place] [address] OF [facility] MEDICAL CENTERCLINICAL HISTORYincidental note of suspected liver metastasesNoLouis Stokes Cleveland VA Medical CenterComment on above:Order Comment: Specimen Type: TISSUE SPECIMEN [facility] Address: [address] [place], [place] [address]Performed By: #### 51925-4 #### [facility] CLIA [id number] [address] [place] [address] OF AMERICADIAGNOSIS COMMENTNormal White HospitalComment on above:Order Comment: Specimen Type: TISSUE SPECIMEN [facility] Address: [address] [place], [place] [address]Result Comment: The neoplastic cells labeled with CK7, CK19, CDX2 (patchy); they do not express CK20, NKX3.1, glypican-3, and TTF-1. SMAD4 shows patchy loss in the neoplastic glands. Overall the features favor involvement by a pancreatic primary adenocarcinoma. Performed By: #### 86118-1 #### [facility] CLIA [id number] [address] [place] [address] [facility] HOSPITALFINAL DIAGNOSISNormUC San Diego Medical Center, Hillcrest HospitalComment on above:Order Comment: Specimen Type: TISSUE SPECIMEN [facility] Address: [address] [place], [place] [address]Result Comment: A. Liver, mass, biopsy - Involved by poorly differentiated adenocarcinoma - See comment at 1036 EDTPerformed By: #### 61025-2 #### [facility] CLIA [id number] [address] [place] [address] [facility]OSPITALGROSS DESCRIPTIONPeoples HospitalComment on above:Order Comment: Specimen Type: TISSUE SPECIMEN [facility] Address: [address] [place], [place] [address]Result Comment: A. Liver, Mass, Biopsy Received in formalin are two segments of cylindrical tissue aggregating to 2.0 x 0.2 x 0.1 cm, henley-yellow and of a soft consistency. Totally submitted in one cassette. ADB April 01, 2025 3:30 PM Gross examination performed at [facility], [address] [place], [place] [address]Performed By: #### 22695-8 #### [facility] CLIA [id number] [address] [place], [place] [address] [facility] OF [facility] MEDICAL CENTERTis Path Bx reporton [id number] PERFORMING LABNoLouis Stokes Cleveland VA Medical CenterComtrinity health [facility] on above:Order Comment: Specimen Type: TISSUE SPECIMEN [facility] Address: [address] [place], [place] [address]Result Comment: Diagnostic interpretation performed at: [facility], [address] [place], [place] [address] CLIA# [id number] [employer]illing Machine Tender: BARBARA Nelsonerformed By: #### 32583-2 #### [facility] CLIA [id number] [address] [place] [address] STATES OF AMERICAResult Comment: Diagnostic interpretation performed at: [facility], [address] [place], [place] [address] CLIA# [id number] [employer] Machine Tender: Colten Holbrook MD Electronically signed out by: BARBARA Gloriaerformed By: #### [id number] #### [facility] CLIA [id number] [address] [place], [place] [address] [facility] HOSPITALPerformed By: #### [id number] #### [facility] CLIA [id number] [address] [place], [place] [address] [facility] W Auto Differential panel (Bld)on [id number] (Bld) [#/Vol]10*3/uLNormal<0.11CTrinity Health System [facility] on above:Order Comment: Specimen Type: BLOOD SPECIMENOrdering Facility: [facility] Address:[address] [place], [place] [address]Performed By: #### 99574-6 ####[facility] LABCLIA [id number] [place], [place] [address]Hyldjhdjy/100 WBC (Bld)0.3 %NormalUpper Valley Medical Center on above:Order Comment: Specimen Type: BLOOD SPECIMENOrdering Facility: [facility] Address:[address] [place], [place] [address]Performed By: #### 06379-3 ####[facility] LABCLIA [id number] [place], [place] [address]Ikqmxfpbwwqi cell count method Nom (Bld)AutoNormal [facility] on above:Order Comment: Specimen Type: BLOOD SPECIMENOrdering Facility: [facility] Address:[address] [place], [place] [address]Performed By: #### 02531-6 ####[facility] LABCLIA [id number] [place], [place] [address]Myhidffmiex (Bld) [#/Vol]0.08 10*3/uLNormal<0.46[facility] on above: Order Comment: Specimen Type: BLOOD SPECIMENOrdering Facility: [facility] Address:[address] [place], [place] [address]Performed By: #### 80165- 8 ####[facility] LABCLIA [id number] [place], [place] [address]Hdaiusciyrv/100 WBC (Bld)1.3 %NormalUpper Valley Medical Center on above:Order Comment: Specimen Type: BLOOD SPECIMENOrdering Facility: [facility] Address:[address] [place], [place] [address]Performed By: #### 14743-6 ####[facility] LABIA [id number] [place], [place] [address]Zyagdbclpzc distribution width (RBC) [Ratio]12.0 %Szfglg62.5-15.0[facility] on above: Order Comment: Specimen Type: BLOOD SPECIMENOrdering Facility: [facility] Address:[address] [place], [place] [address]Performed By: #### 04202- 8 ####[facility] LABIA [id number] [place], [place] [address]Bacmqmruon (Bld) [Volume fraction]42.7 %Iyemnv74.0-51.0 [facility] on above:Order Comment: Specimen Type: BLOOD SPECIMENOrdering Facility: [facility] Address:[address] [place], [place] [address]Performed By: #### 86938-1 ####[facility] LABIA [id number] [place], [place] [address]Rqsitbscqa (Bld) [Mass/Vol]14.9 g/rASfmqxi97.0-17.0[facility] on above: Order Comment: Specimen Type: BLOOD SPECIMENOrdering Facility: [facility] Address:[address] [place], [place] [address]Performed By: #### 54575- 8 ####[facility] LABCLIA [id number] [place], [place] [address]Xkwtxmii granulocytes (Bld) [#/Vol]0.03 10*3/uLNormal <0.10[facility] on above:Order Comment: Specimen Type: BLOOD SPECIMENOrdering Facility: [facility] Address:[address] [place], [place] [address]Performed By: #### 34451-7 ####[facility] LABCLIA [id number] [place], [place] [address]Jjmkyvml granulocytes/100 WBC (Bld)0.5 %NormalUpper Valley Medical Center on above: Order Comment: Specimen Type: BLOOD SPECIMENOrdering Facility: [facility] Address:[address] [place], [place] [address]Performed By: #### 72262- 8 ####[facility] LABCLIA [id number] [place], [place] [address]Lmpeeqxiwgg (Bld) [#/Vol]0.85 10*3/uLLow1.00-4.00 [facility] on above:Order Comment: Specimen Type: BLOOD SPECIMENOrdering Facility: [facility] Address:[address] [place], [place] [address]Performed By: #### 95071-2 ####[facility] LABCLIA [id number] [place], [place] [address]Dhdukmqblrr/100 WBC (Bld)14.1 %NormalUpper Valley Medical Center on above:Order Comment: Specimen Type: BLOOD SPECIMENOrdering Facility: [facility] Address:[address] [place], [place] [address]Performed By: #### 47605-6 ####[facility] LABCLIA [id number] [place], [place] [address]QDD (RBC) [Entitic mass]31.0 okDndmzg36.0-34.0[facility] on above:Order Comment: Specimen Type: BLOOD SPECIMENOrdering Facility: [facility] Address:[address] [place], [place] [address]Performed By: #### 07241-8 ####[facility] LABCLIA [id number] [place], [place] [address]KFIX (RBC) [Mass/Vol]34.9 g/vCPostzc51.5-36.0[facility] on above: Order Comment: Specimen Type: BLOOD SPECIMENOrdering Facility: [facility] Address:[address] [place], [place] [address]Performed By: #### 46129- 8 ####[facility] LABIA [id number] [place], [place] [address]IEM (RBC) [Entitic vol]89.0 nXWywrsx98.0-100.0[facility] on above:Order Comment: Specimen Type: BLOOD SPECIMENOrdering Facility: [facility] Address:[address] [place], [place] [address]Performed By: #### 03368-3 ####[facility] LABIA [id number] [place], [place] [address]Szgcdsjut (Bld) [#/Vol]0.90 10*3/uLHigh<0.87[facility] on above:Order Comment: Specimen Type: BLOOD SPECIMENOrdering Facility: [facility] Address:[address] [place], [place] [address]Performed By: #### 10957- 8 ####[facility] LABIA [id number] [place], [place] [address]Fgexizczh/100 WBC (Bld)14.9 %NormalUpper Valley Medical Center on above:Order Comment: Specimen Type: BLOOD SPECIMENOrdering Facility: [facility] Address:[address] [place], [place] [address]Performed By: #### 31024-3 ####[facility] LABCLIA [id number] [place], [place] [address]Oscbmkkgqao (Bld) [#/Vol]4.16 10*3/uLNormal1.45-7.50[facility] on above:Order Comment: Specimen Type: BLOOD SPECIMENOrdering Facility: [facility] Address:[address] [place], [place] [address]Performed By: #### 38612-3 ####[facility] LABCLIA [id number] [place], [place] [address]Yyceunxvjmt/100 WBC (Bld)68.9 %NormalUpper Valley Medical Center on above:Order Comment: Specimen Type: BLOOD SPECIMENOrdering Facility: [facility] Address:[address] [place], [place] [address]Performed By: #### 62952-3 ####[facility] LABIA [id number] [place], [place] [address]Hrypwdbmi RBC (Bld) [#/Vol] 10*3/uLNormal<0.01[facility] on above:Order Comment: Specimen Type: BLOOD SPECIMENOrdering Facility: [facility] Address:[address] [place], [place] [address]Performed By: #### 61937-7 ####[facility] LABCLIA [id number] [place], [place] [address]Svjqstoee RBC/100 WBC (Bld) [Ratio]0.0 /100 WBCNormal [facility] on above:Order Comment: Specimen Type: BLOOD SPECIMENOrdering Facility: [facility] Address:[address] [place], [place] [address]Performed By: #### 40417-3 ####[facility] LABIA [id number] [place], [place] [address]Lbaakwli mean volume (Bld) [Entitic vol]9.5 fLNormal9.0-12.7CTrinity Health System [facility] Campus on above:Order Comment: Specimen Type: BLOOD SPECIMENOrdering Facility: [facility] Address:[address] [place] [address] Performed By: #### 80225-3 ####[facility] LABCLIA [id number] [place], [place] [address]Phikrlubw (Bld) [#/Vol]184 10*3/rPWrjmam864-943LuglkdcclUpper Valley Medical Center on above:Order Comment: Specimen Type: BLOOD SPECIMENOrdering Facility: [facility] Address:[address] [place], [place] [address]Performed By: #### 76427-3 ####[facility] LABCLIA [id number] [place], [place] [address]SON (Bld) [#/Vol]4.80 10*6/uLNormal4.20-6.00[facility] on above:Order Comment: Specimen Type: BLOOD SPECIMENOrdering Facility: [facility] Address:[address] [place], [place] [address]Performed By: #### 13461-1 ####[facility] LABIA [id number] [place], [place] [address]BVJ (Bld) [#/Vol]6.04 10*3/uLNormal3.70-11.00[facility] on above: Order Comment: Specimen Type: BLOOD SPECIMENOrdering Facility: [facility] Address:[address] [place], [place] [address]Performed By: #### 34722- 8 ####[facility] LABIA [id number] [place], [place] [address]FJMRcj 38-50-1261OLAMZqmrihvqa (MEXR) JAVAD [place]ADO ([id number]) 1955 M Date Time Provider Department 03/26/25 EMELY COBB During your visit today, we recorded the following information about you: Allergies As of Date: 03/26/2025 (No Known Allergies) Date Reviewed: 03/20/2025 Reviewed by: Lesli Hollingsworth, RT(R) - Fully Assessed Reason for Visit: Radiology Pre Procedure Instructions [3756] Cmt: Liver bx Prescriptions as of 04/07/2025 - diazePAM (VALIUM) 10 mg tablet Take 10 mg by mouth every 8 hours as needed (for mri). - Ascorbic Acid (VITAMIN C) 1,000 mg tablet Take 1 tablet by mouth once daily. - zsunjgkt-vidb-nga1-C-elisabeth-bosw (OSTEO BI-FLEX TRIPLE STRENGTH) 750 mg-644 mg- 30 mg-1 mg tab Take 1 tablet by mouth once daily. - cholecalciferol (VITAMIN D-3) 5,000 unit tab Take 1 tablet by mouth once daily. - Ascorbate Calcium 500 mg tab Take by mouth. - Aspirin 81 mg tab Take 81 mg by mouth. - CITRULLINE 1000 PO Take by mouth. - magnesium oxide 250 mg tablet Take 250 mg by mouth once daily. - [place]-3 Fatty Acids 1,250 mg cap Take by mouth. - Zinc Gluconate 30 mg tab Take by mouth. Problem List As Of Date: 03/26/2025 (None) Encounter Status:Closed by EMELY COBB on 04/07/25[facility] on [id number] (IRRFV) JAVAD [place] ([id number]) 1955 M Date Time Provider Department 03/24/25 JUDIT SHANNON IRRFV During your visit today, we recorded the following information about you: Kelly Carlton 03/24/2025 2:50 PM Signed RADIOLOGY CALL CENTER INTAKE DATE: 03/24/2025 TIME: 2:48pm REQUESTING STAFF: Judit Shannon MD PHONE/PAGER: [phone] SPECIFICS OF THE REQUEST: Liver biopsy SPECIAL REQUESTS: TISSUE SAMPLE, LABWORK: N/A IS THIS REQUEST PART OF A RESEARCH PROTOCOL: No MEDICAL DIAGNOSIS: Liver lesion [K76.9] TYPE AND DATE OF THE EXAM THAT IS THE BASIS OF THE REQUEST: MRI Date: 03/20/2025 IMAGING: [facility] Note to all persons requesting biopsies: All biopsy requests will be scheduled as quickly as possible, based on the clinical urgency, availability of appointment times, the need to hold anti-thrombolytic therapy (aspirin, blood thinners) and the patient?s schedule, including the need for an available long haul truck driver. If a percutaneous biopsy or drainage is not felt to be safe or an alternative method for establishing a diagnosis is possible, this will be discussed directly with the requesting physician. Asmita Calderón LPN 03/24/2025 3:41 PM Signed BX. COORDINATOR INFORMATION LAB RESULTS: INR (no units) Date Value 03/20/2025 1.0 APTT (sec) Date Value 03/20/2025 30.0 No results found for: PLT Current Outpatient Medications Medication Sig diazePAM (VALIUM) 10 mg tablet Take 10 mg by mouth every 8 hours as needed (for mri). Ascorbic Acid (VITAMIN C) 1,000 mg tablet Take 1 tablet by mouth once daily. bfuuzpht-tnsd-upa5-C-elisabeth-bosw (OSTEO BI-FLEX TRIPLE STRENGTH) 750 mg-644 mg- 30 mg-1 mg tab Take 1 tablet by mouth once daily. cholecalciferol (VITAMIN D-3) 5,000 unit tab Take 1 tablet by mouth once daily. Ascorbate Calcium 500 mg tab Take by mouth. (Patient not taking: Reported on 03/20/2025) Aspirin 81 mg tab Take 81 mg by mouth. CITRULLINE 1000 PO Take by mouth. magnesium oxide 250 mg tablet Take 250 mg by mouth once daily. [place]-3 Fatty Acids 1,250 mg cap Take by mouth. Zinc Gluconate 30 mg tab Take by mouth. No current facility-administered medications for this visit. ALLERGIES No Known Allergies FILMS SENT TO WORKSTATION: GUIDELINES FOR HOLDING ANTI-PLATELET AND ANTI- COAGULATION THERAPY: none on file NURSE SIGNATURE: Asmita Calderón LPN DATE: March 24, 2025 TIME: 3:40 PM Jason Rose MD 03/24/2025 6:12 PM Signed Please route to Renetta Evans MD 03/25/2025 2:37 PM Signed RADIOLOGIST REQUEST / APPROVAL FORM STAFF RADIOLOGIST:anuel roberson PROCEDURE TO BE DONE UNDER: US PROCEDURE REQUESTED: CORE Requested PROCEDURE: Approved TIME SLOT NEEDED: 1 Hour NOTES: US guided targeted liver bx SPECIAL LABS/ PROCESSING: Pre-procedure labs: CBC: ordered INR: not needed COVID: not needed SIR Bleeding risk category for this procedure: intermediate-high risk. Reference from [facility] Narcotics Investigator: [email or web address] STAFF SIGNATURE: Renetta Roberson MD DATE: March 25, 2025 TIME: 2:35 PM Patrica Moran 03/26/2025 11:33 AM Signed Patient is scheduled in [place] on 04/01. Closing encounter Allergies As of Date: 03/24/2025 (No Known Allergies) Date Reviewed: 03/20/2025 Reviewed by: Lesli Hollingsworth RT(R) - Fully Assessed Reason for Visit: Liver biopsy [Other] Prescriptions as of 03/26/2025 - diazePAM (VALIUM) 10 mg tablet Take 10 mg by mouth every 8 hours as needed (for mri). - Ascorbic Acid (VITAMIN C) 1,000 mg tablet Take 1 tablet by mouth once daily. - zhkxpqzt-domx-hxh3-C-elisabeth-bosw (OSTEO BI-FLEX TRIPLE STRENGTH) 750 mg-644 mg- 30 mg-1 mg tab Take 1 tablet by mouth once daily. - cholecalciferol (VITAMIN D-3) 5,000 unit tab Take 1 tablet by mouth once daily. - Ascorbate Calcium 500 mg tab Take by mouth. - Aspirin 81 mg tab Take 81 mg by mouth. - CITRULLINE 1000 PO Take by mouth. - magnesium oxide 250 mg tablet Take 250 mg by mouth once daily. - [place]-3 Fatty Acids 1,250 mg cap Take by mouth. - Zinc Gluconate 30 mg tab Take by mouth. Problem List As Of Date: 03/24/2025 (None) Encounter Status:Closed by KELLY CARLTON on 03/25/25[facility] Telephone (HEMAVN) JAVAD [place] ([id number]) 1955 M Date Time Provider Department 03/24/25 SILVIA BRANHAM During your visit today, we recorded the following information about you: Silvia Branham RN 03/24/2025 1:23 PM Signed Left message on IR intake line MC2 for IR biopsy Liver MRI completed 03/20/25 (home) Silvia Branham RN 03/25/2025 1:58 PM Signed Pt scheduled for biopsy 04/01 NEEDS: OV Dr Shannon 1 week after biopsy [phone] (home) Please call with appt Debra Mccartney 03/25/2025 2:54 PM Signed Spoke with patient's on the phone. Patient has been scheduled for OV on 04/08/25. Allergies As of Date: 03/24/2025 (No Known Allergies) Date Reviewed: 03/20/2025 Reviewed by: Lesli Hollingsworth, RT(R) - Fully Assessed Reason for Visit: Biopsy Request [1576] Prescriptions as of 03/25/2025 - diazePAM (VALIUM) 10 mg tablet Take 10 mg by mouth every 8 hours as needed (for mri). - Ascorbic Acid (VITAMIN C) 1,000 mg tablet Take 1 tablet by mouth once daily. - wsjdmmdb-gyjf-puz0-C-elisabeth-bosw (OSTEO BI-FLEX TRIPLE STRENGTH) 750 mg-644 mg- 30 mg-1 mg tab Take 1 tablet by mouth once daily. - cholecalciferol (VITAMIN D-3) 5,000 unit tab Take 1 tablet by mouth once daily. - Ascorbate Calcium 500 mg tab Take by mouth. - Aspirin 81 mg tab Take 81 mg by mouth. - CITRULLINE 1000 PO Take by mouth. - magnesium oxide 250 mg tablet Take 250 mg by mouth once daily. - [place]-3 Fatty Acids 1,250 mg cap Take by mouth. - Zinc Gluconate 30 mg tab Take by mouth. Problem List As Of Date: 03/24/2025 (None) Encounter Status:Closed by SILVIA BRANHAM on 03/24/25[facility] HamiltonOVSPon [id number] (SP) Office (HEMAVN) JAVAD [place] ([id number]) 1955 M Date Time Provider Department 03/20/25 1:00 PM JUDIT SHANNON During your visit today, we recorded the following information about you: Temperature Pulse Blood pressure Weight 97.5 degrees 91/minute 137/80 81.2 kg Judit Shannon MD 03/20/2025 1:30 PM Signed PATIENT NAME: Javad Colorado CLINIC NO.: [id number] ATTENDING PHYSICIAN: Judit Shannon MD DATE OF SERVICE: March 20, 2025 Recording using babberly software for draft documentation of the visit was discussed with the patient/authorized telemarketing sales representative; all questions welcomed and answered. Patient/authorized telemarketing sales representative agreed to proceed Dear Dr. Gomez, thank you for referring Mr Javad [place] for an opinion regarding liver lesions . CHIEF COMPLAINT: The patient is a 69-year-old male with hyperlipidemia, presenting for evaluation of low-attenuation hepatic lesions and a pancreatic tail mass identified on CT scan. HPI: Javad Colorado is a 69 year old year old male with a history of hyperlipidemia, presenting for evaluation following an abnormal CT scan performed during an ER visit for chest pain in February 2025. During the ER visit, a CT scan was performed to rule out pulmonary embolism due to an elevated D-dimer. The scan revealed no thoracic dissection or pulmonary embolism but identified a low attenuation mass lesion in the liver suspicious for metastatic disease, areas of low attenuation in the pancreatic tail suspicious for a mass lesion, mild nodular surface contour of the liver, splenomegaly, and a possible left adrenal nodule. Labs demonstrated a normal CBC, normal calcium, creatinine of 1.10 mg/dL, and liver function tests within normal limits, with a total bilirubin of 1.3 mg/dL. Patient denies any prior issues with pain, changes in appetite, weight loss, nausea, vomiting, fevers, chills, or sweats. He also denies any history of hypertension, diabetes, heart problems, or surgeries. He reports no shortness of breath, cough, changes in bowel movements, hematuria, or urinary issues. He has a history of occasional cigar smoking but denies current tobacco use. He reports a history of significant alcohol consumption, particularly on weekends, but states he quit drinking about a month ago. He worked in a [employer] house for 35 years before retiring. Family history is significant for colon cancer in his mother, who at age 49, and pancreatic cancer in his father, who at age 81. He has two brothers with heart issues but no known cancer history. FMHx - Colon cancer (mother) - Pancreatic cancer (father) - Heart issues (2 brothers) PMHx - Hyperlipidemia PSHx - Denies surgical history Social Hx - Tobacco use: Denies current tobacco use, occasionally smoked cigars in the past - Alcohol use: Stopped 1 month ago, previously drank heavily on weekends - Occupation: Retired, worked in a [employer] house for 35 years Current Outpatient Medications Medication Sig Ascorbate Calcium 500 mg tab Take by mouth. Aspirin 81 mg tab Take 81 mg by mouth. CITRULLINE 1000 PO Take by mouth. magnesium oxide 250 mg tablet Take 250 mg by mouth once daily. [place]-3 Fatty Acids 1,250 mg cap Take by mouth. Zinc Gluconate 30 mg tab Take by mouth. No current facility-administered medications for this visit. ALLERGIES Not on File PAST MEDICAL HISTORY Diagnosis Date Abnormal CT scan 02/2025 mass lesions in the pancreas Hyperlipidemia Hypertension Lesion of pancreas (HCC) 02/2025 Liver mass 2024 Splenomegaly 02/2025 PAST SURGICAL HISTORY Procedure Laterality Date COLONSCOPY SCREENING HIGH RISK 2005 FAMILY HISTORY Problem Relation Age of Onset Hypertension Mother Colon Cancer Mother Bladder Cancer Father Pancreatic Cancer Father other (myocardial infarction) Brother SOCIAL HISTORY[1] REVIEW OF SYSTEMS GENERAL: No weight loss, malaise or fevers. No night sweats. HEENT: Negative for headaches, No changes in hearing or vision, no nose bleeds or other nasal problems. RESPIRATORY: Negative for cough, wheezing and shortness of breath CARDIOVASCULAR: Negative for chest pain, leg swelling and palpitations GI: Negative for abdominal discomfort, blood in stools or black stools and change in bowel habits : Negative for dysuria, frequency and incontinence MUSCULOSKELETAL: Negative for joint pain or swelling, back pain, and muscle pain. SKIN: Negative for lesions, rash, and itching. HEMATOLOGY/LYMPHOLOGY Negative for prolonged bleeding, bruising easily, and swollen nodes. NEURO: Negative for numbness or tingling of hands/feet. No weakness. PHYSICAL EXAMINATION: There were no vitals taken for this visit. There were no vitals taken for this visit. No data found for this vital: Wt General appearance:ECOG PERFORMANCE STATUS: (more content not included)...NormalSelect [facility]ty [facility] Ag19-9 SerPl-aCncon 35-14-4170Kuvwjv Ag 19-9 Dh4138.0 [arb'U]/mLHigh<36.0[facility] Comment on above:Order Comment: Specimen Type: BLOOD SPECIMEN Ordering Facility: [facility] Address: [address] [place], [place] [address]Result Comment: Cancer antigen 19-9 test is used as an aid in monitoring response to treatment or recurrence in patients with established pancreatic, hepatobiliary, or gastrointestinal malignancies. Clinical correlation is required. The CA 19-9 Antigen test was performed using the [place] [employer] DXI paramagnetic particle chemiluminescent immunoassay method. Results obtained with different assay methods or kits cannot be used interchangeably.Performed By: #### 46463-8 #### [facility] CLIA [id number] [address] [place] [address] [place] AMERICAFerritin SerPl-mCncon 42-97-1113Fudotrsd [Mass/Vol]473.3 ng/iWSwaxyf78.3-565.7Avo HospitalComment on above:Order Comment: Specimen Type: BLOOD SPECIMEN Ordering Facility: [facility] Address: [address] [place], [place] [address]Performed By: #### 2276-4, 12731-2 #### [facility] CLIA [id number] [address] [place] [address] [place] AMERICAHCV Ab Ser Qlon 91-14-4767DUS Ab Ql (S) NegativeNormalNegativeInverness HospitalComment on above:Order Comment: Specimen Type: BLOOD SPECIMEN Ordering Facility: [facility] Address: [address] [place], [place] [address]Result Comment: The result suggests no evidence of infection with Hepatitis C virus. Should recent infection be suspected, repeat testing may be considered 4-6 weeks after this draw.Performed By: #### 77556-8 #### [facility] CLIA [id number] [address] [place] [address] [place] AMERICAIron and Iron binding capacity panelon 62-78-0111Omkc [Mass/Vol]32 ug/mFRqv09-777Twsy HospitalComment on above:Order Comment: Specimen Type: BLOOD SPECIMEN Order[facility] Facility: [facility] Address: [address] [place], [place] [address]Performed By: #### 2276-4, 78181-3 #### [facility] CLIA [id number] [address] [place] [address] [place] AMERICAIron binding capacity [Mass/Vol]279 ug/dL Dediez568-444Xclb HospitalComment on above:Order Comment: Specimen Type: BLOOD SPECIMEN Ordering Facility: [facility] Address: [address] [place], [place] [address]Performed By: #### 2276-4, 03849-6 #### [facility] CLIA [id number] [address] [place] [address] [place] AMERICAIron/TIBC [Molar ratio]11.5 %Low15.0-57.0 Inverness HospitalComment on above:Order Comment: Specimen Type: BLOOD SPECIMEN [facility]ing Facility: [facility] Address: [address] [place] [id number] By: #### 2276-4, 95687-1 #### [facility] CLIA [id number] [facility] [place] [address] [place] [facility] MEDICAL CENTERMRI 3D POST PROCESSINGon 84-34-3516JRZ 3D POST PROCESSING* * *Final Report* * * DATE OF EXAM: Mar 20 2025 7:15PM [facility] - MRI 3D POST PROCESSING / [...] Redemonstrated 1.2 cm lingular/left perihilar nodule (2:29). IMPRESSION: 5.6 CM INFILTRATIVE HYPOENHANCING PANCREATIC TAIL MASS WITH OCCLUSION/INVASION OF THE SPLENIC VEIN, DESCRIBED, CONSISTENT WITH PANCREATIC ADENOCARCINOMA. NUMEROUS BILOBAR HEPATIC METASTATIC LESIONS. 1.2 CM LEFT PULMONARY NODULE, SIMILAR TO CT CHEST 03/10/2025 ALSO CONSISTENT WITH METASTATIC DISEASE. Safety Assistant: KERI Transcribe Date/Time: Mar 21 2025 8:08A Dictated by : ROSSI HARE, DO This examination was interpreted and the report reviewed and electronically signed by: CHASE HUERTA MD on Mar 21 2025 11:37AM EST [id number] Health St. Charles HospitalMRI PANC/JUNIOR WO/W IVCONon 39-16-1943UZU PANC/JUNIOR WO/W IVCON* * *Final Report* * * DATE OF [...] Redemonstrated 1.2 cm lingular/left perihilar nodule (2:29). IMPRESSION: 5.6 CM INFILTRATIVE HYPOENHANCING PANCREATIC TAIL MASS WITH OCCLUSION/INVASION OF THE SPLENIC VEIN, DESCRIBED, CONSISTENT WITH PANCREATIC ADENOCARCINOMA. NUMEROUS BILOBAR HEPATIC METASTATIC LESIONS. 1.2 CM LEFT PULMONARY NODULE, SIMILAR TO CT CHEST 03/10/2025 ALSO CONSISTENT WITH METASTATIC DISEASE. Safety Assistant: KERI Transcribe Date/Time: Mar 21 2025 8:08A Dictated by : ROSSI HARE, DO This examination was interpreted and the report reviewed and electronically signed by: CHASE HUERTA MD on Mar 21 2025 11:37AM EST [id number] Health St. Charles HospitalPT panel Coag (PPP)on 39-06-8630NXW Coag (PPP) [Relative time]1.0 {INR}Normal0.9-1.3[facility] Comment on above:Order Comment: Specimen Type: BLOOD SPECIMEN Order[facility] Facility[facility] Address: [address] [place], [place] [address]Result Comment: Vitamin K Antagonist (VKA) Therapeutic Range: INR 2 to 3 (Target INR of 2.5) Note: For patients treated with VKA drugs, such as warfarin, the [place] [employer] 2012 Guideline recommends [...] 2.5 to 3.5 (target INR of 3). Julio César BARAKAT, et al. Chest 2012, 141:7S-47S Juan Diego RA, et al. JACC 2017, 70: 252-289Performed By: #### 69547-8, 83610-9 #### [facility] CLIA [id number] [address] [place] [address] [place] AMERICAPT Coag (PPP) [Time]11.5 sNormal9.7-13.0 [facility] HospitalComment on above:Order Comment: Specimen Type: BLOOD SPECIMEN Ordering Facility: [facility] Address: [address] [place], [place] [address]Performed By: #### 46243-2, 93296-0 #### [facility] [place] [id number] [address] [place] [address] [place] AMERICAaPTT PPPon 49-23-3769oMGC Coag (PPP) [Time]30.0 kTxybhj86.0-32.4Ainspira medical center vineland HospitalComment on above:Order Comment: Specimen Type: BLOOD SPECIMEN Ordering Facility: [facility] Address: [address] [place], [place] [address]Performed By: #### 65203-2, 90868-3 #### [facility] [place] [id number] [address] [place] [address] [place] [facility] MEDICAL CENTERBasophils Auto (Bld) [#/Vol]Ordered By: Saeed Gomez on 40-98-8135Mytguivoh (Bld) [#/Vol]0.0 10 3/uL0.0-0.1FSamaritan North Health CenterBasophils/100 WBC Auto (Bld)Ordered By: Saeed Gomez on 54-78-0035Vrqjrxusm/100 WBC (Bld)0.4 %0.2-2.0[facility] Eosinophils/100 WBC Auto (Bld)Ordered By: Saeed Gomez on 03-10-2025 Eosinophils/100 WBC (Bld)1.7 %0.9-7.0[facility] Erythrocyte distribution width Auto (RBC) [Ratio]Ordered By: Saeed Gomez on 40-96-1796Xkcxckfirem distribution width (RBC) [Ratio]12.0 %11.0-15.0[facility] Medical CenterFibrin D-dimer [Presence] in Platelet poor plasma by Latex agglutinationOrdered By: Jaskaran Basurto on 45-25-2321Dzplbm D-dimer LA Ql (PPP)1.39 mg/L FEUCritically high<=0.59[facility] Medical CenterComment on above:RESULTS CALLED TO TONEY WYNN RN @BY [place] at [address]Increases in D-Dimer concentration observed withthromboembolic events can be variable due to localization,size, and age of the thrombus. Therefore, a thromboembolicevent cannot be diagnosed with certainty on the basis of thereference range. D-Dimers may also be elevated for a varietyof disorders including advanced age, , coronarydisease, cancer, liver disease, infection, inflammation,hematoma, DIC, trauma, post-surgery, diabetes, thrombolyticor anticoagulant therapy, stress, and generalizedhospitalization. Glomerular filtration rate (GFR) estimation in non- AmericanOrdered By: Jaskaran Basurto on 34-01-4859HXJ/1.73 sq M.predicted among non-blacks MDRD (S/P/Bld) [Vol rate/Area]mL/min/{1.73_m2}>=60 mL/min/1.73m 2FSamaritan North Health CenterHematocrit Auto (Bld) [Volume fraction]Ordered By: Saeed Gomez on 59-39-3298Jmybdqsjqz (Bld) [Volume fraction]45.7 %42.0-54.0[facility] CenterHemoglobin [Mass/volume] in BloodOrdered By: Saeed Gomez on 65-33-9642Qjiatywjez (Bld) [Mass/Vol]15.9 g/dL14.0-18.0[facility] CenterLaboratory - Chemistry and Chemistry - challengeOrdered By: Jaskaran Basurto on 97-26-0416Jlmpdkp [Mass/Vol]9.3 mg/dL8.5-10.1FSamaritan North Health CenterChloride [Moles/Vol]104 mmol/L27-307PqrlelnffOhiohealth Southeastern Medical CenterCO2 [Moles/Vol]29.4 mmol/L21.0-32.0[facility] Creatinine [Mass/Vol]1.10 mg/dL0.70-1.30[facility] GFR/1.73 sq M.predicted MDRD (S/P/Bld) [Vol rate/Area]mL/min/{1.73_m2}>=60 mL/min/1.73m 2FSamaritan North Health CenterGlucose [Mass/Vol]128 mg/dLHigh 74-106[facility] CenterPotassium [Moles/Vol]4.0 mmol/L3.5-5.1 [facility] Hospitalodium [Moles/Vol]141 mmol/T256-903GhvqxpjmnOhiohealth Southeastern Medical CenterUrea nitrogen [Mass/Vol]18.0 mg/dL7.0-18.0[facility] CenterUrea nitrogen/Creatinine [Mass ratio]16.4 mg/mgOhiohealth Southeastern Medical CenterLaboratory - Hematology and Cell countsOrdered By: Saeed Gomez on 27-33-0032Kbdkwqdy granulocytes/100 WBC (Bld)1.0 %High0.0-0.5FSamaritan North Health CenterLeukocytes [#/volume] corrected for nucleated erythrocytes in Blood by Automated counOrdered By: Saeed Gomez on 64-55-1428QZN corrected for nucl RBC Auto (Bld) [#/Vol]8.4 10 3/uL4.0-11.0[facility] CenterLymphocytes Auto (Bld) [#/Vol]Ordered By: Saeed Gomez on 11-98-8278Skujxqibfbz (Bld) [#/Vol]1.1 10 3/uLLow1.2-3.8[facility] CenterLymphocytes/100 WBC Auto (Bld)Ordered By: Saeed Gomez on 71-45-7453Zcoiymunvqz/100 WBC (Bld)13.2 %Low20.5-60.0[facility] CenterMCH Auto (RBC) [Entitic mass]Ordered By: Saeed Gomez on 89-16-3251YNC (RBC) [Entitic mass]31.3 pg25.9-34.0[facility] CenterMCHC Auto (RBC) [Mass/Vol]Ordered By: Saeed Gomez on 24-18-4119TFWE (RBC) [Mass/Vol]34.8 g/dL29.9-35.2FSamaritan North Health CenterMCV Auto (RBC) [Entitic vol] Ordered By: Saeed Gomez on 02-22-9946MYH (RBC) [Entitic vol]90.0 fL80.0-94.0 [facility] CenterMonocytes Auto (Bld) [#/Vol]Ordered By: Saeed Gomez on 05-00-6576Nhcjvubhw (Bld) [#/Vol]0.8 10 3/uL0.3-0.8[facility] CenterMonocytes/100 WBC Auto (Bld)Ordered By: Saeed Gomez on 03-10-2025 Monocytes/100 WBC (Bld)9.5 %1.7-12.0[facility] CenterNeutrophils Auto (Bld) [#/Vol]Ordered By: Saeed Gomez on 58-90-9383Ylkdxpccenh (Bld) [#/Vol]6.2 10 3/uL1.4-6.5FSamaritan North Health CenterNeutrophils/100 WBC Auto (Bld)Ordered By: Saeed Gomez on 06-65-4098Slionitsxfn/100 WBC (Bld)74.2 % 43.0-75.0[facility] CenterNo Panel InformationOrdered By: Jaskaran Basurto on 75-22-0894Dzdcsspd I High Zhpynzkjvbb03.5 pg/mL4.0-76.1FSamaritan North Health CenterComment on above:CUT-OFF POINTS HAVE BEEN ESTABLISHED BASED ON THE FOURTHUNIVERSAL DEFINITION OF MYOCARDIAL INFARCTION. THE UPPERREFERENCE LIMIT (URL) OF TROPONIN, DEFINED THE 99THPERCENTILE OF cTnI DISTRIBUTION IN A REFERENCE POPULATION,HAS BEEN CONFIRMED THE DECISION THRESHOLD FOR MIDIAGNOSIS.99TH PERCENTILE = 76.2 PG/MLNOTE: HIGH-SENSITIVITY TROPONIN ASSAY IS NOT INTENDED TO BEUSED IN ISOLATION BUT SHOULD BE INTERPRETED IN CONJUNCTIONWITH OTHER DIAGNOSTIC AND CLINICAL INFORMATION.No Panel InformationOrdered By: Saeed Gomez on 61-39-0041Rzkznvskicy # (Auto)0.1 10 3/uL 0.0-0.7FSamaritan North Health CenterImmature Granulocyte # (Auto)0.08 10 3/uLHigh0.00-0.03[facility] Medical CenterPlatelet mean volume Auto (Bld) [Entitic vol]Ordered By: Saeed Gomez on 33-93-0237Ifgzbrpp mean volume (Bld) [Entitic vol]10.0 fL9.5-13.5FSamaritan North Health CenterPlatelets Auto (Bld) [#/Vol]Ordered By: Saeed Gomez on 34-73-8929Ilxsdlboq (Bld) [#/Vol] 151 10 3/hA816-783VykbtqafqOhiohealth Southeastern Medical CenterRBC Auto (Bld) [#/Vol]Ordered By: Saeed Gomez on 02-42-8151HYN (Bld) [#/Vol]5.08 10 6/uL4.70-6.10[facility] Hospitalerum or plasma anion gap determinationOrdered By: Jaskaran Basurto on 33-29-3102Jygic gap [Moles/Vol]11.6 mmol/LFSamaritan North Health CenterA1C with Estimated Average Gluon 61-84-2475Ajmdtmp [Mass/Vol]114 mg/dL NormalThe Critical Access Hospital Physician GroupComment on above:Result Comment: PERFORMED BY: [place] [address] PATHOLOGIST SECURITIES COUNSELOR KEN ETIENNE M.D.Performed By: #### CUU, CMP, PSATOTAL, CBC, ADDONUAPLUS, TSH3, A1C [facility] eA #### [facility] [address] [place] [address] #### APOB #### [facility] ,A1C with Estimated Average GluOrdered By: Saeed Gomez on 94-54-8894GgE6d (Bld) [Mass fraction]5.6 %4.3-5.6FSamaritan North Health CenterComment on above: Result Comment: Increased risk for diabetes: 5.7 - 6.4 diabetes: >6.4 glycemic control for adults with diabetes: <7.0Performed By: #### CUU, CMP, PSATOTAL, CBC, ADDONUAPLUS, TSH3, A1C WT eA #### [place] [address] [place] #### APOB #### [facility] ,Increased risk for diabetes: 5.7 - 6.4diabetes: >6.4glycemic control for adults with diabetes: <7.0Alanine aminotransferase [Enzymatic activity/volume] in Serum or PlasmaOrdered By: Saeed Gomez on 67-11-6287QKZ [Catalytic activity/Vol]Alanine aminotransferase [Enzymatic activity/volume] in Serum or Plasma7[facility] CenterAlbumin [Mass/volume] in Serum or Plasma by Bromocresol green (BCG) dye binding methoOrdered By: Saeed Gomez on 55-44-6413Koyolvn BCG dye [Mass/Vol]Albumin [Mass/volume] in Serum or Plasma by Bromocresol green (BCG) dye binding metho3.5-5.7FSamaritan North Health CenterAlbumin BCG dye [Mass/Vol]4.4 g/dL3.5-5.7FSamaritan North Health Center Alkaline phosphatase [Enzymatic activity/volume] in Serum or PlasmaOrdered By: Saeed Gomez on 76-07-3099QVV [Catalytic activity/Vol]Alkaline phosphatase [Enzymatic activity/volume] in Serum or Mthnby16-639GwxwimbycOhiohealth Southeastern Medical CenterApolipoprotein BOrdered By: Saeed Gomez on 82-12-9339Ububvsvgbvirow B [Mass/Vol]131 mg/dLHigh<90Ohio[facility] Medical CenterComment on above: Result Comment: Desirable < 90 Borderline High 90 - 99 High 100 - 130 Very High >130 ASCVD RISK THERAPEUTIC TARGET CATEGORY APO B (mg/dL) Very High Risk <80 (if extreme risk <70) High Risk <90 Moderate Risk <90 Performed at: - [facility] [id number] Pest Controller: Simona Lord MD, Phone: [phone] PERFORMED BY: [address] [address] PATHOLOGIST SECURITIES COUNSELOR KEN ETIENNE M.D.Performed By: #### CUU, CMP, PSATOTAL, CBC, ADDONUAPLUS, TSH3, A1C WT eA #### [address] [address] [place] #### APOB #### [facility] ,Desirable < 90 Borderline High 90 - 99 High 100 - 130 Very High >130 ASCVD RISK THERAPEUTIC TARGET CATEGORY APO B (mg/dL) Very High Risk <80 (if extreme risk <70) High Risk <90 Moderate Risk <90Performed at: [facility] [id number] [place], [place] [id number] Director: Simona Lord MD, Phone: [phone] Appearance of UrineOrdered By: Saeed Gomez on 21-72-5333Mmkqaybfay (U)Urine appearanceCleUniversity Hospitals Geauga Medical CenterAspartate aminotransferase [Enzymatic activity/volume] in Serum or PlasmaOrdered By: Saeed Gomez on 12-63-3563TCP [Catalytic activity/Vol]Aspartate aminotransferase [Enzymatic activity/volume] in Serum or Cjxgwl98-72XanjunsryOhiohealth Southeastern Medical Center Bacteria [Presence] in Urine by AutomatedOrdered By: Saeed Gomez on 11-12-2024 Bacteria Auto Ql (U)Bacteria [Presence] in Urine by AutomatedNone SeenOhiohealth Southeastern Medical CenterBacteria Auto Ql (U)None seen [HPF]None [facility] SystemBasophils Auto (Bld) [#/Vol]Ordered By: Saeed Gomez on 82-38-9885Wrhlnrugp (Bld) [#/Vol]Automated basophil count0.0-0.2FSamaritan North Health CenterBasophils/100 WBC Auto (Bld)Ordered By: Saeed Gomez on 46-00-1511Xdastcteu/100 WBC (Bld)Automated basophil %.[facility] CenterBilirubin Test strip Ql (U)Ordered By: Saeed Gomez on 11-12-2024 Bilirubin Ql (U)Bilirubin.total [Presence] in Urine by Test stripNegative [facility] CenterBilirubin Ql (U)NegativeNegativeOhiohealth Southeastern Medical CenterBilirubin.total [Mass/volume] in Serum or PlasmaOrdered By: Saeed Gomez on 39-67-7268Dbvcmkqow [Mass/Vol]Bilirubin.total [Mass/volume] in Serum or PlasmaHigh0.3-1.0[facility] CenterComment on above: Samples from patients who have taken Naproxen have shown spurious elevation in Total Bilirubin levels. A metabolite of Naproxen, O-desmethylnaproxen, has been shown to interfere with the Balbina-Angeles method for measuring Total Bilirubin.Blood estimated average glucose determination by estimation from glycated hemoglobinOrdered By: Saeed Gomez on 18-01-5843Ttmryuh glucose Estimated from glycated hemoglobin (Bld) [Mass/Vol]Glucose mean value [Mass/volume] in Blood Estimated from glycated hemoglobinOhiohealth Southeastern Medical CenterAverage glucose Estimated from glycated hemoglobin (Bld) [Mass/Vol]114 mg/dLOhiohealth Southeastern Medical CenterCalcium [Mass/volume] in Serum or PlasmaOrdered By: Saeed Gomez on 73-63-1884Fjxcaxq [Mass/Vol]Calcium [Mass/volume] in Serum or Plasma8.6-10.3FSamaritan North Health CenterCalcium oxalate crystals [Presence] in Urine by Computer assisted methodOrdered By: Saeed Gomez on 61-70-7196Zaqkamu oxalate crystals Computer assisted Ql (U) Calcium oxalate crystals [Presence] in Urine by Computer assisted method [facility] CenterCalcium oxalate crystals Computer assisted Ql (U)1+ [HPF][facility] CenterCarbon dioxide, total [Moles/volume] in Serum or PlasmaOrdered By: Saeed Gomez on 45-10-4494UX1 [Moles/Vol]Carbon dioxide, total [Moles/volume] in Serum or Wnwufi79.0-31.0[facility] CenterChloride [Moles/volume] in Serum or PlasmaOrdered By: Saeed Gomez on 76-82-7387Hvqbwgcp [Moles/Vol]Chloride [Moles/volume] in Serum or Plasma 98-107[facility] Medical CenterColor Auto (U)Ordered By: Saeed Gomez on 97-48-5866Eltxp (U)Color of Urine by AutoYellowOhiohealth Southeastern Medical CenterComplete Blood Count Auto DiffOrdered By: Saeed Gomez on 11-12-2024 Basophils (Bld) [#/Vol]0.0 10*3/uL0.0-0.2FSamaritan North Health Center Comment on above:Result Comment: PERFORMED BY: [place] [address] PATHOLOGIST SECURITIES COUNSELOR KEN ETIENNE M.D.Performed By: #### CUU, CMP, PSATOTAL, CBC, ADDONUAPLUS, TSH3, A1C WTH eA #### [facility] [address] [place] [address] #### APOB #### [facility] ,Basophils/100 WBC (Bld)0.6 %.[facility] Medical CenterComment on above: Performed By: #### CUU, CMP, PSATOTAL, CBC, ADDONUAPLUS, TSH3, A1C WTH eA #### [address] #### APOB #### [facility] ,Eosinophils (Bld) [#/Vol]0.1 10*3/uL0.0-0.45[facility] Comment on above:Performed By: #### CUU, CMP, PSATOTAL, CBC, ADDONUAPLUS, TSH3, A1C WT eA #### [address] #### APOB #### [facility] ,Eosinophils/100 WBC (Bld)3.6 %.[facility] Medical CenterComment on above:Performed By: #### CUU, CMP, PSATOTAL, CBC, ADDONUAPLUS, TSH3, A1C WTH eA #### [facility] [address] [place] [address] [place] #### APOB #### [facility] ,Erythrocyte distribution width (RBC) [Ratio]13.3 %12.0-14.8[facility] Medical CenterComment on above:Performed By: #### CUU, CMP, PSATOTAL, CBC, ADDONUAPLUS, TSH3, A1C WT eA #### [address] [address] [place] #### APOB #### [facility] ,Hematocrit (Bld) [Volume fraction]46.4 %38.8-50.0[facility] Medical CenterComment on above:Performed By: #### CUU, CMP, PSATOTAL, CBC, ADDONUAPLUS, TSH3, A1C WTH eA #### [facility] [address] [place] [address] [place] #### APOB #### [facility] ,Hemoglobin (Bld) [Mass/Vol]16.2 g/dL13.0-17.0[facility] Comment on above:Performed By: #### CUU, CMP, PSATOTAL, CBC, ADDONUAPLUS, TSH3, A1C WTH eA #### [facility] [address] [place] [address] #### APOB #### [facility] ,Lymphocytes (Bld) [#/Vol]1.1 10*3/uL1.00-4.8[facility] Comment on above:Performed By: #### CUU, CMP, PSATOTAL, CBC, ADDONUAPLUS, TSH3, A1C WTH eA #### [facility] [address] [place] [address] [place] #### APOB #### [facility] ,Lymphocytes/100 WBC (Bld)28.1 %.[facility] Medical CenterComment on above:Performed By: #### CUU, CMP, PSATOTAL, CBC, ADDONUAPLUS, TSH3, A1C WTH eA #### [facility] [address] [place] [address] [place] #### APOB #### [facility] ,MCH (RBC) [Entitic mass]31.6 pg27.5-35.2FSamaritan North Health Center Comment on above:Performed By: #### CUU, CMP, PSATOTAL, CBC, ADDONUAPLUS, TSH3, A1C WTH eA #### [facility] [address] [place] [address] [place] #### APOB #### [facility] ,MCV (RBC) [Entitic vol]90.4 fL83.5-101Ohio[facility] Medical CenterComment on above:Performed By: #### CUU, CMP, PSATOTAL, CBC, ADDONUAPLUS, TSH3, A1C WTH eA #### [facility] [address] [place] [address] [place] #### APOB #### [facility] ,Monocytes (Bld) [#/Vol]0.5 10*3/uL0.0-0.8[facility] Comment on above:Performed By: #### CUU, CMP, PSATOTAL, CBC, ADDONUAPLUS, TSH3, A1C WTH eA #### [facility] [address] [place] [address] #### APOB #### [facility] ,Monocytes/100 WBC (Bld)13.5 %.[facility] Medical CenterComment on above:Performed By: #### CUU, CMP, PSATOTAL, CBC, ADDONUAPLUS, TSH3, A1C WT eA #### [facility] [address] [place] [address] [place] #### APOB #### [facility] ,Neutrophils (Bld) [#/Vol]2.1 10*3/uL1.8-7.7FSamaritan North Health Center Comment on above:Performed By: #### CUU, CMP, PSATOTAL, CBC, ADDONUAPLUS, TSH3, A1C WTH eA #### [facility] [address] [place] [address] [place] #### APOB #### [facility] ,Neutrophils/100 WBC (Bld)54.2 %.[facility] Medical CenterComment on above:Performed By: #### CUU, CMP, PSATOTAL, CBC, ADDONUAPLUS, TSH3, A1C WTH eA #### [facility] [address] [place] [address] [place] #### APOB #### [facility] ,Platelet mean volume (Bld) [Entitic vol]8.5 fL6.6-10.1FSamaritan North Health CenterComment on above:Performed By: #### CUU, CMP, PSATOTAL, CBC, ADDONUAPLUS, TSH3, A1C WTH eA #### [facility] [address] [place] [address] [place] #### APOB #### [facility] ,Platelets (Bld) [#/Vol]170 10*3/yI734-913XkqlhkennOhiohealth Southeastern Medical Center Comment on above:Performed By: #### CUU, CMP, PSATOTAL, CBC, ADDONUAPLUS, TSH3, A1C WTH eA #### [facility] [address] [place] [address] #### APOB #### [facility] ,RBC (Bld) [#/Vol]5.14 10*6/uL3.90-5.60[facility] Medical CenterComment on above:Performed By: #### CUU, CMP, PSATOTAL, CBC, ADDONUAPLUS, TSH3, A1C WTH eA #### [facility] [address] [place] [address] [place] #### APOB #### [facility] ,WBC (Bld) [#/Vol]3.9 10*3/uLLow4.1-10.5FSamaritan North Health CenterComment on above:Performed By: #### CUU, CMP, PSATOTAL, CBC, ADDONUAPLUS, TSH3, A1C WTH eA #### [facility] [address] [place] [address] [place] #### APOB #### [facility] ,Complete Blood Count Auto Diffon 15-60-1269Tpsn Corpuscular HGB Conc34.9 g/dL Jrfycz47.5-35.6The Critical Access Hospital Physician GroupComment on above:Performed By: #### CUU, CMP, PSATOTAL, CBC, ADDONUAPLUS, TSH3, A1C WTH eA #### [facility] [address] [place] [address] [place] #### APOB #### [facility] ,NRBC%0.1 /100{WBC}Normal0-0.5The Critical Access Hospital Physician GroupComment on above: Performed By: #### CUU, CMP, PSATOTAL, CBC, ADDONUAPLUS, TSH3, A1C WTH eA #### [facility] [address] [place] [address] [place] #### APOB #### [facility] ,Comprehensive Metabolic Panelon 60-77-5488Kticoey [Mass/Vol]4.4 g/dLNormal 3.5-5.7The Critical Access Hospital Physician GroupComment on above:Performed By: #### CUU, CMP, PSATOTAL, CBC, ADDONUAPLUS, TSH3, A1C WTH eA #### [facility] [address] [place] [address] [place] #### APOB #### [facility] ,GFR/1.73 sq M.predicted MDRD (S/P/Bld) [Vol rate/Area]mL/min/{1.73_m2}NormalThe Critical Access Hospital Physician GroupComment on above:Performed By: #### CUU, CMP, PSATOTAL, CBC, ADDONUAPLUS, TSH3, A1C WTH eA #### [facility] [address] [place] [address] [place] #### APOB #### [facility] ,Comprehensive Metabolic PanelOrdered By: Saeed Gomez on 11-12-2024 Albumin/Globulin [Mass ratio]2.0 {ratio}[facility] Medical CenterComment on above:Performed By: #### CUU, CMP, PSATOTAL, CBC, ADDONUAPLUS, TSH3, A1C WTH eA #### [facility] [address] [place] [address] [place] #### APOB #### [facility] ,ALP [Catalytic activity/Vol]69 U/K54-611Qnpzikofl [facility] Center Comment on above:Performed By: #### CUU, CMP, PSATOTAL, CBC, ADDONUAPLUS, TSH3, A1C WT eA #### [facility] [address] [place] [address] [place] #### APOB #### [facility] ,ALT [Catalytic activity/Vol]25 U/L7-52[facility] Medical CenterComment on above:Performed By: #### CUU, CMP, PSATOTAL, CBC, ADDONUAPLUS, TSH3, A1C WT eA #### [facility] [address] [place] [address] #### APOB #### [facility] ,Anion gap [Moles/Vol]10.6 mmol/L6.0-15.0[facility] Comment on above:Performed By: #### CUU, CMP, PSATOTAL, CBC, ADDONUAPLUS, TSH3, A1C [facility] eA #### [place] [address] [place] #### APOB #### [facility] ,AST [Catalytic activity/Vol]31 U/F58-32JxmogotttOhiohealth Southeastern Medical CenterComment on above:Performed By: #### CUU, CMP, PSATOTAL, CBC, ADDONUAPLUS, TSH3, A1C WT eA #### [place] [address] [place] #### APOB #### [facility] ,Bilirubin [Mass/Vol]1.3 mg/dLHigh0.3-1.0[facility] Comment on above:Result Comment: Samples from patients who have taken Naproxen have shown spurious elevation in Total Bilirubin levels. A metabolite of Naproxen, O-desmethylnaproxen, has been shown to interfere with the Balbina-Anegles method for measuring Total Bilirubin.Performed By: #### CUU, CMP, PSATOTAL, CBC, ADDONUAPLUS, TSH3, A1C WT eA #### [place] [address] [place] #### APOB #### [facility] ,Samples from patients who have taken Naproxen have shown spurious elevation in Total Bilirubin levels. A metabolite of Naproxen, O-desmethylnaproxen, has been shown to interfere with the Jendryrnik-Grof method for measuring Total Bilirubin.Calcium [Mass/Vol]9.0 mg/dL8.6-10.3FSamaritan North Health Center Comment on above:Performed By: #### CUU, CMP, PSATOTAL, CBC, ADDONUAPLUS, TSH3, A1C WT eA #### [place] [address] [place] #### APOB #### [facility] ,Chloride [Moles/Vol]105 mmol/H71-171YfcpykrylOhiohealth Southeastern Medical CenterComment on above:Performed By: #### CUU, CMP, PSATOTAL, CBC, ADDONUAPLUS, TSH3, A1C WT eA #### [address] #### APOB #### [facility] ,CO2 [Moles/Vol]28.6 mmol/L21.0-31.0[facility] Medical CenterComment on above:Performed By: #### CUU, CMP, PSATOTAL, CBC, ADDONUAPLUS, TSH3, A1C WTH eA #### [place] [address] [place] #### APOB #### [facility] ,Creatinine [Mass/Vol]1.15 mg/dL0.70-1.30[facility] Comment on above:Performed By: #### CUU, CMP, PSATOTAL, CBC, ADDONUAPLUS, TSH3, A1C [facility] eA #### [place] [address] [place] #### APOB #### [facility] ,Globulin (S) [Mass/Vol]2.2 g/dLOhiohealth Southeastern Medical CenterComment on above:Performed By: #### CUU, CMP, PSATOTAL, CBC, ADDONUAPLUS, TSH3, A1C WTH eA #### [place] [address] [place] #### APOB #### [facility] ,Glucose [Mass/Vol]113 mg/mJJrmn95-469ZcxsiilxhOhiohealth Southeastern Medical CenterComment on above:Result Comment: Random Glucose Reference Range is dependent on time and content of last meal. Glucose of more than 200 mg/dL in a nonstressed, ambulatory subject supports the diagnosis of Diabetes Mellitus. ADA recommended reference rangePerformed By: #### CUU, CMP, PSATOTAL, CBC, ADDONUAPLUS, TSH3, A1C WTH eA #### [place] [address] [place] #### APOB #### [facility] ,ADA recommended reference rangeRandom Glucose Reference Range is dependent on time and content of last meal. Glucose of more than 200 mg/dL in a nonstressed, ambulatory subject supports the diagnosisof Diabetes Mellitus.Potassium [Moles/Vol]4.2 mmol/L3.5-5.1FSamaritan North Health CenterComment on above: Performed By: #### CUU, CMP, PSATOTAL, CBC, ADDONUAPLUS, TSH3, A1C WTH eA #### [place] [address] [place] #### APOB #### [facility] ,Protein [Mass/Vol]6.6 g/dL6.4-8.9Ohio[facility] Medical CenterComment on above:Performed By: #### CUU, CMP, PSATOTAL, CBC, ADDONUAPLUS, TSH3, A1C WTH eA #### [place] [address] [place] #### APOB #### [facility] ,Sodium [Moles/Vol]140 mmol/Y991-686BqydlmgjaOhiohealth Southeastern Medical CenterComment on above:Performed By: #### CUU, CMP, PSATOTAL, CBC, ADDONUAPLUS, TSH3, A1C WTH eA #### [facility] [address] [place] [address] [place] #### APOB #### [facility] ,Urea nitrogen [Mass/Vol]16 mg/dL7-[facility] Medical CenterComment on above:Performed By: #### CUU, CMP, PSATOTAL, CBC, ADDONUAPLUS, TSH3, A1C WTH eA #### [facility] [address] [place] [address] [place] #### APOB #### [facility] ,Creatinine [Mass/volume] in Serum or PlasmaOrdered By: Saeed Gomez on 99-35-1133Sdjpbmhzgd [Mass/Vol]Creatinine [Mass/volume] in Serum or Plasma 0.70-1.30[facility] Medical CenterDipstick and MicroscopicOrdered By: Saeed Gomez on 12-45-8531Dtnmgyvetl (U)ClearCleUniversity Hospitals Geauga Medical CenterComment on above:Order Comment: Name Collection Type:: Clean-Voided MidstreamPerformed By: #### CUU, CMP, PSATOTAL, CBC, ADDONUAPLUS, TSH3, A1C WTH eA #### [facility] [address] [place] [address] [place] #### APOB #### [facility] ,Color (U)YellowYellowOhiohealth Southeastern Medical CenterComment on above:Order Comment: Name Collection Type:: Clean-Voided MidstreamPerformed By: #### CUU, CMP, PSATOTAL, CBC, ADDONUAPLUS, TSH3, A1C WTH eA #### [facility] [address] [place] [address] [place] #### APOB #### [facility] ,Ketones Ql (U)NegativeNegativeOhiohealth Southeastern Medical CenterComment on above:Order Comment: Name Collection Type:: Clean-Voided MidstreamPerformed By: #### CUU, CMP, PSATOTAL, CBC, ADDONUAPLUS, TSH3, A1C WTH eA #### [address] #### APOB #### [facility] ,Leukocyte esterase Test strip Ql (U)NegativeNegativeOhiohealth Southeastern Medical CenterComment on above:Order Comment: Name Collection Type:: Clean-Voided MidstreamPerformed By: #### CUU, CMP, PSATOTAL, CBC, ADDONUAPLUS, TSH3, A1C WTH eA #### [place] [address] [place] #### APOB #### [facility] ,pH (U)6.0 [pH]5.0-9.0Ohio[facility] Medical CenterComment on above:Order Comment: Name Collection Type:: Clean-Voided MidstreamPerformed By: #### CUU, CMP, PSATOTAL, CBC, ADDONUAPLUS, TSH3, A1C WTH eA #### [address] #### APOB #### [facility] ,Dipstick and Microscopicon 03-76-0206Fcwrznlg,UrineNone SeenNormalNone SeenThe Critical Access Hospital Physician GroupComment on above:Order Comment: Name Collection Type:: Clean-Voided MidstreamPerformed By: #### CUU, CMP, PSATOTAL, CBC, ADDONUAPLUS, TSH3, A1C WTH eA #### [place] [address] [place] #### APOB #### [facility] ,Bilirubin,UrineNegativeNormalNegativeThe [facility] Hospital Physician GroupComment on above:Order Comment: Name Collection Type:: Clean-Voided MidstreamPerformed By: #### CUU, CMP, PSATOTAL, CBC, ADDONUAPLUS, TSH3, A1C WTH eA #### [place] [address] [place] #### APOB #### [facility] ,Calcium Oxalate Crystals,Urine1+NormalThe Critical Access Hospital Physician GroupComment on above:Order Comment: Name Collection Type:: Clean-Voided MidstreamPerformed By: #### CUU, CMP, PSATOTAL, CBC, ADDONUAPLUS, TSH3, A1C WTH eA #### [address] #### APOB #### [facility] ,Glucose Ql (U)NormalNormalNormalThe [facility] Access Hospital Physician GroupComment on above: Order Comment: Name Collection Type:: Clean-Voided MidstreamPerformed By: #### CUU, CMP, PSATOTAL, CBC, ADDONUAPLUS, TSH3, A1C WTH eA #### [address] #### APOB #### [facility] ,Hyaline Casts,UrineNoneNormal0-8The [facility] Access Hospital Physician GroupComment on above: Order Comment: Name Collection Type:: Clean-Voided MidstreamPerformed By: #### CUU, CMP, PSATOTAL, CBC, ADDONUAPLUS, TSH3, A1C WTH eA #### [address] #### APOB #### [facility] ,Mucus,UrineRareNormalThe Critical Access Hospital Physician GroupComment on above:Order Comment: Name Collection Type:: Clean-Voided MidstreamResult Comment: PERFORMED BY: [place] [address] PATHOLOGIST SECURITIES COUNSELOR KEN ETIENNE M.D.Performed By: #### CUU, CMP, PSATOTAL, CBC, ADDONUAPLUS, TSH3, A1C WTH eA #### [facility] [address] [place] [address] [place] #### APOB #### [facility] ,Nitrite,UrineNegativeNormalNegativeThe Critical Access Hospital Physician GroupComment on above:Order Comment: Name Collection Type:: Clean-Voided MidstreamPerformed By: #### CUU, CMP, PSATOTAL, CBC, ADDONUAPLUS, TSH3, A1C WTH eA #### [place] [address] [place] #### APOB #### [facility] ,Occult Blood,UrineNegativeNormalNegativeThe [facility] Access Hospital Physician GroupComment on above:Order Comment: Name Collection Type:: Clean-Voided MidstreamPerformed By: #### CUU, CMP, PSATOTAL, CBC, ADDONUAPLUS, TSH3, A1C WTH eA #### [address] #### APOB #### [facility] ,Protein,UrineNegativeNormalNegativeThe Critical Access Hospital Physician GroupComment on above:Order Comment: Name Collection Type:: Clean-Voided MidstreamPerformed By: #### CUU, CMP, PSATOTAL, CBC, ADDONUAPLUS, TSH3, A1C WTH eA #### [address] #### APOB #### [facility] ,RBC,Mvhil3-6Hviuqb7-7Ftl [facility] Physician GroupComment on above:Order Comment: Name Collection Type:: Clean-Voided MidstreamPerformed By: #### CUU, CMP, PSATOTAL, CBC, ADDONUAPLUS, TSH3, A1C WTH eA #### [address] #### APOB #### [facility] ,Specificy [place],Urine1.405Zpylvn3.001-1.030The [facility] Comment on above:Order Comment: Name Collection Type:: Clean-Voided Midstream Performed By: #### CUU, CMP, PSATOTAL, CBC, ADDONUAPLUS, TSH3, A1C WTH eA #### [place] [address] [place] #### APOB #### [facility] ,Squamous Epithelial Cell,Ezlkw1-2Ufhrfj6-3Ltx [facility] Physician GroupComment on above:Order Comment: Name Collection Type:: Clean-Voided MidstreamPerformed By: #### CUU, CMP, PSATOTAL, CBC, ADDONUAPLUS, TSH3, A1C WTH eA #### [facility] [address] [place] [address] [place] #### APOB #### [facility] ,Urobilinogen,UrineNormalNormalNormalThe Critical Access Hospital Physician GroupComment on above:Order Comment: Name Collection Type:: Clean-Voided MidstreamPerformed By: #### CUU, CMP, PSATOTAL, CBC, ADDONUAPLUS, TSH3, A1C WTH eA #### [facility] [address] [place] [address] [place] #### APOB #### [facility] ,WBC,Yjbfj1-9Bmpeez8-6Xgb [facility] Hospital Physician GroupComment on above:Order Comment: Name Collection Type:: Clean-Voided MidstreamPerformed By: #### CUU, CMP, PSATOTAL, CBC, ADDONUAPLUS, TSH3, A1C WTH eA #### [facility] [address] [place] [address] [place] #### APOB #### [facility] ,Eosinophils Auto (Bld) [#/Vol]Ordered By: Saeed Gomez on 55-74-5923Fbzuclziogp (Bld) [#/Vol]Automated eosinophil count0.0-0.45[facility] CenterEosinophils/100 WBC Auto (Bld)Ordered By: Saeed Gomez on 11-12-2024 Eosinophils/100 WBC (Bld)Automated eosinophil %.[facility] Medical CenterEpithelial cells.squamous [#/area] in Urine sediment by Automated count Ordered By: Saeed Gomez on 67-52-1114Shzchgsbbo cells.squamous Auto (Urine sed) [#/Area]Epithelial cells.squamous [#/area] in Urine sediment by Automated count 0-[facility] Health CenterEpithelial cells.squamous Auto (Urine sed) [#/Area]1-2 [HPF]0-2FSamaritan North Health CenterErythrocyte distribution width Auto (RBC) [Ratio]Ordered By: Saeed Gomez on 25-57-3390Evifsegkldc distribution width (RBC) [Ratio]Erythrocyte distribution width [Ratio] by Automated count12.0-14.8[facility] CenterErythrocytes [#/area] in Urine sediment by Automated countOrdered By: Saeed Gomez on 12-00-9053IYQ Auto (Urine sed) [#/Area]Erythrocytes [#/area] in Urine sediment by Automated count0-4FSamaritan North Health CenterRBC Auto (Urine sed) [#/Area]1-2 [HPF] 0-4FSamaritan North Health CenterGlobulin Calc (S) [Mass/Vol]Ordered By: Saeed Gomez on 20-84-9571Kvtkbydj (S) [Mass/Vol]Serum globulin measurement by calculation (mass/volume)[facility] CenterGlucose [Mass/volume] in Serum or PlasmaOrdered By: Saeed Gomez on 18-53-6131Cjannag [Mass/Vol] Glucose [Mass/volume] in Serum or KueqbcPcms48-123NtslycsqlOhiohealth Southeastern Medical CenterComment on above:ADA recommended reference rangeRandom Glucose Reference Range is dependent on time and content of last meal. Glucose of more than 200 mg/dL in a nonstressed, ambulatory subject supports the diagnosisof Diabetes Mellitus.Glucose [Mass/volume] in Urine by Test stripOrdered By: Saeed Gomez on 44-31-2767Fgogrmr Test strip (U) [Mass/Vol]Glucose [Mass/volume] in Urine by Test stripNoAultman Alliance Community HospitalGlucose Test strip (U) [Mass/Vol]Normal mg/dLNormBlanchard Valley Health SystemHematocrit Auto (Bld) [Volume fraction]Ordered By: Saeed Gomez on 05-69-4729Bofgaafywk (Bld) [Volume fraction]Hematocrit [Volume Fraction] of Blood by Automated count 38.8-50.0[facility] CenterHemoglobin A1c/Hemoglobin.total in BloodOrdered By: Saeed Gomez on 34-54-4152QtN3k (Bld) [Mass fraction]Hemoglobin A1c percentage4.3-5.6FSamaritan North Health CenterComment on above:Increased risk for diabetes: 5.7 - 6.4diabetes: >6.4glycemic control for adults with diabetes: <7.0Hemoglobin Test strip Ql (U)Ordered By: Saeed Gomez on 17-88-5754Ijdendtntu Ql (U)Hemoglobin [Presence] in Urine by Test stripNegative [facility] CenterHemoglobin Ql (U)NegativeNegativeOhiohealth Southeastern Medical CenterHemoglobin [Mass/volume] in BloodOrdered By: Saeed Gomez on 16-58-3167Daoneyysca (Bld) [Mass/Vol]Hemoglobin [Mass/volume] in Blood 13.0-17.0[facility] Medical CenterHyaline casts [#/area] in Urine sediment by Automated countOrdered By: Saeed Gomez on 13-78-7918Mgldowc casts Auto (Urine sed) [#/Area]Hyaline casts [#/area] in Urine sediment by Automated count0-8[facility] Medical CenterHyaline casts Auto (Urine sed) [#/Area] None [LPF]0-8[facility] CenterKetones Test strip Ql (U)Ordered By: Saeed Gomez on 75-78-1320Zqbsgdn Ql (U)Ketones [Presence] in Urine by Test stripNegativeOhiohealth Southeastern Medical CenterLeukocyte esterase [Presence] in Urine by Test stripOrdered By: Saeed Gomez on 56-19-5992Bcuxuobzz esterase Test strip Ql (U)Leukocyte esterase [Presence] in Urine by Test stripNegative [facility] CenterLeukocytes [#/area] in Urine sediment by Automated countOrdered By: Saeed Gomez on 46-97-0132QPN Auto (Urine sed) [#/Area]Leukocytes [#/area] in Urine sediment by Automated count0-4FSamaritan North Health CenterWBC Auto (Urine sed) [#/Area]1-2 [HPF]0-4FSamaritan North Health CenterLeukocytes [#/volume] corrected for nucleated erythrocytes in Blood by Automated counOrdered By: Saeed Gomez on 45-59-3104FYF corrected for nucl RBC Auto (Bld) [#/Vol]Leukocytes [#/volume] corrected for nucleated erythrocytes in Blood by Automated counLow4.1-10.5FSamaritan North Health CenterWBC corrected for nucl RBC Auto (Bld) [#/Vol]3.9 10*3/uLLow 4.1-10.5FSamaritan North Health CenterLymphocytes Auto (Bld) [#/Vol]Ordered By: Saeed Gomez on 34-38-9599Xwztvczuqtn (Bld) [#/Vol]Lymphocytes [#/volume] in Blood by Automated count1.00-4.8[facility] Lymphocytes/100 WBC Auto (Bld)Ordered By: Saeed Gomez on 11-12-2024 Lymphocytes/100 WBC (Bld)Lymphocytes/100 leukocytes in Blood by Automated count. [facility] NorthH Auto (RBC) [Entitic mass]Ordered By: Saeed Gomez on 22-02-2191HGH (RBC) [Entitic mass]MCH [Entitic mass] by Automated count27.5-35.2FSamaritan North Health CenterMCHC Auto (RBC) [Mass/Vol]Ordered By: Saeed Gomez on 08-80-4469SINH (RBC) [Mass/Vol]MCHC [Mass/volume] by Automated count32.5-35.6FSamaritan North Health CenterMCHC (RBC) [Mass/Vol] 34.9 g/dL32.5-35.6FSamaritan North Health CenterMCV Auto (RBC) [Entitic vol] Ordered By: Saeed Gomez on 46-53-0557OTA (RBC) [Entitic vol]MCV [Entitic volume] by Automated count83.5-101Ohio[facility] Medical CenterMonocytes Auto (Bld) [#/Vol]Ordered By: Saeed Gomez on 87-34-7972Sxyehphmh (Bld) [#/Vol] Automated blood monocyte count0.0-0.8[facility] Monocytes/100 WBC Auto (Bld)Ordered By: Saeed Gomez on 45-36-7139Yfuhjtvtx/100 WBC (Bld)Automated monocyte %.[facility] CenterMucus [Presence] in Urine by AutomatedOrdered By: Saeed Gomez on 99-74-6351Dvcap Auto Ql (U) Mucus [Presence] in Urine by AutomatedOhiohealth Southeastern Medical CenterMucus Auto Ql (U)Rare [LPF][facility] CenterNeutrophils Auto (Bld) [#/Vol]Ordered By: Saeed Gomez on 17-98-0950Jbiytkkigtm (Bld) [#/Vol] Neutrophils [#/volume] in Blood by Automated count1.8-7.7FSamaritan North Health CenterNeutrophils/100 WBC Auto (Bld)Ordered By: Saeed Gomez on 86-47-9853Nsdycluowyr/100 WBC (Bld)Automated neutrophil %.[facility] CenterNitrite Test strip Ql (U)Ordered By: Saeed Gomez on 11-12-2024 Nitrite Ql (U)Nitrite [Presence] in Urine by Test stripNegativeOhiohealth Southeastern Medical CenterNitrite Ql (U)NegativeNegativeOhiohealth Southeastern Medical CenterNo Panel InformationOrdered By: Saeed Gomez on 62-59-8120Tqlvukpjz GFR (CKD-EPI)> 60.0 mL/MinOhiohealth Southeastern Medical CenterPharmacy Creatinine Clearance (ChemN/AFSamaritan North Health CenterNucleated erythrocytes [Presence] in Blood by Automated countOrdered By: Saeed Gomze on 11-12-2024 Nucleated RBC Auto Ql (Bld)Nucleated erythrocytes [Presence] in Blood by Automated count0-0.5FSamaritan North Health CenterNucleated RBC Auto Ql (Bld) 0.1 /100{WBC}0-0.5FSamaritan North Health CenterPSA Total (Not a Screen)on 59-34-8273HQG Total (Not a Screen)1.370 ng/mLNormal0.000-4.000The [facility] Access Hospital Physician GroupComment on above:Result Comment: Serial tumor marker results determined by assays using different manufacturers or methods may not be comparable. [facility] pigskin trimmer and method: BAY UNICEL DXI, CHEMILUMINESCENT IMMUNOASSAY. PERFORMED BY: [place] [address] PATHOLOGIST SECURITIES COUNSELOR KEN ETIENNE M.D.Performed By: #### CUU, CMP, PSATOTAL, CBC, ADDONUAPLUS, TSH3, A1C WTH #### [place] [address] [place] #### APOB #### [facility] ,Platelet mean volume Auto (Bld) [Entitic vol]Ordered By: Saeed Gomez on 10-68-0615Btokuctd mean volume (Bld) [Entitic vol]Platelet mean volume [Entitic volume] in Blood by Automated count6.6-10.1FSamaritan North Health Center Platelets Auto (Bld) [#/Vol]Ordered By: Saeed Gomez on 92-81-1878Rmifxqeyz (Bld) [#/Vol]Platelets [#/volume] in Blood by Automated fibpp617-037LkrcqvsewOhiohealth Southeastern Medical CenterPotassium [Moles/volume] in Serum or PlasmaOrdered By: Saeed Gomez on 60-93-2542Wjlymrbfj [Moles/Vol]Potassium [Moles/volume] in Serum or Plasma3.5-5.1FSamaritan North Health CenterProstate specific Ag [Mass/volume] in Serum or PlasmaOrdered By: Saeed Gomez on 81-04-5097Kkvmrqxd specific Ag [Mass/Vol]Prostate specific Ag [Mass/volume] in Serum or Plasma 0.000-4.000[facility] Medical CenterComment on above:Serial tumor marker results determined by assays using different manufacturers or methods may not be comparable.[facility] pigskin trimmer and method:CounterTack DXI, CHEMILUMINESCENT IMMUNOASSAY.Prostate specific Ag [Mass/Vol]1.370 ng/mL 0.000-4.000Ohio[facility] Medical CenterComment on above:Serial tumor marker results determined by assays using different manufacturers or methods may not be comparable.[facility] pigskin trimmer and method:CounterTack DXI, CHEMILUMINESCENT IMMUNOASSAY.Protein Test strip (U) [Mass/Vol]Ordered By: Saeed Gomez on 06-84-1975Axptgcu (U) [Mass/Vol]Protein [Mass/volume] in Urine by Test stripNegativeOhiohealth Southeastern Medical CenterProtein (U) [Mass/Vol]Negative NegativeOhiohealth Southeastern Medical CenterProtein [Mass/volume] in Serum or PlasmaOrdered By: Saeed Gomez on 01-43-7497Bdlxikg [Mass/Vol]Protein [Mass/volume] in Serum or Plasma6.4-8.9[facility] CenterRBC Auto (Bld) [#/Vol]Ordered By: Saeed Gomez on 62-54-6125CRJ (Bld) [#/Vol] Erythrocytes [#/volume] in Blood by Automated count3.90-5.60[facility] Hospitalerum or plasma albumin/globulin mass ratioOrdered By: Saeed Gomez on 05-47-8898Budlhpz/Globulin [Mass ratio]Serum or plasma albumin/globulin mass ratioParkview Health Montpelier Hospitalerum or plasma anion gap determinationOrdered By: Saeed Gomez on 79-61-1968Cyckr gap [Moles/Vol]Serum or plasma anion gap determination6.0-15.0[facility] Hospitalodium [Moles/volume] in Serum or PlasmaOrdered By: Saeed Gomez on 91-04-9519Jsfxoa [Moles/Vol]Sodium [Moles/volume] in Serum or Zrhfjl038-192 [facility] Hospitalpecific gravity Test strip (U) [Rel density] Ordered By: Saeed Gomez on 29-13-2281Gfrlieip gravity (U) [Rel density]Specific gravity of Urine by Test strip1.001-1.030[facility] Specific gravity (U) [Rel density]1.0251.001-1.030[facility] CenterThyroid Stimulating HormoneOrdered By: Saeed Gomez on 22-29-1386IHO Qn 3.05 m[IU]/L0.45-5.33[facility] Medical CenterComment on above:Result Comment: PERFORMED BY: [address] [place] [address] PATHOLOGIST SECURITIES COUNSELOR KEN ETIENNE M.D.Performed By: #### CUU, CMP, PSATOTAL, CBC, ADDONUAPLUS, TSH3, A1C WTH #### [address] #### APOB #### [facility] ,Thyrotropin [Units/volume] in Serum or PlasmaOrdered By: Saeed Gomez on 34-40-1174QIP QnThyrotropin [Units/volume] in Serum or Plasma0.45-5.33[facility] CenterUrea nitrogen [Mass/volume] in Serum or PlasmaOrdered By: Saeed Gomez on 95-15-7791Zhyi nitrogen [Mass/Vol]Urea nitrogen [Mass/volume] in Serum or Plasma7-25[facility] Medical CenterUrine Cultureon 65-07-2234Ijwmgybs identified Cx Nom (U)No Growth 2 Days PERFORMED BY: [address] [place] [address] PATHOLOGIST SECURITIES COUNSELOR KEN ETIENNE M.D.NormalThe [facility] Access Hospital Physician GroupComment on above: Performed By: #### CUU, CMP, PSATOTAL, CBC, ADDONUAPLUS, TSH3, A1C WTH eA #### [facility] [address] [place] [address] [place] #### APOB #### [facility] ,Urine cultureOrdered By: Saeed Gomez on 62-40-0326Awlqhnoq identified Cx Nom (U)Urine cultureOhiohealth Southeastern Medical CenterBacteria identified Cx Nom (U) No Growth 2 DaysOhiohealth Southeastern Medical CenterUrobilinogen Test strip (U) [Mass/Vol]Ordered By: Saeed Gomez on 09-53-3348Loyuttiikavl (U) [Mass/Vol] Urobilinogen [Mass/volume] in Urine by Test stripNormBlanchard Valley Health SystemUrobilinogen (U) [Mass/Vol]Normal mg/dLNormBlanchard Valley Health SystemWBC Auto (Bld) [#/Vol]Ordered By: Saeed Gomez on 12-35-4293LMD (Bld) [#/Vol]Leukocytes [#/volume] in Blood by Automated countLow4.1-10.5 [facility] CenterpH Test strip (U)Ordered By: Saeed Gomez on 23-05-4362iS (U)pH of Urine by Test strip5.0-9.0[facility] CenterBasophils Auto (Bld) [#/Vol]on 16-67-2597Qajytfmhl (Bld) [#/Vol]0.0 10 3/uL0.0-0.1FSamaritan North Health CenterBasophils/100 WBC Auto (Bld)on 23-25-3490Hirkdmmfl/100 WBC (Bld)0.2 %0.2-2.0[facility] Eosinophils/100 WBC Auto (Bld)on 25-08-4419Kbezvtweapc/100 WBC (Bld)1.0 %0.9-7.0 [facility] CenterErythrocyte distribution width Auto (RBC) [Ratio]on 49-19-4762Wpdycngnxau distribution width (RBC) [Ratio]12.0 %11.0-15.0 [facility] CenterEstimated glomerular filtration rate (GFR) non- Americanon 13-08-5400WWQ/1.73 sq M.predicted among non-blacks MDRD (S/P/Bld) [Vol rate/Area]mL/min/{1.73_m2}>=60[facility] Globulin Calc (S) [Mass/Vol]on 35-16-5233Usqlyofz (S) [Mass/Vol]3.1 g/dL [facility] CenterGlucose mean value [Mass/volume] in Blood Estimated from glycated hemoglobinon 94-48-2510Gjrqfon glucose Estimated from glycated hemoglobin (Bld) [Mass/Vol]117 mg/dLOhiohealth Southeastern Medical Center Hematocrit Auto (Bld) [Volume fraction]on 74-20-3408Wvtsvkxwxo (Bld) [Volume fraction]42.1 %42.0-54.0[facility] CenterHemoglobin [Mass/volume] in Bloodon 60-16-4729Rxdtjxfzve (Bld) [Mass/Vol]14.8 g/dL14.0-18.0 [facility] CenterLaboratory - Chemistry and Chemistry - challengeon 15-43-5340Xxumhki [Mass/Vol]4.1 g/dL3.4-5.0[facility] CenterALP [Catalytic activity/Vol]87 U/A27-711XnkzexwmjOhiohealth Southeastern Medical CenterALT [Catalytic activity/Vol]30 U/T28-55JqtvfpoycOhiohealth Southeastern Medical Center AST [Catalytic activity/Vol]30 U/L60-71TcfpsxjlkOhiohealth Southeastern Medical Center Bilirubin [Mass/Vol]1.9 mg/dL0.2-1.0[facility] CenterCalcium [Mass/Vol]9.1 mg/dL8.5-10.1FSamaritan North Health CenterChloride [Moles/Vol] 101 mmol/N43-381WiesiygkjOhiohealth Southeastern Medical CenterCO2 [Moles/Vol]26.2 mmol/L 21.0-32.0[facility] CenterCreatinine [Mass/Vol]0.82 mg/dL 0.70-1.30[facility] CenterGFR/1.73 sq M.predicted MDRD (S/P/Bld) [Vol rate/Area]mL/min/{1.73_m2}>=60[facility] CenterGlucose [Mass/Vol]98 mg/aF96-549GrdjzzuunOhiohealth Southeastern Medical CenterPotassium [Moles/Vol] 3.5 mmol/L3.5-5.1FSamaritan North Health CenterProtein [Mass/Vol]7.2 g/dL 6.4-8.2FOhioHealth Grant Medical Centerodium [Moles/Vol]139 mmol/C998-095 [facility] CenterTSH Qn1.905 m[IU]/L0.358-3.740[facility] CenterUrea nitrogen [Mass/Vol]17.0 mg/dL7.0-18.0[facility] CenterUrea nitrogen/Creatinine [Mass ratio]20.7 mg/mgOhiohealth Southeastern Medical CenterBilirubin Ql (U)NegativeNEGATIVEOhiohealth Southeastern Medical CenterGlucose (U) [Mass/Vol]NegativeNEGATIVEOhiohealth Southeastern Medical CenterKetones Ql (U)40 mg/dLNEGATIVEOhiohealth Southeastern Medical CenterpH (U)5.5 [pH]5.0-9.0[facility] Hospitalpecific gravity (U) [Rel density] >=1.0301.005-1.025[facility] Medical CenterUrobilinogen Qn (U)0.2 {Nirmala'U}/dL0.2-1.0[facility] CenterLaboratory - Hematology and Cell countson 05-12-2126BzH7w (Bld) [Mass fraction]5.7 %4.5-6.2FSamaritan North Health CenterComment on above:ADA RECOMMENDED LIMIT 4.0 - 6.0ADA THERAPEUTIC TARGET < 7.0ACTION SUGGESTED> 7.0Immature granulocytes/100 WBC (Bld) 0.2 %0.0-0.5FSamaritan North Health CenterLaboratory - Specimen informationon 28-72-7241Laotqlcqbi (U)CLEARCLEARFSamaritan North Health CenterColor (U) YELLOWYELLOWOhiohealth Southeastern Medical CenterLaboratory - Urinalysison 96-87-6743Edlcbvwno esterase Test strip Ql (U)NegativeNEGSelect Medical Specialty Hospital - AkronMucus Ql (Urine sed)MODERATENONE SEENOhiohealth Southeastern Medical CenterNitrite Ql (U)NegativeNEGATIVEOhiohealth Southeastern Medical CenterProtein Ql (U)NegativeNEG/TRACEOhiohealth Southeastern Medical CenterLeukocytes [#/volume] corrected for nucleated erythrocytes in Blood by Automated counon 24-46-8266GPT corrected for nucl RBC Auto (Bld) [#/Vol]5.1 10 3/uL4.0-11.0[facility] CenterLymphocytes Auto (Bld) [#/Vol]on 34-14-3760Aqsolabxthh (Bld) [#/Vol]0.9 10 3/uL1.2-3.8[facility] CenterLymphocytes/100 WBC Auto (Bld)on 32-15-2566Ehsznsjsriu/100 WBC (Bld)17.4 %20.5-60.0[facility] NorthH Auto (RBC) [Entitic mass]on 27-17-6702NRD (RBC) [Entitic mass]31.3 pg25.9-34.0[facility] CenterMCHC Auto (RBC) [Mass/Vol]on 56-83-6207PRKQ (RBC) [Mass/Vol]35.2 g/dL29.9-35.2FSamaritan North Health CenterMCV Auto (RBC) [Entitic vol]on 28-08-6036XQA (RBC) [Entitic vol] 89.0 fL80.0-94.0[facility] CenterMonocytes Auto (Bld) [#/Vol]on 65-70-8212Yknjavwom (Bld) [#/Vol]0.4 10 3/uL0.3-0.8[facility] CenterMonocytes/100 WBC Auto (Bld)on 14-30-5111Qhxdrzqip/100 WBC (Bld)8.7 % 1.7-12.0[facility] Medical CenterNeutrophils Auto (Bld) [#/Vol]on 85-39-9220Cvpmnodtady (Bld) [#/Vol]3.7 10 3/uL1.4-6.5FSamaritan North Health CenterNeutrophils/100 WBC Auto (Bld)on 18-31-4754Qefeslqigkb/100 WBC (Bld)72.5 % 43.0-75.0[facility] CenterNo Panel Informationon 11-17-2023 Eosinophils # (Auto)0.1 10 3/uL0.0-0.7FSamaritan North Health CenterImmature Granulocyte # (Auto)0.01 10 3/uL0.00-0.03[facility] Prostate Specific Antigen Total0.70 ng/mL<=4.00[facility] Urine BacteriaNONE SEEN #/HPFNONE [facility] TownshipUrine Calcium Oxalate CrystalsMODERATEOhiohealth Southeastern Medical CenterUrine Occult BloodNegativeNEGATIVEOhiohealth Southeastern Medical CenterUrine Other CastsNONE SEEN #/LPFNONE [facility] TownshipUrine Other CrystalsSeen #/HPF None SeenOhiohealth Southeastern Medical CenterUrine RBC0-2 #/HPF0-2FSamaritan North Health CenterUrine Squamous Epithelial CellsRARE #/LPFNONE/RARE [facility] CenterUrine WBC0-2 #/HPFNONE [facility] TownshipPlatelet mean volume Auto (Bld) [Entitic vol]on 68-71-2821Hshlitsm mean volume (Bld) [Entitic vol]10.3 fL9.5-13.5FSamaritan North Health Center Platelets Auto (Bld) [#/Vol]on 34-64-0906Xnqayfkee (Bld) [#/Vol]181 10 3/uL 150-450[facility] Medical CenterRBC Auto (Bld) [#/Vol]on 14-02-8411MDC (Bld) [#/Vol]4.73 10 6/uL4.70-6.10[facility] Hospitalerum or plasma albumin/globulin mass ratioon 49-64-6748Ffoqjwc/Globulin [Mass ratio]1.3 {ratio}[facility] Hospitalerum or plasma anion gap determination on 61-91-2542Oiabr gap [Moles/Vol]15.3 mmol/LFSamaritan North Health Center PUJA - LIPID PROFILEon 80-98-5560WRRN-HDL RATIO NORMSMiddletown HospitalComtrinity health [facility] hospital on above:Result Comment: 3.3 - 4.4 LOW RISK 4.4 - 7.1 AVERAGE RISK 7.1 - 11.0 MODERATE RISK >11.0 HIGH RISKPerformed By: #### DATLIPI #### [facility] [address] [address] [address] Shane HintonCholesterol [Mass/Vol]262 mg/dLCritically high<=200[facility] on above:Performed By: #### DATLIPI #### [facility] [address] [place] [address] Dr. Shane HintonCholesterol in HDL [Mass/Vol]51 mg/wTGisbzb23-31ZpfSamaritan North Health Center on above:Performed By: #### DATLIPI #### [facility] [address] [place] [address] Dr. Shane HintonCholesterol in LDL [Mass/Vol]187.0 mg/dLCommunity Regional Medical CenterComtrinity health shelby hospital on above:Performed By: #### DATLIPI #### [facility] [address] [place] [address] Dr. Shane HintonCholesterhenrry.total/Cholesterol in HDL [Mass ratio]5.1 {ratio} NormalThe [facility] on above:Performed By: #### DATLIPI #### [facility] [address] [place] [address] Dr. Shane HintonHDL NORMAL> or = 60 mg/dl - LOW CARDIOVASCULAR RISK <40 mg/dl - HIGH CARDIOVASCULAR RISKCommunity Regional Medical CenterComtrinity health [facility] on above:Performed By: #### DATLIPI #### [facility] [address] [place] [address] Dr. Shane HintonLDL CALC NORMALSEE [facility] HospitalComtr[facility] on above:Result Comment: <100 mg/dl OPTIMAL 100 - 129 mg/dl NEAR OR ABOVE OPTIMAL 130 - 159 mg/dl BORDERLINE HIGH 160 - 189 mg/dl HIGH >190 mg/dl VERY HIGH Performed By: #### DATLIPI #### [facility] [address] [address] [address] Shane HintonTriglyceride [Mass/Vol]120 mg/dLNormal<=150The [facility] Comment on above:Performed By: #### DATLIPI #### [facility] [address] [address] [address] Shane HintonVLDL CALC24.0 mg/dLNoSt. Elizabeth HospitalComment on above: Performed By: #### DATLIPI #### [facility] [address] [address] [address] Shane Baker - LIPID PROFILEon 68-39-6908UARD-HDL RATIO NORMSEE BELOW NormalThe [facility] HospitalComment on above:Result Comment: 3.3 - 4.4 LOW RISK 4.4 - 7.1 AVERAGE RISK 7.1 - 11.0 MODERATE RISK >11.0 HIGH RISKPerformed By: #### DATLIPI #### [facility] [address] [place] [address] Dr. Shane HintonCholesterol [Mass/Vol]196 mg/dLNormal<=200The [facility] Comment on above:Performed By: #### DATLIPI #### [facility] [address] [place] [address] Dr. Shane Ahnesterol in HDL [Mass/Vol]39 mg/dLCritically rsj63-45Vdx [facility] HospitalComment on above:Performed By: #### DATLIPI #### [facility] [address] [place] [address] Dr. Shane Ahnesterol in LDL [Mass/Vol]129.6 mg/dLNoSt. Elizabeth HospitalComment on above:Performed By: #### DATLIPI #### [facility] [address] [place] [address] Dr. Shane Lazo.total/Cholesterol in HDL [Mass ratio]5.0 {ratio} NormalThe [facility] HospitalComment on above:Performed By: #### DATLIPI #### [facility] [address] [place] [address] Dr. Shane PickensL NORMAL> or = 60 mg/dl - LOW CARDIOVASCULAR RISK <40 mg/dl - HIGH CARDIOVASCULAR RISKCommunity Regional Medical CenterComment on above:Performed By: #### DATLIPI #### [facility] [address] [place] [address] Dr. Shane HintonLDL CALC NORMALSEE BELOWCommunity Regional Medical CenterComment on above:Result Comment: <100 mg/dl OPTIMAL 100 - 129 mg/dl NEAR OR ABOVE OPTIMAL 130 - 159 mg/dl BORDERLINE HIGH 160 - 189 mg/dl HIGH >190 mg/dl VERY HIGH Performed By: #### DATLIPI #### [facility] [address] [place], [place] [address] Dr. Shane HintonTriglyceride [Mass/Vol]137 mg/dLNormal<=150[facility] [place] [facility] Comment on above:Performed By: #### DATLIPI #### [facility] [address] [place] [address] [address] [address] Shane HintonVLDL CALC27.4 mg/dLCommunity Regional Medical CenterComment on above: Performed By: #### DATLIPI #### [facility] [address] [place] [address] [address] [address] Shane Ramos Visit (Cardiology)on 87-93-3750Flpzcy-up visit Diagnoses/Problems Assessed Hyperlipemia (272.4) (E78.5) Body [...] Follow up in 9 months Chief Complaint JAVAD COLORADO is being seen for Testing f/u. History of Present Illness Returns in follow-up of problems as noted. In the interim he underwent echocardiography and it was normal. Because of this I advised him and his that although we do not know what his arrhythmia was it is not a life- threatening circumstance and because of this we propose no further testing or ev aluation. They did purchase a Kardia device and [...] Daily Magnesium Citrate CAPSTAKE 1 CAPSULE Daily [place] 3 1200 MG Oral CapsuleTAKE 1 CAPSULE [...] negative for complaint. Vitals Vital Signs Recorded: 14Oyy2601 10:30AMRecorded: 47Asl7250 09:53AM Acazqlet718, LUE, Vfbdrfv102, LUE, Sitting Mozyycmku27, LUE, Pfjeadk00, LUE, Sitting Heart Rate72, R Radial Height5 ft 11 in Hlqrig628 lb BMI Wnkqkuouiw39.97 kg/m2 BSA Calculated2.01 Tobacco Useb) No Falls [...] time . Signatures Electron (more content not included)...NormalUH TouchworksTobacco Screening.on 98-22-0664Ldux risk assessmentc) Not medically indicated-[facility] 600 DO Work Phone: Tobacco use status CPHSb) NoMP-[facility] 600 DO Work Phone: Echocardiogramon [phone] [address], Suite [facility], [place] [address] TRANSTHORACIC ECHOCARDIOGRAM REPORT Patient Name: JAVAD COLORADO Reading Physician: [id number] Latrell Roberto MD Study Date: 02/10/2022 Referring Physician: [id number] LATRELL ROBERTO MRN/PID: [id number] PCP: Saeed Gomez Accession/Order#: [id number] Department Location: [facility]on Bunch Date of : 1955 Fellow: Gender: M Nurse: Admit Date: Mortgage Counselor: Amira Abdul RDCS, RVT Height: 180.34 cm CC Report to: Weight: 81.65 kg Study Type: Echocardiogram BSA: 2.02 m2 Blood Pressure: 164 /86 mmHg Diagnosis/ICD: R06.00-Dyspnea, unspecified; R00.2-Palpitations Indication: Hyperlipidemia, Family History of CAD Procedure/CPT: Echo Complete w Full Doppler-[id number] Study Detail: The following Echo studies were [...] visualized. There is no indication of pulmonic valveregurgitation. Pericardium: There is no pericardial effusion noted. [...] 0.7 m/s (0.6-0.9m/s) PV Max P.9 mmHg [id number] Latrell Roberto MD Electronically signed on 02/14/2022 at 4:05:38 PM Final NormalEvans Army Community HospitalEchocardiographyPlease click on the link to view the study imagesNormalSkag[facility] [address] [place] Work Phone: Falls Screening (Age 18+)on 29-87-5576Pqwd risk assessmenta) No falls within the last yearSkagit [facility] [place] [address] [place] Work Phone: CT Cardiac Scoringon 90-05-1243LK Cardiac Scoring NormalSkagit Valley Hospital [facility] 250 DO Work Phone: Office Visit (Cardiology)on 70-32-0009Fiofku-up visit Diagnoses/Problems Assessed Palpitation (785.1) (R00.2) Dyspnea (786.09) (R06.00) Overweight with body mass index (BMI) of 25 to 25.9 in adult (278.02,V85.21) (E66.3,Z68.25) Never a smoker Hyperlipemia (272.4) (E78.5) Orders Dyspnea, Palpitation Echocardiogram; Status:Hold For - Scheduling; Requested for:85Upe2746; Overweight with body mass index (BMI) of 25 to 25.9 in adult Healthy Weight Tips; Status:Complete; Done: 36Dki4210 Palpitation IO EKG Electrocardiogram- 12 Lead; Status:Complete; Done: 52Wuo4693 SocHx: Never a smoker Tobacco Use Screening; Status:Complete; Done: 13Hef8346 Patient Instructions By signing my name below, IRobyn LPN, Scribsalazar, attest that this documentation has been prepared under the direction and in the presence of Dr. Latrell Roberto MD. All medical record entries made by the Scribe were at my direction and personally dictated by me. Ihave reviewed the chart and agree that the [...] visit. Follow-up after testing completed Chief Complaint JAVAD COLORADO is being seen for a consultation for Palpitations/Lightheaded/ High LDL. History of Present Illness Patient [...] Daily Magnesium Citrate CAPSTAKE 1 CAPSULE Daily [place] 3 1200 MG Oral CapsuleTAKE 1 CAPSULE [...] negative for complaint. Vitals Vital Signs Recorded: 79Akn3537 10:27AMRecorded: 96Eob2504 10:25AM Drayyiqb923, LUE, Nkdmwoj483, RUE, Sitting Kjvsvcqpp18, LUE, Iuxwjgv56, RUE, Sitting Heart Rate82, Apical Height5 ft 11 in Cxiaoc004 lb BMI Jswzqncmpt53.11 kg/m2 BSA Calculated2.02 Tobacco Useb) No PHQ-2 #1. Over the last 2 weeks have you felt down, depressed or hopeless? (If yes, answer PHQ-9 below)No PHQ-2 #2. Over the last 2 weeks have you felt little interest or pleasur (more content not included)...NormalUH TouchworksTobacco Screening.on 27-22-7245Flffx depression screening assessmentButler Hospital [facility] [employer] DO Work Phone: Fall risk assessmenta) No falls within the last year [facility] 600 DO Work Phone: Tobacco use status CPHSb) [facility] 600 DO Work Phone: CB AUTO DIFFon 25-87-0373FXCV #0.0 103/ulNormal 0.0-0.1[facility] [place] [facility] CenterComment on above:Performed By: #### CBC #### [facility] [address] [address] [address] Shane HintonBasophils/100 WBC (Bld)0.4 %Normal0.2-2.0[facility] [place] [facility] Comment on above:Performed By: #### CBC #### [facility] [address] [address] [address] Shane Keane #0.1 103/ulNormal0.0-0.7The [facility] HospitalComment on above: Performed By: #### CBC #### [facility] [address] [place] [address] Dr. Shane Thomasosinophils/100 WBC (Bld)2.1 %Normal0.9-7.0The [facility] Comment on above:Performed By: #### CBC #### [facility] [address] [place] [address] Dr. Shane Thomasrythrocyte distribution width (RBC) [Ratio]12.4 %Ywwmmo96.0-15.0 The [facility] HospitalComment on above:Performed By: #### CBC #### [facility] [address] [place] [address] Dr. Shane HintonHematocrit (Bld) [Volume fraction]44.8 %Nqqiip04.0-54.0The [facility] HospitalComment on above:Performed By: #### CBC #### [facility] [address] [place] [address] Dr. Shane HintonHemoglobin (Bld) [Mass/Vol]15.9 g/zDWbxhzh38.0-18.0The [facility] Companyment on above:Performed By: #### CBC #### [facility] [address] [place] [address] Dr. Shane Lind #0.02 10e3/ulNormal0.00-0.03The [facility] HospitalComment on above:Performed By: #### CBC #### [facility] [address] [place] [address] Dr. Shnae Lind %0.4 %Normal0.0-0.5The [facility] HospitalComment on above: Performed By: #### CBC #### [facility] [address] [place] [address] Dr. Shane SimpsonH #1.3 103/ulNormal1.2-3.8The [facility] HospitalComment on above:Performed By: #### CBC #### [facility] [address] [place] [address] Dr. Shane Longmphocytes/100 WBC (Bld)26.5 %Itfnse74.5-60.0The [facility] on above:Performed By: #### CBC #### [facility] [address] [place] [address] Dr. Shane CurtisUAL DIFF REQNONormalThe [facility] HospitalComment on above: Performed By: #### CBC #### [facility] [address] [place] [address] Dr. Shane Villatoro (RBC) [Entitic mass]31.1 iqRbxhgp98.9-34.0The [facility] HospitalComment on above:Performed By: #### CBC #### [facility] [address] [place] [address] Dr. Shane Villatoro (RBC) [Mass/Vol]35.5 g/dLCritically high29.9-35.2The [facility] HospitalComment on above:Performed By: #### CBC #### [facility] [address] [place] [address] Dr. Shane Villatoro (RBC) [Entitic vol]87.7 yYHwmczs90.0-94.0The [facility] HospitalComtrinity health [facility] hospital on above:Performed By: #### CBC #### [facility] [address] [place] [address] Dr. Shane Sandoval #0.6 103/ulNormal0.3-0.8The [facility] HospitalComment on above:Performed By: #### CBC #### [facility] [address] [place] [address] Dr. Shane Gunterocytes/100 WBC (Bld)13.0 %Critically high1.7-12.0The [facility] on above:Performed By: #### CBC #### [facility] [address] [place] [address] Dr. Shane Nance #2.8 103/ulNormal1.4-6.5The [facility] HospitalComment on above:Performed By: #### CBC #### [facility] [address] [address] [address] Shane HintonNeutrophils/100 WBC (Bld)57.6 %Hsmjje09.0-75.0The [facility] on above:Performed By: #### CBC #### [facility] [address] [address] [address] Shane Del Rosariolet mean volume (Bld) [Entitic vol]9.4 fLCritically low 9.5-13.5The [facility] HospitalComment on above:Performed By: #### CBC #### [facility] [address] [place] [address] Dr. Shane HintonPLT184 103/mdFoozrc867-312Fop [facility] on above: Performed By: #### CBC #### [facility] [address] [place] [address] Dr. Shane HintonRBC5.11 106/ulNormal4.70-6.10The [facility] on above:Performed By: #### CBC #### [facility] [address] [place] [address] Dr. Shane HintonWBC4.9 103/ulNormal4.0-11.0The [facility] on above: Performed By: #### CBC #### [facility] [address] [place] [address] Dr. Shane HintonPROF 14(COMP METB)on 60-29-7819Utjhnxb [Mass/Vol]4.0 g/dLNormal 3.4-5.0The [facility] on above:Performed By: #### CMP, HSTROPN #### [facility] [address] [place] [address] Dr. Shane HintonAlbumin/Globulin [Mass ratio]1.2 {ratio}NormalThe [facility] on above:Performed By: #### CMP, HSTROPN #### [facility] [address] [place] [address] Dr. Shane GalavizP [Catalytic activity/Vol]74 U/AEnrtlq72-845Kga [facility] HospitalComment on above:Performed By: #### CMP, HSTROPN #### [facility] [address] [address] [address] Shane Oakes [Catalytic activity/Vol]45 U/NAudmkp10-19Cmf [facility] HospitalComment on above:Performed By: #### CMP, HSTROPN #### [facility] [address] [address] [address] Shane Skinneron gap [Moles/Vol]13.5 mmol/LNormalThe [facility] Comment on above:Performed By: #### CMP, HSTROPN #### [facility] [address] [place] [address] Dr. Shane Dave [Catalytic activity/Vol]34 U/AJqeenf77-89Eim [facility] HospitalComment on above:Performed By: #### CMP, HSTROPN #### [facility] [address] [place] [address] Dr. Shane HintonBilirubin [Mass/Vol]0.9 mg/dLNormal0.2-1.0[facility] [place] [facility] Comment on above:Performed By: #### CMP, HSTROPN #### [facility] [address] [place] [address] Dr. Shane HintonCalcium [Mass/Vol]8.8 mg/dLNormal8.5-10.1[facility] [place] [facility] Comment on above:Performed By: #### CMP, HSTROPN #### [facility] [address] [place] [address] Dr. Shane HintonChloride [Moles/Vol]106 mmol/CVvkdwf41-578DgbSouthern [place] Medical Center Comment on above:Performed By: #### CMP, HSTROPN #### [facility] [address] [place] [address] Dr. Shane HintonCO2 [Moles/Vol]26.2 mmol/SMbhpsh85.0-32.0[facility] Comment on above:Performed By: #### CMP, HSTROPN #### [facility] [address] [place] [address] Dr. Shane HintonCreatinine [Mass/Vol]1.00 mg/dLNormal0.70-1.30The [facility] HospitalComment on above:Performed By: #### CMP, HSTROPN #### [facility] [address] [address] [address] Shane ThomasGFR-AF MAURITIAN>60Normal>=60The [facility] HospitalComment on above:Performed By: #### CMP, HSTROPN #### [facility] [address] [address] [address] Shane ThomasGFR-NON AF MAURITIAN>60Normal>=60The [facility] HospitalComment on above:Performed By: #### CMP, HSTROPN #### [facility] [address] [address] [address] Shane HintonGlobulin (S) [Mass/Vol]3.3 g/dLNormalThe [facility] HospitalComment on above:Performed By: #### CMP, HSTROPN #### [facility] [address] [address] [address] Shane HintonGlucose [Mass/Vol]114 mg/dLCritically gpcf64-301Dhf [facility] HospitalComment on above:Performed By: #### CMP, HSTROPN #### [facility] [address] [address] [address] Shane HintonPotassium [Moles/Vol]3.7 mmol/LNormal3.5-5.1The [facility] Comment on above:Performed By: #### CMP, HSTROPN #### [facility] [address] [address] [address] Shane HintonProtein [Mass/Vol]7.3 g/dLNormal6.4-8.2The [facility] Comment on above:Performed By: #### CMP, HSTROPN #### [facility] [address] [address] [address] Shane HintonSodium [Moles/Vol]142 mmol/YWblgtr288-851Tpf [facility] Comment on above:Performed By: #### CMP, HSTROPN #### [facility] [address] [address] [address] Shane HintonUrea nitrogen [Mass/Vol]20.0 mg/dLCritically high7.0-18.0The [facility] HospitalComment on above:Performed By: #### CMP, HSTROPN #### [facility] [address] [address] [address] Shane HintonUrea nitrogen/Creatinine [Mass ratio]20.0 mg/mgNoSt. Elizabeth HospitalComment on above:Performed By: #### CMP, HSTROPN #### [facility] [address] [place] [address] Dr. Shane Gama, HIGH SENSITIVITYon 37-30-8367SJWKPW05.8 pg/mLNormal 4.0-76.1The [facility] on above:Result Comment: CUT-OFF POINTS HAVE BEEN ESTABLISHED BASED ON THE FOURTH UNIVERSAL DEFINITIONS OF MYOCARDIAL INFARCTION. THE UPPER REFERENCE LIMIT (URL) OF TROPONIN, DEFINED THE 99TH PERCENTILE OF cTnI DISTRIBUTION IN A REFERENCE POPULATION, HAS BEEN CONFIRMED THE DECISION THRESHOLD FOR [place] DIAGNOSIS.Performed By: #### KAYKAY, HSTROPN #### [facility] [address] [place] [address] Dr. Shane HintonXR CHEST 1 Von 58-25-6686EK CHEST 1 VEXAMINATION: XR CHEST 1 V HISTORY: Palpitations COMPARISON: [...] Electronically authenticated by: SAEED ARCE Date: 2021-11-08 23:12[facility] Vital Signs Date TimeVital SignValuePerforming BtxqoakmcNttcgrzp11-03-1812 13:14-0400Body ajtjgf043.34 cmDawinifred Gomez DO Work Phone: [phone] [place], [place] 6046809-16-2025 13:14-0400 Body mass index (BMI) [Ratio]25.4 kg/r8Tytam Girtee DO Work Phone: [phone])[address] [place], [place] 6046809-16-2025 13:14-0400 Body zeyfkcczqdp57.3 [degF]Saeed Gomez DO Work Phone: [phone])[address] [place], [place] 6046809-16-2025 13:14-0400 Body bidslx67.55 kgDawinifred Gomez DO Work Phone: [phone])[address] [place], [place] 6046809-16-2025 13:14-0400 Diastolic blood frprbipv06 mm[Hg]Saeed Gomez DO Work Phone: 1(624)[address] [place], [place] 6046809-16-2025 13:14-0400 Heart rate89 /minDavimarian Gomez DO Work Phone: [phone])[address] [place], [place] 6046809-16-2025 13:14-0400 SaO2% (BldA) [Mass fraction]96 %Saeed Gomez DO Work Phone: [phone])[address] [place], [place] 6046809-16-2025 13:14-0400 Systolic blood ptpnegux577 mm[Hg]Saeed Gomez DO Work Phone: 1(557)[address] [place], [place] 6046808-14-2025 11:01-0400 Body bnyhoi749.34 cmDawinifred Gomez DO Work Phone: [phone])[address] [place], [place] 6046808-14-2025 11:01-0400 Diastolic blood glrakrfi88 mm[Hg]Saeed Gomez DO Work Phone: [phone])[address] [place], [place] 6046808-14-2025 11:01-0400 Systolic blood eneixmtb474 mm[Hg]Saeed Gomez DO Work Phone: [phone])[address] [place], [place] 6046808-14-2025 10:53-0400 Body mass index (BMI) [Ratio]25.4 kg/q1Zflrgwinifred Gomez DO Work Phone: [phone])[address] [place], [place] 6046808-14-2025 10:53-0400 Body ycazpividbc00.5 [degF]Saeed Gomez DO Work Phone: 1(671)[address] [place], [place] 6046808-14-2025 10:53-0400 Body niojuv37.55 kgDavid Piotrvin DO Work Phone: 1(965)[address] [place], [place] 6046808-14-2025 10:53-0400 Heart rate84 /Yung Gomez DO Work Phone: [phone])[address] [place], [place] 6046808-14-2025 10:53-0400 Respiratory rate14 /Yung Saldañavin DO Work Phone: 1(270)[address] [place], [place] 6046808-14-2025 10:53-0400 SaO2% (BldA) [Mass fraction]98 %Saeed Gomez DO Work Phone: 1(295)[address] [place], [place] 6046805-22-2025 09:24-0400 Body modjoaqlmmi85.8 [degF]Saeed Gomez DO Work Phone: 1(622)[address] [place], [place] 6046805-22-2025 09:24-0400 Body aarbza32.55 kgDawinifred Gomez DO Work Phone: 1(268)[address] [place], [place] 6046805-22-2025 09:24-0400 Diastolic blood rjvbzfyj63 mm[Hg]Saeed Gomez DO Work Phone: 1(425)[address] [place], [place] 6046805-22-2025 09:24-0400 Heart rate91 /Yung Gomez DO Work Phone: 1(336)[address] [place], [place] 6046805-22-2025 09:24-0400 SaO2% (BldA) [Mass fraction]97 %Saeed Gomez DO Work Phone: 1(985)[address] [place], [place] 6046805-22-2025 09:24-0400 Systolic blood qriubpas470 mm[Hg]Saeed Gomez DO Work Phone: 1(946)[address] [place], [place] 6046805-28-2024 08:07-0400 Body lyjejp516.34 cmOhio[facility]05-28-2024 08:07-0400Body mass index (BMI) [Ratio]24.3 kg/u5DrgcxbqmmOhiohealth Southeastern Medical Center05-28-2024 08:07-0400Body jyulozxffeg70.6 [degF][facility]05-28-2024 08:07-0400Body jteheq01.92 kgOhiohealth Southeastern Medical Center05-28-2024 08:07-0400Diastolic blood htsrlkra62 mm[Hg][facility] 11-21-2023 08:07-2145NvF4% (BldA) [Mass fraction]99 %[facility]05-28-2024 08:07-0400Systolic blood xoyvmwqm815 mm[Hg][facility]08-25-2022 08:35-0400Body oxawjz333.34 cmDavid Patricia Other [facility] Other 08-24-2022 10:30-0400Diastolic blood jikeqvxi66 mm[Hg] Saeed Gomez Work Phone: [phone]) [phone]-OhrtbBigfork [facility] Hospital 600 DO Work Phone: 1(507) 685-865408-24-2022 10:30-0400Systolic blood ktocboug436 mm[Hg] Saeed Gomez Work Phone: 1(548) [phone]-AmiovBigfork Valley Hospital 600 DO Work Phone: 1(199) 238-364608-24-2022 09:53-0400Body dlvmij692.34 cmDawinifred Gomez Work Phone: 1(950) [phone]-FskjsBigfork Valley Hospital 600 DO Work Phone: 1(267) 366-759908-24-2022 09:53-0400Body mass index (BMI) [Ratio] 24.97 kg/d5Yumbfwinifred Gomez Work Phone: 1(637) [phone]-KugbqBigfork Valley Hospital 600 DO Work Phone: 1(114) 279-293408-24-2022 09:53-0400Body surface area Derived from formula2.01 n9Kwxpuwinifred Gomez Work Phone: 1(366) [phone]-MnhqaBigfork Valley Hospital 600 DO Work Phone: 1(382) 992-367408-24-2022 09:53-0400Body ybieqf91.19 kgDawinifred Gomez Work Phone: 1(464) [phone]-Ziowt [place] [facility] 600 DO Work Phone: 1(510) 899-268308-24-2022 09:53-0400Diastolic blood mogzjgoe20 mm[Hg] Saeed Gomez Work Phone: 1(702) [phone]-Gjkzf [place] [facility] 600 DO Work Phone: 1(940) 518-198408-24-2022 09:53-0400Heart rate72 /minDander Gomez Work Phone: 1(892) [phone]-DqndtSt. Cloud Hospital[facility] 600 DO Work Phone: 1(962) 935-380408-24-2022 09:53-0400Systolic blood mm[Hg] Saeed Gomez Work Phone: 1(711) [phone]-OoqbjAppleton Municipal Hospitalwalk 600 DO Work Phone: 1(168) 135-170708-18-2022 10:45978341 1Dander Gomez Work Phone: 1(639) [phone]-Dgeru [place] [facility] [address] [place] Work Phone: Comment on above:BLOJHFDZ1794-22-2954 10:27-0400 Diastolic blood xptvestt03 mm[Hg]Saeed Gomez Work Phone: 1(119) [phone]-Ytwtz [place] [facility] 600 DO Work Phone: 1(300) 792-110307-20-2022 10:27-0400Systolic blood mm[Hg] Saeed Gomez Work Phone: 1(812) [phone]-Auzku [place] [facility] 600 DO Work Phone: 1(167) 433-118207-20-2022 10:25-0400Body hzpzan202.34 cmDawinifred Gomez Work Phone: 1(817) [phone]-Oiwvh [place] [facility] 600 DO Work Phone: 1(654) 445-394607-20-2022 10:25-0400Body mass index (BMI) [Ratio] 25.11 kg/q8Giyxlwinifred Gomez Work Phone: 1(257) [phone]-CbdfhBigfork Valley Hospital 600 DO Work Phone: 1(504) 879-841007-20-2022 10:25-0400Body surface area Derived from formula2.02 t7JabchSaeed Gomez Work Phone: 1([phone]) [phone]-[facility]frBig[facility] 600 DO Work Phone: 1(187) [phone] 10:25-0400Body .65 kgDawinifred Gomez Work Phone: 1(446) [phone]-MlqimBigfork [facility] 600 DO Work Phone: 1(963) 630-855407-20-2022 10:25-0400Diastolic blood ffbuaehx30 mm[Hg] Saeed Gomez Work Phone: 1(735) [phone]-VaresBigfork Valley Hospital 600 DO Work Phone: 1(822) 922-139907-20-2022 10:25-0400Heart rate82 /Yung Gomez Work Phone: 1(605) [phone]-TtcefBigfork Valley Hospital 600 DO Work Phone: 1(670) [phone] 10:25-0400Systolic blood ynlxamgi211 mm[Hg] Saeed Gomez Work Phone: 1(228) [phone]-YsbahBigfork Valley Hospital 600 DO Work Phone: 1(499) 555-302805-23-2022 18:00-0400Body xxejmh497.34 cmDawinifred Gomez Other [facility] Other [id number] 18:00-0400Body mass index (BMI) [Ratio] 26.01 kg/c0Hvumiwinifred Gomez Other [facility] Other 05-23-2022 18:00-0400Body .6 kgDawinifred Gomez Other [facility] Other 05-23-2022 18:00-0400Diastolic blood mm[Hg] Saeed Gomez Other [employer] Other 05-23-2022 18:00-0400Respiratory rate18 /minDander Gomez Other [employer] Other 05-23-2022 18:00-7161SnT8% (BldA) [Mass fraction]99 % Saeed Gomez Other [employer] Other 05-23-2022 18:00-0400Systolic blood jntfysox792 mm[Hg] Saeed Gomez Other [employer] Other Encounters Encounter DateEncounter TypeCare ProviderFacilityStart: 04-25-2025 End: 12-38-9307bohiedlithCZLHO KARAMLOUFacility:[facility] HospitalStart: 04-08-2025 End: 12-90-7357cutpbsyogtOEIIA KARAMLOUFacility:[facility]: 04-04-2025 End: 40-89-8139jediieqpbcQWYEC KARAMLOUFacility:[facility] HospitalStart: 04-01-2025 End: 85-77-3628natmnotcdxOUDSA C GIRVINFacility:[facility] Townshiptart: 03-27-2025 End: 99-20-3478suxtqzljzbGSDNE C GIRVINFacility:[facility] HospitalStart: 03-20-2025 End: 53-79-2490hjrzeqeyxhVMVDG KARAMLOUFacility:[facility]art: 03-20-2025 End: 65-18-8012kweylflmvgGJWYK KARAMLOUFacility:[facility] HospitalStart: 03-20-2025 Encounter [facility] Start: 03-20-2025 End: 32-00-6169svcsymvoxsDBQTF KARAMLOUFacility:[facility] HospitalStart: 22-13-8589Sfwwkvshz for preprocedural laboratory examinationJUDIT SHANNON [facility] HospitalStart: 03-11-2025 End: 96-74-4717yxdmtqxxbbYckjs Patricia DO Work Phone: [facility] Work Phone: Start: 03-11-2025 End: 74-76-9145Vzjhyxh encounter procedureDavimarian Gomez DO-[facility] [place] Work Phone: Start: 57-31-5649Zhm-patient / Non-visitDavimarian Gomez DO-[facility] [employer] Work Phone: Start: 02-06-2025 End: 82-91-5408hfjnzlwlnhUyezg Patricia DO Work Phone: [facility] Work Phone: Start: 02-06-2025 End: 11-13-6685Aomuxys encounter procedurePatricdiandra Fletcher YEAST SUPERVISOR-[facility] Work Phone: Start: 11-14-2024 End: 48-78-9395wpuarjkdkwIfadc Patricia DO Work Phone: [facility] Work Phone: Start: 11-14-2024 End: 06-29-0959Ojarcjm encounter procedureDavid Patricia DO Work Phone: [facility] [place] Work Phone: Start: 11-12-2024 End: 32-69-4521Kvrhngj encounter procedureDavid Piotrvin DO Work Phone: [facility] [place] Work Phone: Start: 11-12-2024 End: 93-94-8554wkfpzfftypPqkxt PatriciaFacility:[facility] Start: 11-21-2023 End: 53-72-4264uegfelixzeMfqmwremhParma [facility] Work Phone: start: 11-21-2023 End: 48-58-7854Sauhcgh encounter procedureFirin[facility] Work Phone: Start: 57-84-4938Qhk-patient / Non-visitFirinova [facility] [employer] Work Phone: Start: 11-29-2022 End: 16-52-4422izgalhuguhVdovz Girvin Other [employer] Other Start: 76-23-3839Rxdrfdzpu encounterDavid GirteeFPG Family [facility] CrumrodevueStart: 11-23-2022 End: 25-62-8775pbzrrliefuEvcbe Patricia Other [employer] Other Start: 17-87-9961Wvbnjnrjh encounterDavid GirvinFPG [facility] [place]Start: 11-22-2022 End: 43-10-9968tflrqaylcaInfas Girtee Other [employer] Other Start: 00-22-2032Opjzqeqkc encounterDavid GirvinFPG [facility] BellevueStart: 07-08-2022 End: 07-78-9040iknhrtbmenZT NONE LISTED REQUESTFacility:M0Dzgpt: 02-17-2022 End: 84-13-0387xtdtwizgghOK NONE LISTED REQUESTNort [facility] Other Start: 90-15-2144Nfyrnjlyt encounterDavid GirvinG Family Medicine CrumrodevueStart: 43-78-0113JQE, Provider: Latrell Roberto, Status: Pen, Time: 9:50 Cindy Gomez Work Phone: [phone]-Gbokm [facility] [address] [place] Work Phone: Start: 05-03-9710Hkptwa outpatient visit 25 minutes Saeed Gomez Work Phone: [phone]-Mqbgt [facility] 600 DO Work Phone: Start: 11-23-7055phbqqwbgngLo. David Clark Girvin Facility:[id number]: 77-88-1504Qgdsjjf encounter procedureDawinifred Gomez Work Phone: [phone]-Jhlii [facility] [address] [place] Work Phone: Start: 84-90-9173Ekicw UpdateDander Gomez Work Phone: [phone]-Goeih [facility] 250 DO Work Phone: Start: 19-03-6498iutajqurogBlrzldb McGuinn Facility:[id number]: 65-86-2774Unhyyn consultation new/estab patient 60 minDander Gomez Work Phone: [phone]-Plqui [facility] [place] 600 DO Work Phone: Start: 11-18-2021 End: 62-37-2588wacvfhnlqoVhgyg Girvin Other [employer] [facility] Other Start: 10-60-1509Wuwjclvte encounterDawinifred Valdez [facility] BellevueStart: 11-15-2021 End: 48-16-1982tphblfddztAdurl Girvin Other [employer] [facility] Other Start: 66-57-3519Qqbwfy outpatient new 30 minutesDavid José Miguel [facility] BellevueStart: 11-09-2021 End: 04-49-5058xsutnkhtjgWN CORNELIA HALLFacility:H1 Procedures DateProcedureProcedure DetailPerforming ClinicianStart: 74-88-1880Iivtq clay Gomez DO Work Phone: Start: 51-43-6549AyzngoxeiurlnitrAyiwi C Girvin Work Phone: Total colonoscopyDawinifred Gomez Work Phone: Comment on above:06/2006; Plan of Treatment DateCare ActivityDetailAuthorStart: 89-42-9355CigqavbdbOhiohealth Southeastern Medical Center Start: 11-97-6461BTO, Provider: Latrell Roberto, Status: Pen, Time: 10:00 AMFUV, Provider: Latrell Roberto, Status: Pen, Time: 10:00 AMMP-[facility] 600 DO Work Phone: Start: 43-16-8112GQM, Provider: Latrell Roberto, Status: Pen, Time: 9:50 AMFUV, Provider: Latrell Roberto, Status: Pen, Time: 9:50 AMMP-[facility] 600 DO Work Phone: Start: 79-90-7355OKGX, Provider: DINO HHVI ULTRASOUND 01,[id number], Status: Pen, Time: 10:45 AMECHO, Provider: DINO HHVI ULTRASOUND 01,[id number], Status: Pen, Time: 10:45 AM-[facility] 600 DO Work Phone: Bacteria identified in Urine by [facility] CenterComprehensive metabolic 1999 panel - Serum or Plasma [facility] CenterComprehensive metabolic 1999 panel - Serum or [facility] CenterLipoprotein a [Moles/volume] in Serum or [facility] Campus Medical CenterMR Abdomen WO and W contrast [facility] SystemUrine [facility] Payers DatePayer CategoryPayerPolicy [id number] [id number] [id number] [id number] [id number] [employer] [id number] Social History DateTypeDetailFacilitySex Assigned At [facility] HospitalSynosia Therapeutics [facility] Other No illicit drug useNo illicit drug use-[place] [address] DO Work Phone: Start: 11-17-2023 End: 50-08-5086Iqnjhre smoking status NHISNever smoked tobacco (finding) [facility] Hospitaltart: 13-57-6929Eup Assigned At [facility] Hospitaltart: 57-56-9501SoqZvmf (finding)[facility] Clinical Notes 11-15-2021 to 04-25-2025 Note Date & PrxcYehjLewnhjgi97-32-0481 NoteHNO ID: [id number] Author: JUDIT SHANNON MD Service: ? Author Type: Physician Type: Progress Notes Filed: 04/25/2025 11:26 Note Text: PATIENT NAME: Javad Colorado CLINIC NO.: [id number] ATTENDING PHYSICIAN: Judit Shannon MD DATE OF SERVICE: April 08, [address] Rooney referring provider defined for this encounter. 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 Some ongoing pain and night sweats. He has decided against chemo . PAST MEDICAL HISTORY Diagnosis Date Abnormal CT scan 02/2025 mass lesions in the pancreas Hyperlipidemia Hypertension Lesion of pancreas (HCC) 02/2025 Liver mass 2024 Splenomegaly 02/2025 SOCIAL HISTORY[1] FAMILY HISTORY Problem Relation Age of Onset Hypertension Mother Colon Cancer Mother Bladder Cancer Father Pancreatic Cancer Father other (myocardial infarction) Brother Past medical, social and family history reviewed without any changes. REVIEW OF SYSTEMS GENERAL: No weight loss, malaise or fevers. No night sweats. HEENT: Negative for headaches, No changes in hearing or vision, no nose bleeds or other nasal problems. RESPIRATORY: Negative for cough, wheezing and shortness of breath CARDIOVASCULAR: Negative for chest pain, leg swelling and palpitations GI: Negative for abdominal discomfort, blood in stools or black stools and change in bowel habits : Negative for dysuria, frequency and incontinence MUSCULOSKELETAL: Negative for joint pain or swelling, back pain, and muscle pain. SKIN: Negative for lesions, rash, and itching. HEMATOLOGY/LYMPHOLOGY Negative for prolonged bleeding, bruising easily, and swollen nodes. NEURO: Negative for numbness or tingling of hands/feet. No weakness. PHYSICAL EXAMINATION: BP 122/73 Pulse 94 Temp (Src) 98.2 (Oral) Wt 168 lb 6.9 oz (76.4kg) SpO2 97% There were no vitals taken for this visit. Last 3 Encounter Wt Readings: Date: Wt: 03/25/2025 81.2 kg (179 lb) 03/20/2025 81.2 kg (179 lb 0.2 oz) General appearance:ECOG PERFORMANCE STATUS: 0- Fully active, able to carry on all pre-disease performance w/o restriction. Patient in NAD. Skin: Skin color, texture, turgor normal. No rashes or lesions. Eyes: Anicteric sclera. Pupils are equally round and reactive to light. Extraocular movements are intact. Lymph Nodes: No cervical, supraclavicular, axillary or inguinal adenopathy. Oropharynx: Lips, mucosa, and tongue normal. Back: No pain to percussion. Negative SLR test Lungs clear to auscultation, No wheezing or rhonchi Heart: RRR without murmur, gallop, or rubs. Abdomen soft, non-tender. No masses, organomegaly Extremities: No deformities. No edema Neuro: Gait and speech normal. Reflexes normal and symmetric. Muscular strength intact. Sensation grossly intact. Rectal: Deferred : Deferred LABS: No results found for: GLUC , K , NA , CHLOR , CO2 , CREAT , BUN , ANION , CA , TPROT , ALB , TBILI , ALKPHOS , AST , ALT WBC Date Value Ref Range Status 03/27/2025 6.04 3.70 - 11.00 k/uL Final RBC Date Value Ref Range Status 03/27/2025 4.80 4.20 - 6.00 m/uL Final Hemoglobin Date Value Ref Range Status 03/27/2025 14.9 13.0 - 17.0 g/dL Final Hematocrit Date Value Ref Range Status 03/27/2025 42.7 39.0 - 51.0 % Final MCV Date Value Ref Range Status 03/27/2025 89.0 80.0 - 100.0 fL Final MCH Date Value Ref Range Status 03/27/2025 31.0 26.0 - 34.0 pg Final MCHC Date Value Ref Range Status 03/27/2025 34.9 30.5 - 36.0 g/dL Final RDW-CV Date Value Ref Range Status 03/27/2025 12.0 11.5 - 15.0 % Final Platelet Count Date Value Ref Range Status 03/27/2025 184 150 - 400 k/uL Final MPV Date Value Ref Range Status 03/27/2025 9.5 9.0 - 12.7 fL Final Abs Neut Date Value Ref Range Status 03/27/2025 4.16 1.45 - 7.50 k/uL Final Lymphocytes % Date Value Ref Range Status 03/27/2025 14.1 % Final Abs Lymph Date Value Ref Range Status 03/27/2025 0.85 (L) 1.00 - 4.00 k/uL Final Monocytes % Date Value Ref Range Status 03/27/2025 14.9 % Final Abs [place] Date Value Ref Range Status 03/27/2025 0.90 (H) <0.87 k/uL Final Abs Eosin Date Value Ref Range Status 03/27/2025 0.08 <0.46 k/uL Final Basophils % Date Value Ref Range Status 03/27/2025 0.3 % Final Abs Baso Date Value Ref Range Status 03/27/2025 <0.03 <0.11 k/uL Final PATH: Liver Biopsy 03/2025: FINAL DIAGNOSIS A. Liver, mass, biopsy - Involved by poorly differentiated adenocarcinoma - See comment at 1036 EDT Diagnosis Comment The neoplastic cells labeled with CK7, CK19, CDX2 (patchy); they do n (more content not included)...[facility]10-14-2025 NoteHNO ID: [id number] Author: JUDIT SHANNON MD Service: ? Author Type: Physician Type: Progress Notes Filed: 04/08/2025 16:58 Note Text: PATIENT NAME: Javad Colroado CLINIC NO.: [id number] ATTENDING PHYSICIAN: Judit Shannon MD DATE OF SERVICE: April 08, [address] Rooney referring provider defined for this encounter. 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 He reports intermittent pain in the left rib area, corresponding to the location of the primary tumor. The pain is not constant and is exacerbated by certain movements or pressure on the area. He denies nausea, but occasionally experiences a sense of uneasiness after eating. He reports a good appetite, particularly in the morning, and describes his breathing as pretty decent. He reports regular daily bowel movements and denies diarrhea. He has a family history of pancreatic cancer in his father, diagnosed at age 81, and colon cancer in his mother, diagnosed at age 49. PAST MEDICAL HISTORY Diagnosis Date Abnormal CT scan 02/2025 mass lesions in the pancreas Hyperlipidemia Hypertension Lesion of pancreas (HCC) 02/2025 Liver mass 2024 Splenomegaly 02/2025 SOCIAL HISTORY[1] FAMILY HISTORY Problem Relation Age of Onset Hypertension Mother Colon Cancer Mother Bladder Cancer Father Pancreatic Cancer Father other (myocardial infarction) Brother Past medical, social and family history reviewed without any changes. REVIEW OF SYSTEMS GENERAL: No weight loss, malaise or fevers. No night sweats. HEENT: Negative for headaches, No changes in hearing or vision, no nose bleeds or other nasal problems. RESPIRATORY: Negative for cough, wheezing and shortness of breath CARDIOVASCULAR: Negative for chest pain, leg swelling and palpitations GI: Negative for abdominal discomfort, blood in stools or black stools and change in bowel habits : Negative for dysuria, frequency and incontinence MUSCULOSKELETAL: Negative for joint pain or swelling, back pain, and muscle pain. SKIN: Negative for lesions, rash, and itching. HEMATOLOGY/LYMPHOLOGY Negative for prolonged bleeding, bruising easily, and swollen nodes. NEURO: Negative for numbness or tingling of hands/feet. No weakness. PHYSICAL EXAMINATION: There were no vitals taken for this visit. There were no vitals taken for this visit. Last 3 Encounter Wt Readings: Date: Wt: 03/25/2025 81.2 kg (179 lb) 03/20/2025 81.2 kg (179 lb 0.2 oz) General appearance:ECOG PERFORMANCE STATUS: 0- Fully active, able to carry on all pre-disease performance w/o restriction. Patient in NAD. Skin: Skin color, texture, turgor normal. No rashes or lesions. Eyes: Anicteric sclera. Pupils are equally round and reactive to light. Extraocular movements are intact. Lymph Nodes: No cervical, supraclavicular, axillary or inguinal adenopathy. Oropharynx: Lips, mucosa, and tongue normal. Back: No pain to percussion. Negative SLR test Lungs clear to auscultation, No wheezing or rhonchi Heart: RRR without murmur, gallop, or rubs. Abdomen soft, non-tender. No masses, organomegaly Extremities: No deformities. No edema Neuro: Gait and speech normal. Reflexes normal and symmetric. Muscular strength intact. Sensation grossly intact. Rectal: Deferred : Deferred LABS: No results found for: GLUC , K , NA , CHLOR , CO2 , CREAT , BUN , ANION , CA , TPROT , ALB , TBILI , ALKPHOS , AST , ALT WBC Date Value Ref Range Status 03/27/2025 6.04 3.70 - 11.00 k/uL Final RBC Date Value Ref Range Status 03/27/2025 4.80 4.20 - 6.00 m/uL Final Hemoglobin Date Value Ref Range Status 03/27/2025 14.9 13.0 - 17.0 g/dL Final Hematocrit Date Value Ref Range Status 03/27/2025 42.7 39.0 - 51.0 % Final MCV Date Value Ref Range Status 03/27/2025 89.0 80.0 - 100.0 fL Final MCH Date Value Ref Range Status 03/27/2025 31.0 26.0 - 34.0 pg Final MCHC Date Value Ref Range Status 03/27/2025 34.9 30.5 - 36.0 g/dL Final RDW-CV Date Value Ref Range Status 03/27/2025 12.0 11.5 - 15.0 % Final Platelet Count Date Value Ref Range Status 03/27/2025 184 150 - 400 k/uL Final MPV Date Value Ref Range Status 03/27/2025 9.5 9.0 - 12.7 fL Final Abs Neut Date Value Ref Range Status 03/27/2025 4.16 1.45 - 7.50 k/uL Final Lymphocytes % Date Value Ref Range Status 03/27/2025 14.1 % Final Abs Lymph Date Value Ref Range Status 03/27/2025 0.85 (L) 1.00 - 4.00 k/uL Final Monocytes % Date Value Ref Range Status 03/27/2025 14.9 % Final Abs [place] Date Value Ref Range Status 03/27/2025 0.90 (H) <0.87 k/uL Final Abs Eosin Date Value Ref Range Status 03/27/2025 0.08 <0.46 k/uL Final Basophils % Date Value Ref Range Status 03/27/2025 (more content not included)...[facility]09-25-2025 NoteHNO ID: [id number] Author: LESLI HOLLINGSWORTH RT(R) Service: Radiology Author Type: Technologist Type: Progress Notes Filed: 03/20/2025 18:55 Note Text: Radiology Service Progress Note PATIENT NAME: Javad Colorado DATE OF SERVICE: March 20, 2025 TIME: 6:55 PM PATIENT IDENTITY VERIFICATION COMPLETED USING TWO (2) IDENTIFIERS: Name and Date of confirmed by patient verbally and Name and Date of confirmed by identification band. FALL SCREENING: Has the patient had 2 falls in the last year or 1 fall with injury or currently using an Ambulatory Assistive Device (Walker, Cane, Wheelchair, Crutches, etc.)? No PATIENT GENDER DATA: Assigned male at PATIENT RELEVANT IMPLANT DATA REVIEWED: Yes PATIENT PRESENTS WITH AN IMPLANTABLE OR ATTACHED TAG MACHINE OPERATOR: No RADIOLOGY DEPARTMENT: MR; Exam(s) Completed: Body: Pancreas/Biliary. Anesthesia: No. Aromatherapy Administered: No PERIPHERAL IV DATA: Site assessment: Clean,Dry and Intact, Site disposition Discontinued SIGNED BY: RT Vanessa(R) March 20, 2025 6:55 [facility]09-25-2025 NoteHNO ID: [id number] Author: KELLY AMADOR RN Service: Nursing Author Type: Registered Nurse Type: Progress Notes Filed: 03/20/2025 17:47 Note Text: Radiology Service Progress Note DATE OF SERVICE: March 20, 2025 TIME: 5:42 PM PATIENT WEIGHT: 180 LBS PATIENT IDENTITY VERIFICATION COMPLETED USING TWO (2) STANDARD IDENTIFIERS: Name and Date of confirmed by patient verbally and Name and Date of confirmed by identification band. FALL SCREENING: Has the patient had 2 falls in the last year or 1 fall with injury or currently using an Ambulatory Assistive Device (Walker, Cane, Wheelchair, Crutches, etc.)? No PATIENT GENDER DATA: Assigned male at ALLERGIES: Reviewed and unchanged CONTRAST ALLERGY: No EXAM: MRI - CONTRAST TYPE: GROUP II IV SITE: Ambulatory: A peripheral IV was started in the Left antecubital site with a Angio cath: 22 gauge. IV SITE APPEARANCE: Clean,Dry and Intact SIGNATURE: Kelly Amador RN PATIENT NAME: Javad Colorado DATE: March 20, 2025 TIME: 5:42 [facility]09-25-2025 NoteHNO ID: [id number] Author: JUDIT SHANNON MD Service: ? Author Type: Physician Type: Progress Notes Filed: 03/20/2025 13:30 Note Text: PATIENT NAME: Javad Colorado CLINIC NO.: [id number] ATTENDING PHYSICIAN: Judit Shannon MD DATE OF SERVICE: March 20, 2025 Recording using babberly software for draft documentation of the visit was discussed with the patient/authorized telemarketing sales representative; all questions welcomed and answered. Patient/authorized telemarketing sales representative agreed to proceed Dear Dr. Gomez, thank you for referring Mr Javad Colorado for an opinion regarding liver lesions . CHIEF COMPLAINT: The patient is a 69-year-old male with hyperlipidemia, presenting for evaluation of low-attenuation hepatic lesions and a pancreatic tail mass identified on CT scan. HPI: Javad Colorado is a 69 year old year old male with a history of hyperlipidemia, presenting for evaluation following an abnormal CT scan performed during an ER visit for chest pain in February 2025. During the ER visit, a CT scan was performed to rule out pulmonary embolism due to an elevated D-dimer. The scan revealed no thoracic dissection or pulmonary embolism but identified a low attenuation mass lesion in the liver suspicious for metastatic disease, areas of low attenuation in the pancreatic tail suspicious for a mass lesion, mild nodular surface contour of the liver, splenomegaly, and a possible left adrenal nodule. Labs demonstrated a normal CBC, normal calcium, creatinine of 1.10 mg/dL, and liver function tests within normal limits, with a total bilirubin of 1.3 mg/dL. Patient denies any prior issues with pain, changes in appetite, weight loss, nausea, vomiting, fevers, chills, or sweats. He also denies any history of hypertension, diabetes, heart problems, or surgeries. He reports no shortness of breath, cough, changes in bowel movements, hematuria, or urinary issues. He has a history of occasional cigar smoking but denies current tobacco use. He reports a history of significant alcohol consumption, particularly on weekends, but states he quit drinking about a month ago. He worked in a [employer] house for 35 years before retiring. Family history is significant for colon cancer in his mother, who at age 49, and pancreatic cancer in his father, who at age 81. He has two brothers with heart issues but no known cancer history. 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 Aspirin 81 mg tab Take 81 mg by mouth. CITRULLINE 1000 PO Take by mouth. magnesium oxide 250 mg tablet Take 250 mg by mouth once daily. [place]-3 Fatty Acids 1,250 mg cap Take by mouth. Zinc Gluconate 30 mg tab Take by mouth. No current facility-administered medications for this visit. ALLERGIES Not on File PAST MEDICAL HISTORY Diagnosis Date Abnormal CT scan 02/2025 mass lesions in the pancreas Hyperlipidemia Hypertension Lesion of pancreas (HCC) 02/2025 Liver mass 2024 Splenomegaly 02/2025 PAST SURGICAL HISTORY Procedure Laterality Date COLONSCOPY SCREENING HIGH RISK 2004 FAMILY HISTORY Problem Relation Age of Onset Hypertension Mother Colon Cancer Mother Bladder Cancer Father Pancreatic Cancer Father other (myocardial infarction) Brother SOCIAL HISTORY[1] REVIEW OF SYSTEMS GENERAL: No weight loss, malaise or fevers. No night sweats. HEENT: Negative for headaches, No changes in hearing or vision, no nose bleeds or other nasal problems. RESPIRATORY: Negative for cough, wheezing and shortness of breath CARDIOVASCULAR: Negative for chest pain, leg swelling and palpitations GI: Negative for abdominal discomfort, blood in stools or black stools and change in bowel habits : Negative for dysuria, frequency and incontinence MUSCULOSKELETAL: Negative for joint pain or swelling, back pain, and muscle pain. SKIN: Negative for lesions, rash, and itching. HEMATOLOGY/LYMPHOLOGY Negative for prolonged bleeding, bruising easily, and swollen nodes. NEURO: Negative for numbness or tingling of hands/feet. No weakness. PHYSICAL EXAMINATION: There were no vitals taken for this visit. There were no vitals taken for this visit. No data found for this vital: Wt General appearance:ECOG PERFORMANCE STATUS: 0- Fully active, able to carry on all pre-disease performance w/o restriction. Patient in NAD. Skin: Skin color, texture, turgor normal. No rashes or lesions. Eyes: Anicteric sclera. Pupils are equally round and reactive to light. Extraocular movements are intact. L (more content not included)...[facility]08-14-2025 Evaluation note* Diagnosis Onset Date Resolution Status Admit Date Cellulitis acuteAugust 2024 10:44amElevated BP without diagnosis of hypertensionacute February 06, 2025 10:44amSkin rashacuteAugust 2024 10:44amAdrenal nodule acuteSept2024 1:13pmElevated BP without diagnosis of hypertension acuteSept2024 1:13pmLeft-sided chest wall painacuteSept2024 1:13pmLiver massacuteSept2024 1:13pmPancreatic massacute March 11, 2025 1:13pmSplenomegalyacuteSept2024 1:13pm [facility] Work Phone: 1(407) 931-631705-22-2025 Evaluation note* Author Saeed Gomez [facility] Medical CenterAuthoredMay 2024 9:54amThe above note written by ___Domitila Saunders____ acting as human recorder, note dictated by Dr. Nicholas .I performed the above HPI, ROS, and Examination. I formulated and dictated the treatment plan and was present for entire encounter. Saeed Gomez D.O. 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 [facility] Work Phone: 1(455) 124-128606-29-2022 History of Present illness Narrative* Patient is [...] the interim if problems arise or occur. [facility] 600 DO Work Phone: 1(855) 547-743005-23-2022 Evaluation note* Encounter Date Diagnosis Assessment Notes [...] genetic. I am going to refer him toa mechanical insulator to discuss palpitations, light headedness and they can discuss his cholesterol as well. If needed we can control his cholesterol with medication, will await what the mechanical insulator says. October,Hyperglycemia (ICD-10 - R73.9)Discussed blood sugar results with patient today. His HgA1C is 5.5 which is normal. October,alpitations (ICD-10 - R00.2)He voices that he noticed at night he would get light headed mostly at night and he would feel palpitations. He did not notice anything when he was working in his shop or when he would ride his bike.He can ride his bike for up to 10 miles without any palpitations. The palpitations can wake him up at night. If he gets up to go to the bathroom he may feel light headed and can feel the palpitations. 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 He did go to the ER for evaluation on 11-08-21 and nothing abnormal was found. He will sit and watch TV at night. He will drink beer, no hard liquor but only on the weekends. Itdoes seem as if it is the night after he drinks beer that he notices the palpitations more. He voices that he does drink plenty of water, that is all he drinks. An EKG was done at the ER on 11-08-21. Nain virgen can ride his bike without any chest [...] I would like him to see a mechanical insulator for evaluation to discuss the palpitations and his cholesterol. He agrees to a referral. Until seen he should take it easy. Avoid any excessive stress on the heart. Until seen by cardiology he should start taking a baby ASA 81MG with food daily. October,Light headedness (ICD-10 - R42)If he gets up to go to the bathroom he may feel light headed and can feel the palpitations. 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 Will refer to cardiology but until seen I did recommend he sit on the edge of the bedfor 2 min before getting up to prevent hypotension. October,creening for prostate cancer (ICD-10 - Z12.5)His PSA is 0.630 no sign of prostate cancer at this time. October,Nocturia (ICD-10 - R35.1) October,Weight gain (ICD-10 - R63.5)His thyroid was normal at 3.26. October,Elevated blood pressure (ICD-10 - R03.0)Today his blood pressure is elevated at 180/92. [...] pressure readings he has taken at home. [employer] Other Chief complaint Narrative - ReportedGARY DONYANDT is being seen for a consultation for Palpitations/Lightheaded/ High LDL.[facility] 600 DO Work Phone: Chief complaint Narrative - ReportedJAVAD COLORADO is being seen for a consultation for Palpitations/Lightheaded/ High LDL.[facility] Work Phone: Evaluation noteNo InformationNortLehigh Valley Hospital [facility] [address] [employer] Other Evaluation note* Diagnosis Onset Date Resolution Status Calcium oxalate crystals in urine acuteHyperglycemiaacuteHyperlipidemiaacuteIntentional weight lossacuteNocturia acuteOther superintendent marine oil terminal (current) drug therapyacutePalpitationsacuteScreening for prostate canceracute [facility] Work Phone: Evaluation note* Diagnosis Onset Date Resolution Status Admit Date Calcium oxalate crystals in urine acuteMay 2024 9:03amColon cancer screeningacuteMay 2024 9:03am Elevated PSAacuteMay 2024 9:03amHyperglycemiaacuteMay 2024 9:03am HyperlipidemiaacuteMay 2024 9:03amLeukopeniaacuteMay 2024 9:03am PalpitationsacuteMay 2024 9:03amWeight gainacuteMay 2024 9:03am [facility] Work Phone: Hishdzj general Narrative - Reported* Type Description Date Surgical History colonoscopy approximately 2004, normal per patient Hospitalization KlnphyaGhjegxnfh9375 [facility] [employer] Other History of Present illness Narrative* Returns [...] call if problems arise in the interim. -[facility] 600 DO Work Phone: Reason for referral (narrative)No reason for referral information availableMercer County Community Hospital Work Phone: Reason for Referral Reason appt pt does not have a preference for dr pt needs consult to discuss palpitations, light headedness and high LDL Diagnosis 1 Palpitations (R00.2) Referral Organization [facility] Family Richelle Julio Referring Provider First Name Saeed Referring Provider Last Name Patricia Referring Provider Specialty Family Prac marylin Referred Organization [facility] Referred Address [address] [place] [address] Referred Provider Specialty Cardiology Referral Priority Routine General Notes Bria Gray 11/15/2021 06:12:34 PM > referral faxed with visit note, labs, hosp EKG report and insurance cards. pt understands that he will be contacted to schedule this appt. Family History No Family History Records FoundUnknown Family Member Name Dates Details Family history of malignant neoplasm of colon: Mother(V16.0, Z80.0) Status:ActiveFamily history of pancreatic cancer: Father(V16.0, Z80.0) Status:ActiveFamily history of myocardial infarction: Brother(V17.3, Z82.49) Status:ActiveFamily history of cardiac pacemaker: Brother(V17.49, Z82.49) Status:Active Unknown Family Member Name Dates Details Family history of malignant neoplasm of colon: Mother(V16.0, Z80.0) Status:ActiveFamily history of pancreatic cancer: Father(V16.0, Z80.0) Status:ActiveFamily history of myocardial infarction: Brother(V17.3, Z82.49) Status:ActiveFamily history of cardiac pacemaker: Brother(V17.49, Z82.49) Status:Active Unknown Family Member Name Dates Details Family history of malignant neoplasm of colon: Mother(V16.0, Z80.0) Status:ActiveFamily history of pancreatic cancer: Father(V16.0, Z80.0) Status:ActiveFamily history of myocardial infarction: Brother(V17.3, Z82.49) Status:ActiveFamily history of cardiac pacemaker: Brother(V17.49, Z82.49) Status:Active Unknown Family Member Name Dates Details Family history of malignant neoplasm of colon: Mother(V16.0, Z80.0) Status:ActiveFamily history of pancreatic cancer: Father(V16.0, Z80.0) Status:ActiveFamily history of myocardial infarction: Brother(V17.3, Z82.49) Status:ActiveFamily history of cardiac pacemaker: Brother(V17.49, Z82.49) Status:Active Unknown Family Member Name Dates Details Family history of malignant neoplasm of colon: Mother(V16.0, Z80.0) Status:ActiveFamily history of pancreatic cancer: Father(V16.0, Z80.0) Status:ActiveFamily history of myocardial infarction: Brother(V17.3, Z82.49) Status:ActiveFamily history of cardiac pacemaker: Brother(V17.49, Z82.49) Status:Active Unknown Family Member Name Dates Details Family history of malignant neoplasm of colon: Mother(V16.0, Z80.0) Status:ActiveFamily history of pancreatic cancer: Father(V16.0, Z80.0) Status:ActiveFamily history of myocardial infarction: Brother(V17.3, Z82.49) Status:ActiveFamily history of cardiac pacemaker: Brother(V17.49, Z82.49) Status:Active Relationship Condition Age at Onset Recorded Date/T ridge brother Myocardial infarction Unknown fatherMalignant neoplasmUnknownDeceasedUnknownNot SpecifiedHypertensionUnknown Malignant neoplasmUnknown Relationship Condition Age at Onset Recorded Date/T ridge brother Myocardial infarction Unknown fatherMalignant neoplasmUnknownDeceasedUnknownmotherHypertensionUnknownMalignant neoplasmUnknown Chief Complaint JAVAD COLORADO is being seen for Testing f/u. Summary Purpose Advance Directives No Advanced Directives Records Found Advance Directive Response Recorded Date/ Time Advance Directives No November 15 11:39am Chief Complaint and Reason for Visit Chief Complaint yearly check up/revi ew labs Reason for Visit Calcium oxalate jose alejandro tals in urine Hyperglycemia Hyperlipidemia Intentional weight loss Nocturia Other long-term (current) drug therapy Palpitations Screening for prostate [...] 9:03a m rash/blister on right arm February 06 025 10:44am Chief Complaint Admit Date rash/blister on right arm February 06 025 10:44am discuss CT chest March 11, 2025 1:13pm Reason for Visit Admit Date Cellulitis February 06, 2025 10 :44am Elevated BP without diagnosis of hyperte nsion February 06, 2025 10:44am Skin rash February 06, 2025 10 :44am Adrenal nodule March 11, 2025 1:13pm Elevated BP without diagnosis of hyperte nsion March 11, 2025 1:13pm Left-sided chest wall pain February 1:13pm Liver mass March 11, 2025 1:13pm Pancreatic mass March 11, 2025 1:13pm Splenomegaly March 11, 2025 1:13pm Additional Source Comments REASON FOR VISIT (unrecogniz [...] section and content) DATE CREATED AUTHOR 02/16/2022 [facility] DATE CREATED AUTHOR AUTHOR'S ORGANIZ ATION 02/19/2022 [employer] DATE CREATED AUTHOR AUTHOR'S ORGANIZ ATION 07/08/2022 [facility] DATE CREATED AUTHOR AUTHOR'S ORGANIZ ATION 12/04/2022 [facility] DATE CREATED AUTHOR AUTHOR'S ORGANIZ ATION 11/24/2024 [facility] DATE CREATED AUTHOR AUTHOR'S ORGANIZ ATION 03/27/2025 [facility] DATE CREATED AUTHOR AUTHOR'S ORGANIZ ATION 03/30/2025 [facility] DATE CREATED AUTHOR AUTHOR'S ORGANIZ ATION 04/08/2025 [facility] DATE CREATED AUTHOR AUTHOR'S ORGANIZ ATION 05/02/[address] [facility] Care Teams (unrecognized sec tion and content) Team Status: Active Member Role Status Dates Saeed Gomez DO Primary Care Provider Active Team Status: Inactive Member Role Status Dates Saeed Gomez DO Primary Care Provide r, Attending Provider Active Start: November 12, 2024 End: November 12, 2024 Team Status: Inactive Member Role Status Dates Saeed Gomez DO Primary Care Provide r, Attending Provider Active Start: November 14, 2024 End: November 14, 2024 Team Status: Active Member Role Status Dates Saeed Gomez DO Primary Care Provide r, Attending Provider Active Start: November 17, 2023 Team Status: Inactive Member Role Status Dates Saeed Gomez DO Primary Care Provide r, Attending Provider Active Start: November 21, 2023 End: November 21, 2023 Team Status: Inactive Member Role Status Dates Saeed Gomez DO Primary Care Provider Active S tart: November 12, 2024 End: November 12, 2024DaMoris Le ProviderActiveStart: November 12, 2024 End: November 12, 2024 Team Status: Inactive Member Role Status Dates Saeed Gomez DO Primary Care Provider Active S tart: November 14, 2024 End: November 14, 2024DaMoris Le ProviderActiveStart: November 14, 2024 End: November 14, 2024 Team Status: Inactive Member Role Status Dayanna Gomez DO Primary Care Provider Active S tart: February 06, 2025 End: February 06, 2025Jennifer Fletcher APRN BAFFLE MOUNTER-CAttending Provider ActiveStart: February 06, 2025 End: February 06, 2025 Team Status: Active Member Role Status Dayanna Gomez DO Primary Care Provider Active S tart: March 10, 2025 Moris Westbrook ProviderActiveStart: March 10, 2025 Team Status: Inactive Member Role Status Dayanna Gomez DO Primary Care Provider Active S tart: March 11, 2025 End: March 11, 2025DaMoris Le ProviderActiveStart: March 11, 2025 End: March 11, 2025 Goals (unrecognized section and content) Goals [...] BE BASED ON THE PRIMARY CLINICAL RECORDS. [facility] [employer] provides no warranty or guarantee of the accuracy or completeness of information in this document.
--- OUTSIDE RECORDS SUMMARY | 2025-05-18 10:32 | XMS_ITS | Encounter Summary ---
Author Organization [facility] Address [facility] [place] [address] Care Team Providers Care Content Designer Name Role Phone Cash Shannon MD Unavailable [phone] Sai Patel DO Primary Care Provider [phone] Source Comments In the event this information is protected by the Federal Confidentiality of Alcohol and Drug AbusePatient Records regulations: The Federal rules restrict any use of the information to criminally investigate or prosecute any alcohol or drug abuse patient.[facility] Encounter Details DateTypeDepartmentCare Team (Latest Contact Info)Hqmqpobxham95/21/2025 Get Medical Advice Palliative Medicine [address] [place] [address] [place] [address] Jaqueline Alvarado, COMMUNITY LIVING COACH.SUPERVISOR [employer] CLE[employer]ORAGE [address] [id number] Constipation Social History Tobacco UseTypesPacks/DayYears UsedDateSmoking Tobacco: NeverPassive Smoke Exposure: PastSmokeless Tobacco: NeverPHQ-2AnswerDate RecordedPHQ-2 score1 5Area Deprivation IndexAnswerDate RecordedNational Score (1-100), lower number is lower vosl8821/25/2025State Score (1-10), lower number is lower risk8 03/20/2025Data from: https://www.neighborhoodatlas.medicine.[facility].edu/. Last address used for [address]03/20/2025Sex and Gender Information ValueDate RecordedSex Assigned at BirthNot on fileLegal YbwSztt9503/11/2025 1:53 PM EDTGender IdentityNot on fileSexual OrientationNot on filedocumented as of this encounter Plan of Treatment DateTypeDepartmentCare Team (Latest Contact Info)Xzoikglcnzu10/16/2025 3:30 PM ESTOffice Visit Palliative Medicine [address] [place] [address] [place] [address] Jaqueline Alvarado, COMMUNITY LIVING COACH.SUPERVISOR [employer]ORAGE [address] [place] [address] 4 week follow updocumented as of this encounter Visit Diagnoses Not on filedocumented in this encounter Care Teams Team MemberRelationshipSpecialtyStart DateEnd Date Sai Patel DO [address] [place] [address] PCP - GeneralFamily Oeaehvhm22/2/25 [place] [address] [place], [place] [id number] PhysicianHematology/Oncology03/21/25documented as of this encounter
--- OUTSIDE RECORDS SUMMARY | 2025-05-18 10:32 | XMS_ITS | Encounter Summary ---
Author Organization [facility] Address [address] [place] [address] Care Team Providers Care Cold Mill Operator Name Role Phone Cash Shannon MD Unavailable Sai Patel DO Primary Care Provider [phone] Source Comments In the event this information is protected by the Federal Confidentiality of Alcohol and Drug AbusePatient Records regulations: The Federal rules restrict any use of the information to criminally investigate or prosecute any alcohol or drug abuse patient.[facility] Reason for Visit * ReasonCommentsCare Coordination Encounter Details DateTypeDepartmentCare Team (Latest Contact Info)Uelljshmglc51/11/2025Telephone Hematology [address] [facility] [place] [address] Silvia Toledo RN Care Coordination Social History Tobacco UseTypesPacks/DayYears UsedDateSmoking Tobacco: NeverPassive Smoke Exposure: PastSmokeless Tobacco: NeverPHQ-2AnswerDate RecordedPHQ-2 score1 5Area Deprivation IndexAnswerDate RecordedNational Score (1-100), lower number is lower xejt233203/20/2025State Score (1-10), lower number is lower risk8 03/20/2025Data from: https://www.neighborhoodatlas.medicine.[facility]/. Last address used for [address]03/20/2025Sex and Gender Information ValueDate RecordedSex Assigned at BirthNot on fileLegal TyzImqq4503/11/2025 1:53 PM EDTGender IdentityNot on fileSexual OrientationNot on filedocumented as of this encounter Miscellaneous Notes * Telephone Encounter - Silvia Toledo RN - 05/06/2025 2:52 PM EST Care Coordination Triage Note [facility] Pride Situation: Patient reports Pain--Generalized Background: Dx: pancreatic cancer Tx: declined- palliative care measures only Assessment: calling stating abdominal pain is ongoing and no longer responding to tramadol Pall med appt is 05/[address] Shannon offered oxycodone and at the time they declined but she would like to have some on hand until palliative medicine can establish care Patient's phones requesting refills as follows: Requested Prescriptions Pending Prescriptions Disp Refills oxyCODONE IR (ROXICODONE) 5 mg immediate release tablet 60 tablet 0 Sig: Take 1-2 tablets by mouth every 6 hours as needed for pain for up to 10 days. 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
--- OUTSIDE RECORDS SUMMARY | 2025-05-18 10:32 | XMS_ITS | Encounter Summary ---
Author Organization [facility] Address [address] [place], [place] [id number] Care Team Providers Care Acetylene Burner Name Role Phone Cash Shannon MD Unavailable [phone] Sai Patel DO Primary Care Provider [phone] Source Comments In the event this information is protected by the Federal Confidentiality of Alcohol and Drug AbusePatient Records regulations: The Federal rules restrict any use of the information to criminally investigate or prosecute any alcohol or drug abuse patient.[facility] Encounter Details DateTypeDepartmentCare Team (Latest Contact Info)Jxbpsytktqo29/17/2025 Get Medical Advice Hematology [address] [facility] [address] Cash Shannon MD [address] [place] [address] Keeping appointment Social History Tobacco UseTypesPacks/DayYears UsedDateSmoking Tobacco: NeverPassive Smoke Exposure: PastSmokeless Tobacco: NeverPHQ-2AnswerDate RecordedPHQ-2 score1 5Area Deprivation IndexAnswerDate RecordedNational Score (1-100), lower number is lower llqf020103/20/2025State Score (1-10), lower number is lower risk8 03/20/2025Data from: https://www.neighborhoodatlas.medicine.[facility].edu/. Last address used for [address]/20/2025Sex and Gender Information ValueDate RecordedSex Assigned at BirthNot on fileLegal IavYohe9003/11/2025 1:53 PM EDTGender IdentityNot on fileSexual OrientationNot on filedocumented as of this encounter Plan of Treatment DateTypeDepartmentCare Team (Latest Contact Info)Iwpymgdbysx02/16/2025 3:30 PM ESTOffice Visit Palliative Medicine [address] [place] [address] [place] [address] Jaqueline Alvarado, CRIMINAL RESEARCH SPECIALIST.OCCUPATIONAL THERAPY PROGRAM DIRECTOR [address] [place] [address] 4 week follow updocumented as of this encounter Visit Diagnoses Not on filedocumented in this encounter Care Teams Team MemberRelationshipSpecialtyStart DateEnd Date Sai Patel DO [address] [place] [address] PCP - GeneralFamily Rymvtvsd01/2/25 [place] [address] [place], [place] [id number] PhysicianHematology/Oncology03/21/25documented as of this encounter
[2025-05-18 10:53] LABS: Hematocrit 42.6 % (42.0-54.0); Hemoglobin 14.4 g/dL (14.0-18.0); Mean Corpuscular HGB Conc 33.8 g/dL (29.9-35.2); Mean Corpuscular Hemoglobin 28.3 pg (25.9-34.0); Mean Corpuscular Volume 83.9 fL (80.0-94.0); Platelet Count 231 10^3/uL (150-450); Red Blood Count 5.08 10^6/uL (4.70-6.10)
[2025-05-18 10:56] VITALS: TEMP 36.6
--- NOTE | 2025-05-18 10:56 | XR_ITS ---
The [address] [address] Patient Name: JAVAD CHACON MRN: [id number] date: 1955 Sex: M Assigned Patient Location: ER Current Patient Location: ER Accession/Order Number: [id number] Exam Date: 05/18/2025 11:20 Report Date: 05/18/2025 11:44 At the request of: SWEETIE BRINK MD Procedure: XR abdomen 1V KUB: CLINICAL INFORMATION: Abdominal pain and nausea. History of pancreatic cancer. COMPARISON: None. FINDINGS: Prominent air-filled small bowel loops. Paucity of gas is seen within the rectum. No free air. Osseous structures demonstrate degenerative change. XR/XR abdomen 1V IMPRESSION: PROMINENT AIR-FILLED SMALL BOWEL LOOPS. FINDING COULD REPRESENT ILEUS OR POSSIBLY SBO. FOLLOW-UP RADIOGRAPHS ARE SUGGESTED. Impression dictated by: Vic Bello Jr., DGiancarloOGiancarlo 05/18/2025 11:44 AM Dictation Location: [facility] Electronically authenticated by: [id number] Y Date: 05/18/2025 11:44
[2025-05-18 10:58] LABS: White Blood Count 33.8 10^3/uL (4.0-11.0)
[2025-05-18] MEDS: HYDROMORPHONE HCL 1 MG/ML CARTRIDGE IV (11:08)
[2025-05-18 11:11] LABS: Band Neutrophils Absolute 0.7 10^3/uL (0.0-0.3); Basophils Abs Manual 0.00 10^3/uL (0.00-0.10); Basophils Percent Manual 0.0 % (0.2-2.0); Eosinophils Absolute Manual 0.00 10^3/uL (0.00-0.70); Eosinophils Percent Manual 0.0 % (0.9-7.0); Lymphocytes Absolute Manual 0.33 10^3/uL (1.20-3.80); Lymphocytes Percent Manual 1.0 % (20.5-60.0); Metamyelocytes Absolute Manual 0.67; Monocytes Absolute Manual 3.04 10^3/uL (0.30-0.80); Monocytes Percent Manual 9.0 % (1.7-12.0); Segmented Neut Absolute Manual 29.06 10^3/uL (1.4-6.5); Segmented Neutrophils % Manual 86.0 (43.0-75.0)
--- NOTE | 2025-05-18 11:11 | PC.NURSE ---
pt has pancreatic cancer and has recently been put on palliative care. states she was unable to contact anyone through palliative care about pt uncontrolled pain and brought pt to ER.
[2025-05-18 11:16] LABS: Alanine Aminotransferase 300 U/L (16-63); Albumin Globulin Ratio 0.5; Albumin Level 2.0 g/dL (3.4-5.0); Alkaline Phosphatase 882 U/L (46-116); Anion Gap 25.9; Calcium 8.2 mg/dL (8.5-10.1); Carbon Dioxide 20.0 mmol/L (21.0-32.0); Chloride 93 mmol/L (98-107); Estimated GFR (African America 23 (>=60 mL/min/1.73m^2); Estimated GFR (Non-African Ame 19 (>=60 mL/min/1.73m^2); Globulin 4.0 g/dL; Glucose 132 mg/dL (74-106); Potassium 5.9 mmol/L (3.5-5.1); Sodium 133 mmol/L (136-145); Total Protein 6.0 g/dL (6.4-8.2)
[2025-05-18 11:30] LABS: Aspartate Amino Transferase 827 U/L (15-37); Blood Urea Nitrogen 91.0 mg/dL (7.0-18.0); Lactate/Lactic Acid 7.2 mmol/L (0.4-2.0)
[2025-05-18 12:30] VITALS: BP 86/67
--- NOTE | 2025-05-18 13:12 | XR_ITS ---
The [address] [address] Patient Name: JAVAD CHACON MRN: [id number] date: 1955 Sex: M Assigned Patient Location: ED.MAIN Current Patient Location: ED.MAIN Accession/Order Number: [id number] Exam Date: 05/18/2025 13:40 Report Date: 05/18/2025 14:16 At the request of: SWEETIE BRINK MD Procedure: XR chest 1V Single view chest: CLINICAL HISTORY: confirm NG placement COMPARISON: None FINDINGS: NG tube tip within the stomach. No free air. XR/XR chest 1V IMPRESSION: NG TUBE WITHIN THE STOMACH. NO FREE AIR. Impression dictated by: Vic Bello Jr., D.OGiancarlo 05/18/2025 2:16 PM Dictation Location: [place] [address] Electronically authenticated by: [id number] Y Date: 05/18/2025 14:16
[2025-05-18] MEDS: 0.9 % SODIUM CHLORIDE 1,000 ML 1000 ML IV (13:15)
[2025-05-18] MEDS: HYDROMORPHONE HCL 0.5 MG/0.5 ML SYRINGE IV (13:23)
[2025-05-18 14:23] LABS: Lactate/Lactic Acid 7.2 mmol/L (0.4-2.0)
--- NOTE | 2025-05-18 15:21 | ED_ITS ---
HPI HPI - General Adult General Chief complaint: Back Pain/Injury Stated complaint: SEVERE PAIN Time Seen by Provider: 05/18/25 10:19 Source: patient Mode of arrival: Wheelchair History of Present Illness HPI narrative: The patient is 69 years old male with history of pancreatic cancer with metastasis presenting to the ER with increasing pain, patient does not actually take any medication and he did not receive any chemotherapy he already was getting evaluated by pain and palliative and receiving fentanyl and oxycodone, but the pain medication were not working the patient had decreased p.o. intake for the last 24 hours and he was complaining of severe pain that the brought him over here The patient does not want any procedures done or any further treatment except for pain control Related Data Home Medications ?Medication ?Instructions ?Recorded ?Confirmed fentanyl 25 mcg/hr transdermal 05/18/25 patch ondansetron HCl 8 mg tablet mg 05/18/25 oxycodone 5 mg tablet mg 05/18/25 polyethylene glycol 3350 17 gram g 05/18/25 oral powder packet (Purelax) sennosides 8.6 mg tablet (senna) mg 05/18/25 Allergies Allergy/AdvReac Type Severity Reaction Status Date / Time No Known Drug Allergies Allergy Verified 05/18/25 10:10 Opioid HPI Opioid Management Most Recent Opioid Data: Last Pain Scale 8 Today, 13:23 Last MAR Pain Assessment Today, 13:23 Review of Systems ROS Status of ROS 10 or more systems reviewed and unremark able except as noted in history and below PFSH PFSH Social History Little interest or pleasure in doing things: not at all Feeling down, depressed, or hopeless: not at all Exam Narrative Exam Narrative: Nurses notes and vital signs reviewed and patient distress due to pain General:cachectic and jaundiced Skin: distressed cachectic and jaundiced No rash. Head: Normocephalic, atraumatic. Neck: Supple, non-tender. Cardiovascular: Regular Rate and Rhythm without murmur, gallop or rub. Respiratory: No accessory muscle use or respiratory distress. Lungs are clear to auscultation, no wheezing, rales or rhonchi Musculoskeletal: normal ROM, no calf or popliteal tenderness, no lower extremity edema/swelling GI: Abdomen significantly distended with hepatomegaly, and tenderness on examination mostly epigastric area Constitutional Vital Signs, click to edit/add: Last Vital Signs Temp 97.8 F 05/18/25 10:56 Pulse 118 H 05/18/25 10:03 Resp 20 05/18/25 10:03 BP 86/67 L 05/18/25 12:30 Pulse Ox 98 05/18/25 10:03 Course Vital Signs Vital signs: Vital Signs Pulse Rate 118 H 05/18/25 10:03 Respiratory Rate 20 05/18/25 10:03 Blood Pressure 93/65 05/18/25 10:03 Pulse Oximetry 98 05/18/25 10:03 Temperature 97.8 F 05/18/25 10:56 Pulse Rate 118 H 05/18/25 10:03 Respiratory Rate 20 05/18/25 10:03 Blood Pressure 86/67 L 05/18/25 12:30 Pulse Oximetry 98 05/18/25 10:03 Medical Decision Making MDM Narrative Medical decision making narrative: Patient obviously moaning in pain and presenting to us he initially was treated with the Dilaudid after establishing IV for pain management the patient had some blood draw to clarify further management The CBC and chemistry showed that the patient have a picture of sepsis and acute kidney injury with multiple acute pathology as well But the family knows already that the patient have metastatic pancreatic cancer and the patient is actively end-stage metastatic pancreatic cancer with his symptoms right now progression to be possibly small bowel obstruction with x-ray confirming that The patient initially did be treated with Dilaudid but was still moaning in pain I did suggest that the patient can get an NG tube which should help raising some pressure which helped after the patient was agreeable to do that and he did need only 1 dose of Dilaudid after that The patient at the bedside as well as his and daughter had a discussion that he mostly needs hospice care and I did discuss the patient care with [facility] but right now the patient needs IV pain medication which is not something we can establish at the moment but the patient can be admitted for pain management and after that he can really be reevaluated for hospice to go home tomorrow Patient case discussed with Dr Kirkpatrick Patient CODE STATUS is DNR CC Lab Data Labs: Lab Results 05/18/25 05/18/25 Range/Units 10:38 13:26 WBC 33.8 H* (4.0-11.0) 10^3/uL RBC 5.08 (4.70-6.10) 10^6/uL Hgb 14.4 (14.0-18.0) g/dL Hct 42.6 (42.0-54.0) % MCV 83.9 (80.0-94.0) fL MCH 28.3 (25.9-34.0) pg MCHC 33.8 (29.9-35.2) g/dL RDW 14.8 (11.0-15.0) % Plt Count 231 (150-450) 10^3/uL MPV 10.3 (9.5-13.5) fL Seg Neuts % (Manual) 86.0 H (43.0-75.0) Band Neutrophils % 2.0 (0-5) % Lymphocytes % (Manual) 1.0 L (20.5-60.0) % Monocytes % (Manual) 9.0 (1.7-12.0) % Eosinophils % (Manual) 0.0 L (0.9-7.0) % Basophils % (Manual) 0.0 L (0.2-2.0) % Metamyelocytes % 2.0 Neutrophils # (Manual) 29.06 H (1.4-6.5) 10^3/uL Band Neutrophils # 0.7 H (0.0-0.3) 10^3/uL Lymphocytes # (Manual) 0.33 L (1.20-3.80) 10^3/uL Monocytes # (Manual) 3.04 H (0.30-0.80) 10^3/uL Eosinophils # (Manual) 0.00 (0.00-0.70) 10^3/uL Basophils # (Manual) 0.00 (0.00-0.10) 10^3/uL Metamyelocytes # 0.67 Sodium 133 L (136-145) mmol/L Potassium 5.9 H (3.5-5.1) mmol/L Chloride 93 L (98-107) mmol/L Carbon Dioxide 20.0 L (21.0-32.0) mmol/L Anion Gap 25.9 BUN 91.0 H* (7.0-18.0) mg/dL Creatinine 3.28 H (0.70-1.30) mg/dL Est GFR ( Amer) 23 L (>=60 mL/min/1.73m^2) Est GFR (Non-Af Amer) 19 L (>=60 mL/min/1.73m^2) BUN/Creatinine Ratio 27.7 Glucose 132 H (74-106) mg/dL Lactate 7.2 H* 7.2 H* (0.4-2.0) mmol/L Calcium 8.2 L (8.5-10.1) mg/dL Total Bilirubin 13.4 H (0.2-1.0) mg/dL AST 827 H* (15-37) U/L ALT 300 H (16-63) U/L Alkaline Phosphatase 882 H (46-116) U/L Total Protein 6.0 L (6.4-8.2) g/dL Albumin 2.0 L (3.4-5.0) g/dL Globulin 4.0 g/dL Albumin/Globulin Ratio 0.5 Discharge Plan Discharge Chief Complaint: Back Pain/Injury Clinical Impression: Admission for hospice care Patient Disposition: Admitted As Inpatient
--- OUTSIDE RECORDS SUMMARY | 2025-05-18 16:09 | XMS_ITS | CCD ---
Author Organization [facility] CliniSyny Care Team Providers Care Dyno Technician Name Role Phone Saeed Gomez Unavailable Saeed [...] Unavailable Jennifer Fletcher APRN Attending Provider Saeed Gomze DO Primary Care Provider Saeed Gomez DO Attending Provider RIYA, JUDIT Referring Unavailable SAEED GOMEZ Primary Care Unavailable WAI TUCKER Attending Unavailable WAI TUCKER Admitting Unavailable AJAYU, JUDIT Attending Unavailable RIYA, JUDIT Referring Unavailable JUDIT SHANNON Referring Unavailable SAEED GOMEZ Primary Care Unavailable SAEED GOMEZ Primary Care Unavailable KARAMLOU, JUDIT Referring Unavailable SAEED GOMEZ Primary Care Unavailable JUDIT SHANNON Attending Unavailable SAEED GOMEZ Primary Care Unavailable JUDIT SHANNON Attending Unavailable SAEED GOMEZ Primary Care Unavailable Medications Current Medications MedicationDrug Class(es)DatesSig (Normalized)Sig (Original)calcium ascorbate 500 mg oral tablet (4 sources)Start: 44-65-1918lgzc 1 tablet by mouth once dailyAscorbate Calcium (Vitamin C) 500 mg tablet Active 500 MG PO Daily November 21, 2023 12:00am Complies with drug therapycitrulline 600 mg oral capsule (3 sources)Start: 92-01-2247Oevpmaftmq 600 mg capsule Active 0 PO .COMPLEX November 14, 2024 12:00am 1500 MG orally QD; Complies with drug therapydiazePAM 10 mg oral tablet (1 source)BenzodiazepineStart: 28-06-4164idna 1 tablet by mouth every hour Diazepam (Valium) 10 mg tablet Active 10 MG PO .COMPLEX 1 March 11, 2025 12:00am 10 mg orally 1 hour prior to procedure; Complies with drug therapyGrape Seed Extract (16 sources)Start: 18-88-1733Irbzxilux extract Active PO November 21, 2023 12:00am Complies with drug therapyStart: 55-79-2097Qusrgvrbc extract Active PO November 21, 2023 12:00amGrape Seed Extract CAPS TAKE 1 CAPSULE Daily Quantity: 0 Refills: 0 Ordered: 12-Jan-2022 DO ActiveGrapeseed Extract ActiveMagnesium (6 sources)take 1 tablet by mouth once dailyMagnesium 250 MG 1 tablet with a meal Orally Once a day Activemagnesium oxide 250 mg oral tablet (8 sources)Start: 11-21-2023 End: 12-47-0713wcvj 1 tablet by mouth once dailyMagnesium Oxide 250 mg magnesium tablet Active 250 MG PO Daily November 21, 2023 8:09am Complies with drug therapy Scandia 3 (6 sources)Scandia 3 ActiveOmega-3 Fatty Acids (4 sources)Start: 26-88-3685ztve 1 capsule by mouth once dailyOmega-3 Fatty Acids 1,250 mg capsule Active 1250 MG PO Daily November 21, 2023 12:00am Complies with drug therapyStart: 81-35-9245poql 1 capsule by mouth once dailyOmega-3 Fatty Acids 1,250 mg capsule Active 1250 MG PO Daily November 21, 2023 12:00am Start: 18-49-8543uihm 1250 mg by mouth once dailyOmega-3 Fatty Acids Active 1250 MG PO Daily November 21, 2023 12:00amrosuvastatin calcium 5 mg oral tablet (2 sources)HMG-CoA Reductase InhibitorStart: 81-32-6340nito 1 tablet by mouth every twenty-four hoursRosuvastatin Calcium 5 MG 1 tablet Orally Once a day Jan, Activevitamin B12 (6 sources)Vitamin C55Jrmbtyd B12 ActiveVitamin C 500 MG (6 sources)Vitamin C 500 MG as directed Orally ActiveVitamin D (6 sources)Vitamin D ActiveZinc (6 sources)take 1 tablet by mouth once dailyZinc 30 MG 1 tablet Orally Once a day Activezinc gluconate 30 mg oral tablet (8 sources)Start: 11-21-2023 End: 25-79-6016iapz 1 tablet by mouth once dailyZinc Gluconate 30 mg tablet Active 30 MG PO Daily November 21, 2023 8:10am Complies with drug therapy Completed/Discontinued Medications MedicationDrug Class(es)DatesSig (Normalized)Sig (Original)aspirin 81 mg chewable tablet (18 sources)Platelet Aggregation Inhibitor, Nonsteroidal Anti-inflammatory Drug Start: 11-21-2023 End: 43-63-6930ilxj 1 tablet by mouth once dailyAspirin 81 mg tablet,chewable Discontinued 1 TAB PO Daily November 21, 2023 8:09am November 21, 2023 8:10amStart: 98-93-1882bfbe 1 tablet by mouth once daily at [...] Reductase Inhibitor Antibacterial, Sulfonamide AntimicrobialStart: 02-06-2025 End: 58-40-7911idzc 1 tablet by mouth every twelve hoursSulfamethoxazole- Trimethoprim (Bactrim Ds) 800-160 mg tablet Discontinued 1 TAB PO Every 12 hours February 06, 2025 12:00am March 11, 2025 1:17pmtriamcinolone acetonide 1 mg/ml topical cream (1 source)CorticosteroidStart: 02-06-2025 End: 74-95-1141Rnqtfihfwaqdt Acetonide 0.1 % cream Discontinued 1 APPLIC [...] 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)]Onset: 44-64-1991NlqplakYjikzcy dysrhythmias (4 sources)Other specified cardiac arrhythmias; Translations: [OTHER SPECIFIED CARDIAC ARRHYTHMIAS]Onset: 33-71-0215DddzoeqKuojsud dysrhythmias (14 sources)Palpitations; Translations: [Palpitations]Onset: 11-15-2021 Resolved: 10-06-8215InykbrplIvduxwff mellitus without complication (9 sources)Hyperglycemia, unspecified; Translations: [Hyperglycemia]Onset: 11-15-2021 Resolved: 63-58-1224UkyxjobeLfzkteeb of white blood cells (5 sources)Leukopenia; Translations: [Decreased white blood cell count, unspecified]07-20-2842QygvawgPsmjgcioy of lipid metabolism (20 sources)Hyperlipidemia; Translations: [Hyperlipidemia, unspecified]Onset: 11-15-2021 Resolved: 32-70-6813ZrieirpAtaiibivbywxj symptoms and ill-defined conditions (14 sources)Nocturia; Translations: [Nocturia]Onset: 11-15-2021 Resolved: 86-37-2390MragflilKknnofryvhgbe mental health disorders (1 source)Anxiety about body function or health; Translations: [Other symptoms and signs involving emotional state]46-21-2701UhjardiyTujemfxgnvw chest pain (2 sources)Chest wall pain; Translations: [Other chest pain]72-37-2243Zcjlalnw Other aftercare (2 sources)Other usp (current) drug therapy; Translations: [Long-term (current) use of other medications]Onset: 02-17-2022 Resolved: 33-15-1656ZkhzcbpkZilof aftercare (4 sources)Long-term current use of drug therapy; Translations: [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]17-20-9747NwwohkmaMkjqh circulatory disease (3 sources)Elevated blood-pressure reading without diagnosis of hypertension; Translations: [Elevated blood-pressure reading, without diagnosis of hypertension]38-12-6601XfyihkitIwsdp endocrine disorders (2 sources)Adrenal mass; Translations: [Disorder of adrenal gland, unspecified] 71-10-5667KcoibwoPivkkgf on above:possible left adrenal noduleOther gastrointestinal disorders (2 sources)Splenomegaly; Translations: [Splenomegaly, not elsewhere classified] 49-81-9373TydffwfzLvuse liver diseases (3 sources)Liver disease, unspecified; Translations: [Liver lesion]Onset: 96-82-4089LuxvkbyUwnfj liver diseases (2 sources)Liver mass; Translations: [Hepatomegaly, not elsewhere classified] 50-85-6302MowmobsmMdguu lower respiratory disease (6 sources)Dyspnea; Translations: [Other respiratory abnormalities]EpisodicOther nervous system disorders (1 source)Neoplasm related pain (acute) (chronic); Translations: [Cancer-related pain]Onset: 95-60-6868NpdokagOqzki nutritional; endocrine; and metabolic disorders (3 sources)Abnormal weight gain; Translations: [Abnormal weight gain]Onset: 11-15-2021 Resolved: 56-38-9599RocuxqcwNjehh nutritional; endocrine; and metabolic disorders (5 sources)Overweight in adulthood with body mass index of 25 or more but less than 30; Translations: [Overweight]EpisodicOther nutritional; endocrine; and metabolic disorders (3 sources)Intentional weight fgqp48-68-3358EbwjvpymGgqpg nutritional; endocrine; and metabolic disorders (4 sources)Weight increased; Translations: [Abnormal weight gain]11-14-2024 EpisodicOther nutritional; endocrine; and metabolic disorders (1 source)Abnormal weight loss; Translations: [Abnormal weight loss]Onset: 16-04-7720YrosmxzlQwhhk screening for suspected conditions (not mental disorders or infectious disease) (17 sources)Encounter for screening for malignant neoplasm of prostate; Translations: [Patient encounter status]Onset: 11-15-2021 Resolved: 20-96-9335YjythycnRelza skin disorders (2 sources)Eruption; Translations: [Rash and other nonspecific skin eruption] 65-59-9374ErashazeNnawjeybbk disorders (not diabetes) (3 sources)Mass of pancreas; Translations: [Other specified diseases of pancreas]Onset: 525108-21-5439PzvfmxxwEtvoxdpc codes; unclassified (1 source)Body mass index 20-24 - normal; Translations: [Body Mass Index between 19-24, adult]EpisodicSkin and subcutaneous tissue infections (2 sources)Cellulitis; Translations: [Cellulitis, unspecified]40-19-6943Kqakmivh Unclassified (2 sources)Intentional weight loss; Translations: [Intentional weight loss] 11-21-2023 Past or Other Problems Problem ClassificationProblemDateDocumented DateEpisodic/ChronicConditions associated with dizziness or vertigo (1 source)Dizziness and giddinessOnset: 11-15-2021 Resolved: 65-18-4209GjdgnzgfUcsyi circulatory disease (1 source)Elevated blood-pressure reading, without diagnosis of hypertension Onset: 11-15-2021 Resolved: 68-85-2873MmriwvzrGeqemezjdhnw (6 sources)Never smoked tobacco; Translations: [Never a smoker] Results Test NameValueInterpretationReference RangeFacilityCNPNon 64-36-8526NSCD Telephone (HEMAVN) JAVAD [place] ([id number]) 1955 M Date Time Provider Department 04/30/25 JUDIT SHANNON During your visit today, we recorded the following information about you: Silvia Branham RN 04/30/2025 9:48 AM Signed Care Coordination Triage Note [facility] [place] Situation: Patient reports Nausea/Vomiting Background: Dx: Pancreatic [...] 1 tablet by mouth once daily. - bzmirpwa-dtep-qfz8-C-elisabeth-bosw (OSTEO BI-FLEX TRIPLE STRENGTH) 750 mg-644 mg- 30 mg-1 mg tab Take 1 tablet by mouth once daily. - cholecalciferol (VITAMIN D-3) 5,000 unit tab Take 1 tablet by mouth once daily. - Aspirin 81 mg tab Take 81 mg by mouth. - CITRULLINE 1000 PO Take by mouth. - magnesium oxide 250 mg tablet Take 250 mg by mouth once daily. - Scandia-3 Fatty Acids 1,250 mg cap Take by mouth. - Zinc Gluconate 30 mg tab Take by mouth. Problem List As Of Date: 04/30/2025 (None) Prescriptions ordered this encounter Disp Refills Start End ONDANSETRON HCL 8 MG TABLET 60 t* 0 04/30/2025 Route: PO Sig: Take 1 tablet by mouth every 8 hours as needed for nausea/vomiting. Encounter Status:Closed by JUDIT SHANNON on 04/30/25[facility] [id number] (YOLIE) Office (HEMEVA) JAVAD [place] ([id number]) 1955 M Date Time Provider Department 04/25/25 11:00 AM JUDIT SHANNON During your visit today, we recorded the following information about you: Temperature Pulse Blood pressure Weight 98.2 degrees 94/minute 122/73 76.4 kg Judit Shannon MD 04/25/2025 11:26 AM Signed PATIENT NAME: Javad [place] CLINIC NO.: [id number] ATTENDING PHYSICIAN: Judit Shannon MD DATE OF [...] Range Status 03/27/2025 14.9 % Final Abs [place] Date Value Ref Range Status 03/27/2025 0.90 (H) <0.87 k/uL Final Abs Eosin Date Value Ref Range Status 03/27/2025 0.08 <0.46 k/uL Final Basophils % Date Value Ref Range Status 03/27/2025 0.3 % Final Abs Baso Date Value Ref Range Status 03/27/2025 <0.03 <0.11 k/uL Final PATH: Liver Biopsy 10 (more content not included)...NormalUniversity Hospitals [facility] 24-43-3805CPSZCczmhejie (HEMAVN) JAVAD [place] ([id number]) 1955 M Date Time Provider Department 04/11/25 [...] 1 tablet by mouth once daily. - sftcpktd-hhfq-iwk9-C-elisabeth-bosw (OSTEO BI-FLEX TRIPLE STRENGTH) 750 mg-644 mg- 30 mg-1 mg tab Take 1 tablet by mouth once daily. - cholecalciferol (VITAMIN D-3) 5,000 unit tab Take 1 tablet by mouth once daily. - Aspirin 81 mg tab Take 81 mg by mouth. - CITRULLINE 1000 PO Take by mouth. - magnesium oxide 250 mg tablet Take 250 mg by mouth once daily. - Scandia-3 Fatty Acids 1,250 mg cap Take by mouth. - Zinc Gluconate 30 mg tab Take by mouth. Problem List As Of Date: 04/11/2025 (None) Encounter Status:Closed by SILVIA BRANHAM on 04/11/25No[facility] Hospitalon [id number] (GASTNO) JAVAD [place] ([id number]) 1955 Date Time Provider Department 04/09/25 FABIAN AYOUB During your visit today, we recorded the following information about you: Fabian Ayoub MD 04/09/2025 6:02 PM Signed Referral from Dr. Moreira for EUS from [facility]. 69 years old male. He was evaluated at [place] [facility] for chest pain and hypertension. CT [...] 1 tablet by mouth once daily. - ievhsazy-geqr-ncy7-C-elisabeth-bosw (OSTEO BI-FLEX TRIPLE STRENGTH) 750 mg-644 mg- 30 mg-1 mg tab Take 1 tablet by mouth once daily. - cholecalciferol (VITAMIN D-3) 5,000 unit tab Take 1 tablet by mouth once daily. - Aspirin 81 mg tab Take 81 mg by mouth. - CITRULLINE 1000 PO Take by mouth. - magnesium oxide 250 mg tablet Take 250 mg by mouth once daily. - Scandia-3 Fatty Acids 1,250 mg cap Take by mouth. - Zinc Gluconate 30 mg tab Take by mouth. Problem List As Of Date: 04/09/2025 (None) Encounter Status:Closed by FABIAN AYOUB on 04/09/25[facility] CenterOVSPon [id number] (SP) Office (HEMAVN) JAVAD [place] ([id number]) 1955 M Date Time Provider Department 04/08/25 4:15 PM JUDIT SHANNON During your visit today, we recorded the following information about you: Temperature Pulse Respiration Blood pressure 97.4 degrees 88/minute 16/minute 145/80 Weight Height 80.1 kg 1.803 m Judit Shannon MD 04/08/2025 4:58 PM Signed PATIENT NAME: Javad [place] CLINIC NO.: [id number] ATTENDING PHYSICIAN: Judit Shannon MD DATE OF [...] Value Ref Range Status (more content not included)...[facility] DPYD/UGT1A1 GENOTYPING PANELon 70-70-7772BBYO/UGT1A1 GENOTYPING PANEL RESULT [facility] HospitalComment on above:Order Comment: Specimen Type: BLOOD SPECIMENOrdering Facility: [facility] Address:[address] [place], [place] [address]Result Comment: Pharmacogenomics (PGx) DPYD and UGT1A1 Genotyping Laboratory Accession Number: [id number] DPYD Genotype: *1/*1 DPYD Activity Score: 2 [...] molecular testing details should be directed to [facility] . Two decreased function UGT1A1 alleles were [...] molecular testing details should be directed to [facility] . The DPYD gene encodes dihydropyrimidine dehydrogenase [...] Variant Details: NA UGT1A1 Variant Details: UGT1A1 [id number], c.-346C>T, g.[id number]>T (legacy name 80); UGT1A1 [id number], c.-41_-40dupTA g.[id number]_[id number] (legacy name 28) DPYD Additional Information: In addition to increased risk of 5-fluorouracil toxicity, variants in the DPYD gene may be associated with DPD deficiency, an autosomal recessive inborn error of metabolism (OMIM: 837925). DPD deficiency exhibits a wide range of [...] list below) in the DPYD gene (OMIM 340673) and UGT1A1 gene (OMIM 627937). This test does not detect all sequence [...] not included)...Performed By: #### [id number] ####[facility] [id number] [place] [id number] [facility]CT BIOPSY LIVERon 80-31-1587AM BIOPSY LIVER* * *Final Report* * * DATE OF EXAM: Apr 01 2025 10:20AM [facility] 2017 - CT [...] IMPRESSION: CT-guided liver mass biopsy as described Qa Consultant: PSCB Transcribe Date/Time: Apr 01 2025 12:14P Dictated by : WAI TUCKER MD This examination was interpreted and the report reviewed and electronically signed by: WAI TUCKER MD on Apr 01 2025 12:15PM EST [id number] BY IHC NON BREASTon 04-01-2025 BIOMARKER METHODMercy Health Defiance HospitalComment on above:Order Comment: Specimen Type: TISSUE SPECIMEN [facility] Address: [address] [place], [place] [address]Result Comment: HER2 (ERBB2) by IHC: FDA cleared: [employer], [place], [place] Primary Antibody:4B5 Antibody and Detection System: Bier's Pathway anti-HER2 rabbit monoclonal antibody (clone 4B5), were detected with the [employer] iView Detection System (indirect biotin streptavidin detection); [place], [place].Performed By: #### [id number] #### [facility] CLIA [id number] [address] [place] [address] HospitalComment on above:Order Comment: Specimen Type: TISSUE SPECIMEN [facility] Address: [address] [place], [place] [address]Performed By: #### [id number] #### [facility] CLIA [id number] [address] [place] [address] OF [facility] HOSPITALHER2 SCORE FOR ENHERTU TREATMENT OR BILIARY BJCTY9DavcldEvpnpv HospitalComment on above:Order Comment: Specimen Type: TISSUE SPECIMEN [facility] Address: [address] [place], [place] [address]Performed By: #### [id number] #### [facility] CLIA [id number] [address] [place], [place] [address]HER2 STATUS FOR ENHERTU TREATMENT OR BILIARY TRACTNegativeNormalUniversity Hospitals Elyria Medical Centerna HospitalComment on above:Order Comment: Specimen Type: TISSUE SPECIMEN [facility] Address: [address] [place], [place] [address]Performed By: #### [id number] #### [facility] CLIA [id number] [address] [place] [address] [place] STATES OF AMERICATUMOR TYPE (NON BREAST) Unresectable or Metastatic Solid Tumor for Possible Enhertu TreatmentStoughton Hospital HospitalComment on above:Order Comment: Specimen Type: TISSUE SPECIMEN [facility] Address: [address] [place], [place] [address]Performed By: #### [id number] #### [facility] CLIA [id number] [address] [place], [place] [address]MISMATCH REPAIR PROTEINS BY IHCon 49-71-4459KT BIOMARKER DISCLAIMERMercy Health Defiance HospitalComment on above: Order Comment: Specimen Type: TISSUE SPECIMEN [facility] Address: [address] [place], [place] [address]Result Comment: Laboratory Developed Test (LDT) Disclaimer: Performance characteristics of immunohistochemical, immunofluorescent, and chromogenic in-situ hybridization tests have been determined by the performing laboratory within the [facility] Department of Pathology and Laboratory Medicine ([facility], [facility], [facility], [facility], [facility], [facility], or [facility]) in a manner consistent with CLIA requirements. One or more of these tests may not have been cleared or approved by the FDA. The [facility] Department of Pathology and Laboratory Medicineis regulated under CLIA as qualified to perform high-complexity testing. These tests are used for clinical purposes. These should not be regarded as investigational or for research. Positive and negative controls stain appropriately.Performed By: #### [id number] #### [facility] CLIA [id number] [address] [place], [place] [address]Performed By: #### [id number] #### [facility] CLIA [id number] [address] [place], [place] [address] [facility] AMERICAAP BLOCK [id number] Health Defiance HospitalComment on above:Order Comment: Specimen Type: TISSUE SPECIMEN [facility] Address: [address] [place], [place] [address]Performed By: #### [id number] #### [facility] CLIA [id number] [address] [place], [place] [address]Performed By: #### [id number] #### [facility] CLIA [id number] [address] [place], [place] [address] [facility] HOSPITALBIOMARKER INTERPRETATION COMMENT AND REFERENCE RANGELake County [facility] on above:Order Comment: Specimen Type: TISSUE SPECIMEN [facility] Address: [address] [place], [place] [address], [place] [address]Zyxnbs Comment: Intact expression of MMR (mismatch repair) [...] patients with metastatic carcinoma, Renee et al. ([facility] 2015;372:2509-07) reported that the clinical benefit of pembrolizumab, [...] questions about this result, please call the [facility] Center for [facility] at [phone].Performed By: #### [id number] #### [facility] CLIA [id number] [address] [place] [address] [facility]ITALResult Comment: Reference Ranges for HER2 immunohistochemistry [...] options. The approval is based on the ADITI-XlgRboeh12 clinical trial in which HER2 IHC is interpreted similarly to the College of [place] Pathologists, [place] Society for Clinical Pathology, and [place] Society of Clinical Oncology biopsy criteria for gastric/EGJ adenocarcinoma. However, 2+ cases are interpreted as negative for ENHERTU therapy. Additionally, HER2 (ERBB2) amplification status by fluorescence in situ hybridization (FISH) plays no role in determining a patient???s eligibility in (non-breast, non- gastric/EGJ, non-colon) solidtumors. Reference: Darek GARCIA, et al. HER2 Testing and Clinical Decision Making in Gastroesophageal Adenocarcinoma: Guideline From the College of [place] Pathologists, [place] Society for Clinical Pathology, and [place] Society of Clinical Oncology. Arch Pathol Lab Med. 2016 May;140(12):9167-2295. Lefty F, Rhonda V, Isael A, Cole DY, Dominguez S, Damion???lez-Milton???n A, Seth KH, ?luis I, Nevaeh L, Sean A, Norbert B, Rolanda S, Nando D, Eyad A, Juan A Y, Puvvada S, Johana N, Vinnie RandY. Efficacy and Safety of Trastuzumab Deruxtecan in Patients With HER2-Expressing Solid Tumors: Primary Results From the ADITI-CkpOdjed87 Phase II Trial. J Clin Oncol. 2023Jun 26;42(1):47-58. doi: 10.1200/JCO.23.16671. Epub 2022Apr 17. PMID: 39658307; PMCID: [id number]. FDA product label: https://www.accessdata.fda.gov/drugsatfda_docs/label/2023/400569d992wgr.pdf Performed By: #### [id number] #### [facility] [place] [id number] [address] [place], [place] [address]BIOMARKER METHOD Immunohistochemistry was performed on formalin-fixed paraffin-embedded tissue using the FDA-approved MMR IHC Panel with the following clones: MLH1 (clone M1 mouse monoclonal); PMS2 (A16-4 mouse monoclonal); MSH2 ([id number] mouse monoclonal); MSH6 (SP93 rabbit monoclonal). The OptiView DAB IHC Detection Kit is used with MLH1, MSH2, and MSH6, and the OptiView DAB IHC Detection Kit with OptiView Amplification Kit is used for PMS2 detection. [[employer], [place]][facility] HospitalComment on above:Order Comment: Specimen Type: TISSUE SPECIMEN [facility] Address: [address] [place], [place] [address]Performed By: #### [id number] #### [facility] [place] [id number] [address] [place] [address] HospitalComment on above:Order Comment: Specimen Type: TISSUE SPECIMEN [facility] Address: [address] [place], [place] [address]Performed By: #### [id number] #### [facility] [place] [id number] [address] [place] [address] STATES CATHOLIC HEALTHFIXATIVEFormalin, 10% Neutral BufferedSSM Health St. [facility] Hospital [facility]aboo HospitalComment on above:Order Comment: Specimen Type: TISSUE SPECIMEN [facility] Address: [address] [place] [id number] By: #### [id number] #### [facility] CLIA [id number] [address] [place] [address] [place] OF AMERICAPerformed By: #### [id number] #### [facility] CLIA [id number] [address] [place] [address] [place] OF AMERICAMLH1 IMMUNOHISTOCHEMICAL RESULTSNormal/Intact Nuclear ExpressionNormalMedina HospitalComment on above: Order Comment: Specimen Type: TISSUE SPECIMEN [facility] Address: [address] [place], [place] [address]Performed By: #### [id number] #### [facility] CLIA [id number] [address] [place] [address] [place] OF AMERICAMLH1 PROMOTER METHYLATION ASSAYNoNormalUniversity Hospitals Elyria Medical Centerna HospitalComment on above:Order Comment: Specimen Type: TISSUE SPECIMEN [facility] Address: [address] [place], [place] [address]Performed By: #### [id number] #### [facility] CLIA [id number] [address] [place] [address], [place] [address] [place] OF AMERICAMMR INTERPRETATIONProficient (Microsatellite Stable)NormalMedina HospitalComment on above:Order Comment: Specimen Type: TISSUE SPECIMEN Ordering Facility: [facility] Address: [address] [id number] By: #### [id number] #### [facility] CLIA [id number] [address] [place] [address] [place] OF AMERICAMSH2 IMMUNOHISTOCHEMICAL RESULTSNormal/Intact Nuclear ExpressionNormalUniversity Hospitals Elyria Medical Centerna HospitalComment on above: Order Comment: Specimen Type: TISSUE SPECIMEN [facility]ing Facility: [facility] Address: [address] [id number] By: #### [id number] #### [facility] CLIA [id number] [address] [place] [address] [place] OF [facility] HOSPITALMSH6 IMMUNOHISTOCHEMICAL RESULTSNormal/Intact Nuclear ExpressionNormalMedina HospitalComment on above: Order Comment: Specimen Type: TISSUE SPECIMEN Ordering Facility: [facility] Address: [address] [place], [place] [address]Performed By: #### [id number] #### [facility] CLIA [id number] [address] [place] [address] [place] OF AMERICAPMS2 IMMUNOHISTOCHEMICAL RESULTSNormal/Intact Nuclear ExpressionNormalMedina HospitalComment on above: Order Comment: Specimen Type: TISSUE SPECIMEN Ordering Facility: [facility] Address: [address] [place], [place] [address]Performed By: #### [id number] #### [facility] CLIA [id number] [address] [place] [address] [place] OF AMERICATUMOR TYPE MMROther (See Comment)NormalMedina HospitalComment on above:Order Comment: Specimen Type: TISSUE SPECIMEN Ordering Facility: [facility] Address: [address] [place], [place] [address]Result Comment: Liver, mass, biopsy: - Involved by poorly differentiated adenocarcinoma.Performed By: #### [id number] #### [facility] CLIA [id number] [address] [place] [address] [place] OF AMERICAPathology biopsy report David (Tiss)on [id number] DISCLAIMERNormalMedina HospitalComment on above:Order Comment: Specimen Type: TISSUE SPECIMEN Ordering Facility: [facility] Address: [address] [place], [place] [address]Result Comment: Laboratory Developed Test (LDT) Disclaimer: Performance characteristics of immunohistochemical, immunofluorescent, and chromogenic in-situ hybridization tests have been determined by the performing laboratory within the [facility] Department of Pathology and Laboratory Medicine ([facility], [facility], [facility], [facility], [facility], [facility], or [facility]) in a manner consistent with CLIA requirements. One or more of these tests may not have been cleared or approved by the FDA. The [facility] Department of Pathology and Laboratory Medicineis regulated under CLIA as qualified to perform high-complexity testing. These tests are used for clinical purposes. These should not be regarded as investigational or for research. Positive and negative controls stain appropriately.Performed By: #### 66373-1 #### [facility] CLIA [id number] [address] [place] [address] STATES OF AMERICACASE REPORTNoMercer County Community HospitalComment on above:Order Comment: Specimen Type: TISSUE SPECIMEN Ordering Facility: [facility] Address: [address] [place], [place] [address]Result Comment: Surgical Pathology Report Case: [id number] Authorizing Provider: Wai Tucker MD Collected: 04/01/2025 10:03 AM Ordering Location: [facility] Radiology Received: 04/01/2025 10:42 AM Pathologist: Latoya Retana MD Specimen: Liver, Mass, BiopsyPerformed By: #### 15784-1 #### [facility] CLIA [id number] [address] [place] [address] OF [facility] HOSPITALCLINICAL HISTORYincidental note of suspected liver metastasesNoMercer County Community HospitalComment on above:Order Comment: Specimen Type: TISSUE SPECIMEN [facility]ing [facility] Address: [address] [place], [place] [address]Performed By: #### 50882-8 #### [facility] CLIA [id number] [address] [place] [address] OF AMERICADIAGNOSIS COMMENTNormal Riverview Health InstituteComment on above:Order Comment: Specimen Type: TISSUE SPECIMEN Ordering [facility] Address: [address] [place], [place] [address]Result Comment: The neoplastic cells labeled with CK7, CK19, CDX2 (patchy); they do not express CK20, NKX3.1, glypican-3, and TTF-1. SMAD4 shows patchy loss in the neoplastic glands. Overall the features favor involvement by a pancreatic primary adenocarcinoma. Performed By: #### 04110-8 #### [facility] CLIA [id number] [address] [place] [address] [facility] HOSPITALFINAL DIAGNOSISNormSt. Mary's Medical Center HospitalComment on above:Order Comment: Specimen Type: TISSUE SPECIMEN Ordering Facility[facility] Address: [address] [place], [place] [address]Result Comment: A. Liver, mass, biopsy - Involved by poorly differentiated adenocarcinoma - See comment at 1036 EDTPerformed By: #### 02856-8 #### [facility] CLIA [id number] [address] [place] [address] [facility] HOSPITALGROSS DESCRIPTIONSelect Medical Ohiohealth Rehabilitation Hospital - DublinComment on above:Order Comment: Specimen Type: TISSUE SPECIMEN Ordering Facility: [facility] Address: [address] [place], [place] [address]Result Comment: A. Liver, Mass, Biopsy Received in formalin are two segments of cylindrical tissue aggregating to 2.0 x 0.2 x 0.1 cm, henley-yellow and of a soft consistency. Totally submitted in one cassette. ADB April 01, 2025 3:30 PM Gross examination performed at [facility], [address] [place], [place] [address]Performed By: #### 23455-8 #### [facility] CLIA [id number] [address] [place], [place] [address] [facility] HOSPITALTis Path Bx reporton [id number] PERFORMING LABNoMercer County Community HospitalComaspirus ontonagon hospital on above:Order Comment: Specimen Type: TISSUE SPECIMEN [facility] Address: [address] [place], [place] [address]Result Comment: Diagnostic interpretation performed at: [facility], [address] [place], [place] [address] CLIA# [id number] Fashion Model: BARBARA Nelsonerformed By: #### 12128-6 #### [facility] CLIA [id number] [address] [place] [address] STATES OF AMERICAResult Comment: Diagnostic interpretation performed at: [facility], [address] [place], [place] [address] CLIA# [id number] Fashion Model: Colten Holbrook MD Electronically signed out by: BARBARA Gloriaerformed By: #### [id number] #### [facility] CLIA [id number] [address] [place], [place] [address] [facility]PO[facility] HOSPITALPerformed By: #### [id number] #### [facility] CLIA [id number] [address] [place], [place] [address] [facility] W Auto Differential panel (Bld)on 08-53-0616Nyxqxgfxk (Bld) [#/Vol]10*3/uLNormal<0.11CSamaritan Hospital on above:Order Comment: Specimen Type: BLOOD SPECIMENOrdering Facility: [facility] Address:[address] [place], [place] [address]Performed By: #### 43033-5 ####[facility] LABCLIA [id number] [place], [place] [address]Apppitivm/100 WBC (Bld)0.3 %NormalKettering Health Troy on above:Order Comment: Specimen Type: BLOOD SPECIMENOrdering Facility: [facility] Address:[address] [place], [place] [address]Performed By: #### 02566-8 ####[facility] LABCLIA [id number] [place], [place] [address]Mjivktkbxcpf cell count method Nom (Bld)AutoNormal [facility] on above:Order Comment: Specimen Type: BLOOD SPECIMENOrdering Facility: [facility] Address:[address] [place], [place] [address]Performed By: #### 90450-8 ####[facility] LABCLIA [id number] [place], [place] [address]Jhnngedynuz (Bld) [#/Vol]0.08 10*3/uLNormal<0.46[facility] on above: Order Comment: Specimen Type: BLOOD SPECIMENOrdering Facility: [facility] Address:[address] [place], [place] [address]Performed By: #### 18091- 8 ####[facility] LABCLIA [id number] [place], [place] [address]Npyvopzxhbj/100 WBC (Bld)1.3 %NormalKettering Health Troy on above:Order Comment: Specimen Type: BLOOD SPECIMENOrdering Facility: [facility] Address:[address] [place], [place] [address]Performed By: #### 81280-7 ####[facility] LABIA [id number] [place], [place] [address]Csryygdphad distribution width (RBC) [Ratio]12.0 %Mvlqgm22.5-15.0[facility] on above: Order Comment: Specimen Type: BLOOD SPECIMENOrdering Facility: [facility] Address:[address] [place], [place] [address]Performed By: #### 75621- 8 ####[facility] LABIA [id number] [place], [place] [address]Qmmksyzzlh (Bld) [Volume fraction]42.7 %Qjxchv39.0-51.0 [facility] on above:Order Comment: Specimen Type: BLOOD SPECIMENOrdering Facility: [facility] Address:[address] [place], [place] [address]Performed By: #### 14833-7 ####[facility] LABIA [id number] [place], [place] [address]Vjdxgipczc (Bld) [Mass/Vol]14.9 g/kWLrdbsq48.0-17.0[facility] on above: Order Comment: Specimen Type: BLOOD SPECIMENOrdering Facility: [facility] Address:[address] [place], [place] [address]Performed By: #### 31667- 8 ####[facility] LABCLIA [id number] [place], [place] [address]Fqckpewa granulocytes (Bld) [#/Vol]0.03 10*3/uLNormal <0.10[facility] on above:Order Comment: Specimen Type: BLOOD SPECIMENOrdering Facility: [facility] Address:[address] [place], [place] [address]Performed By: #### 22793-4 ####[facility] LABCLIA [id number] [place], [place] [address]Whxofznc granulocytes/100 WBC (Bld)0.5 %NormalKettering Health Troy on above: Order Comment: Specimen Type: BLOOD SPECIMENOrdering Facility: [facility] Address:[address] [place], [place] [address]Performed By: #### 50015- 8 ####[facility] LABCLIA [id number] [place], [place] [address]Stoflkybduu (Bld) [#/Vol]0.85 10*3/uLLow1.00-4.00 [facility] on above:Order Comment: Specimen Type: BLOOD SPECIMENOrdering Facility: [facility] Address:[address] [place], [place] [address]Performed By: #### 76522-6 ####[facility] LABCLIA [id number] [place], [place] [address]Gliwhpyinfi/100 WBC (Bld)14.1 %NormalKettering Health Troy on above:Order Comment: Specimen Type: BLOOD SPECIMENOrdering Facility: [facility] Address:[address] [place], [place] [address]Performed By: #### 55892-2 ####[facility] LABCLIA [id number] [place], [place] [address]GPK (RBC) [Entitic mass]31.0 npMyfjkv82.0-34.0[facility] on above:Order Comment: Specimen Type: BLOOD SPECIMENOrdering Facility: [facility] Address:[address] [place], [place] [address]Performed By: #### 50045-5 ####[facility] LABCLIA [id number] [place], [place] [address]NAMD (RBC) [Mass/Vol]34.9 g/dBOiflrn73.5-36.0[facility] on above: Order Comment: Specimen Type: BLOOD SPECIMENOrdering Facility: [facility] Address:[address] [place], [place] [address]Performed By: #### 32332- 8 ####[facility] LABIA [id number] [place], [place] [address]NWQ (RBC) [Entitic vol]89.0 zTLrnjje81.0-100.0[facility] on above:Order Comment: Specimen Type: BLOOD SPECIMENOrdering Facility: [facility] Address:[address] [place], [place] [address]Performed By: #### 93578-4 ####[facility] LABIA [id number] [place], [place] [address]Vofqqsrym (Bld) [#/Vol]0.90 10*3/uLHigh<0.87[facility] on above:Order Comment: Specimen Type: BLOOD SPECIMENOrdering Facility: [facility] Address:[address] [place], [place] [address]Performed By: #### 35527- 8 ####[facility] LABIA [id number] [place], [place] [address]Gbyzrmcdf/100 WBC (Bld)14.9 %NormalKettering Health Troy on above:Order Comment: Specimen Type: BLOOD SPECIMENOrdering Facility: [facility] Address:[address] [place], [place] [address]Performed By: #### 74707-4 ####[facility] LABCLIA [id number] [place], [place] [address]Dqbnnjbhtof (Bld) [#/Vol]4.16 10*3/uLNormal1.45-7.50[facility] on above:Order Comment: Specimen Type: BLOOD SPECIMENOrdering Facility: [facility] Address:[address] [place], [place] [address]Performed By: #### 98696-2 ####[facility] LABCLIA [id number] [place], [place] [address]Mmrpompzlmo/100 WBC (Bld)68.9 %NormalKettering Health Troy on above:Order Comment: Specimen Type: BLOOD SPECIMENOrdering Facility: [facility] Address:[address] [place], [place] [address]Performed By: #### 84375-4 ####[facility] LABIA [id number] [place], [place] [address]Ptjjxboto RBC (Bld) [#/Vol] 10*3/uLNormal<0.01[facility] on above:Order Comment: Specimen Type: BLOOD SPECIMENOrdering Facility: [facility] Address:[address] [place], [place] [address]Performed By: #### 40833-1 ####[facility] LABCLIA [id number] [place], [place] [address]Waxbzjcqf RBC/100 WBC (Bld) [Ratio]0.0 /100 WBCNormal [facility] on above:Order Comment: Specimen Type: BLOOD SPECIMENOrdering Facility: [facility] Address:[address] [place], [place] [address]Performed By: #### 10150-8 ####[facility] LABIA [id number] [place], [place] [address]Izummhpa mean volume (Bld) [Entitic vol]9.5 fLNormal9.0-12.7CSamaritan Hospital on above:Order Comment: Specimen Type: BLOOD SPECIMENOrdering Facility: [facility] Address:[address] [place] [address] Performed By: #### 36896-0 ####[facility] LABCLIA [id number] [place], [place] [address]Facaohggw (Bld) [#/Vol]184 10*3/vOIelwbd563-280CzkplxdmrKettering Health Troy on above:Order Comment: Specimen Type: BLOOD SPECIMENOrdering Facility: [facility] Address:[address] [place], [place] [address]Performed By: #### 00278-2 ####[facility] LABCLIA [id number] [place], [place] [address]YNL (Bld) [#/Vol]4.80 10*6/uLNormal4.20-6.00[facility] on above:Order Comment: Specimen Type: BLOOD SPECIMENOrdering Facility: [facility] Address:[address] [place], [place] [address]Performed By: #### 84606-6 ####[facility] LABIA [id number] [place], [place] [address]ONR (Bld) [#/Vol]6.04 10*3/uLNormal3.70-11.00[facility] on above: Order Comment: Specimen Type: BLOOD SPECIMENOrdering Facility: [facility] Address:[address] [place], [place] [address]Performed By: #### 52523- 8 ####[facility] LABIA [id number] [place], [place] [address]UUDLxd 79-69-1360QJAPQuifhmexm (MEXR) JAVAD [place] ([id number]) 1955 M Date Time Provider Department 03/26/25 EMEYL COBB During your visit today, we recorded the following information about you: Allergies As of Date: 03/26/2025 (No Known Allergies) Date Reviewed: 03/20/2025 Reviewed by: Lesli Hollingsworth, RT(R) - Fully Assessed Reason for Visit: Radiology Pre Procedure Instructions [6536] Cmt: Liver bx Prescriptions as of 04/07/2025 - diazePAM (VALIUM) 10 mg tablet Take 10 mg by mouth every 8 hours as needed (for mri). - Ascorbic Acid (VITAMIN C) 1,000 mg tablet Take 1 tablet by mouth once daily. - eqnvpopb-oowa-igp2-C-elisabeth-bosw (OSTEO BI-FLEX TRIPLE STRENGTH) 750 mg-644 mg- [...] 250 mg by mouth once daily. - Scandia-3 Fatty Acids 1,250 mg cap Take by mouth. - Zinc Gluconate 30 mg tab Take by mouth. Problem List As Of Date: 03/26/2025 (None) Encounter Status:Closed by EMELY COBB on 04/07/25[facility] on 43-24-1937FDRJXipespvzk (IRRFV) JAVAD [place] ([id number]) 1955 M Date Time Provider Department 03/24/25 JUDIT SHANNON IRRFV During your visit today, we recorded the following information about you: Kelly Carlton 03/24/2025 2:50 PM Signed RADIOLOGY CALL CENTER INTAKE DATE: 03/24/2025 TIME: 2:48pm REQUESTING STAFF: Judit Shannon MD PHONE/PAGER: [phone] SPECIFICS OF THE REQUEST: Liver biopsy SPECIAL REQUESTS: TISSUE SAMPLE, LABWORK: N/A IS THIS REQUEST PART OF A RESEARCH PROTOCOL: No MEDICAL DIAGNOSIS: Liver lesion [K76.9] TYPE AND DATE OF THE EXAM THAT IS THE BASIS OF THE REQUEST: MRI Date: 03/20/2025 IMAGING: [facility] Note to all persons requesting biopsies: All biopsy requests will be scheduled as quickly as possible, based on the clinical urgency, availability of appointment times, the need to hold anti-thrombolytic therapy (aspirin, blood thinners) and the patient?s schedule, including the need for an available reach lift truck driver. If a percutaneous biopsy or [...] Take 1 tablet by mouth once daily. oxzrjlhf-uzau-dlx2-C-elisabeth-bosw (OSTEO BI-FLEX TRIPLE STRENGTH) 750 mg-644 mg- [...] Take 250 mg by mouth once daily. Scandia-3 Fatty Acids 1,250 mg cap Take by [...] for this procedure: intermediate-high risk. Reference from [facility] Distribution Transformer Assembler: [email or web address] [email or web address] SIGNATURE: Renetta Roberson MD DATE: March 25, 2025 TIME: 2:35 PM Patrica Moran 03/26/2025 11:33 AM Signed Patient is scheduled in [place] on 04/01. Closing encounter Allergies As of [...] 1 tablet by mouth once daily. - ctjekwtu-xroy-cjx4-C-elisabeth-bosw (OSTEO BI-FLEX TRIPLE STRENGTH) 750 mg-644 mg- [...] 250 mg by mouth once daily. - Scandia-3 Fatty Acids 1,250 mg cap Take by mouth. - Zinc Gluconate 30 mg tab Take by mouth. Problem List As Of Date: 03/24/2025 (None) Encounter Status:Closed by KELLY CARLTON on 03/25/25[facility] Telephone (HEMAVN) JAVAD [place] ([id number]) 1955 M Date Time Provider Department 03/24/25 SILVIA BRANHAM During your visit today, we recorded the following information about you: Silvia Branham RN 03/24/2025 1:23 PM Signed Left message on IR intake line [employer] for IR biopsy Liver MRI completed 03/20/25 (home) Silvia Branham RN 03/25/2025 1:58 PM Signed Pt scheduled for biopsy 04/01 NEEDS: OV Dr Shannon 1 week after biopsy [phone] (home) Please call with appt Debra Mccartney [...] 1 tablet by mouth once daily. - zrgxrjbe-reqr-uqs9-C-elisabeth-bosw (OSTEO BI-FLEX TRIPLE STRENGTH) 750 mg-644 mg- [...] 250 mg by mouth once daily. - Scandia-3 Fatty Acids 1,250 mg cap Take by mouth. - Zinc Gluconate 30 mg tab Take by mouth. Problem List As Of Date: 03/24/2025 (None) Encounter Status:Closed by SILVIA BRANHAM on 03/24/25[facility] CenterOVSPon 58-98-6913SPSGKSZnouo (SP) Office (HEMAVN) JAVAD [place] ([id number]) 1955 M Date Time Provider Department 03/20/25 1:00 PM JUDIT SHANNON During your visit today, we recorded the following information about you: Temperature Pulse Blood pressure Weight 97.5 degrees 91/minute 137/80 81.2 kg Judit Shannon MD 03/20/2025 1:30 PM Signed PATIENT NAME: Javad [place] CLINIC NO.: [id number] ATTENDING PHYSICIAN: Judit Shannon MD DATE OF SERVICE: March 20, 2025 Recording using [employer] software for draft documentation of the visit was discussed with the patient/authorized sales representative graphic art; all questions welcomed and answered. Patient/authorized sales representative graphic art agreed to proceed Dear Dr. Gomez, thank [...] a month ago. 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 Aspirin 81 mg tab Take 81 mg by mouth. CITRULLINE 1000 PO Take by mouth. magnesium oxide 250 mg tablet Take 250 mg by mouth once daily. Scandia-3 Fatty Acids 1,250 mg cap Take by [...] General appearance:ECOG PERFORMANCE STATUS: (more content not included)...NormalSalem City [facility] Ag19-9 SerPl-aCncon 00-79-2652Vjejqt Ag 19-9 Wd3389.0 [arb'U]/mLHigh<36.0[facility] Comment on above:Order Comment: Specimen Type: BLOOD SPECIMEN [facility] Address: [address] [place], [place] [address]Result Comment: Cancer antigen 19-9 test is used as an aid in monitoring response to treatment or recurrence in patients with established pancreatic, hepatobiliary, or gastrointestinal malignancies. Clinical correlation is required. The CA 19-9 Antigen test was performed using the [place] [employer] DXI paramagnetic particle chemiluminescent immunoassay method. Results obtained with different assay methods or kits cannot be used interchangeably.Performed By: #### 79705-8 #### [facility] CLIA [id number] [address] [place] [address] [place] OF AMERICAFerritin SerPl-mCncon 08-21-6429Boppprbn [Mass/Vol]473.3 ng/qCXoxjrf45.3-565.7Avo HospitalComment on above:Order Comment: Specimen Type: BLOOD SPECIMEN [facility] Address: [address] [place], [place] [address]Performed By: #### 2276-4, 83998-2 #### [facility] CLIA [id number] [address] [place] [address] [place] OF AMERICAHCV Ab Ser Qlon 39-32-0718IHU Ab Ql (S) NegativeNormalNegativeStitzer HospitalComment on above:Order Comment: Specimen Type: BLOOD SPECIMEN [facility] Address: [address] [place], [place] [address]Result Comment: The result suggests no evidence of infection with Hepatitis C virus. Should recent infection be suspected, repeat testing may be considered 4-6 weeks after this draw.Performed By: #### 05088-0 #### [facility] CLIA [id number] [address] [place] [address] [place] OF AMERICAIron and Iron binding capacity panelon 63-23-4483Xfoy [Mass/Vol]32 ug/cVSru17-500Mynf HospitalComment on above:Order Comment: Specimen Type: BLOOD SPECIMEN [facility] Address: [address] [place], [place] [address]Performed By: #### 2276-4, 97791-6 #### [facility] CLIA [id number] [address] [place] [address] [place] OF AMERICAIron binding capacity [Mass/Vol]279 ug/dL Bbwthz565-051Zqod HospitalComment on above:Order Comment: Specimen Type: BLOOD SPECIMEN [facility] Address: [address] [place], [place] [address]Performed By: #### 2276-4, 36531-9 #### [facility] CLIA [id number] [address] [place] [address] [place] AMERICAIron/TIBC [Molar ratio]11.5 %Low15.0-57.0 Stitzer HospitalComment on above:Order Comment: Specimen Type: BLOOD SPECIMEN [facility] Address: [address] [id number] By: #### 2276-4, 31581-7 #### [facility] CLIA [id number] [address] [facility] [address] [place] OF [facility] HOSPITALMRI 3D POST PROCESSINGon 78-93-6529ILK 3D POST PROCESSING* * *Final Report* * * DATE OF EXAM: Mar 20 2025 7:15PM [facility] 0280 - MRI 3D POST PROCESSING / [...] CHEST 03/10/2025 ALSO CONSISTENT WITH METASTATIC DISEASE. Qa Consultant: KERI Transcribe Date/Time: Mar 21 2025 8:08A Dictated by : ROSSI HARE, DO This examination was interpreted and the report reviewed and electronically signed by: CHASE HUERAT MD on Mar 21 2025 11:37AM EST [id number]_IDCSIACNNormalHolmes County Joel Pomerene Memorial HospitalMRI PANC/JUNIOR WO/W IVCONon [id number] PANC/JUNIOR WO/W IVCON* * *Final Report* * [...] CHEST 03/10/2025 ALSO CONSISTENT WITH METASTATIC DISEASE. Qa Consultant: KERI Transcribe Date/Time: Mar 21 2025 8:08A Dictated by : ROSSI HARE, DO This examination was interpreted and the report reviewed and electronically signed by: CHASE HUERTA MD on Mar 21 2025 11:37AM EST [id number] County Joel Pomerene Memorial HospitalPT panel Coag (PPP)on [id number] Coag (PPP) [Relative time]1.0 {INR}Normal0.9-1.3[facility] Comment on above:Order Comment: Specimen Type: BLOOD SPECIMEN Ordering Facility: [facility] Address: [address] [place], [place] [address]Result Comment: Vitamin K Antagonist (VKA) Therapeutic Range: INR 2 to 3 (Target INR of 2.5) Note: For patients treated with VKA drugs, such as warfarin, the [employer] 2012 Guideline recommends [...] al. JACC 2017, 70: 252-289Performed By: #### 07522-9, 22574-7 #### [facility] CLIA [id number] [address] [place] [address] [place] AMERIC[place]T Coag (PPP) [Time]11.5 sNormal9.7-13.0 Stitzer HospitalComment on above:Order Comment: Specimen Type: BLOOD SPECIMEN Ordering Facility: [facility] Address: [address] [place], [place] [address]Performed By: #### 82585-5, 19261-0 #### [facility] [place] [id number] [address] [place] [address] [place] AMERICAaPTT PPPon 38-91-0724cZZV Coag (PPP) [Time]30.0 iShadqb77.0-32.4[facility] HospitalComment on above:Order Comment: Specimen Type: BLOOD SPECIMEN Ordering Facility: [facility] Address: [address] [place], [place] [address]Performed By: #### 24596-7, 74374-3 #### [facility] IA [id number] [address] [place] [address] [place] [facility] HOSPITALBasophils Auto (Bld) [#/Vol]Ordered By: Saeed Gomez on 03-27-0783Ligjgfsgd (Bld) [#/Vol]0.0 10 3/uL0.0-0.1FCleveland Clinic [facility] Lodi HospitalBasophils/100 WBC Auto (Bld)Ordered By: Saeed Gomez on 59-29-5308Dfxnxwdqj/100 WBC (Bld)0.4 %0.2-2.0[facility] Eosinophils/100 WBC Auto (Bld)Ordered By: Saeed Gomez on 03-10-2025 Eosinophils/100 WBC (Bld)1.7 %0.9-7.0[facility] Erythrocyte distribution width Auto (RBC) [Ratio]Ordered By: Saeed Gomez on 59-85-1594Qdptilzppdx distribution width (RBC) [Ratio]12.0 %11.0-15.0[facility] Hospital SouthFibrin D-dimer [Presence] in Platelet poor plasma by Latex agglutinationOrdered By: Jaskaran Basurto on 82-08-0138Ojhpef D-dimer LA Ql (PPP)1.39 mg/L FEUCritically high<=0.59Prem[facility] Hospital SouthComment on above:RESULTS CALLED TO TONEY WYNN RN [...] in non- AmericanOrdered By: Jaskaran Basurto on 69-63-5743HEW/1.73 sq M.predicted among non-blacks MDRD (S/P/Bld) [Vol rate/Area]mL/min/{1.73_m2}>=60 mL/min/1.73m 2FCleveland Clinic [facility] Lodi HospitalHematocrit Auto (Bld) [Volume fraction]Ordered By: Saeed Gomez on 83-33-2246Oncdkefvvs (Bld) [Volume fraction]45.7 %42.0-54.0[facility] SouthHemoglobin [Mass/volume] in BloodOrdered By: Saeed Gomez on 20-48-1319Sobsqsxnpv (Bld) [Mass/Vol]15.9 g/dL14.0-18.0[facility] SouthLaboratory - Chemistry and Chemistry - challengeOrdered By: Jaskaran Basurto on 36-83-5624Lkdwxkg [Mass/Vol]9.3 mg/dL8.5-10.1FC[facility] HospitalChloride [Moles/Vol]104 mmol/Y74-018DmhcegbvxPremier Health Miami Valley Hospital SouthCO2 [Moles/Vol]29.4 mmol/L21.0-32.0[facility] Creatinine [Mass/Vol]1.10 mg/dL0.70-1.30[facility] GFR/1.73 sq M.predicted MDRD (S/P/Bld) [Vol rate/Area]mL/min/{1.73_m2}>=60 mL/min/1.73m 2FC[facility] HospitalGlucose [Mass/Vol]128 mg/dLHigh 74-106Prem[facility] SouthPotassium [Moles/Vol]4.0 mmol/L3.5-5.1 UC Healthodium [Moles/Vol]141 mmol/K660-482UqowcwfvpPremier Health Miami Valley Hospital SouthUrea nitrogen [Mass/Vol]18.0 mg/dL7.0-18.0[facility] SouthUrea nitrogen/Creatinine [Mass ratio]16.4 mg/mgPremier Health Miami Valley Hospital SouthLaboratory - Hematology and Cell countsOrdered By: Saeed Gomez on 77-08-1514Iixgpywv granulocytes/100 WBC (Bld)1.0 %High0.0-0.5FCleveland Clinic [facility] HospitalLeukocytes [#/volume] corrected for nucleated erythrocytes in Blood by Automated counOrdered By: Saeed Gomez on 83-28-4527ECM corrected for nucl RBC Auto (Bld) [#/Vol]8.4 10 3/uL4.0-11.0[facility] SouthLymphocytes Auto (Bld) [#/Vol]Ordered By: Saeed Gomez on 04-59-9367Bhrnxcobopq (Bld) [#/Vol]1.1 10 3/uLLow1.2-3.8[facility] SouthLymphocytes/100 WBC Auto (Bld)Ordered By: Saeed Gomez on 97-19-2686Luzrkkrfzkf/100 WBC (Bld)13.2 %Low20.5-60.0[facility] SouthMCH Auto (RBC) [Entitic mass]Ordered By: Saeed Gomez on 44-07-4481YBU (RBC) [Entitic mass]31.3 pg25.9-34.0[facility] SouthMCHC Auto (RBC) [Mass/Vol]Ordered By: Saeed Gomez on 47-79-2206XDPE (RBC) [Mass/Vol]34.8 g/dL29.9-35.2FC[facility] HospitalMCV Auto (RBC) [Entitic vol] Ordered By: Saeed Gomez on 47-71-7665PBB (RBC) [Entitic vol]90.0 fL80.0-94.0 [facility] SouthMonocytes Auto (Bld) [#/Vol]Ordered By: Saeed Gomez on 59-25-5837Rsfhhdjcg (Bld) [#/Vol]0.8 10 3/uL0.3-0.8[facility] SouthMonocytes/100 WBC Auto (Bld)Ordered By: Saeed Gomez on 03-10-2025 Monocytes/100 WBC (Bld)9.5 %1.7-12.0[facility] SouthNeutrophils Auto (Bld) [#/Vol]Ordered By: Saeed Gomez on 51-32-1681Xhsadqjkdap (Bld) [#/Vol]6.2 10 3/uL1.4-6.5FC[facility] HospitalNeutrophils/100 WBC Auto (Bld)Ordered By: Saeed Gomez on 63-28-3081Ddizruadiag/100 WBC (Bld)74.2 % 43.0-75.0[facility] SouthNo Panel InformationOrdered By: Jaskaran Basurto on 85-98-0005Lzfldies I High Flnjeopzuic91.5 pg/mL4.0-76.1FC[facility] HospitalComment on above:CUT-OFF POINTS HAVE BEEN ESTABLISHED BASED [...] INFORMATION.No Panel InformationOrdered By: Saeed Gomez on 43-36-8404Fzskcksaozj # (Auto)0.1 10 3/uL 0.0-0.7FC[facility] HospitalImmature Granulocyte # (Auto)0.08 10 3/uLHigh0.00-0.03[facility] SouthPlatelet mean volume Auto (Bld) [Entitic vol]Ordered By: Saeed Gomez on 91-53-6936Xgjwiotn mean volume (Bld) [Entitic vol]10.0 fL9.5-13.5FC[facility] HospitalPlatelets Auto (Bld) [#/Vol]Ordered By: Saeed Gomez on 80-78-4689Eglomxicx (Bld) [#/Vol] 151 10 3/wX137-959RsqwaxrgwPremier Health Miami Valley Hospital SouthRBC Auto (Bld) [#/Vol]Ordered By: Saeed Gomez on 81-85-4729TZG (Bld) [#/Vol]5.08 10 6/uL4.70-6.10UC Healtherum or plasma anion gap determinationOrdered By: Jaskaran Basurto on 41-84-2527Drajt gap [Moles/Vol]11.6 mmol/LFCleveland Clinic Akron General Lodi HospitalA1C with Estimated Average Gluon 19-64-8908Tcpdazr [Mass/Vol]114 mg/dL NormalThe Replaced By [facility] Physician GroupComment on above:Result Comment: PERFORMED BY: [place] [address] PATHOLOGIST FURNITURE ASSEMBLER KEN ETIENNE M.D.Performed By: #### CUU, CMP, PSATOTAL, CBC, ADDONUAPLUS, TSH3, A1C [facility] eA #### [facility] [address] [place] [address] #### APOB #### [facility] ,A1C with Estimated Average GluOrdered By: Saeed Gomez on 04-07-4548BbJ2v (Bld) [Mass fraction]5.6 %4.3-5.6FCleveland Clinic [facility] Lodi HospitalComment on above: Result Comment: Increased risk for diabetes: 5.7 - 6.4 diabetes: >6.4 glycemic control for adults with diabetes: <7.0Performed By: #### CUU, CMP, PSATOTAL, CBC, ADDONUAPLUS, TSH3, A1C WT eA #### [place] [address] [place] #### APOB #### [facility] ,Increased risk for diabetes: 5.7 - 6.4diabetes: >6.4glycemic control for adults with diabetes: <7.0Alanine aminotransferase [Enzymatic activity/volume] in Serum or PlasmaOrdered By: Saeed Gomez on 77-57-1020OLV [Catalytic activity/Vol]Alanine aminotransferase [Enzymatic activity/volume] in Serum or Plasma7[facility] SouthAlbumin [Mass/volume] in Serum or Plasma by Bromocresol green (BCG) dye binding methoOrdered By: Saeed Gomez on 36-61-8116Gopgjze BCG dye [Mass/Vol]Albumin [Mass/volume] in Serum or Plasma by Bromocresol green (BCG) dye binding metho3.5-5.7FC[facility] HospitalAlbumin BCG dye [Mass/Vol]4.4 g/dL3.5-5.7[facility] Alkaline phosphatase [Enzymatic activity/volume] in Serum or PlasmaOrdered By: Saeed Gomez on 05-08-8998VEI [Catalytic activity/Vol]Alkaline phosphatase [Enzymatic activity/volume] in Serum or Kcjnfy18-565HxnwkqdcpPremier Health Miami Valley Hospital SouthApolipoprotein BOrdered By: Saeed Gomez on 05-71-3294Hofylobdshifwv B [Mass/Vol]131 mg/dLHigh<90Prem[facility] SouthComment on above: Result Comment: Desirable < 90 Borderline High 90 - 99 High 100 - 130 Very High >130 ASCVD RISK THERAPEUTIC TARGET CATEGORY APO B (mg/dL) Very High Risk <80 (if extreme risk <70) High Risk <90 Moderate Risk <90 Performed at: - [facility] [id number] Circulation Assistant: Simona Lord MD, Phone: [phone] PERFORMED BY: [address] [address] PATHOLOGIST FURNITURE ASSEMBLER KEN ETIENNE M.D.Performed By: #### CUU, CMP, PSATOTAL, CBC, ADDONUAPLUS, TSH3, A1C WT eA #### [address] [address] [place] #### APOB #### [facility] ,Desirable < 90 Borderline High 90 - 99 High 100 - 130 Very High >130 ASCVD RISK THERAPEUTIC TARGET CATEGORY APO B (mg/dL) Very High Risk <80 (if extreme risk <70) High Risk <90 Moderate Risk <90Performed at: [facility] [address] [place], [place] [id number] Director: Simona Lord MD, Phone: [phone] Appearance of UrineOrdered By: Saeed Gomez on 94-20-6311Bzplyagysy (U)Urine appearanceCleProMedica Toledo HospitalAspartate aminotransferase [Enzymatic activity/volume] in Serum or PlasmaOrdered By: Saeed Gomez on 11-00-0848MMD [Catalytic activity/Vol]Aspartate aminotransferase [Enzymatic activity/volume] in Serum or Ojkhui52-29TvmgfcdjtPremier Health [facility] Bacteria [Presence] in Urine by AutomatedOrdered By: Saeed Gomez on 11-12-2024 Bacteria Auto Ql (U)Bacteria [Presence] in Urine by AutomatedNone SeenPremier Health Miami Valley Hospital SouthBacteria Auto Ql (U)None seen [HPF]None [facility] CenterBasophils Auto (Bld) [#/Vol]Ordered By: Saeed Gomez on 32-35-7389Mmyihyuqm (Bld) [#/Vol]Automated basophil count0.0-0.2FC[facility] HospitalBasophils/100 WBC Auto (Bld)Ordered By: Saeed Gomez on 10-16-4957Gdwedvvkj/100 WBC (Bld)Automated basophil %.[facility] SouthBilirubin Test strip Ql (U)Ordered By: Saeed Gomez on 11-12-2024 Bilirubin Ql (U)Bilirubin.total [Presence] in Urine by Test stripNegative [facility] SouthBilirubin Ql (U)NegativeNegativePrem[facility] Health [facility] Hospital SouthBilirubin.total [Mass/volume] in Serum or PlasmaOrdered By: Saeed Gomez on 86-89-8135Uttoaixiz [Mass/Vol]Bilirubin.total [Mass/volume] in Serum or PlasmaHigh0.3-1.0[facility] SouthComment on above: Samples from patients who have taken Naproxen have shown spurious elevation in Total Bilirubin levels. A metabolite of Naproxen, O-desmethylnaproxen, has been shown to interfere with the Bablina-Angeles method for measuring Total Bilirubin.Blood estimated average glucose determination by estimation from glycated hemoglobinOrdered By: Saeed Gomez on 09-96-5336Tmamrmr glucose Estimated from glycated hemoglobin (Bld) [Mass/Vol]Glucose mean value [Mass/volume] in Blood Estimated from glycated hemoglobinPremier Health Miami Valley Hospital SouthAverage glucose Estimated from glycated hemoglobin (Bld) [Mass/Vol]114 mg/dLPremier Health Miami Valley Hospital SouthCalcium [Mass/volume] in Serum or PlasmaOrdered By: Saeed Gomez on 04-00-6698Ztlvyml [Mass/Vol]Calcium [Mass/volume] in Serum or Plasma8.6-10.3FC[facility] HospitalCalcium oxalate crystals [Presence] in Urine by Computer assisted methodOrdered By: Saeed Gomez on 52-25-2736Iwmccml oxalate crystals Computer assisted Ql (U) Calcium oxalate crystals [Presence] in Urine by Computer assisted method [facility] SouthCalcium oxalate crystals Computer assisted Ql (U)1+ [HPF][facility] SouthCarbon dioxide, total [Moles/volume] in Serum or PlasmaOrdered By: Saeed Gomez on 65-87-6641VM8 [Moles/Vol]Carbon dioxide, total [Moles/volume] in Serum or Zjnmvu03.0-31.0[facility] SouthChloride [Moles/volume] in Serum or PlasmaOrdered By: Saeed Gomez on 79-75-1315Afyjjrft [Moles/Vol]Chloride [Moles/volume] in Serum or Plasma 98-107[facility] SouthColor Auto (U)Ordered By: Saeed Gomez on 30-70-6960Lulst (U)Color of Urine by AutoYellowPremier Health Miami Valley Hospital SouthComplete Blood Count Auto DiffOrdered By: Saeed Gomez on 11-12-2024 Basophils (Bld) [#/Vol]0.0 10*3/uL0.0-0.2[facility] Comment on above:Result Comment: PERFORMED BY: [place] [address] PATHOLOGIST FURNITURE ASSEMBLER KEN ETIENNE M.D.Performed By: #### CUU, CMP, PSATOTAL, CBC, ADDONUAPLUS, TSH3, A1C WTH eA #### [facility] [address] [place] [address] #### APOB #### [facility] ,Basophils/100 WBC (Bld)0.6 %.[facility] SouthComment on above: Performed By: #### CUU, CMP, PSATOTAL, CBC, ADDONUAPLUS, TSH3, A1C WTH eA #### [address] #### APOB #### [facility] ,Eosinophils (Bld) [#/Vol]0.1 10*3/uL0.0-0.45[facility] Comment on above:Performed By: #### CUU, CMP, PSATOTAL, CBC, ADDONUAPLUS, TSH3, A1C WT eA #### [address] #### APOB #### [facility] ,Eosinophils/100 WBC (Bld)3.6 %.[facility] SouthComment on above:Performed By: #### CUU, CMP, PSATOTAL, CBC, ADDONUAPLUS, TSH3, A1C WTH eA #### [facility] [address] [place] [address] [place] #### APOB #### [facility] ,Erythrocyte distribution width (RBC) [Ratio]13.3 %12.0-14.8[facility] SouthComment on above:Performed By: #### CUU, CMP, PSATOTAL, CBC, ADDONUAPLUS, TSH3, A1C WT eA #### [address] [address] [place] #### APOB #### [facility] ,Hematocrit (Bld) [Volume fraction]46.4 %38.8-50.0[facility] SouthComment on above:Performed By: #### CUU, CMP, PSATOTAL, CBC, ADDONUAPLUS, TSH3, A1C WTH eA #### [facility] [address] [place] [address] [place] #### APOB #### [facility] ,Hemoglobin (Bld) [Mass/Vol]16.2 g/dL13.0-17.0[facility] Comment on above:Performed By: #### CUU, CMP, PSATOTAL, CBC, ADDONUAPLUS, TSH3, A1C WTH eA #### [facility] [address] [place] [address] #### APOB #### [facility] ,Lymphocytes (Bld) [#/Vol]1.1 10*3/uL1.00-4.8[facility] Comment on above:Performed By: #### CUU, CMP, PSATOTAL, CBC, ADDONUAPLUS, TSH3, A1C WTH eA #### [facility] [address] [place] [address] [place] #### APOB #### [facility] ,Lymphocytes/100 WBC (Bld)28.1 %.[facility] SouthComment on above:Performed By: #### CUU, CMP, PSATOTAL, CBC, ADDONUAPLUS, TSH3, A1C WTH eA #### [facility] [address] [place] [address] [place] #### APOB #### [facility] ,MCH (RBC) [Entitic mass]31.6 pg27.5-35.2[facility] Comment on above:Performed By: #### CUU, CMP, PSATOTAL, CBC, ADDONUAPLUS, TSH3, A1C WTH eA #### [facility] [address] [place] [address] [place] #### APOB #### [facility] ,MCV (RBC) [Entitic vol]90.4 fL83.5-101Prem[facility] SouthComment on above:Performed By: #### CUU, CMP, PSATOTAL, CBC, ADDONUAPLUS, TSH3, A1C WTH eA #### [facility] [address] [place] [address] [place] #### APOB #### [facility] ,Monocytes (Bld) [#/Vol]0.5 10*3/uL0.0-0.8[facility] Comment on above:Performed By: #### CUU, CMP, PSATOTAL, CBC, ADDONUAPLUS, TSH3, A1C WTH eA #### [facility] [address] [place] [address] #### APOB #### [facility] ,Monocytes/100 WBC (Bld)13.5 %.[facility] SouthComment on above:Performed By: #### CUU, CMP, PSATOTAL, CBC, ADDONUAPLUS, TSH3, A1C WT eA #### [facility] [address] [place] [address] [place] #### APOB #### [facility] ,Neutrophils (Bld) [#/Vol]2.1 10*3/uL1.8-7.7[facility] Comment on above:Performed By: #### CUU, CMP, PSATOTAL, CBC, ADDONUAPLUS, TSH3, A1C WTH eA #### [facility] [address] [place] [address] [place] #### APOB #### [facility] ,Neutrophils/100 WBC (Bld)54.2 %.[facility] SouthComment on above:Performed By: #### CUU, CMP, PSATOTAL, CBC, ADDONUAPLUS, TSH3, A1C WTH eA #### [facility] [address] [place] [address] [place] #### APOB #### [facility] ,Platelet mean volume (Bld) [Entitic vol]8.5 fL6.6-10.1FC[facility] HospitalComment on above:Performed By: #### CUU, CMP, PSATOTAL, CBC, ADDONUAPLUS, TSH3, A1C WTH eA #### [facility] [address] [place] [address] [place] #### APOB #### [facility] ,Platelets (Bld) [#/Vol]170 10*3/oG563-623AbwjuwaklPremier Health [facility] South Comment on above:Performed By: #### CUU, CMP, PSATOTAL, CBC, ADDONUAPLUS, TSH3, A1C WTH eA #### [facility] [address] [place] [address] #### APOB #### [facility] ,RBC (Bld) [#/Vol]5.14 10*6/uL3.90-5.60[facility] SouthComment on above:Performed By: #### CUU, CMP, PSATOTAL, CBC, ADDONUAPLUS, TSH3, A1C WTH eA #### [facility] [address] [place] [address] [place] #### APOB #### [facility] ,WBC (Bld) [#/Vol]3.9 10*3/uLLow4.1-10.5FC[facility] HospitalComment on above:Performed By: #### CUU, CMP, PSATOTAL, CBC, ADDONUAPLUS, TSH3, A1C WTH eA #### [facility] [address] [place] [address] [place] #### APOB #### [facility] ,Complete Blood Count Auto Diffon 55-79-9713Ksif Corpuscular HGB Conc34.9 g/dL Mgxufm07.5-35.6The Replaced By [facility] Physician GroupComment on above:Performed By: #### CUU, CMP, PSATOTAL, CBC, ADDONUAPLUS, TSH3, A1C WTH eA #### [facility] [address] [place] [address] [place] #### APOB #### [facility] ,NRBC%0.1 /100{WBC}Normal0-0.5The Replaced By [facility] Physician GroupComment on above: Performed By: #### CUU, CMP, PSATOTAL, CBC, ADDONUAPLUS, TSH3, A1C WTH eA #### [facility] [address] [place] [address] [place] #### APOB #### [facility] ,Comprehensive Metabolic Panelon 10-82-5506Bjfgtea [Mass/Vol]4.4 g/dLNormal 3.5-5.7The Replaced By [facility] Physician GroupComment on above:Performed By: #### CUU, CMP, PSATOTAL, CBC, ADDONUAPLUS, TSH3, A1C WTH eA #### [facility] [address] [place] [address] [place] #### APOB #### [facility] ,GFR/1.73 sq M.predicted MDRD (S/P/Bld) [Vol rate/Area]mL/min/{1.73_m2}NormalThe Replaced By [facility] Physician GroupComment on above:Performed By: #### CUU, CMP, PSATOTAL, CBC, ADDONUAPLUS, TSH3, A1C WTH eA #### [facility] [address] [place] [address] [place] #### APOB #### [facility] ,Comprehensive Metabolic PanelOrdered By: Saeed Gomez on 11-12-2024 Albumin/Globulin [Mass ratio]2.0 {ratio}[facility] SouthComment on above:Performed By: #### CUU, CMP, PSATOTAL, CBC, ADDONUAPLUS, TSH3, A1C WTH eA #### [facility] [address] [place] [address] [place] #### APOB #### [facility] ,ALP [Catalytic activity/Vol]69 U/I86-236Wuvqlhgxa [facility] Comment on above:Performed By: #### CUU, CMP, PSATOTAL, CBC, ADDONUAPLUS, TSH3, A1C WT eA #### [facility] [address] [place] [address] [place] #### APOB #### [facility] ,ALT [Catalytic activity/Vol]25 U/L7-52[facility] SouthComment on above:Performed By: #### CUU, CMP, PSATOTAL, CBC, ADDONUAPLUS, TSH3, A1C WT eA #### [facility] [address] [place] [address] #### APOB #### [facility] ,Anion gap [Moles/Vol]10.6 mmol/L6.0-15.0[facility] Comment on above:Performed By: #### CUU, CMP, PSATOTAL, CBC, ADDONUAPLUS, TSH3, A1C [facility] eA #### [place] [address] [place] #### APOB #### [facility] ,AST [Catalytic activity/Vol]31 U/G16-64YgsxqstmcPremier Health Miami Valley Hospital SouthComment on above:Performed By: #### CUU, CMP, PSATOTAL, CBC, ADDONUAPLUS, TSH3, A1C WT eA #### [place] [address] [place] #### APOB #### [facility] ,Bilirubin [Mass/Vol]1.3 mg/dLHigh0.3-1.0[facility] Comment on above:Result Comment: Samples from patients who have taken Naproxen have shown spurious elevation in Total Bilirubin levels. A metabolite of Naproxen, O-desmethylnaproxen, has been shown to interfere with the Balbina-Angeles method for measuring Total Bilirubin.Performed By: #### CUU, CMP, PSATOTAL, CBC, ADDONUAPLUS, TSH3, A1C WT eA #### [place] [address] [place] #### APOB #### [facility] ,Samples from patients who have taken Naproxen have shown spurious elevation in Total Bilirubin levels. A metabolite of Naproxen, O-desmethylnaproxen, has been shown to interfere with the Jendryrnik-Grof method for measuring Total Bilirubin.Calcium [Mass/Vol]9.0 mg/dL8.6-10.3[facility] Comment on above:Performed By: #### CUU, CMP, PSATOTAL, CBC, ADDONUAPLUS, TSH3, A1C WT eA #### [place] [address] [place] #### APOB #### [facility] ,Chloride [Moles/Vol]105 mmol/R78-893GjcoseitsPremier Health Miami Valley Hospital SouthComment on above:Performed By: #### CUU, CMP, PSATOTAL, CBC, ADDONUAPLUS, TSH3, A1C WT eA #### [address] #### APOB #### [facility] ,CO2 [Moles/Vol]28.6 mmol/L21.0-31.0[facility] SouthComment on above:Performed By: #### CUU, CMP, PSATOTAL, CBC, ADDONUAPLUS, TSH3, A1C WTH eA #### [place] [address] [place] #### APOB #### [facility] ,Creatinine [Mass/Vol]1.15 mg/dL0.70-1.30[facility] Comment on above:Performed By: #### CUU, CMP, PSATOTAL, CBC, ADDONUAPLUS, TSH3, A1C [facility] eA #### [place] [address] [place] #### APOB #### [facility] ,Globulin (S) [Mass/Vol]2.2 g/dLPremier Health Miami Valley Hospital SouthComment on above:Performed By: #### CUU, CMP, PSATOTAL, CBC, ADDONUAPLUS, TSH3, A1C WTH eA #### [place] [address] [place] #### APOB #### [facility] ,Glucose [Mass/Vol]113 mg/dRVbik34-166DnzbwlxubPremier Health Miami [facility] Hospital SouthComment on above:Result Comment: Random Glucose Reference Range is dependent on time and content of last meal. Glucose of more than 200 mg/dL in a nonstressed, ambulatory subject supports the diagnosis of Diabetes Mellitus. ADA recommended reference rangePerformed By: #### CUU, CMP, PSATOTAL, CBC, ADDONUAPLUS, TSH3, A1C WTH eA #### [place] [address] [place] #### APOB #### [facility] ,ADA recommended reference rangeRandom Glucose Reference Range is dependent on time and content of last meal. Glucose of more than 200 mg/dL in a nonstressed, ambulatory subject supports the diagnosisof Diabetes Mellitus.Potassium [Moles/Vol]4.2 mmol/L3.5-5.1FCleveland Clinic Akron General Lodi HospitalComment on above: Performed By: #### CUU, CMP, PSATOTAL, CBC, ADDONUAPLUS, TSH3, A1C WTH eA #### [place] [address] [place] #### APOB #### [facility] ,Protein [Mass/Vol]6.6 g/dL6.4-8.9[facility] SouthComment on above:Performed By: #### CUU, CMP, PSATOTAL, CBC, ADDONUAPLUS, TSH3, A1C WTH eA #### [place] [address] [place] #### APOB #### [facility] ,Sodium [Moles/Vol]140 mmol/F040-458ZhdfufryzPremier Health Miami Valley Hospital SouthComment on above:Performed By: #### CUU, CMP, PSATOTAL, CBC, ADDONUAPLUS, TSH3, A1C WTH eA #### [facility] [address] [place] [address] [place] #### APOB #### [facility] ,Urea nitrogen [Mass/Vol]16 mg/dL7-[facility] SouthComment on above:Performed By: #### CUU, CMP, PSATOTAL, CBC, ADDONUAPLUS, TSH3, A1C WTH eA #### [facility] [address] [place] [address] [place] #### APOB #### [facility] ,Creatinine [Mass/volume] in Serum or PlasmaOrdered By: Saeed Gomez on 48-34-7649Uxoacodkln [Mass/Vol]Creatinine [Mass/volume] in Serum or Plasma 0.70-1.30[facility] Hospital SouthDipstick and MicroscopicOrdered By: Saeed Gomez on 40-65-0554Nnimrmhdyz (U)ClearCleProMedica Toledo HospitalComment on above:Order Comment: Name Collection Type:: Clean-Voided MidstreamPerformed By: #### CUU, CMP, PSATOTAL, CBC, ADDONUAPLUS, TSH3, A1C WTH eA #### [facility] [address] [place] [address] [place] #### APOB #### [facility] ,Color (U)YellowYellowPremier Health Miami Valley Hospital SouthComment on above:Order Comment: Name Collection Type:: Clean-Voided MidstreamPerformed By: #### CUU, CMP, PSATOTAL, CBC, ADDONUAPLUS, TSH3, A1C WTH eA #### [facility] [address] [place] [address] [place] #### APOB #### [facility] ,Ketones Ql (U)NegativeNegativePremier Health Miami Valley Hospital SouthComment on above:Order Comment: Name Collection Type:: Clean-Voided MidstreamPerformed By: #### CUU, CMP, PSATOTAL, CBC, ADDONUAPLUS, TSH3, A1C WTH eA #### [address] #### APOB #### [facility] ,Leukocyte esterase Test strip Ql (U)NegativeNegativePremier Health Miami Valley Hospital SouthComment on above:Order Comment: Name Collection Type:: Clean-Voided MidstreamPerformed By: #### CUU, CMP, PSATOTAL, CBC, ADDONUAPLUS, TSH3, A1C WTH eA #### [place] [address] [place] #### APOB #### [facility] ,pH (U)6.0 [pH]5.0-9.0Prem[facility] Hospital SouthComment on above:Order Comment: Name Collection Type:: Clean-Voided MidstreamPerformed By: #### CUU, CMP, PSATOTAL, CBC, ADDONUAPLUS, TSH3, A1C WTH eA #### [address] #### APOB #### [facility] ,Dipstick and Microscopicon 52-45-6515Minvxmba,UrineNone SeenNormalNone SeenThe Replaced By [facility] Physician GroupComment on above:Order Comment: Name Collection Type:: Clean-Voided MidstreamPerformed By: #### CUU, CMP, PSATOTAL, CBC, ADDONUAPLUS, TSH3, A1C WTH eA #### [place] [address] [place] #### APOB #### [facility] ,Bilirubin,UrineNegativeNormalNegativeThe Replaced By [facility] Physician GroupComment on above:Order Comment: Name Collection Type:: Clean-Voided MidstreamPerformed By: #### CUU, CMP, PSATOTAL, CBC, ADDONUAPLUS, TSH3, A1C WTH eA #### [place] [address] [place] #### APOB #### [facility] ,Calcium Oxalate Crystals,Urine1+NormalThe Replaced By [facility] Physician GroupComment on above:Order Comment: Name Collection Type:: Clean-Voided MidstreamPerformed By: #### CUU, CMP, PSATOTAL, CBC, ADDONUAPLUS, TSH3, A1C WTH eA #### [address] #### APOB #### [facility] ,Glucose Ql (U)NormalNormalNormalThe Replaced By [facility] Physician GroupComment on above: Order Comment: Name Collection Type:: Clean-Voided MidstreamPerformed By: #### CUU, CMP, PSATOTAL, CBC, ADDONUAPLUS, TSH3, A1C WTH eA #### [address] #### APOB #### [facility] ,Hyaline Casts,UrineNoneNormal0-8The Replaced By [facility] Physician GroupComment on above: Order Comment: Name Collection Type:: Clean-Voided MidstreamPerformed By: #### CUU, CMP, PSATOTAL, CBC, ADDONUAPLUS, TSH3, A1C WTH eA #### [address] #### APOB #### [facility] ,Mucus,UrineRareNormalThe Replaced By [facility] Physician GroupComment on above:Order Comment: Name Collection Type:: Clean-Voided MidstreamResult Comment: PERFORMED BY: [place] [address] PATHOLOGIST FURNITURE ASSEMBLER KEN ETIENNE M.D.Performed By: #### CUU, CMP, PSATOTAL, CBC, ADDONUAPLUS, TSH3, A1C WTH eA #### [facility] [address] [place] [address] [place] #### APOB #### [facility] ,Nitrite,UrineNegativeNormalNegativeThe Replaced By [facility] Physician GroupComment on above:Order Comment: Name Collection Type:: Clean-Voided MidstreamPerformed By: #### CUU, CMP, PSATOTAL, CBC, ADDONUAPLUS, TSH3, A1C WTH eA #### [place] [address] [place] #### APOB #### [facility] ,Occult Blood,UrineNegativeNormalNegativeThe Replaced By [facility] Physician GroupComment on above:Order Comment: Name Collection Type:: Clean-Voided MidstreamPerformed By: #### CUU, CMP, PSATOTAL, CBC, ADDONUAPLUS, TSH3, A1C WTH eA #### [address] #### APOB #### [facility] ,Protein,UrineNegativeNormalNegativeThe Replaced By [facility] Physician GroupComment on above:Order Comment: Name Collection Type:: Clean-Voided MidstreamPerformed By: #### CUU, CMP, PSATOTAL, CBC, ADDONUAPLUS, TSH3, A1C WTH eA #### [address] #### APOB #### [facility] ,RBC,Sgwko1-0Mljfdn2-7Xyz Replaced By [facility] Physician GroupComment on above:Order Comment: Name Collection Type:: Clean-Voided MidstreamPerformed By: #### CUU, CMP, PSATOTAL, CBC, ADDONUAPLUS, TSH3, A1C WTH eA #### [address] #### APOB #### [facility] ,Specificy [place],Urine1.931Jvyuvi5.001-1.030The Replaced By [facility] Comment on above:Order Comment: Name Collection Type:: Clean-Voided Midstream Performed By: #### CUU, CMP, PSATOTAL, CBC, ADDONUAPLUS, TSH3, A1C WTH eA #### [place] [address] [place] #### APOB #### [facility] ,Squamous Epithelial Cell,Lciqu4-9Xgtooe9-0Uzg Replaced By [facility] Physician GroupComment on above:Order Comment: Name Collection Type:: Clean-Voided MidstreamPerformed By: #### CUU, CMP, PSATOTAL, CBC, ADDONUAPLUS, TSH3, A1C WTH eA #### [facility] [address] [place] [address] [place] #### APOB #### [facility] ,Urobilinogen,UrineNormalNormalNormalThe Replaced By [facility] Physician GroupComment on above:Order Comment: Name Collection Type:: Clean-Voided MidstreamPerformed By: #### CUU, CMP, PSATOTAL, CBC, ADDONUAPLUS, TSH3, A1C WTH eA #### [facility] [address] [place] [address] [place] #### APOB #### [facility] ,WBC,Gemcb8-9Yqvlzw4-4Wol Replaced By [facility] Physician GroupComment on above:Order Comment: Name Collection Type:: Clean-Voided MidstreamPerformed By: #### CUU, CMP, PSATOTAL, CBC, ADDONUAPLUS, TSH3, A1C WTH eA #### [facility] [address] [place] [address] [place] #### APOB #### [facility] ,Eosinophils Auto (Bld) [#/Vol]Ordered By: Saeed Gomez on 18-39-1089Cylyrzppnze (Bld) [#/Vol]Automated eosinophil count0.0-0.45Prem[facility] Hospital SouthEosinophils/100 WBC Auto (Bld)Ordered By: Saeed Gomez on 11-12-2024 Eosinophils/100 WBC (Bld)Automated eosinophil %.[facility] Hospital SouthEpithelial cells.squamous [#/area] in Urine sediment by Automated count Ordered By: Saeed Gomez on 52-44-9579Izthgxnlfi cells.squamous Auto (Urine sed) [#/Area]Epithelial cells.squamous [#/area] in Urine sediment by Automated count 0-[facility] HospitalEpithelial cells.squamous Auto (Urine sed) [#/Area]1-2 [HPF]0-2FCleveland Clinic [facility] General Lodi HospitalErythrocyte distribution width Auto (RBC) [Ratio]Ordered By: Saeed Gomez on 44-77-6514Qrsqhwagjam distribution width (RBC) [Ratio]Erythrocyte distribution width [Ratio] by Automated count12.0-14.8[facility] Hospital SouthErythrocytes [#/area] in Urine sediment by Automated countOrdered By: Saeed Gomez on 21-90-8250UQK Auto (Urine sed) [#/Area]Erythrocytes [#/area] in Urine sediment by Automated count0-4FCleveland Clinic [facility] HospitalRBC Auto (Urine sed) [#/Area]1-2 [HPF] 0-4FC[facility] HospitalGlobulin Calc (S) [Mass/Vol]Ordered By: Saeed Gomez on 25-79-8354Vymdzckl (S) [Mass/Vol]Serum globulin measurement by calculation (mass/volume)[facility] SouthGlucose [Mass/volume] in Serum or PlasmaOrdered By: Saeed Gomez on 82-24-4641Jfbvvvm [Mass/Vol] Glucose [Mass/volume] in Serum or JyyxogZncs09-649FdstrwyquPremier Health Miami Valley Hospital SouthComment on above:ADA recommended reference rangeRandom Glucose Reference Range is dependent on time and content of last meal. Glucose of more than 200 mg/dL in a nonstressed, ambulatory subject supports the diagnosisof Diabetes Mellitus.Glucose [Mass/volume] in Urine by Test stripOrdered By: Saeed Gomez on 60-49-3012Gunyurs Test strip (U) [Mass/Vol]Glucose [Mass/volume] in Urine by Test stripNoThe Bellevue HospitalGlucose Test strip (U) [Mass/Vol]Normal mg/dLNormClinton Memorial HospitalHematocrit Auto (Bld) [Volume fraction]Ordered By: Saeed Gomez on 75-71-3997Mudraasaih (Bld) [Volume fraction]Hematocrit [Volume Fraction] of Blood by Automated count 38.8-50.0[facility] SouthHemoglobin A1c/Hemoglobin.total in BloodOrdered By: Saeed Gomez on 09-00-2304JvV0m (Bld) [Mass fraction]Hemoglobin A1c percentage4.3-5.6FCleveland Clinic [facility] Lodi HospitalComment on above:Increased risk for diabetes: 5.7 - 6.4diabetes: >6.4glycemic control for adults with diabetes: <7.0Hemoglobin Test strip Ql (U)Ordered By: Saeed Gomez on 31-31-1625Azmcoeshuy Ql (U)Hemoglobin [Presence] in Urine by Test stripNegative [facility] SouthHemoglobin Ql (U)NegativeNegativePremier Health Miami Valley Hospital SouthHemoglobin [Mass/volume] in BloodOrdered By: Saeed Gomez on 73-56-4996Ltloyrwwsi (Bld) [Mass/Vol]Hemoglobin [Mass/volume] in Blood 13.0-17.0[facility] SouthHyaline casts [#/area] in Urine sediment by Automated countOrdered By: Saeed Gomez on 00-93-7596Epgxdgl casts Auto (Urine sed) [#/Area]Hyaline casts [#/area] in Urine sediment by Automated count0-8[facility] Hospital SouthHyaline casts Auto (Urine sed) [#/Area] None [LPF]0-8[facility] SouthKetones Test strip Ql (U)Ordered By: Saeed Gomez on 28-25-3845Gjgqrli Ql (U)Ketones [Presence] in Urine by Test stripNegativePremier Health Miami Valley Hospital SouthLeukocyte esterase [Presence] in Urine by Test stripOrdered By: Saeed Gomez on 77-10-9617Bejgiocyh esterase Test strip Ql (U)Leukocyte esterase [Presence] in Urine by Test stripNegative [facility] SouthLeukocytes [#/area] in Urine sediment by Automated countOrdered By: Saeed Gomez on 73-22-8513QOJ Auto (Urine sed) [#/Area]Leukocytes [#/area] in Urine sediment by Automated count0-4FC[facility] Clinic [facility] HospitalWBC Auto (Urine sed) [#/Area]1-2 [HPF]0-4FC[facility] HospitalLeukocytes [#/volume] corrected for nucleated erythrocytes in Blood by Automated counOrdered By: Saeed Gomez on 57-34-9246RYR corrected for nucl RBC Auto (Bld) [#/Vol]Leukocytes [#/volume] corrected for nucleated erythrocytes in Blood by Automated counLow4.1-10.5FC[facility] Clinic [facility] HospitalWBC corrected for nucl RBC Auto (Bld) [#/Vol]3.9 10*3/uLLow 4.1-10.5FC[facility] Clinic [facility] HospitalLymphocytes Auto (Bld) [#/Vol]Ordered By: Saeed Gomez on 85-54-3080Rfibofsnfbi (Bld) [#/Vol]Lymphocytes [#/volume] in Blood by Automated count1.00-4.8[facility] Lymphocytes/100 WBC Auto (Bld)Ordered By: Saeed Gomez on 11-12-2024 Lymphocytes/100 WBC (Bld)Lymphocytes/100 leukocytes in Blood by Automated count. [facility] HospitalH Auto (RBC) [Entitic mass]Ordered By: Saeed Gomez on 06-60-5362NIO (RBC) [Entitic mass]MCH [Entitic mass] by Automated count27.5-35.2FC[facility] Clinic [facility] HospitalMCHC Auto (RBC) [Mass/Vol]Ordered By: Saeed Gomez on 73-79-5478FFVC (RBC) [Mass/Vol]MCHC [Mass/volume] by Automated count32.5-35.6FC[facility] HospitalMCHC (RBC) [Mass/Vol] 34.9 g/dL32.5-35.6FC[facility] HospitalMCV Auto (RBC) [Entitic vol] Ordered By: Saeed Gomez on 03-75-8695KUU (RBC) [Entitic vol]MCV [Entitic volume] by Automated count83.5-101Prem[facility] Hospital SouthMonocytes Auto (Bld) [#/Vol]Ordered By: Saeed Gomez on 03-70-2505Vqdbedztt (Bld) [#/Vol] Automated blood monocyte count0.0-0.8[facility] Monocytes/100 WBC Auto (Bld)Ordered By: Saeed Gomez on 58-15-2765Kgotywokk/100 WBC (Bld)Automated monocyte %.[facility] SouthMucus [Presence] in Urine by AutomatedOrdered By: Saeed Gomez on 11-10-1313Gcsyo Auto Ql (U) Mucus [Presence] in Urine by AutomatedPremier Health Miami Valley Hospital SouthMucus Auto Ql (U)Rare [LPF][facility] SouthNeutrophils Auto (Bld) [#/Vol]Ordered By: Saeed Gomez on 14-37-6907Htyxdskhjsh (Bld) [#/Vol] Neutrophils [#/volume] in Blood by Automated count1.8-7.7FC[facility] Clinic [facility] HospitalNeutrophils/100 WBC Auto (Bld)Ordered By: Saeed Gomez on 02-95-3981Jyucjjzwwgp/100 WBC (Bld)Automated neutrophil %.[facility] SouthNitrite Test strip Ql (U)Ordered By: Saeed Gomez on 11-12-2024 Nitrite Ql (U)Nitrite [Presence] in Urine by Test stripNegativePremier Health Miami Valley Hospital SouthNitrite Ql (U)NegativeNegativePremier Health Miami Valley Hospital SouthNo Panel InformationOrdered By: Saeed Gomez on 95-81-3121Skiffmkdu GFR (CKD-EPI)> 60.0 mL/MinPremier Health Miami Valley Hospital SouthPharmacy Creatinine Clearance (ChemN/AFCleveland Clinic Ak[facility] General L[facility] HospitalNucleated erythrocytes [Presence] in Blood by Automated countOrdered By: Saeed Gomez on 11-12-2024 Nucleated RBC Auto Ql (Bld)Nucleated erythrocytes [Presence] in Blood by Automated count0-0.5FC[facility] Clinic [facility] HospitalNucleated RBC Auto Ql (Bld) 0.1 /100{WBC}0-0.5FCleveland Clinic [facility] Lodi HospitalPSA Total (Not a Screen)on 74-62-0516TGO Total (Not a Screen)1.370 ng/mLNormal0.000-4.000The Replaced By [facility] Physician GroupComment on above:Result Comment: Serial tumor marker results determined by assays using different manufacturers or methods may not be comparable. Replaced By [facility] director machine and method: [employer] DXI, CHEMILUMINESCENT IMMUNOASSAY. PERFORMED BY: [place] [address] PATHOLOGIST FURNITURE ASSEMBLER KEN ETIENNE M.D.Performed By: #### CUU, CMP, PSATOTAL, CBC, ADDONUAPLUS, TSH3, A1C WTH #### [place] [address] [place] #### APOB #### [facility] ,Platelet mean volume Auto (Bld) [Entitic vol]Ordered By: Saeed Gomez on 03-99-5443Usixkkbf mean volume (Bld) [Entitic vol]Platelet mean volume [Entitic volume] in Blood by Automated count6.6-10.1FC[facility] Hospital Platelets Auto (Bld) [#/Vol]Ordered By: Saeed Gomez on 82-45-1701Xelbpwtcl (Bld) [#/Vol]Platelets [#/volume] in Blood by Automated -401ZtjibmewpPremier Health Miami Valley Hospital SouthPotassium [Moles/volume] in Serum or PlasmaOrdered By: Saeed Gomez on 62-35-9372Bzlwkcybi [Moles/Vol]Potassium [Moles/volume] in Serum or Plasma3.5-5.1FC[facility] HospitalProstate specific Ag [Mass/volume] in Serum or PlasmaOrdered By: Saeed Gomez on 65-36-7315Saqyssnm specific Ag [Mass/Vol]Prostate specific Ag [Mass/volume] in Serum or Plasma 0.000-4.000[facility] SouthComment on above:Serial tumor marker results determined by assays using different manufacturers or methods may not be comparable.Replaced By [facility] director machine and method:[employer] DXI, CHEMILUMINESCENT IMMUNOASSAY.Prostate specific Ag [Mass/Vol]1.370 ng/mL 0.000-4.000[facility] SouthComment on above:Serial tumor marker results determined by assays using different manufacturers or methods may not be comparable.Replaced By [facility] director machine and method:[employer] DXI, CHEMILUMINESCENT IMMUNOASSAY.Protein Test strip (U) [Mass/Vol]Ordered By: Saeed Gomez on 55-83-8914Vrwbvsj (U) [Mass/Vol]Protein [Mass/volume] in Urine by Test stripNegativePremier Health Miami Valley Hospital SouthProtein (U) [Mass/Vol]Negative NegativePremier Health Miami Valley Hospital SouthProtein [Mass/volume] in Serum or PlasmaOrdered By: Saeed Gomez on 40-83-1726Fjlxlqm [Mass/Vol]Protein [Mass/volume] in Serum or Plasma6.4-8.9[facility] SouthRBC Auto (Bld) [#/Vol]Ordered By: Saeed Gomez on 54-28-1072AVU (Bld) [#/Vol] Erythrocytes [#/volume] in Blood by Automated count3.90-5.60UC Healtherum or plasma albumin/globulin mass ratioOrdered By: Saeed Gomez on 24-15-3494Xcqfurk/Globulin [Mass ratio]Serum or plasma albumin/globulin mass ratioUC Healtherum or plasma anion gap determinationOrdered By: Saeed Gomez on 10-48-0607Xmuiu gap [Moles/Vol]Serum or plasma anion gap determination6.0-15.0UC Healthodium [Moles/volume] in Serum or PlasmaOrdered By: Saeed Gomez on 70-70-2803Wyycmd [Moles/Vol]Sodium [Moles/volume] in Serum or Tlbiqc269-592 UC Healthpecific gravity Test strip (U) [Rel density] Ordered By: Saeed Gomez on 50-49-3734Yxozfxop gravity (U) [Rel density]Specific gravity of Urine by Test strip1.001-1.030[facility] Specific gravity (U) [Rel density]1.0251.001-1.030[facility] SouthThyroid Stimulating HormoneOrdered By: Saeed Gomez on 27-73-6104XNN Qn 3.05 m[IU]/L0.45-5.33[facility] SouthComment on above:Result Comment: PERFORMED BY: [address] [place] [address] PATHOLOGIST FURNITURE ASSEMBLER KEN ETIENNE M.D.Performed By: #### CUU, CMP, PSATOTAL, CBC, ADDONUAPLUS, TSH3, A1C WTH #### [address] #### APOB #### [facility] ,Thyrotropin [Units/volume] in Serum or PlasmaOrdered By: Saeed Gomez on 04-19-1786ZIQ QnThyrotropin [Units/volume] in Serum or Plasma0.45-5.33[facility] SouthUrea nitrogen [Mass/volume] in Serum or PlasmaOrdered By: Saeed Gomez on 00-59-8721Xnqc nitrogen [Mass/Vol]Urea nitrogen [Mass/volume] in Serum or Plasma7-25Prem[facility] SouthUrine Cultureon 33-76-0099Tlwfdbyn identified Cx Nom (U)No Growth 2 Days PERFORMED BY: [address] [place] [address] PATHOLOGIST FURNITURE ASSEMBLER KEN ETIENNE M.D.NormalThe Replaced By [facility] Physician GroupComment on above: Performed By: #### CUU, CMP, PSATOTAL, CBC, ADDONUAPLUS, TSH3, A1C WTH eA #### [facility] [address] [place] [address] [place] #### APOB #### [facility] ,Urine cultureOrdered By: Saeed Gomez on 49-54-5164Soenpaje identified Cx Nom (U)Urine culturePremier Health Miami Valley Hospital SouthBacteria identified Cx Nom (U) No Growth 2 DaysPremier Health Miami Valley Hospital SouthUrobilinogen Test strip (U) [Mass/Vol]Ordered By: Saeed Gomez on 50-05-3302Rcytvazswprx (U) [Mass/Vol] Urobilinogen [Mass/volume] in Urine by Test stripNormClinton Memorial HospitalUrobilinogen (U) [Mass/Vol]Normal mg/dLNormClinton Memorial HospitalWBC Auto (Bld) [#/Vol]Ordered By: Saeed Gomez on 04-32-4591FAI (Bld) [#/Vol]Leukocytes [#/volume] in Blood by Automated countLow4.1-10.5 [facility] SouthpH Test strip (U)Ordered By: Saeed Gomez on 86-88-0679zV (U)pH of Urine by Test strip5.0-9.0[facility] SouthBasophils Auto (Bld) [#/Vol]on 37-90-2773Wusheghbk (Bld) [#/Vol]0.0 10 3/uL0.0-0.1FC[facility] HospitalBasophils/100 WBC Auto (Bld)on 04-09-6275Bxocmyhvh/100 WBC (Bld)0.2 %0.2-2.0[facility] Eosinophils/100 WBC Auto (Bld)on 34-32-0820Tchwkrdxdpj/100 WBC (Bld)1.0 %0.9-7.0 [facility] SouthErythrocyte distribution width Auto (RBC) [Ratio]on 77-69-0512Umsvtuzddws distribution width (RBC) [Ratio]12.0 %11.0-15.0 [facility] SouthEstimated glomerular filtration rate (GFR) non- Americanon 05-83-6212HGZ/1.73 sq M.predicted among non-blacks MDRD (S/P/Bld) [Vol rate/Area]mL/min/{1.73_m2}>=60[facility] Globulin Calc (S) [Mass/Vol]on 57-42-6574Buniuats (S) [Mass/Vol]3.1 g/dL [facility] SouthGlucose mean value [Mass/volume] in Blood Estimated from glycated hemoglobinon 99-30-3897Cgtrgtf glucose Estimated from glycated hemoglobin (Bld) [Mass/Vol]117 mg/dLPremier Health Miami Valley Hospital South Hematocrit Auto (Bld) [Volume fraction]on 32-11-8692Pdugpvzujw (Bld) [Volume fraction]42.1 %42.0-54.0[facility] SouthHemoglobin [Mass/volume] in Bloodon 35-18-3844Rgdzswnbzl (Bld) [Mass/Vol]14.8 g/dL14.0-18.0 [facility] SouthLaboratory - Chemistry and Chemistry - challengeon 49-92-0201Ndxovxl [Mass/Vol]4.1 g/dL3.4-5.0[facility] SouthALP [Catalytic activity/Vol]87 U/O67-790WqplcohrvPremier Health Miami Valley Hospital SouthALT [Catalytic activity/Vol]30 U/U72-59MwyagoopaPremier Health [facility] South AST [Catalytic activity/Vol]30 U/L40-40JrwngynugPrem[facility] Health [facility] South Bilirubin [Mass/Vol]1.9 mg/dL0.2-1.0[facility] SouthCalcium [Mass/Vol]9.1 mg/dL8.5-10.1FC[facility] HospitalChloride [Moles/Vol] 101 mmol/H00-242OkghckbblPremier Health Miami Valley Hospital SouthCO2 [Moles/Vol]26.2 mmol/L 21.0-32.0[facility] SouthCreatinine [Mass/Vol]0.82 mg/dL 0.70-1.30[facility] SouthGFR/1.73 sq M.predicted MDRD (S/P/Bld) [Vol rate/Area]mL/min/{1.73_m2}>=60[facility] SouthGlucose [Mass/Vol]98 mg/nX59-399NpdbwowsaPremier Health Miami Valley Hospital SouthPotassium [Moles/Vol] 3.5 mmol/L3.5-5.1FC[facility] HospitalProtein [Mass/Vol]7.2 g/dL 6.4-8.2FPremier Health Miami Valley Hospital Northodium [Moles/Vol]139 mmol/V307-235 [facility] SouthTSH Qn1.905 m[IU]/L0.358-3.740[facility] SouthUrea nitrogen [Mass/Vol]17.0 mg/dL7.0-18.0[facility] SouthUrea nitrogen/Creatinine [Mass ratio]20.7 mg/mgPremier Health Miami [facility] Hospital SouthBilirubin Ql (U)NegativeNEGATIVEPrem[facility] Health [facility] Hospital SouthGlucose (U) [Mass/Vol]NegativeNEGATIVEPremier Health Miami [facility] Hospital SouthKetones Ql (U)40 mg/dLNEGATIVEPremier Health Miami [facility] Hospital SouthpH (U)5.5 [pH]5.0-9.0UC Healthpecific gravity (U) [Rel density] >=1.0301.005-1.025[facility] SouthUrobilinogen Qn (U)0.2 {Nirmala'U}/dL0.2-1.0[facility] SouthLaboratory - Hematology and Cell countson 85-50-0852OmV0x (Bld) [Mass fraction]5.7 %4.5-6.2FC[facility] Lodi HospitalComment on above:ADA RECOMMENDED LIMIT 4.0 - 6.0ADA THERAPEUTIC TARGET < 7.0ACTION SUGGESTED> 7.0Immature granulocytes/100 WBC (Bld) 0.2 %0.0-0.5FC[facility] HospitalLaboratory - Specimen informationon 09-32-7031Vjzpoielpz (U)CLEARCLEARFCleveland Clinic Akron General Lodi HospitalColor (U) YELLOWYELLOWPremier Health [facility] Hospital SouthLaboratory - Urinalysison 53-42-6044Cxsthgvzz esterase Test strip Ql (U)NegativeNEGProMedica Toledo HospitalMucus Ql (Urine sed)MODERATENONE SEENPremier Health Miami [facility] Hospital SouthNitrite Ql (U)NegativeNEGATIVEPremier Health [facility] Hospital SouthProtein Ql (U)NegativeNEG/TRACEPremier Health Miami [facility] Hospital SouthLeukocytes [#/volume] corrected for nucleated erythrocytes in Blood by Automated counon 63-90-7475IKB corrected for nucl RBC Auto (Bld) [#/Vol]5.1 10 3/uL4.0-11.0[facility] SouthLymphocytes Auto (Bld) [#/Vol]on 68-29-4726Euglefcdqgg (Bld) [#/Vol]0.9 10 3/uL1.2-3.8[facility] SouthLymphocytes/100 WBC Auto (Bld)on 68-27-4147Aafxrfttaoo/100 WBC (Bld)17.4 %20.5-60.0[facility]H Auto (RBC) [Entitic mass]on 22-19-3005BWS (RBC) [Entitic mass]31.3 pg25.9-34.0[facility] SouthMCHC Auto (RBC) [Mass/Vol]on 72-47-0184JLRJ (RBC) [Mass/Vol]35.2 g/dL29.9-35.2[facility] HospitalMCV Auto (RBC) [Entitic vol]on 37-32-0839VDH (RBC) [Entitic vol] 89.0 fL80.0-94.0[facility] SouthMonocytes Auto (Bld) [#/Vol]on 12-89-0261Mcrvyuega (Bld) [#/Vol]0.4 10 3/uL0.3-0.8[facility] SouthMonocytes/100 WBC Auto (Bld)on 95-49-1467Eojblclkp/100 WBC (Bld)8.7 % 1.7-12.0[facility] SouthNeutrophils Auto (Bld) [#/Vol]on 50-48-9802Kjxyoiwawyp (Bld) [#/Vol]3.7 10 3/uL1.4-6.5FC[facility] HospitalNeutrophils/100 WBC Auto (Bld)on 83-40-6554Sysmyidhdwt/100 WBC (Bld)72.5 % 43.0-75.0[facility] SouthNo Panel Informationon 11-17-2023 Eosinophils # (Auto)0.1 10 3/uL0.0-0.7FC[facility] HospitalImmature Granulocyte # (Auto)0.01 10 3/uL0.00-0.03[facility] Prostate Specific Antigen Total0.70 ng/mL<=4.00[facility] Urine BacteriaNONE SEEN #/HPFNONE [facility] TroyU[facility] Calcium Oxalate CrystalsMODERATEPremier Health Miami Valley Hospital SouthUrine Occult BloodNegativeNEGATIVEPremier Health Miami [facility] Hospital SouthUrine Other CastsNONE SEEN #/LPFNONE [facility] TroyUrine Other CrystalsSeen #/HPF None SeenPremier Health Miami Valley Hospital SouthUrine RBC0-2 #/HPF0-2FC[facility] HospitalUrine Squamous Epithelial CellsRARE #/LPFNONE/RARE [facility] SouthUrine WBC0-2 #/HPFNONE [facility] TroyPlatelet mean volume Auto (Bld) [Entitic vol]on 69-19-2130Olmzdham mean volume (Bld) [Entitic vol]10.3 fL9.5-13.5[facility] Platelets Auto (Bld) [#/Vol]on 77-75-0737Amyeduame (Bld) [#/Vol]181 10 3/uL 150-450[facility] SouthRBC Auto (Bld) [#/Vol]on 08-18-3318DDL (Bld) [#/Vol]4.73 10 6/uL4.70-6.10UC Healtherum or plasma albumin/globulin mass ratioon 89-27-6068Qwulfje/Globulin [Mass ratio]1.3 {ratio}UC Healtherum or plasma anion gap determination on 30-18-1517Vcpgz gap [Moles/Vol]15.3 mmol/LFCleveland Clinic [facility] PUJA - LIPID PROFILEon 15-98-0363ZAWU-HDL RATIO NORMSDetwiler Memorial HospitalComaspirus ontonagon hospital on above:Result Comment: 3.3 - 4.4 LOW RISK 4.4 - 7.1 AVERAGE RISK 7.1 - 11.0 MODERATE RISK >11.0 HIGH RISKPerformed By: #### DATLIPI #### [facility] [address] [address] [address] Shane HintonCholesterol [Mass/Vol]262 mg/dLCritically high<=200[facility] on above:Performed By: #### DATLIPI #### [facility] [address] [place] [address] Dr. Shane HintonCholesterol in HDL [Mass/Vol]51 mg/pNOkwnei37-77MufSalem Regional [facility] on above:Performed By: #### DATLIPI #### [facility] [address] [place] [address] Dr. Shane HintonCholesterol in LDL [Mass/Vol]187.0 mg/dLHolzer Medical Center – JacksonComaspirus ontonagon hospital on above:Performed By: #### DATLIPI #### [facility] [address] [place] [address] Dr. Shane HintonCholesterhenrry.total/Cholesterol in HDL [Mass ratio]5.1 {ratio} NormalThe [facility] on above:Performed By: #### DATLIPI #### [facility] [address] [place] [address] Dr. Shane HintonHDL NORMAL> or = 60 mg/dl - LOW CARDIOVASCULAR RISK <40 mg/dl - HIGH CARDIOVASCULAR RISKHolzer Medical Center – JacksonComaspirus ontonagon hospital on above:Performed By: #### DATLIPI #### [facility] [address] [place] [address] Dr. Shane HintonLDL CALC NORMALSEE [facility] HospitalComaspirus [facility]ton[facility] on above:Result Comment: <100 mg/dl OPTIMAL 100 - 129 mg/dl NEAR OR ABOVE OPTIMAL 130 - 159 mg/dl BORDERLINE HIGH 160 - 189 mg/dl HIGH >190 mg/dl VERY HIGH Performed By: #### DATLIPI #### [facility] [address] [address] [address] Shane HintonTriglyceride [Mass/Vol]120 mg/dLNormal<=150[facility] Comment on above:Performed By: #### DATLIPI #### [facility] [address] [address] [address] Shane HintonVLDL CALC24.0 mg/dLNoChildren's Hospital of ColumbusComment on above: Performed By: #### DATLIPI #### [facility] [address] [address] [address] Shane Baker - LIPID PROFILEon 69-59-3589XVXM-HDL RATIO NORMSEE BELOW NormalThe White HospitalComment on above:Result Comment: 3.3 - 4.4 LOW RISK 4.4 - 7.1 AVERAGE RISK 7.1 - 11.0 MODERATE RISK >11.0 HIGH RISKPerformed By: #### DATLIPI #### [facility] [address] [place] [address] Dr. Shane HintonCholesterol [Mass/Vol]196 mg/dLNormal<=200[facility] Comment on above:Performed By: #### DATLIPI #### [facility] [address] [place] [address] Dr. Shane Ahnesterol in HDL [Mass/Vol]39 mg/dLCritically kjy44-97Hlr White HospitalComment on above:Performed By: #### DATLIPI #### [facility] [address] [place] [address] Dr. Shane Ahnesterol in LDL [Mass/Vol]129.6 mg/dLNoChildren's Hospital of ColumbusComment on above:Performed By: #### DATLIPI #### [facility] [address] [place] [address] Dr. Shane Lazo.total/Cholesterol in HDL [Mass ratio]5.0 {ratio} NormalThe White HospitalComment on above:Performed By: #### DATLIPI #### [facility] [address] [place] [address] Dr. Shane PickensL NORMAL> or = 60 mg/dl - LOW CARDIOVASCULAR RISK <40 mg/dl - HIGH CARDIOVASCULAR RISKHolzer Medical Center – JacksonComment on above:Performed By: #### DATLIPI #### [facility] [address] [place] [address] Dr. Shane HintonLDL CALC NORMALSEE BELOWHolzer Medical Center – JacksonComment on above:Result Comment: <100 mg/dl OPTIMAL 100 - 129 mg/dl NEAR OR ABOVE OPTIMAL 130 - 159 mg/dl BORDERLINE HIGH 160 - 189 mg/dl HIGH >190 mg/dl VERY HIGH Performed By: #### DATLIPI #### [facility] [address] [place], [place] [address] Dr. Shane HintonTriglyceride [Mass/Vol]137 mg/dLNormal<=150[facility] Comment on above:Performed By: #### DATLIPI #### [facility] [address] [place] [address] [address] [address] Shane HintonVLDL CALC27.4 mg/dLHolzer Medical Center – JacksonComment on above: Performed By: #### DATLIPI #### [facility] [address] [place] [address] [address] [address] Shane Ramos Visit (Cardiology)on 66-56-9583Ecnwtc-up visit Diagnoses/Problems Assessed Hyperlipemia (272.4) (E78.5) Body [...] Daily Magnesium Citrate CAPSTAKE 1 CAPSULE Daily Scandia 3 1200 MG Oral CapsuleTAKE 1 CAPSULE [...] negative for complaint. Vitals Vital Signs Recorded: 72Cjr8923 10:30AMRecorded: 19Khq7530 09:53AM Bmieqtol671, LUE, Wffthrz089, LUE, Sitting Dgglpneqo07, LUE, Ygjpqou73, LUE, Sitting Heart Rate72, R Radial Height5 ft 11 in Uthwxd991 lb BMI Uvxtwdaqze71.97 kg/m2 BSA Calculated2.01 Tobacco Useb) No Falls [...] Electron (more content not included)...NormalUH TouchworksTobacco Screening.on 49-53-0999Zhcg risk assessmentc) Not medically indicated-[facility] 600 DO Work Phone: Tobacco use status CPHSb) NoMP-[facility] 600 DO Work Phone: Echocardiogramon 19-90-7896TlennfjvxqsuwabeKuuzb [address], Suite [facility], [place] [address] TRANSTHORACIC ECHOCARDIOGRAM REPORT Patient Name: JAVAD COLORADO Reading Physician: [id number] Latrell Roberto MD Study Date: 02/10/2022 Referring Physician: [id number] LATRELL ROBERTO MRN/PID: [id number] PCP: Saeed Gomez Accession/Order#: [id number] Department Location: [facility] Zenon Bunch Date of : 1955 Fellow: Gender: M Nurse: Admit Date: Sign Writer Hand: Amira Abdul RDCS, RVT Height: 180.34 cm CC Report to: Weight: 81.65 kg Study Type: Echocardiogram BSA: 2.02 m2 Blood Pressure: 164 /86 mmHg Diagnosis/ICD: R06.00-Dyspnea, unspecified; R00.2-Palpitations Indication: Hyperlipidemia, Family History of CAD Procedure/CPT: Echo Complete w Full Doppler-41141 Study Detail: The following Echo studies were [...] 0.7 m/s (0.6-0.9m/s) PV Max P.9 mmHg [id number] Latrell Roberto MD Electronically signed on 02/14/2022 at 4:05:38 PM Final NormalNorth Suburban Medical CenterEchocardiographyPlease click on the link to view the study imagesNormalKind[facility] [address] [place] Work Phone: Falls Screening (Age 18+)on 77-24-7621Wosr risk assessmenta) No falls within the last yearKindred Hospital [facility] [address] [place] Work Phone: CT Cardiac Scoringon 29-95-4709QW Cardiac Scoring NormalKindred Hospital [facility] [address] DO Work Phone: Office Visit (Cardiology)on 82-68-6840Bxkmhk-up visit Diagnoses/Problems Assessed Palpitation (785.1) (R00.2) Dyspnea (786.09) (R06.00) Overweight with body mass index (BMI) of 25 to 25.9 in adult (278.02,V85.21) (E66.3,Z68.25) Never a smoker Hyperlipemia (272.4) (E78.5) Orders Dyspnea, Palpitation Echocardiogram; Status:Hold For - Scheduling; Requested for:37Flw8951; Overweight with body mass index (BMI) of 25 to 25.9 in adult Healthy Weight Tips; Status:Complete; Done: 26Xpa4700 Palpitation IO EKG Electrocardiogram- 12 Lead; Status:Complete; Done: 63Kfg8333 SocHx: Never a smoker Tobacco Use Screening; Status:Complete; Done: 62Lqf1450 Patient Instructions By signing my name below, [...] Daily Magnesium Citrate CAPSTAKE 1 CAPSULE Daily Scandia 3 1200 MG Oral CapsuleTAKE 1 CAPSULE [...] negative for complaint. Vitals Vital Signs Recorded: 12Ibr5737 10:27AMRecorded: 40Nbd0983 10:25AM Fparcwci868, LUE, Fjfvtda331, RUE, Sitting Ghzndkeew46, LUE, Gmtbtvd45, RUE, Sitting Heart Rate82, Apical Height5 ft 11 in Yembbk477 lb BMI Uqdfgcnwzy01.11 kg/m2 BSA Calculated2.02 Tobacco Useb) No PHQ-2 #1. Over the last 2 weeks have you felt down, depressed or hopeless? (If yes, answer PHQ-9 below)No PHQ-2 #2. Over the last 2 weeks have you felt little interest or pleasur (more content not included)...NormalUH TouchworksTobacco Screening.on 45-57-1680Njgvp depression screening assessmentWesterly Hospital BazaarvoiceHartford Hospital [employer] DO Work Phone: Fall risk assessmenta) No falls within the last year [facility]voiceHart[facility] 600 DO Work Phone: Tobacco use status CPHSb) [facility] 600 DO Work Phone: CB AUTO DIFFon 02-17-9511SACN #0.0 103/ulNormal 0.0-0.1[facility] HospitalComment on above:Performed By: #### CBC #### [facility] [address] [address] [address] Shane HintonBasophils/100 WBC (Bld)0.4 %Normal0.2-2.0[facility] Comment on above:Performed By: #### CBC #### [facility] [address] [address] [address] Shane Keane #0.1 103/ulNormal0.0-0.7The White HospitalComment on above: Performed By: #### CBC #### [facility] [address] [place] [address] Dr. Shane Thomasosinophils/100 WBC (Bld)2.1 %Normal0.9-7.0[facility] Comment on above:Performed By: #### CBC #### [facility] [address] [place] [address] Dr. Shane Thomasrythrocyte distribution width (RBC) [Ratio]12.4 %Ajmxtp97.0-15.0 The White HospitalComment on above:Performed By: #### CBC #### [facility] [address] [place] [address] Dr. Shane HintonHematocrit (Bld) [Volume fraction]44.8 %Glqjtm67.0-54.0The White HospitalComment on above:Performed By: #### CBC #### [facility] [address] [place] [address] Dr. Shane HintonHemoglobin (Bld) [Mass/Vol]15.9 g/hEKfgmif02.0-18.0The [facility] Medical Centerment on above:Performed By: #### CBC #### [facility] [address] [place] [address] Dr. Shane Lind #0.02 10e3/ulNormal0.00-0.03The [facility] HospitalComment on above:Performed By: #### CBC #### [facility] [address] [place] [address] Dr. Shane Lind %0.4 %Normal0.0-0.5The [facility] HospitalComment on above: Performed By: #### CBC #### [facility] [address] [place] [address] Dr. Shane SimpsonH #1.3 103/ulNormal1.2-3.8The White HospitalComment on above:Performed By: #### CBC #### [facility] [address] [place] [address] Dr. Shane Longmphocytes/100 WBC (Bld)26.5 %Yquglw94.5-60.0[facility] on above:Performed By: #### CBC #### [facility] [address] [place] [address] Dr. Shane CurtisUAL DIFF REQNONormalThe White HospitalComment on above: Performed By: #### CBC #### [facility] [address] [place] [address] Dr. Shane Villatoro (RBC) [Entitic mass]31.1 nwCvzvhn39.9-34.0The White HospitalComment on above:Performed By: #### CBC #### [facility] [address] [place] [address] Dr. Shane Villatoro (RBC) [Mass/Vol]35.5 g/dLCritically high29.9-35.2The White HospitalComment on above:Performed By: #### CBC #### [facility] [address] [place] [address] Dr. Shane Villatoro (RBC) [Entitic vol]87.7 oYZbvfwz05.0-94.0The White HospitalComaspirus ontonagon hospital on above:Performed By: #### CBC #### [facility] [address] [place] [address] Dr. Shane Sandoval #0.6 103/ulNormal0.3-0.8The White HospitalComment on above:Performed By: #### CBC #### [facility] [address] [place] [address] Dr. Shane Gunterocytes/100 WBC (Bld)13.0 %Critically high1.7-12.0[facility] on above:Performed By: #### CBC #### [facility] [address] [place] [address] Dr. Shane Nance #2.8 103/ulNormal1.4-6.5The White HospitalComment on above:Performed By: #### CBC #### [facility] [address] [address] [address] Shane HintonNeutrophils/100 WBC (Bld)57.6 %Xmzozz06.0-75.0[facility] on above:Performed By: #### CBC #### [facility] [address] [address] [address] Shane Del Rosariolet mean volume (Bld) [Entitic vol]9.4 fLCritically low 9.5-13.5The [facility] HospitalComment on above:Performed By: #### CBC #### [facility] [address] [place] [address] Dr. Shane HintonPLT184 103/ycOsrxxk360-938Kll [facility] on above: Performed By: #### CBC #### [facility] [address] [place] [address] Dr. Shane HintonRBC5.11 106/ulNormal4.70-6.10[facility] on above:Performed By: #### CBC #### [facility] [address] [place] [address] Dr. Shane HintonWBC4.9 103/ulNormal4.0-11.0[facility] on above: Performed By: #### CBC #### [facility] [address] [place] [address] Dr. Shane HintonPROF 14(COMP METB)on 74-93-4555Qxiwqrw [Mass/Vol]4.0 g/dLNormal 3.4-5.0[facility] on above:Performed By: #### CMP, HSTROPN #### [facility] [address] [place] [address] Dr. Shane HintonAlbumin/Globulin [Mass ratio]1.2 {ratio}NormalThe [facility] on above:Performed By: #### CMP, HSTROPN #### [facility] [address] [place] [address] Dr. Shane GalavizP [Catalytic activity/Vol]74 U/WSuqyso31-146Trv [facility] HospitalComment on above:Performed By: #### CMP, HSTROPN #### [facility] [address] [address] [address] Shane Oakes [Catalytic activity/Vol]45 U/VLhlhwh97-90Fjr White HospitalComment on above:Performed By: #### CMP, HSTROPN #### [facility] [address] [address] [address] Shane Skinneron gap [Moles/Vol]13.5 mmol/LNormalThe [facility] Comment on above:Performed By: #### CMP, HSTROPN #### [facility] [address] [place] [address] Dr. Shane Dave [Catalytic activity/Vol]34 U/MTcsixa97-00Xvc [facility] HospitalComment on above:Performed By: #### CMP, HSTROPN #### [facility] [address] [place] [address] Dr. Shane HintonBilirubin [Mass/Vol]0.9 mg/dLNormal0.2-1.0[facility] Comment on above:Performed By: #### CMP, HSTROPN #### [facility] [address] [place] [address] Dr. Shane HintonCalcium [Mass/Vol]8.8 mg/dLNormal8.5-10.1[facility] Comment on above:Performed By: #### CMP, HSTROPN #### [facility] [address] [place] [address] Dr. Shane HintonChloride [Moles/Vol]106 mmol/KAxdxhd09-398MmdDelaware County Hospital Comment on above:Performed By: #### CMP, HSTROPN #### [facility] [address] [place] [address] Dr. Shane HintonCO2 [Moles/Vol]26.2 mmol/HCeocit04.0-32.0[facility] Comment on above:Performed By: #### CMP, HSTROPN #### [facility] [address] [place] [address] Dr. Shane HintonCreatinine [Mass/Vol]1.00 mg/dLNormal0.70-1.30The [facility] HospitalComment on above:Performed By: #### CMP, HSTROPN #### [facility] [address] [address] [address] Shane ThomasGFR-AF BENINESE>60Normal>=60The White HospitalComment on above:Performed By: #### CMP, HSTROPN #### [facility] [address] [address] [address] Shane ThomasGFR-NON AF BENINESE>60Normal>=60The [facility] HospitalComment on above:Performed By: #### CMP, HSTROPN #### [facility] [address] [address] [address] Shane HintonGlobulin (S) [Mass/Vol]3.3 g/dLNormalThe White HospitalComment on above:Performed By: #### CMP, HSTROPN #### [facility] [address] [address] [address] Shane HintonGlucose [Mass/Vol]114 mg/dLCritically cfyq63-354Old White HospitalComment on above:Performed By: #### CMP, HSTROPN #### [facility] [address] [address] [address] Shane HintonPotassium [Moles/Vol]3.7 mmol/LNormal3.5-5.1[facility] Comment on above:Performed By: #### CMP, HSTROPN #### [facility] [address] [address] [address] Shane HintonProtein [Mass/Vol]7.3 g/dLNormal6.4-8.2[facility] Comment on above:Performed By: #### CMP, HSTROPN #### [facility] [address] [address] [address] Shane HintonSodium [Moles/Vol]142 mmol/EHgqiuf459-704Cjf [facility] Comment on above:Performed By: #### CMP, HSTROPN #### [facility] [address] [address] [address] Shane HintonUrea nitrogen [Mass/Vol]20.0 mg/dLCritically high7.0-18.0The [facility] HospitalComment on above:Performed By: #### CMP, HSTROPN #### [facility] [address] [address] [address] Shane HintonUrea nitrogen/Creatinine [Mass ratio]20.0 mg/mgNoChildren's Hospital of ColumbusComment on above:Performed By: #### CMP, HSTROPN #### [facility] [address] [place] [address] Dr. Shane Gama, HIGH SENSITIVITYon 64-43-6855WEZZYT92.8 pg/mLNormal 4.0-76.1[facility] on above:Result Comment: CUT-OFF POINTS HAVE BEEN ESTABLISHED BASED ON THE FOURTH UNIVERSAL DEFINITIONS OF MYOCARDIAL INFARCTION. THE UPPER REFERENCE LIMIT (URL) OF TROPONIN, DEFINED THE 99TH PERCENTILE OF cTnI DISTRIBUTION IN A REFERENCE POPULATION, HAS BEEN CONFIRMED THE DECISION THRESHOLD FOR AK DIAGNOSIS.Performed By: #### KAYKAY, HSTROPN #### [facility] [address] [place] [address] Dr. Shane HintonXR CHEST 1 Von 23-78-4366TR CHEST 1 VEXAMINATION: XR CHEST 1 V [...] Electronically authenticated by: SAEED ARCE Date: 2021-11-08 23:12[facility] Vital Signs Date TimeVital SignValuePerforming WsqpuyuteAkhxyshj29-66-5690 13:14-0400Body spkkav847.34 cmDawinifred Gomez DO Work Phone: [phone])[address] [place], [place] 1447909-16-2025 13:14-0400 Body mass index (BMI) [Ratio]25.4 kg/g7Voupm Girtee DO Work Phone: [phone])[address] [place], [place] 1447909-16-2025 13:14-0400 Body lonvvpsufbu42.3 [degF]Saeed Gomez DO Work Phone: [phone])[address] [place], [place] 1447909-16-2025 13:14-0400 Body bqqgab66.55 kgDawinifred Gomez DO Work Phone: [phone])[address] [place], [place] 1447909-16-2025 13:14-0400 Diastolic blood wqkmwuii16 mm[Hg]Saeed Gomez DO Work Phone: 1(181)[address] [place], [place] 1447909-16-2025 13:14-0400 Heart rate89 /minDavimarian Gomez DO Work Phone: [phone])[address] [place], [place] 1447909-16-2025 13:14-0400 SaO2% (BldA) [Mass fraction]96 %Saeed Gomez DO Work Phone: [phone])[address] [place], [place] 1447909-16-2025 13:14-0400 Systolic blood jdoltdzy476 mm[Hg]Saeed Gomez DO Work Phone: 1(884)[address] [place], [place] 1447908-14-2025 11:01-0400 Body njehvq492.34 cmDawinifred Gomez DO Work Phone: [phone])[address] [place], [place] 1447908-14-2025 11:01-0400 Diastolic blood mm[Hg]Saeed Gomez DO Work Phone: [phone])[address] [place], [place] 1447908-14-2025 11:01-0400 Systolic blood hpzajerx421 mm[Hg]Saeed Gomez DO Work Phone: 1(330)[address] [place], [place] 1447908-14-2025 10:53-0400 Body mass index (BMI) [Ratio]25.4 kg/j3Wsjwrwinifred Gomez DO Work Phone: 1(464)[address] [place], [place] 1447908-14-2025 10:53-0400 Body bgfelehbfjd85.5 [degF]Saeed Gomez DO Work Phone: 1(235)[address] [place], [place] 1447908-14-2025 10:53-0400 Body qfrbuj05.55 kgDavid Piotrvin DO Work Phone: 1(533)[address] [place], [place] 1447908-14-2025 10:53-0400 Heart rate84 /Yung Gomez DO Work Phone: [phone])[address] [place], [place] 1447908-14-2025 10:53-0400 Respiratory rate14 /Yung Saldañavin DO Work Phone: 1(852)[address] [place], [place] 1447908-14-2025 10:53-0400 SaO2% (BldA) [Mass fraction]98 %Saeed Gomez DO Work Phone: 1(440)[address] [place], [place] 1447905-22-2025 09:24-0400 Body ywceyrrzmyx62.8 [degF]Saeed Gomez DO Work Phone: 1(102)[address] [place], [place] 1447905-22-2025 09:24-0400 Body phamcl22.55 kgDawinifred Gomez DO Work Phone: 1(988)[address] [place], [place] 1447905-22-2025 09:24-0400 Diastolic blood xozuzptt69 mm[Hg]Saeed Gomez DO Work Phone: 1(561)[address] [place], [place] 1447905-22-2025 09:24-0400 Heart rate91 /Yung Gomez DO Work Phone: 1(369)[address] [place], [place] 1447905-22-2025 09:24-0400 SaO2% (BldA) [Mass fraction]97 %Saeed Gomez DO Work Phone: 1(131)[address] [place], [place] 1447905-22-2025 09:24-0400 Systolic blood mm[Hg]Saeed Gomez DO Work Phone: 1(447)[address] [place], [place] 1447905-28-2024 08:07-0400 Body rtxpre716.34 cmPremier Health [facility]05-28-2024 08:07-0400Body mass index (BMI) [Ratio]24.3 kg/s5WocligxsjPremier Health [facility] South05-28-2024 08:07-0400Body sykczszyuny76.6 [degF][facility]05-28-2024 08:07-0400Body izomuf52.92 kgPremier Health [facility]05-28-2024 08:07-0400Diastolic blood ijlyxetq47 mm[Hg][facility] 11-21-2023 08:07-0946JaP4% (BldA) [Mass fraction]99 %[facility]05-28-2024 08:07-0400Systolic blood teljhkrq125 mm[Hg][facility]08-25-2022 08:35-0400Body aygxma050.34 cmDavid Patricia Other [place] [employer] Other 08-24-2022 10:30-0400Diastolic blood zbsxfxfe45 mm[Hg] Saeed Gomez Work Phone: [phone]) [phone]-FzlnoMercy Hospital 600 DO Work Phone: 1(509) 216-433908-24-2022 10:30-0400Systolic blood mm[Hg] Saeed Gomez Work Phone: [phone]) [phone]-IutjzMercy Hospital 600 DO Work Phone: 1(140) 713-991908-24-2022 09:53-0400Body .34 cmDawinifred Gomez Work Phone: 1(152) [phone]-IzthhMercy Hospital 600 DO Work Phone: 1(974) 878-502208-24-2022 09:53-0400Body mass index (BMI) [Ratio] 24.97 kg/r0Vxrtowinifred Gomez Work Phone: 1(102) [phone]-YbmmpMercy Hospital 600 DO Work Phone: 1(960) 762-810608-24-2022 09:53-0400Body surface area Derived from formula2.01 t7Bkskawinifred Gomez Work Phone: 1(886) [phone]-TbvkmMercy Hospital 600 DO Work Phone: 1(934) 325-585908-24-2022 09:53-0400Body gredxe46.19 kgDawinifred Gomez Work Phone: 1(709) [phone]-Bwpad [facility] 600 DO Work Phone: 1(957) 676-195308-24-2022 09:53-0400Diastolic blood jojcmnfa13 mm[Hg] Saeed Gomez Work Phone: 1(613) [phone]-Aaljy [facility] 600 DO Work Phone: 1(664) 200-727008-24-2022 09:53-0400Heart rate72 /minDander Gomez Work Phone: 1(123) [phone]-LpyodPerham Health [facility] 600 DO Work Phone: [phone] 960-270108-24-2022 09:53-0400Systolic blood tjxynzld260 mm[Hg] Saeed Gomez Work Phone: 1(467) [phone]-L[facility]qaL[facility] Hospital[facility] 600 DO Work Phone: 1(617) 681-934508-18-2022 10:45273882 1Dander Gomez Work Phone: 1(226) [phone]-Dcrms [facility] [address] [place] Work Phone: Comment on above:[id number] 10:27-0400 Diastolic blood udzuajdl83 mm[Hg]Saeed Gomez Work Phone: 1(582) [phone]-Ltmby [facility] 600 DO Work Phone: 1(390) 278-783807-20-2022 10:27-0400Systolic blood ajylapce119 mm[Hg] Saeed Gomez Work Phone: 1(815) [phone]-Aflew [facility] 600 DO Work Phone: 1(899) 555-822607-20-2022 10:25-0400Body vcziyo155.34 cmDawinifred Gomez Work Phone: 1(629) [phone]-Iuhih [facility] 600 DO Work Phone: 1(255) [phone] 10:25-0400Body mass index (BMI) [Ratio] 25.11 kg/a7Mzvtxwinifred Gomez Work Phone: 1(662) [phone]-AyavgMercy Hospital 600 DO Work Phone: 1(624) [phone] 10:25-0400Body surface area Derived from formula2.02 f3RvvdySaeed Gomez Work Phone: 1(612) [phone]-ZaqygMercy Hospital 600 DO Work Phone: 1(459) [phone] 10:25-0400Body .65 kgDawinifred Gomez Work Phone: 1(639) [phone]-HamnfMercy Hospital 600 DO Work Phone: 1(770) 617-216607-20-2022 10:25-0400Diastolic blood jbimlkcm39 mm[Hg] Saeed Gomez Work Phone: 1(956) [phone]-UyvqjMercy Hospital 600 DO Work Phone: 1(408) 203-208407-20-2022 10:25-0400Heart rate82 /Yung Gomez Work Phone: 1(455) [phone]-McjnsMercy Hospital 600 DO Work Phone: 1(457) [phone] 10:25-0400Systolic blood dzzttygb463 mm[Hg] Saeed Gomez Work Phone: 1(184) [phone]-XekntMercy Hospital 600 DO Work Phone: 1(711) [phone] 18:00-0400Body hxyjpg980.34 cmDawinifred Gomez Other [place] [employer] Other 934562-06-1707 18:00-0400Body mass index (BMI) [Ratio] 26.01 kg/r4Qvxtkwinifred Gomez Other [facility] Other 05-23-2022 18:00-0400Body .6 kgDawinifred Gomez Other [place] [employer] Other 05-23-2022 18:00-0400Diastolic blood rcpxaosr48 mm[Hg] Saeed Gomez Other [facility] Other 05-23-2022 18:00-0400Respiratory rate18 /minDander Gomez Other [employer] Other 05-23-2022 18:00-3310JmK0% (BldA) [Mass fraction]99 % Saeed Gomez Other [facility] Other 05-23-2022 18:00-0400Systolic blood lukiycop173 mm[Hg] Saeed Gomez Other [employer] Other Encounters Encounter DateEncounter TypeCare ProviderFacilityStart: 04-25-2025 End: 03-49-1675htbafndymhGISUB KARAMLOUFacility:[facility] HospitalStart: 04-08-2025 End: 46-49-3277gvdfioxxexZHPDB KARAMLOUFacility:[facility]art: 04-04-2025 End: 59-00-8493cphdlikiulBERAF KARAMLOUFacility:[facility] HospitalStart: 04-01-2025 End: 69-98-0095fawpyunkbcZEITN C GIRVINFacility:[facility] Hospitaltart: 03-27-2025 End: 38-71-9932jpyrqtdtxnCKSYX C GIRVINFacility:[facility] HospitalStart: 03-20-2025 End: 84-36-8397kfgexwucxhNTDYB KARAMLOUFacility:[facility] Centertart: 03-20-2025 End: 16-72-4553vgjsocmqiyILRQC KARAMLOUFacility:[facility] HospitalStart: 03-20-2025 Encounter [facility]ced[facility] Start: 03-20-2025 End: 60-56-9745dgaqtyfcitEJWGN KARAMLOUFacility:[facility] HospitalStart: 72-91-4300Zjnszviam for preprocedural laboratory examinationJUDIT SHANNON [facility] HospitalStart: 03-11-2025 End: 45-87-3530xykmnimnppGekyd Patricia DO Work Phone: [facility] Work Phone: Start: 03-11-2025 End: 67-32-3517Hrwgrov encounter procedureDavimarian Gomez DO-[facility] [place] Work Phone: Start: 61-40-4446Eoo-patient / Non-visitDavimarian Gomez DO-[facility] Professional Co Work Phone: Start: 02-06-2025 End: 33-68-4708zxrvbtnzamQnltr Patricia DO Work Phone: [facility] Work Phone: Start: 02-06-2025 End: 78-26-2338Zqgyyaa encounter procedurePatricdiandra Fletcher SPORTS SPECIALIST-[facility] Work Phone: Start: 11-14-2024 End: 32-26-9853lijxgcktyiSxsjg Patricia DO Work Phone: [facility] Work Phone: Start: 11-14-2024 End: 68-08-9085Mhxclif encounter procedureDavid Patricia DO Work Phone: Replaced By [facility] [place] Work Phone: Start: 11-12-2024 End: 39-97-0154Tcvrjcy encounter procedureDavid Piotrvin DO Work Phone: [facility] [place] Work Phone: Start: 11-12-2024 End: 76-07-7649zkuchxhkmpJcutw PatriciaFacility:[facility] Start: 11-21-2023 End: 59-88-4016ocpvdoshuoSzfecqdakParkview Health Work Phone: start: 11-21-2023 End: 50-12-7073Syzdakh encounter procedureFirchesapeake [facility] Work Phone: Start: 14-11-0859Wha-patient / Non-visitFirchesapeake regional medical center Physician [facility] Professional [employer] Work Phone: Start: 11-29-2022 End: 79-29-8826kohoospfbgOlwnz Girvin Other [employer] Other Start: 97-72-9097Kfkmketyz encounterDavid GirteeFPG Family [facility] Air Force BaseevueStart: 11-23-2022 End: 08-28-1280kmbplmywhqKrhgj Patricia Other [facility] Other Start: 94-35-0725Rdibqcxeu encounterDavid GirvinFPG Family Medicine [place]vueStart: 11-22-2022 End: 71-59-4324cpkqsvgkjmJuqne Girtee Other [employer] Other Start: 98-00-2940Yatlelezd encounterDavid GirvinFPG Family Medicine BellevueStart: 07-08-2022 End: 33-54-8520jrxlepqlhpLA NONE LISTED REQUESTFacility:P7Pkopt: 02-17-2022 End: 53-09-7356gnbaepjumtVI NONE LISTED REQUESTNort [employer] Other Start: 28-63-1427Qzwwqxevl encounterDavid GirvinG Family Medicine [facility] BaseevueStart: 01-50-6045SMU, Provider: Latrell Roberto, Status: Pen, Time: 9:50 Cindy Gomez Work Phone: [phone]-Hgfau [facility] [address] [place] Work Phone: Start: 36-99-7581Nwkvcw outpatient visit 25 minutes Saeed Gomez Work Phone: [phone]-Gjfzv [facility] 600 DO Work Phone: Start: 84-10-7787lgivzfkhmjLa. David Clark Girvin Facility:[id number]: 55-24-5268Rnhngda encounter procedureDawinifred Gomez Work Phone: [phone]-Wyqnw [facility] [address] [place] Work Phone: Start: 91-91-0193Cjnab UpdateDander Gomez Work Phone: 1([phone]-Svwpz [facility] [address] DO Work Phone: Start: 93-38-0494mdjdpmjrchIxvaykj McGuinn Facility:[id number]: 57-89-2680Hchjhl consultation new/estab patient 60 minDander Gomez Work Phone: [phone]-Lxxlo [facility] 600 DO Work Phone: Start: 11-18-2021 End: 46-64-3715uryicnirlpRgbws Girvin Other [employer] Other Start: 85-66-1811Gmwbthzrn encounterDawinifred Valdez [facility] [place]vueStart: 11-15-2021 End: 23-24-9933lfqfkuhizuAkkon Girvin Other [employer] Other Start: 01-85-1514Eqnidx outpatient new 30 minutesDavid José Miguel [facility] BellevueStart: 11-09-2021 End: 42-64-3755qgxauvomcpSY CORNELIA HALLFacility:H1 Procedures DateProcedureProcedure DetailPerforming ClinicianStart: 48-05-1752Sbfav clay Gomez DO Work Phone: Start: 52-05-4657CiukduzgkcfeninwVzsmj C Girvin Work Phone: Total colonoscopyDawinifred Gomez Work Phone: Comment on above:06/2006; Plan of Treatment DateCare ActivityDetailAuthorStart: 27-77-6870EjpksxkudPremier Health [facility] Start: 92-35-6544ZGE, Provider: Latrell Roberto, Status: Pen, Time: 10:00 AMFUV, Provider: Latrell Roberto, Status: Pen, Time: 10:00 AMMP-[facility] 600 DO Work Phone: Start: 03-83-9506KHZ, Provider: Latrell Roberto, Status: Pen, Time: 9:50 AMFUV, Provider: Latrell Roberto, Status: Pen, Time: 9:50 AMMP-[facility] 600 DO Work Phone: Start: 03-90-2718PUEN, Provider: DINO HHVI ULTRASOUND 01,[id number], Status: Pen, Time: 10:45 AMECHO, Provider: DINO HHVI ULTRASOUND 01,[id number], Status: Pen, Time: 10:45 [facility] 600 DO Work Phone: Bacteria identified in Urine by [facility] CenterComprehensive [facility] 1999 panel - Serum or Plasma [facility] SouthComprehensive metabolic 1999 panel - Serum or [facility] HospitalLipoprotein a [Moles/volume] in Serum or [facility] North HospitalMR Abdomen WO and W contrast [facility] HospitalUrine [facility] Payers DatePayer CategoryPayerPolicy [id number] [id number] [id number] [id number] [id number] Net[employer] Access [id number] Social History DateTypeDetailFacilitySex Assigned At Griffin HospitalPetSitnStay [employer] Other No illicit drug useNo illicit drug use-[place] [address] DO Work Phone: Start: 11-17-2023 End: 72-61-2207Xcjtgfw smoking status NHISNever smoked tobacco (finding) [facility]: 85-11-3696Vef Assigned At [facility]: 96-24-1923QomTtxj (finding)[facility] Clinical Notes 11-15-2021 to 04-25-2025 Note Date & WgchYwjyTugsjbwa00-81-4591 NoteHNO ID: [id number] Author: JUDIT SHANNON MD Service: ? Author Type: Physician Type: Progress Notes Filed: 04/25/2025 11:26 Note Text: PATIENT NAME: Javad [place] CLINIC NO.: [id number] ATTENDING PHYSICIAN: Judit Shannon MD DATE OF [...] Range Status 03/27/2025 14.9 % Final Abs [place] Date Value Ref Range Status 03/27/2025 0.90 [...] (patchy); they do n (more content not included)...[facility]10-14-2025 NoteHNO ID: [id number] Author: JUDIT SHANNON MD Service: ? Author Type: Physician Type: Progress Notes Filed: 04/08/2025 16:58 Note Text: PATIENT NAME: Javad [place] CLINIC NO.: [id number] ATTENDING PHYSICIAN: Judit Shannon MD DATE OF [...] Range Status 03/27/2025 14.9 % Final Abs [place] Date Value Ref Range Status 03/27/2025 0.90 (H) <0.87 k/uL Final Abs Eosin Date Value Ref Range Status 03/27/2025 0.08 <0.46 k/uL Final Basophils % Date Value Ref Range Status 03/27/2025 (more content not included)...[facility]09-25-2025 NoteHNO ID: [id number] Author: LESLI HOLLINGSWORTH RT(R) Service: Radiology Author [...] PATIENT PRESENTS WITH AN IMPLANTABLE OR ATTACHED WEB CONTENT EXECUTIVE: No RADIOLOGY DEPARTMENT: MR; Exam(s) Completed: Body: Pancreas/Biliary. Anesthesia: No. Aromatherapy Administered: No PERIPHERAL IV DATA: Site assessment: Clean,Dry and Intact, Site disposition Discontinued SIGNED BY: RT Vanessa(R) March 20, 2025 6:55 [facility]09-25-2025 NoteHNO ID: [id number] Author: KELLY AMADOR RN Service: Nursing Author [...] [place] DATE: March 20, 2025 TIME: 5:42 [facility]09-25-2025 NoteHNO ID: [id number] Author: JUDIT SHANNON MD Service: ? Author Type: Physician Type: Progress Notes Filed: 03/20/2025 13:30 Note Text: PATIENT NAME: Javad [place] CLINIC NO.: [id number] ATTENDING PHYSICIAN: Judit Shannon MD DATE OF SERVICE: March 20, 2025 Recording using [employer] software for draft documentation of the visit was discussed with the patient/authorized sales representative graphic art; all questions welcomed and answered. Patient/authorized sales representative graphic art agreed to proceed Dear Dr. Gomez, thank [...] a month ago. 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 Family [...] Take 250 mg by mouth once daily. Scandia-3 Fatty Acids 1,250 mg cap Take by [...] movements are intact. L (more content not included)...[facility]08-14-2025 Evaluation note* Diagnosis Onset Date Resolution Status Admit Date Cellulitis acuteAugust 2024 10:44amElevated BP without diagnosis of hypertensionacute February 06, 2025 10:44amSkin rashacuteAugust 2024 10:44amAdrenal nodule acuteSept2024 1:13pmElevated BP without diagnosis of hypertension acuteSept2024 1:13pmLeft-sided chest wall painacuteSept2024 1:13pmLiver massacuteSept2024 1:13pmPancreatic massacute March 11, 2025 1:13pmSplenomegalyacuteSept2024 1:13pm [facility] Work Phone: 1(172) 965-276805-22-2025 Evaluation note* Author Saeed Gomez [facility] SouthAuthoredMay 2024 9:54amThe above note written by ___Domitila Saunders____ acting as human recorder, note dictated by Dr. Nicholas .I performed the above HPI, ROS, and Examination. I formulated and dictated the treatment plan and was present for entire encounter. Saeed Gomez D.O. 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 [facility] Work Phone: 1(632) 805-603406-29-2022 History of Present illness Narrative* Patient is [...] the interim if problems arise or occur. [facility] 600 DO Work Phone: 1(180) 594-996505-23-2022 Evaluation note* Encounter Date Diagnosis Assessment Notes [...] I am going to refer him toa dye expert to discuss palpitations, light headedness and they can discuss his cholesterol as well. If needed we can control his cholesterol with medication, will await what the dye expert says. October,Hyperglycemia (ICD-10 - R73.9)Discussed blood sugar [...] the palpitations. 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 [employer] Other Chief complaint Narrative - ReportedGARY DONYANDT is being seen for a consultation for Palpitations/Lightheaded/ High LDL.[facility] 600 DO Work Phone: Chief complaint Narrative - ReportedJAVAD COLORADO is being seen for a consultation for Palpitations/Lightheaded/ High LDL.[facility] Work Phone: Evaluation noteNo InformationNortHaven Behavioral Hospital of [facility] frents Other Evaluation note* Diagnosis Onset Date Resolution Status Calcium oxalate crystals in urine acuteHyperglycemiaacuteHyperlipidemiaacuteIntentional weight lossacuteNocturia acute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acutePalpitationsacuteScreening for prostate canceracute [facility] Work Phone: Evaluation note* Diagnosis Onset Date Resolution Status Admit Date Calcium oxalate crystals in urine acuteMay 2024 9:03amColon cancer screeningacuteMay 2024 9:03am Elevated PSAacuteMay 2024 9:03amHyperglycemiaacuteMay 2024 9:03am HyperlipidemiaacuteMay 2024 9:03amLeukopeniaacuteMay 2024 9:03am PalpitationsacuteMay 2024 9:03amWeight gainacuteMay 2024 9:03am [facility] Work Phone: Hiszdcc general Narrative - Reported* Type Description Date Surgical History colonoscopy approximately 2004, normal per patient Hospitalization EtnmsqvXeeilause7554 [facility] frents Other History of Present illness Narrative* Returns [...] call if problems arise in the interim. -[facility] 600 DO Work Phone: Reason for referral (narrative)No reason for referral information availableSelect Medical [facility]ty [facility] Work Phone: Reason for Referral Reason appt pt does not have a preference for dr pt needs consult to discuss palpitations, light headedness and high LDL Diagnosis 1 Palpitations (R00.2) Referral Organization [facility] Family Richelle Julio Referring Provider First Name Saeed Referring Provider Last Name Patricia Referring Provider Specialty Family Prac marylin Referred Organization [facility] enter Referred Address [address] [place] [address] Referred Provider Specialty Cardiology Referral Priority Routine [...] Hyperglycemia Hyperlipidemia Intentional weight loss Nocturia Other usp (current) drug therapy Palpitations Screening for prostate [...] section and content) DATE CREATED AUTHOR 02/16/2022 [facility] DATE CREATED AUTHOR AUTHOR'S ORGANIZ ATION 02/19/2022 [employer] DATE CREATED AUTHOR AUTHOR'S ORGANIZ ATION 07/08/2022 [facility] DATE CREATED AUTHOR AUTHOR'S ORGANIZ ATION 12/04/2022 [facility] DATE CREATED AUTHOR AUTHOR'S ORGANIZ ATION 11/24/2024 [facility] Replaced By [facility] DATE CREATED AUTHOR AUTHOR'S ORGANIZ ATION 03/27/2025 [facility] DATE CREATED AUTHOR AUTHOR'S ORGANIZ ATION 03/30/2025 [facility] DATE CREATED AUTHOR AUTHOR'S ORGANIZ ATION 04/08/2025 [facility] DATE CREATED AUTHOR AUTHOR'S ORGANIZ ATION 05/02/2025 [facility] Care Teams (unrecognized sec tion and [...] 2025 End: February 06, 2025Jennifer Fletcher APRN HOSPITAL CHIEF FINANCIAL OFFICER-CAttending Provider ActiveStart: February 06, 2025 End: February [...] BE BASED ON THE PRIMARY CLINICAL RECORDS. [facility] [employer] provides no warranty or guarantee of the accuracy or completeness of information in this document.
[2025-05-18 16:20] VITALS: BP 117/82; PULSE 104; TEMP 36.6; O2SAT 93; BMI 21.9
[2025-05-18] MEDS: HYDROMORPHONE HCL 1 MG/ML CARTRIDGE IVP (16:59)
[2025-05-18] MEDS: LORAZEPAM 2 MG/ML ORAL CONCENTRATE BOTTLE 1 MG PO (17:30)
[2025-05-18] MEDS: FENTANYL 50 MCG/HR PATCH.TD72 TD (17:51)
[2025-05-18] MEDS: PANTOPRAZOLE SODIUM 40 MG VIAL IV (17:51)
[2025-05-18 19:16] VITALS: BP 104/73; PULSE 101; TEMP 36.4; O2SAT 90; O2SAT 91
[2025-05-18 23:58] VITALS: BP 101/69; PULSE 103; TEMP 36.3; O2SAT 94
[2025-05-19] MEDS: HYDROMORPHONE HCL 1 MG/ML CARTRIDGE IVP ×3 (03:56→14:11)
[2025-05-19 03:57] VITALS: BP 103/60; PULSE 106; TEMP 36.2; O2SAT 92
[2025-05-19 07:37] VITALS: BP 90/62; PULSE 103; TEMP 36.3; O2SAT 93
--- NOTE | 2025-05-19 08:50 | CM.NOTE ---
Rounds made with Dr. Kirkpatrick, discussed diagnosis and plan of care. Family inquiring about prognosis, Dr. Kirkpatrick answers questions. Family also questioning inpatient Hospice, information provided. Pt at this time had [facility] scheduled for this am and would like to change to [facility] for inpatient Hospice. SW reached out to [facility] and [facility] for plan change. CM back in after rounding, support provided.
--- NOTE | 2025-05-19 09:13 | PM.HP ---
HPI H&P: HPI History of Present Illness Chief complaint: Admission for hospice Narrative: Mr. [place] is a 69-year-old gentleman with recent diagnosis of pancreatic cancer. This was diagnosed in February 2025. Patient was seen by [facility] oncology team. They have decided not to proceed with any oncological care. Patient started to decline 4 days ago. Patient was seen by palliative team and was started on pain medication. Patient continued to decline having nausea, vomiting and abdominal pain. He was brought to the emergency room where he was found to have multisystem failure. White count 33,000. Potassium 5.9. Creatinine 3.28. Bilirubin is 13. Altered mental status. Family stated that they want hospice. Family requested admission for pain management pending enrollment into the hospice program. Opioid HPI Opioid Management Most Recent Pain and Opioid Data: Last Pain Scale 0 Today, 08:52 Last Pain Assessment Today, 08:52 Last MAR Pain Assessment Today, 05:36 Last ORT Total Score 0 05/18/25, 16:20 Last ORT Risk Category Low Risk 05/18/25, 16:20 PFSH PFSH Family History (Updated 05/18/25 @ 17:40 by Silke Kc) Father Family history of cancer Mother Family history of cancer Brother Family history of myocardial infarction Social History Highest level of school completed/degree received: high school graduate Little interest or pleasure in doing things: not at all Feeling down, depressed, or hopeless: not at all Do you think of yourself as: straight/heterosexual Gender Identity: male Meds Home Medications and Allergies Home Medications ?Medication ?Instructions ?Recorded ?Confirmed ?Type fentanyl 25 mcg/hr transdermal 1 patch transdermal Q72H 05/18/25 05/18/25 History patch ondansetron HCl 8 mg tablet 8 mg PO Q8H PRN nausea and vomiting 05/18/25 05/18/25 History oxycodone 5 mg tablet 5 mg PO Q4H PRN pain 05/18/25 05/18/25 History polyethylene glycol 3350 17 gram 17 g PO DAILY 05/18/25 05/18/25 History oral powder packet (Purelax) sennosides 8.6 mg tablet (senna) 8.6 mg PO BID PRN constipation 05/18/25 05/18/25 History Allergies Allergy/AdvReac Type Severity Reaction Status Date / Time No Known Drug Allergies Allergy Verified 05/18/25 10:10 Exam Narrative Exam Narrative: Patient is lying in bed. Lethargic. Arousable. Able to nod his head. Able to squeeze hands. Very cachectic and frail. Very jaundiced. Dry skin and buccal mucosa. Neck is supple. Chest is clear, heart is regular. Abdomen exam revealed epigastric mass with tenderness. Muscle wasting and atrophy involving his upper and lower extremities Constitutional Vital Signs, click to edit/add: Last Vital Signs Temp 97.3 F L 05/19/25 07:37 Pulse 103 H 05/19/25 07:37 Resp 18 05/19/25 07:37 BP 90/62 05/19/25 07:37 Pulse Ox 93 L 05/19/25 07:37 O2 Del Method Room Air 05/19/25 07:37 Results Labs Labs: Short CBC 05/18/25 Range/Units 10:38 WBC 33.8 H* (4.0-11.0) 10^3/uL Hgb 14.4 (14.0-18.0) g/dL Hct 42.6 (42.0-54.0) % Plt Count 231 (150-450) 10^3/uL BMP 05/18/25 10:38 Sodium 133 L Potassium 5.9 H Chloride 93 L Carbon Dioxide 20.0 L BUN 91.0 H* Creatinine 3.28 H Glucose 132 H Calcium 8.2 L Liver Function 05/18/25 Range/Units 10:38 Total Bilirubin 13.4 H (0.2-1.0) mg/dL AST 827 H* (15-37) U/L ALT 300 H (16-63) U/L Alkaline Phosphatase 882 H (46-116) U/L Albumin 2.0 L (3.4-5.0) g/dL Assessment and Plan Assessment and Plan (1) Admission for hospice care: (2) 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 AST is 800, bilirubin is 13 alk phos is 800 JASMYN Sepsis Hyperkalemia Metabolic acidosis Moderate to severe protein calorie Metabolic and septic encephalopathy Other medical issues not listed above Patient was brought to the emergency room with intention for symptoms management and enrollment into the hospice program. I excepted him to be admitted to [place] to provide comfort care and to facilitate enrollment into the inpatient hospice unit. I discussed his case with his this morning outside his room. Life expectancy is counted in days. Comfort care Urinary Catheter Management Urinary Catheter Management 2-way Urethral: Cath placed during this visit: yes Urethral indwelling: No Insertion date: 05/18/25 Insertion time: 16:35
[2025-05-19] MEDS: LORAZEPAM 2 MG/ML ORAL CONCENTRATE BOTTLE 1 MG PO (10:00)
[2025-05-19 10:26] VITALS: O2SAT 93
--- NOTE | 2025-05-19 10:34 | SWNOTE1 ---
SW spoke to Case Management and pt's family would like [facility], they are unsure they can take him home. Possible need for inpt unit. MACEY called [facility] and cancelled meeting for today. MACEY called [facility] and let them know we are sending referral and need a nurse urgently this morning. MACEY faxed referral to [facility]. MACEY also reached out to Hoa at [facility] and let her know referral was sent. Referral sent to [facility]. Referral included face sheet, ED note, H&P, provider notes, case management report, diagnostic imaging, med list, DNR order, and hospice order.
--- NOTE | 2025-05-19 11:55 | PM.DS1 ---
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 He was brought to the emergency room and was found to have the following: Multiorgan failure Metastatic pancreatic cancer Obstructive jaundice, probable liver failure. AST is 800, bilirubin is 13 alk phos is 800 JASMYN Sepsis Hyperkalemia Metabolic acidosis Moderate to severe protein calorie Metabolic and septic encephalopathy Other medical issues not listed above His PPS is 20%. ECOG score is 4. BAIN score is 1 FAST score 7D Family is requesting enrollment into hospice program. Pain management. Titrate pain and anxiety medication to keep him comfortable. Patient will be discharged to inpatient hospice unit today. Life expectancy is counted in days. Time Spent with Patient Time attestation: Total time spent providing and/or coordinating discharge services: Exam Constitutional Vital Signs, click to edit/add: Last Vital Signs Temp 97.3 F L 05/19/25 07:37 Pulse 103 H 05/19/25 07:37 Resp 18 05/19/25 07:37 BP 90/62 05/19/25 07:37 Pulse Ox 93 L 05/19/25 10:26 O2 Del Method Room Air 05/19/25 10:26 DS: Data Data Completed and Pending Labs on day of discharge: Labs from last 24 hours 05/18/25 13:26 Lactate 7.2 H* Discharge Plan Discharge Disposition: Hospice - Medical Facility Discharge Medications: New fentanyl 50 mcg/hr Patch 72 Hour 50 mcg transdermal Q72H Qty: 0 0RF lorazepam [Lorazepam Intensol] 2 mg/mL Concentrate 1 mg PO Q4H PRN (Reason: Anxiety) Qty: 0 0RF Continued sennosides [senna] 8.6 mg tablet 8.6 mg PO BID PRN (Reason: constipation) ondansetron HCl 8 mg tablet 8 mg PO Q8H PRN (Reason: nausea and vomiting) oxycodone 5 mg tablet 5 mg PO Q4H PRN (Reason: pain) Discontinued polyethylene glycol 3350 [Purelax] 17 gram powder in packet 17 g PO DAILY fentanyl 25 mcg/hr patch 72 hour 1 patch transdermal Q72H Print Language: Trinidadian Forms: Portal Instructions
--- NOTE | 2025-05-19 12:55 | CM.NOTE ---
Important Message From [employer] discussed with pt's . Pt lethargic and difficult to arouse at this time. Pt's verbalizes understanding and signs paper. Original given to pt and copy placed in pt's chart.
--- NOTE | 2025-05-19 13:29 | SWNOTE1 ---
SW received a call from [facility], and they will be here between 12:30-1:00. SW notified nurse and family is aware as well. [facility] is here. SW stopped in to room and [facility] nurse let SW know they do have room in the [facility] and she is working on getting him sent over there. She has to complete documentation and then she will work on transport. SW asked family if they are in agreement. Pt's in agreement.
--- NOTE | 2025-05-19 13:57 | SWNOTE1 ---
MACEY faxed dc med rec and dc summary to the [facility] inpt unit. MACEY took a copy of the dc med rec and dc summary to the [facility] nurse at the hospital.
--- NOTE | 2025-05-19 14:59 | SWNOTE1 ---
MACEY spoke to [facility] nurse and [facility] will be transporting at 4:00. Pt's nurse at the hospital is aware and family is aware of time. MACEY took packet to med/surge floor and attached Andrzej paperwork, face sheet, and DNR order to packet. Pt is going to the [facility].
== END 2025-05-19 15:35 | disposition hospice, inpatient (51) | DRG 871 ==
LOC: ER 15:26 → MS 16:06
PROVIDERS: Admitting Provider Internal Medicine; Emergency Provider Emergency Medicine; PCP Family Medicine; Visit Provider Internal Medicine
DX: A41.9 Sepsis, unspecified organism (principal); G93.41 Metabolic encephalopathy; K83.1 Obstruction of bile duct; N17.9 Acute kidney failure, unspecified; C78.89 Secondary malignant neoplasm of other digestive organs; E87.20 Acidosis, unspecified; E44.0 Moderate protein-calorie malnutrition; R64 Cachexia; E87.5 Hyperkalemia; C80.1 Malignant (primary) neoplasm, unspecified; Z66 Do not resuscitate; K72.90 Hepatic failure, unspecified without coma; Z68.21 Body mass index [BMI] 21.0-21.9, adult
CPT/HCPCS: 36415; 51702; 51798; 71045; 74018; 80053; 83605; 85007; 85027; 94761; 96374; 96376; 99285; J1171